=== PATIENT | female | born 1965 | race Caucasian/White ===

== ENCOUNTER 2021-12-02 04:13 | Inpatient (IN) ==
[2021-12-02] MEDS ORDERED: ALBUT/IPRATROP 3MG/0.5MG NEB 3 ML VIAL NEB STA (04:33)
[2021-12-02] MEDS ORDERED: SODIUM CHLORIDE 0.9% 1000ML 1,000 ML IV ONE (04:33)
[2021-12-02] MEDS ORDERED: KETOROLAC TROMETHAMINE 15 MG/ML VIAL IV ONE (04:33)
[2021-12-02 04:52] LABS: Basophils # (auto) 0.02 K/uL (0-0.2); Basophils % (auto) 0.1 %; Eosinophils # (auto) 0.23 K/uL (0-0.5); Eosinophils % (auto) 1.6 %; Hematocrit (blood only) 41.1 % (37-47); Hemoglobin 13.4 g/dL (12.0-16.0); Immature Granulocytes # (auto) 0.04 K/uL (0.00-0.02); Immature Granulocytes % (auto) 0.3 %; Lymphocytes # (auto) 2.35 K/uL (1.2-3.4); Lymphocytes % (auto) 16.6 %; Mean Corpuscular Hemoglobin 29.7 pg (25-34); Mean Corpuscular Hgb Conc 32.6 g/dL (32-36); Mean Corpuscular Volume 91.1 fL (80-100); Monocytes # (auto) 0.93 K/uL (0.11-0.59); Monocytes % (auto) 6.6 %; Neutrophils # (auto) 10.56 K/uL (1.4-6.5); Neutrophils % (auto) 74.8 %; Platelet Count 159 K/uL (130-400); RDW Coefficient of Variation 13.8 % (11.5-14.5); RDW Standard Deviation 45.6 fL (36.4-46.3); Red Blood Count 4.51 M/uL (4.2-5.4); White Blood Count 14.13 K/uL (4.8-10.8)
[2021-12-02 05:08] LABS: Albumin Globulin Ratio 1.2 (0.9-2); Albumin Level 3.7 gm/dl (3.4-5.0); BUN Creatinine Ratio 14.3 (10-20); Bilirubin,Total 0.4 mg/dl (0.2-1.0); Creatinine Clr Calc Pharmacy 85.1 ml/min; Est GFR (African American) 80.6 ml/min; Est GFR (Non-African American) 69.5 ml/min; Globulin 3.1 gm/dl (2.5-4.0); Magnesium 1.9 mg/dl (1.7-2.4); Potassium 3.4 mmol/L (3.5-5.1); Total Protein 6.8 gm/dl (6.0-8.3)
[2021-12-02 05:38] LABS: Influenza A virus by PCR Negative (Neg); Influenza B virus by PCR Negative (Neg); RSV by PCR Negative (Neg); SARS CoV2 RNA(COVID-19) InHosp NEGATIVE (Negative)
[2021-12-02] MEDS ORDERED: cefTRIAXone SODIUM 2,000 MG/70 ML BAG IV STA (05:48)
[2021-12-02] MEDS ORDERED: POTASSIUM CHLORIDE CRTAB 20 MEQ TABCR PO STA (06:17)
[2021-12-02] MEDS ORDERED: LACTATED RINGER'S 1,000 ML IV ONE (06:21)
[2021-12-02] MEDS ORDERED: MAGNESIUM SULFATE / D5W 1 GM/100 ML BAG IV ONE (06:30)
[2021-12-02] MEDS ORDERED: OPTIRAY 320 125ml IV ONE (06:32)
--- NOTE | 2021-12-02 06:39 | History & Physical Report ---
Date of Service December 02, 2021 Assessment & Plan (1) Sepsis: Plan: Possible aspiration pneumonitis Rule out pulmonary embolism COPD exacerbation secondary to above hypertension, slightly elevated hyperlipidemia, on statin Rx hx TIA on Plavix DM2 on oral medications, well-controlled as of recent hemoglobin A1c of 6.8. September 2021 mood disorder, at baseline Hypokalemia ongoing tobacco abuse Medical telemetry CS, Unasyn Aspiration precautions, swallow eval Steroid course, nebs RTC Follow CT chest angio results Replace potassium Basal insulin, ISS BG goal 1 10-1 40, carb count coverage Nicotine patch as needed DVT prophylaxis. Lovenox subcu Full code Text document was generated using [employer] voice recognition software. It may contain grammatical or spelling errors. Kindly contact undersigned for clarification of any documentation item in ques tion. History of Present Illness Chief Complaint: Cough, shortness of breath Primary Care Provider: Evaristo Barron MD History obtained from patient and records. Medical history significant for COPD, hypertension, hyperlipidemia, TIA, DM2 on oral medications, mood disorder, ongoing tobacco abuse. Last confinement September 2021 for community-acquired pneumonia. Patient discharged on cefpodoxime and azithromycin course. Symptoms improved. 3 days history of junky cough symptoms productive of yellow sputum, worsening shortness of breath with chest pain from coughing. No known recent sick contacts. Patient completed COVID-19 vaccination. Admits to coughing with meals/water intake if not careful. No fluid retention. Ceftriaxone given at the ER for sepsis. Medical History as above Surgical History : section, BTL, dental surgery Family History : Breast cancer, dementia, DM, heart disease Personal/Social history : Half pack daily, no EtOH intake, disabled Allergies Allergy/AdvReac Type Severity Reaction Status Date / Time aspirin Allergy Unknown CONTRAINDICATED Verified 12/02/21 06:42 WITH ASTHMA Home Medications Medication Instructions Recorded Confirmed Type ipratropium 20 mcg-albuterol 100 1 puff INHALATION BID 05/08/21 12/02/21 History mcg/actuation mist for inhalation (Combivent Respimat) metformin 500 mg tablet 500 mg PO BIDM 05/08/21 12/02/21 History montelukast 10 mg tablet 10 mg PO DAILY@1200 05/08/21 12/02/21 History multivitamin 1 tab PO QAM 05/08/21 12/02/21 History omeprazole 20 mg capsule,delayed 20 mg PO QAM 05/08/21 12/02/21 History release oxybutynin chloride 10 mg 10 mg PO QAM 05/08/21 12/02/21 History tablet,extended release 24 hr rosuvastatin 20 mg tablet 20 mg PO QAM 05/08/21 12/02/21 History sertraline 100 mg tablet 100 mg PO QAM 05/08/21 12/02/21 History vitamin B complex 1 tab PO QAM 05/08/21 12/02/21 History Lactobacillus acidophilus 10 10,000 mmu cells PO QAM 10/27/21 12/02/21 History billion cell capsule (Probiotic) clopidogrel 75 mg tablet 75 mg PO QAM 10/27/21 12/02/21 History dicyclomine 20 mg tablet 20 mg PO QID PRN 10/27/21 12/02/21 History gabapentin 300 mg capsule 300 mg PO TID 10/27/21 12/02/21 History glucosamine-chondroitin 250 mg-200 1 tab PO QAM 10/27/21 12/02/21 History mg tablet (Osteo Bi-Flex) hydroxyzine HCl 50 mg tablet 50 mg PO Q6H PRN 10/27/21 12/02/21 History meloxicam 15 mg tablet 15 mg PO QAM 10/27/21 12/02/21 History lisinopril 5 mg tablet (Zestril) 5 mg PO QAM #30 tab 10/28/21 12/02/21 Rx acetaminophen 500 mg tablet 1,000 mg PO TID 12/02/21 12/02/21 History cholecalciferol (vitamin D3) 125 125 mcg PO QAM 12/02/21 12/02/21 History mcg (5,000 unit) tablet (Vitamin D3) vitamin E 1,000 unit capsule 1,000 unit PO QAM 12/02/21 12/02/21 History Past Med/Surg History Medical History Chest pain Social History Smoking Status: Current every day smoker Tobacco Type: Cigarettes Cigarettes Per Day: 1/2 ppd; Hx Alcohol Use: No Hx Substance Use: No Communication Ability: Effective Beliefs That Will Affect Care: None marital status: Current Living Situation: Family Current Living Situation Comment: home with daughter Feels Safe at Home: Yes Assistive Devices: Cane, Walker and Wheelchair Review of Systems Review of Systems: As per HPI, all other systems reviewed and negative Physical Exam Physical Exam: GENERAL: Slightly uncomfortable, morbidly obese, dysphonic, no respiratory distress SKIN: Normal color, warm HEENT: Bespectacled, [place] palpebral conjunctivae, no ptosis, dry buccal mucosa NECK : Supple, short neck, no tenderness CHEST : Decreased breath sounds, expiratory wheezes, no tenderness HEART : Tachycardic, no obvious murmurs ABDOMEN: Some distention, nontender EXTREMITIES : Minimal LE swelling, no LE tenderness, no other conspicuous deformities noted NEUROLOGIC : Coherent, no facial asymmetry, no other gross focality Results & Data Results & Data ([facility]) Vital Signs (Past 12 Hours) Vital Signs Temp Pulse Resp BP Pulse Ox 12/02/21 04:46 93 12/02/21 04:16 37.9 C H 107 H 20 151/95 H 93 Laboratory Results Laboratory Results WBC 14.13 K/uL (4.8-10.8) H 12/02/21 04:35 RBC 4.51 M/uL (4.2-5.4) 12/02/21 04:35 Hgb 13.4 g/dL (12.0-16.0) 12/02/21 04:35 Hct 41.1 % (37-47) 12/02/21 04:35 MCV 91.1 fL (80-100) 12/02/21 04:35 MCH 29.7 pg (25-34) 12/02/21 04:35 MCHC 32.6 g/dL (32-36) 12/02/21 04:35 RDW Std Deviation 45.6 fL (36.4-46.3) 12/02/21 04:35 RDW Coeff of Xiomara 13.8 % (11.5-14.5) 12/02/21 04:35 Plt Count 159 K/uL (130-400) 12/02/21 04:35 MPV 11.0 fL (7.4-10.4) H 12/02/21 04:35 Immature Gran % (Auto) 0.3 % 12/02/21 04:35 Neut % (Auto) 74.8 % 12/02/21 04:35 Lymph % (Auto) 16.6 % 12/02/21 04:35 [place] % (Auto) 6.6 % 12/02/21 04:35 Eos % (Auto) 1.6 % 12/02/21 04:35 Baso % (Auto) 0.1 % 12/02/21 04:35 Neut # (Auto) 10.56 K/uL (1.4-6.5) H 12/02/21 04:35 Lymph # (Auto) 2.35 K/uL (1.2-3.4) 12/02/21 04:35 [place] # (Auto) 0.93 K/uL (0.11-0.59) H 12/02/21 04:35 Eos # (Auto) 0.23 K/uL (0-0.5) 12/02/21 04:35 Baso # (Auto) 0.02 K/uL (0-0.2) 12/02/21 04:35 Immature Gran # (Auto) 0.04 K/uL (0.00-0.02) H 12/02/21 04:35 Sodium 138 mmol/L (136-145) 12/02/21 04:35 Potassium 3.4 mmol/L (3.5-5.1) L 12/02/21 04:35 Chloride 105 mmol/L (98-107) 12/02/21 04:35 Carbon Dioxide 27 mmol/L (21-32) 12/02/21 04:35 Anion Gap 6 (3-11) 12/02/21 04:35 BUN 13 mg/dl (6-23) 12/02/21 04:35 Creatinine 0.91 mg/dl (0.6-1.2) 12/02/21 04:35 Est Cr Clr Drug Dosing 85.1 ml/min 12/02/21 04:35 Est GFR ( Amer) 80.6 ml/min 12/02/21 04:35 Est GFR (Non-Af Amer) 69.5 ml/min 12/02/21 04:35 BUN/Creatinine Ratio 14.3 (10-20) 12/02/21 04:35 Glucose 163 mg/dl (70-99(Fasting)) H 12/02/21 04:35 Lactate 1.3 mmol/L (0.4-2.0) 12/02/21 04:35 Calcium 9.0 mg/dl (8.5-10.1) 12/02/21 04:35 Magnesium 1.9 mg/dl (1.7-2.4) 12/02/21 04:35 Total Bilirubin 0.4 mg/dl (0.2-1.0) 12/02/21 04:35 AST 23 U/L (13-39) 12/02/21 04:35 ALT 24 U/L (7-52) 12/02/21 04:35 Alkaline Phosphatase 89 U/L (34-104) 12/02/21 04:35 Total Protein 6.8 gm/dl (6.0-8.3) 12/02/21 04:35 Albumin 3.7 gm/dl (3.4-5.0) 12/02/21 04:35 Globulin 3.1 gm/dl (2.5-4.0) 12/02/21 04:35 Albumin/Globulin Ratio 1.2 (0.9-2) 12/02/21 04:35 Procalcitonin 0.09 ng/ml (0-0.5) 12/02/21 04:35 SARS-CoV-2 (PCR) NEGATIVE (Negative) 12/02/21 04:35 Influenza Type A (PCR) Negative (Neg) 12/02/21 04:35 Influenza Type B (PCR) Negative (Neg) 12/02/21 04:35 RSV (RT-PCR) Negative (Neg) 12/02/21 04:35 Diagnostic Findings Chest x-ray as per my interpretation interstitial infiltrates EKG as per my interpretation : Rate 105, sinus tachycardia, LAD, LAFB, incomplete RBBB, T wave abnormalities inferior leads
[2021-12-02] MEDS ORDERED: AMPICILLIN/SULBACTAM SOD 3,000 MG in 0.9 % SODIUM CHLORIDE 100 ML IV STA (06:40)
[2021-12-02] MEDS ORDERED: methylPREDNISolone 40 MG in SYRINGE 0 ML IV STA (06:44)
[2021-12-02] MEDS ORDERED: INSULIN GLARGINE SOLOSTAR 100 UNITS/ML 3 ML PEN SC STA (06:45)
--- NOTE | 2021-12-02 06:49 | Emergency Department Note ---
History of Present Illness General Chief complaint: Illness Stated complaint: illness Time Seen by Provider: 12/02/21 04:23 History of Present Illness Maximum Pain Intensity: 5 This 56-year-old female patient presents to the emergency department today for evaluation of fever, cough, congestion, sore throat, shortness of breath. Symptoms have been ongoing for 3 days. They worsened suddenly overnight, prompting her to contact the ambulance and come to the emergency department for evaluation. The patient is uncertain of how high her fever has gone. She did take 1000 mg acetaminophen about 1 hour prior to arrival. The patient does have a history of asthma and states she has been taking all of her medications, but despite her medications and inhalers, she continues to experience the shortness of breath. No chest pain. No abdominal pain, nausea, vomiting. No constipation or diarrhea. She rates her generalized discomfort a 5/10 and describes it as aching. Home Medications Medication Instructions Recorded Confirmed Type ipratropium 20 mcg-albuterol 100 1 puff INHALATION BID 05/08/21 10/27/21 History mcg/actuation mist for inhalation (Combivent Respimat) metformin 500 mg tablet 500 mg PO BIDM 05/08/21 10/27/21 History montelukast 10 mg tablet 10 mg PO DAILY 05/08/21 10/27/21 History multivitamin 1 tab PO DAILY 05/08/21 10/27/21 History omeprazole 20 mg capsule,delayed 20 mg PO DAILY 05/08/21 10/27/21 History release oxybutynin chloride 10 mg 10 mg PO DAILY 05/08/21 10/27/21 History tablet,extended release 24 hr rosuvastatin 20 mg tablet 20 mg PO DAILY 05/08/21 10/27/21 History sertraline 100 mg tablet 100 mg PO DAILY 05/08/21 10/27/21 History vitamin B complex 1 tab PO DAILY 05/08/21 10/27/21 History Lactobacillus acidophilus 10 10,000 mmu cells PO DAILY 10/27/21 10/27/21 History billion cell capsule (Probiotic) clopidogrel 75 mg tablet 75 mg PO DAILY 10/27/21 10/27/21 History dicyclomine 20 mg tablet 20 mg PO QID PRN 10/27/21 10/27/21 History gabapentin 300 mg capsule 300 mg PO HS 10/27/21 10/27/21 History glucosamine-chondroitin 250 mg-200 1 tab PO DAILY 10/27/21 10/27/21 History mg tablet (Osteo Bi-Flex) hydroxyzine HCl 50 mg tablet 50 mg PO Q6H PRN 10/27/21 10/27/21 History meloxicam 15 mg tablet 15 mg PO DAILY 10/27/21 10/27/21 History lisinopril 5 mg tablet (Zestril) 5 mg PO QAM #30 tab 10/28/21 Rx acetaminophen 500 mg tablet 1,000 mg PO TID 12/02/21 12/02/21 History cholecalciferol (vitamin D3) 125 125 mcg PO QAM 12/02/21 12/02/21 History mcg (5,000 unit) tablet (Vitamin D3) vitamin E 1,000 unit capsule 1,000 unit PO QAM 12/02/21 12/02/21 History Allergies Allergy/AdvReac Type Severity Reaction Status Date / Time aspirin Allergy Unknown CONTRAINDICATED Verified 12/02/21 06:42 WITH ASTHMA Past Med/Surg History Medical History Chest pain Social History Smoking Status: Current every day smoker Tobacco Type: Cigarettes Cigarettes Per Day: 1/2 ppd; Hx Alcohol Use: No Hx Substance Use: No Communication Ability: Effective Beliefs That Will Affect Care: None marital status: Current Living Situation: Family Current Living Situation Comment: home with daughter Feels Safe at Home: Yes Assistive Devices: Cane, Walker and Wheelchair Review of Systems A total of 10 systems reviewed and were otherwise negative Physical Exam Vital Signs Vital Signs - 24 hr 12/02/21 04:16 12/02/21 04:46 Temperature 37.9 C H Temperature Source Oral Pulse Rate 107 H Respiratory Rate 20 Respiratory Effort / Characteristics Non-Labored Respiratory Depth Normal Respiratory Pattern Regular Blood Pressure 151/95 H Blood Pressure Mean 113 Blood Pressure Position Lying Pulse Oximetry 93 93 Oxygen Delivery Method Room Air Room Air Sepsis Recent Fever Within 48 Hours Yes Sepsis New/Unexplained Change in Mental Status No Sepsis Action Taken by Nursing No Action Required VITALS: Vitals are noted on the nurse's note and reviewed by myself. Vital signs stable. GENERAL: This is a 56-year-old obese white female, in no acute distress, nondiaphoretic, well-developed well-nourished. SKIN: The skin was without rashes, erythema, edema, or bruising. There is no tenting of the skin. Capillary refill less than 2 seconds. HEAD: Normocephalic atraumatic. EARS: External auditory canals clear, tympanic membranes pearly dunaway without erythema or effusion bilaterally. EYES: Pupils equal round and reactive to light and accommodation. Conjunctivae without injection, sclerae without icterus. Extraocular movements intact. NOSE: Patent, turbinates without inflammation or discharge. No sinus tenderness. MOUTH: Mucous membranes moist. Tonsils are not enlarged. Pharynx without erythema or exudate. Uvula midline. Airway patent. Tongue does not deviate. NECK: Supple without nuchal rigidity. No lymphadenopathy. No thyromegaly. Cervical spine is nontender. No JVD. HEART: Regular rate and rhythm without murmurs gallops or rubs. LUNGS: Diffuse wheezing, left greater than right. No retractions or accessory muscle use. ABDOMEN: Positive bowel sounds x 4. Normal tympanic percussion. Soft, nonten lopez, without masses or organomegaly. [place] sign negative. No guarding or rebound tenderness. MUSCULOSKELETAL: No muscle atrophy, erythema, or edema noted. Full range of motion without joint tenderness in all extremities. No tenderness to palpation. Normal gait. Strength 5/5 throughout. NEURO: Patient was alert and oriented to person place and time. No focal neurological deficits. Course Course The patient was seen and evaluated as above. An order was placed for continuous cardiac monitoring. The monitor shows a sinus tachycardia at a rate of 107 bpm. IV access obtained, labs drawn. Patient hydrated with IV fluids and medicated with DuoNeb treatment and Toradol X-ray imaging performed and reviewed by myself as noted. Labs reviewed by myself. I discussed the findings with the patient at bedside. She was reassessed. She notes some improvement after the DuoNeb treatment, but states the wheezing seemed to return. Her O2 saturation is around 89 to 90% on room air at rest. She does note some difficulty breathing with sleeping and suspect sleep apnea but has not been formally diagnosed. I did recommend admission given my concern for pneumonia, right middle lobe infiltrate. The patient was agreeable. Did also recommend CT imaging to further evaluate the lung in the setting of persistent tachycardia and borderline hypoxia. Patient was medicated with IV Rocephin I discussed the case with my attending. I discussed the case with the network manager Discussed the case with Dr. Webber, [facility] Hospitalist physician. He did agree to see and evaluate the patient. Administered Medications Magnesium Sulfate/Dextrose (Magnesium Sulfate / D5w) 1 gm in 100 mls @ 50 mls/hr IV ONE ONE Stop: 12/02/21 08:29 Last Admin: 12/02/21 06:44 Dose: 50 mls/hr Documented by: [id number] Lactated Ringer's (Lr) 1,000 mls @ 60 mls/hr IV .[id number] ONE Stop: 12/02/21 23:00 Last Admin: 12/02/21 06:40 Dose: 60 mls/hr Documented by: [id number] Discontinued Medications Albuterol (Albut/Ipratrop 3mg/0.5mg Neb 3 Ml Vial) 3 ml NEB NOW STA; Protocol Stop: 12/02/21 04:34 Last Admin: 12/02/21 04:56 Dose: 3 ml Documented by: [id number] Sodium Chloride (Nss 1000ml) 1,000 mls @ 999 mls/hr IV .[id number] ONE Stop: 12/02/21 05:33 Last Infusion: 12/02/21 06:41 Dose: 0 mls/hr Documented by: [id number] Admin: 12/02/21 04:57 Dose: 999 mls/hr Documented by: [id number] Ceftriaxone Sodium (Rocephin) 2,000 mg in 70 mls @ 140 mls/hr IV NOW STA Stop: 12/02/21 06:17 Last Infusion: 12/02/21 06:42 Dose: 0 mls/hr Documented by: [id number] Admin: 12/02/21 06:01 Dose: 140 mls/hr Documented by: [id number] Ioversol (Optiray 320 125ml) 125 ml IV ONCE ONE Stop: 12/02/21 06:33 Last Admin: 12/02/21 06:33 Dose: 118 ml Documented by: [id number] Ketorolac Tromethamine (Ketorolac Tromethamine 15 Mg/Ml Vial) 10 mg IV NOW ONE Stop: 12/02/21 04:34 Last Admin: 12/02/21 04:56 Dose: 10 mg Documented by: [id number] Potassium Chloride (Potassium Chloride Crtab 20 Meq Tabcr) 40 meq PO NOW STA Stop: 12/02/21 06:18 Last Admin: 12/02/21 06:40 Dose: 40 meq Documented by: [id number] Medical Decision Making Differential Diagnosis Viral syndrome, otitis, pharyngitis, pneumonia, influenza, meningitis, urinary tract infection, sepsis, bacteremia, as well as other pathologies. Medical Records Attestation: I reviewed the patient's medical records. Home Medications Current Medication List: was personally reviewed by me Laboratory Data Leukocytosis of 14,000. No anemia or thrombocytopenia. Renal, hepatic function and electrolytes without significant abnormality. Lactic acid 1.3. Procalcitonin 0.09. Influenza, COVID-19, RSV testing negative. Blood cultures are pending Result diagrams: 12/02/21 04:35 12/02/21 04:35 Lab Results 12/02/21 12/02/21 12/02/21 Range/Units 04:35 04:35 04:35 WBC 14.13 H (4.8-10.8) K/uL RBC 4.51 (4.2-5.4) M/uL Hgb 13.4 (12.0-16.0) g/dL Hct 41.1 (37-47) % MCV 91.1 (80-100) fL MCH 29.7 (25-34) pg MCHC 32.6 (32-36) g/dL RDW Std Deviation 45.6 (36.4-46.3) fL RDW Coeff of Xiomara 13.8 (11.5-14.5) % Plt Count 159 (130-400) K/uL MPV 11.0 H (7.4-10.4) fL Immature Gran % (Auto) 0.3 % Neut % (Auto) 74.8 % Lymph % (Auto) 16.6 % [place] % (Auto) 6.6 % Eos % (Auto) 1.6 % Baso % (Auto) 0.1 % Neut # (Auto) 10.56 H (1.4-6.5) K/uL Lymph # (Auto) 2.35 (1.2-3.4) K/uL [place] # (Auto) 0.93 H (0.11-0.59) K/uL Eos # (Auto) 0.23 (0-0.5) K/uL Baso # (Auto) 0.02 (0-0.2) K/uL Immature Gran # (Auto) 0.04 H (0.00-0.02) K/uL Sodium 138 (136-145) mmol/L Potassium 3.4 L (3.5-5.1) mmol/L Chloride 105 (98-107) mmol/L Carbon Dioxide 27 (21-32) mmol/L Anion Gap 6 (3-11) BUN 13 (6-23) mg/dl Creatinine 0.91 (0.6-1.2) mg/dl Est Cr Clr Drug Dosing 85.1 ml/min Est GFR ( Amer) 80.6 ml/min Est GFR (Non-Af Amer) 69.5 ml/min BUN/Creatinine Ratio 14.3 (10-20) Glucose 163 H (70-99(Fasting)) mg/dl Lactate 1.3 (0.4-2.0) mmol/L Calcium 9.0 (8.5-10.1) mg/dl Magnesium 1.9 (1.7-2.4) mg/dl Total Bilirubin 0.4 (0.2-1.0) mg/dl AST 23 (13-39) U/L ALT 24 (7-52) U/L Alkaline Phosphatase 89 (34-104) U/L Total Protein 6.8 (6.0-8.3) gm/dl Albumin 3.7 (3.4-5.0) gm/dl Globulin 3.1 (2.5-4.0) gm/dl Albumin/Globulin Ratio 1.2 (0.9-2) Procalcitonin (0-0.5) ng/ml SARS-CoV-2 (PCR) (Negative) Influenza Type A (PCR) (Neg) Influenza Type B (PCR) (Neg) RSV (RT-PCR) (Neg) 12/02/21 12/02/21 Range/Units 04:35 04:35 WBC (4.8-10.8) K/uL RBC (4.2-5.4) M/uL Hgb (12.0-16.0) g/dL Hct (37-47) % MCV (80-100) fL MCH (25-34) pg MCHC (32-36) g/dL RDW Std Deviation (36.4-46.3) fL RDW Coeff of Xiomara (11.5-14.5) % Plt Count (130-400) K/uL MPV (7.4-10.4) fL Immature Gran % (Auto) % Neut % (Auto) % Lymph % (Auto) % [place] % (Auto) % Eos % (Auto) % Baso % (Auto) % Neut # (Auto) (1.4-6.5) K/uL Lymph # (Auto) (1.2-3.4) K/uL [place] # (Auto) (0.11-0.59) K/uL Eos # (Auto) (0-0.5) K/uL Baso # (Auto) (0-0.2) K/uL Immature Gran # (Auto) (0.00-0.02) K/uL Sodium (136-145) mmol/L Potassium (3.5-5.1) mmol/L Chloride (98-107) mmol/L Carbon Dioxide (21-32) mmol/L Anion Gap (3-11) BUN (6-23) mg/dl Creatinine (0.6-1.2) mg/dl Est Cr Clr Drug Dosing ml/min Est GFR ( Amer) ml/min Est GFR (Non-Af Amer) ml/min BUN/Creatinine Ratio (10-20) Glucose (70-99(Fasting)) mg/dl Lactate (0.4-2.0) mmol/L Calcium (8.5-10.1) mg/dl Magnesium (1.7-2.4) mg/dl Total Bilirubin (0.2-1.0) mg/dl AST (13-39) U/L ALT (7-52) U/L Alkaline Phosphatase (34-104) U/L Total Protein (6.0-8.3) gm/dl Albumin (3.4-5.0) gm/dl Globulin (2.5-4.0) gm/dl Albumin/Globulin Ratio (0.9-2) Procalcitonin 0.09 (0-0.5) ng/ml SARS-CoV-2 (PCR) NEGATIVE (Negative) Influenza Type A (PCR) Negative (Neg) Influenza Type B (PCR) Negative (Neg) RSV (RT-PCR) Negative (Neg) Imaging Data My Impression: Chest x-ray, reviewed by myself: Concern for right medial lung base infiltrate ECG Data Attestation: I personally reviewed and interpreted this ECG as follows: Indication: + SOB/dyspnea Rate (beats per minute): 101 Rhythm: + sinus tachycardia ECG Intervals/blocks: + Incomplete right bundle branch block ECG ST segments: no ST depression, no ST elevation or no T-wave inversions Comparison ECG Date: from (10/28/2021) Change: no significant change Blood Pressure Blood Pressure Findings: Normal blood pressure MDM Narrative This 56-year-old female patient presents to the emergency department today for evaluation of shortness of breath, congestion, and fever. Work-up here in the ED concerning for pneumonia. The patient does have a leukocytosis of 14,000. Her O2 saturation is between 89 and 94% on room air. She was febrile upon arrival. She remained persistently tachycardic. Given the symptoms, CT imaging performed to further evaluate the lungs. This is pending at the time of admission. The patient was started on antibiotics. She was hydrated and given a breathing treatment. Her symptoms did somewhat improve, but did not completely resolve. She will be admitted to the [facility] service. Please see their dictation regarding ongoing management care of this patient The chart was completed utilizing [employer] voice recognition software. Grammatical errors, random word insertions, pronoun errors, and incomplete sentences are an occasional consequence of this system due to software limitations, ambient noise, and hardware issues. Any formal questions or concerns about the content, text, or information contained within the body of this dictation should be directly addressed to the provider for clarification. Impression & Plan Pneumonia, Fever, Tachycardia, Shortness of breath Discharge Plan Visit Data Chief Complaint: Illness Stated Complaint: illness ED Provider: Nuha Miller ED Midlevel Provider: Katya Elizondo Discharge Problem: Pneumonia, Fever, Tachycardia, Shortness of breath Patient Disposition: Admitted As Inpatient Condition: Good Forms Stand Alone Forms: My [facility], [facility] Emergency [facility], I mportant Visit Information Prescriptions Prescriptions: No Action vitamin E 1,000 unit Capsule 1,000 unit PO QAM RF: 0 acetaminophen 500 mg tablet 1,000 mg PO TID RF: 0 cholecalciferol (vitamin D3) [Vitamin D3] 125 mcg (5,000 unit) Tablet 125 mcg PO QAM RF: 0 metformin 500 mg tablet 500 mg PO BIDM RF: 0 oxybutynin chloride 10 mg tablet extended release 24hr 10 mg PO QAM RF: 0 sertraline 100 mg tablet 100 mg PO QAM RF: 0 omeprazole 20 mg capsule,delayed release(DR/EC) 20 mg PO QAM RF: 0 montelukast 10 mg tablet 10 mg PO DAILY@1200 RF: 0 rosuvastatin 20 mg tablet 20 mg PO QAM RF: 0 Combivent Respimat 20-100 mcg/actuation mist 1 puff INHALATION BID RF: 0 multivitamin Tablet 1 tab PO QAM RF: 0 vitamin B complex Tablet 1 tab PO QAM RF: 0 meloxicam 15 mg tablet 15 mg PO QAM RF: 0 hydroxyzine HCl 50 mg tablet 50 mg PO Q6H PRN (Reason: Anxiety) RF: 0 clopidogrel 75 mg tablet 75 mg PO QAM RF: 0 dicyclomine 20 mg tablet 20 mg PO QID PRN (Reason: ABD PAIN) RF: 0 gabapentin 300 mg capsule 300 mg PO TID RF: 0 glucosamine-chondroitin [Osteo Bi-Flex] 250-200 mg Tablet 1 tab PO QAM RF: 0 Probiotic 10 billion cell Capsule 10,000 mmu cells PO QAM RF: 0 lisinopril [Zestril] 5 mg Tablet 5 mg PO QAM Qty: 30 RF: 0 Referrals Referrals: Evaristo Barron MD [Primary Care Provider] - Discharge Problem: Pneumonia Qualifiers: Pneumonia type: due to unspecified organism Laterality: right Lung location: lower lobe of lung Qualified Code(s): J18.9 - Pneumonia, unspecified organism Fever Qualifiers: Fever type: unspecified Qualified Code(s): R50.9 - Fever, unspecified
[2021-12-02] MEDS ORDERED: lisinopril 2.5 MG TAB PO ONE (06:50)
--- NOTE | 2021-12-02 07:53 | XRay Report ---
XR chest 1V portable HISTORY: cough COMPARISON: Chest 10/27/2021. FINDINGS: There is a small patchy left upper lobe airspace opacity. There is mild diffuse interstitia l thickening, unchanged. No pneumothorax. No pleural effusions. The heart is top normal in size. IMPRESSION: 1. Small patchy left upper lobe airspace opacity. This likely represents a pneumonia. 2. Stable chronic interstitial thickening. ACT 112: Negative or not required by law. Electronically signed by: Garett Doan M.D. 12/02/2021 7:52 AM
--- NOTE | 2021-12-02 07:53 | CT Scan Report ---
CHEST CTA for PULMONARY ARTERIES CT DOSE: 829.89 mGy.cm HISTORY: Tachycardia. Shortness of breath. TECHNIQUE: Multiaxial CT images of the chest were performed following the intravenous administration of contrast to evaluate the pulmonary arteries. Maximal intensity projection images were also obtaine d. A dose lowering technique was utilized adhering to the principles of ALARA. COMPARISON STUDY: None. FINDINGS: Limited views the upper abdomen demonstrate a normal spleen and left adrenal gland. The rig ht adrenal gland is not identified. There is a partially visualized hypodense lesion within the left upper quadrant measuring 2.7 cm. This favors a renal cyst. Hepatic steatosis. No significant pericard ial effusion. No pleural effusions. The thyroid gland enhances normally. Mediastinal and bilateral hi lar lymph nodes measure subcentimeter in short axis diameter. Therefore, these do not meet CT criteri a for pathologic involvement. No acute fractures within the visualized osseous structures. No pneumot horax. Mild diffuse bronchial wall thickening with partial opacities of the distal right lower lobe b ronchi. A few bibasilar linear densities may represent atelectasis. There are few scattered small pablo undglass airspace opacities seen within the lungs. This most pronounced within the upper lobes. There are also a few scattered tree-in-bud nodular opacities seen within the lungs. Findings favor a low-g rade viral pneumonitis and/or infectious bronchiolitis. There are 2 similar-appearing subpleural nodu les within the left upper lobe posteriorly on images 204 217. These measure 7 mm. There is a 4 mm nod ule within the right middle lobe abutting the minor fissure on image 122. Normal caliber thoracic aor ta with no evidence for dissection. Since a nondiagnostic evaluation of the bilateral lower lobe and right middle lobe pulmonary arteries due to the timing of contrast. The remaining pulmonary arteries show no filling defects to suggest a pulmonary embolus. IMPRESSION: 1. No evidence for pulmonary embolus with limitations as described above. 2. There are few scattered small groundglass airspace opacities seen within the lungs. There are also a few scattered tree-in-bud nodular opacities seen within the lungs. Findings favor a low-grade blu l pneumonitis and/or infectious bronchiolitis. 3. A few scattered subcentimeter pulmonary nodules with the largest measuring 7 mm. Please refer to t he chart below for recommended follow-up. Please refer to below summary of Fleischner criteria recommendations for follow-up of incidental CT n odules (Guillermo Awad, Guidelines for management of small pulmonary nodules detected on CT scans: A luiz rosales from the Fleischner Society, Radiology 237: [phone].) SOLID NODULES Solitary nodule size: <6 mm * Low risk patients: no follow-up needed * high risk patients: optional CT at 12 months Solitary nodule size: 6-8 mm * Low risk patients: follow-up at 6-12 months, then consider further follow-up at 18-24 months * high risk patients: initial follow-up CT at 6-12 months and then at 18-24 months if no change Solitary nodule size: >8 mm * either low or high risk patients - consider follow-up CT at 3 months, and/or CT-PET, and/or biopsy Multiple nodules size: <6 mm * Low risk patients: no routine follow-up * high risk patients: optional CT at 12 months Multiple nodules size: 6-8 mm * Low risk patients: follow-up at 3-6 months, then consider further follow-up at 18-24 months * high risk patients: follow-up at 3-6 months, then at 18-24 months if no change Multiple nodules size: >8 mm * Low risk patients: follow-up at 3-6 months, then consider further follow-up at 18-24 months * high risk patients: follow-up at 3-6 months, then at 18-24 months if no change Note: newly detected indeterminate nodule in persons 35 years of age or older. * Low risk patients: minimal or absent history of smoking and/or other known risk factors * high risk patients: history of smoking or of other known risk factors (e.g. first degree relative with lung cancer, or exposure to asbestos, radon, uranium) * if a nodule up to 8 mm is partly solid or is ground glass further follow-up is required after 24 m onths to exclude possible slow growing adenocarcinoma (LINYD) SUBSOLID NODULES Solitary pure ground-glass nodule * nodule size <6 mm - no CT follow-up required * nodule size >=6 mm - follow-up CT at 6-12 months, then every 2 years until 5 years Solitary part-solid nodule * nodule size <6 mm - no CT follow-up required * nodule size >=6 mm - follow-up CT at 3-6 months. If unchanged, and solid component remains <6 mm, then annual follow-up for 5 years Multiple subsolid nodules * nodule size <6 mm - follow-up CT at 3-6 months, consider further follow-up at 2 and 4 years if sta ble * nodule size >=6 mm - follow-up CT at 3-6 months, subsequent management based on the most suspiciou s nodule(s) ACT 112: Negative or not required by law. Electronically signed by: Garett Doan M.D. 12/02/2021 7:51 AM
[2021-12-02] MEDS ORDERED: GLUCAGON FOR INJ 1 MG VIAL SQ PRN (08:22)
[2021-12-02] MEDS ORDERED: DEXTROSE 50% 50 ML SYRINGE IV PRN (08:22)
[2021-12-02] MEDS ORDERED: IPRATROPIUM BROMIDE NEB SOLN 0.02% 2.5 ML VIAL INH SCH (08:22)
[2021-12-02] MEDS ORDERED: XOPENEX/ATROVENT 1.25mg/0.5MG NEB COMBO NEB SCH (08:22)
[2021-12-02] MEDS ORDERED: GLUCOSE 40% GEL 15 GM TUBE PO PRN (08:22)
[2021-12-02] MEDS ORDERED: CARBOHYDRATES FOR HYPOGLYCEMIA PO PRN (08:22)
[2021-12-02] MEDS ORDERED: LEVALBUTEROL 1.25MG/0.5ML NEB INH SCH (08:22)
[2021-12-02] MEDS ORDERED: GLUCOSE 10 TABS/TUBE PO PRN (08:22)
[2021-12-02] MEDS ORDERED: POTASSIUM CHLORIDE CRTAB 20 MEQ TABCR PO ONE (08:30)
[2021-12-02] MEDS ORDERED: CONSULT PHARMACY SCH (09:00)
[2021-12-02] MEDS: INSULIN ASPART PER UNIT SC SCH ×4 (09:32→21:06)
[2021-12-02 11:00] LABS: Appearance Urine Clear (Clear); Bacteria Urine Automated Negative (Negative); Bilirubin Urine Negative (Negative); Blood Urine Negative (Negative); Color Urine Yellow; Epithelial Cell Urine Auto >30 /lpf (0-5); Glucose Urine UA Negative (Negative); Ketones Urine Trace (Negative); Leukocyte Esterase Urine 2+ (Negative); Nitrite Urine Negative (Negative); Protein Urine Negative (Negative); RBC Urine Automated 0-4 /hpf (0-4); Specific Gravity Urine > 1.045 (1.000-1.030); Urobilinogen Urine Negative (Negative); WBC Urine Automated >30 /hpf (0-5)
[2021-12-02] MEDS: SERTRALINE HCL 100 MG TABLET PO SCH (11:21)
[2021-12-02] MEDS: CLOPIDOGREL BISULFATE 75 MG TAB PO SCH (11:21)
[2021-12-02] MEDS: MONTELUKAST SODIUM 10 MG TABLET PO SCH (11:21)
[2021-12-02] MEDS: OXYBUTYNIN CHLORIDE XL 5 MG TABCR PO SCH (11:21)
[2021-12-02] MEDS: ROSUVASTATIN CALCIUM 20 MG TAB PO SCH (11:21)
[2021-12-02] MEDS: ENOXAPARIN INJ 40 MG/0.4 ML SYR SQ SCH ×2 (12:05→23:01)
--- NOTE | 2021-12-02 13:37 | Fluoroscopy Report ---
FL video swallow HISTORY: Pneumonia. r/o aspiration TECHNIQUE: Video fluoroscopic evaluation of swallowing was performed in the AP and lateral projection s by the speech pathology staff. The patient is fed nectar-thick and thin liquid barium, a barium coa nicole wafer, and barium pudding. FLUOROSCOPY TIME: 2 minutes. A cine loop submitted. COMPARISON STUDY: None. FINDINGS: There is normal hyoid excursion and epiglottic deflection. No significant penetration or as piration identified. Swallowing function is within normal limits. IMPRESSION: 1. No aspiration identified. 2. Please see the speech pathologist report for detailed findings and recommendations. ACT 112: Negative or not required by law. Electronically signed by: Garett Doan M.D. 12/02/2021 1:35 PM
[2021-12-02] MEDS: AMPICILLIN/SULBACTAM SOD 3,000 MG in 0.9 % SODIUM CHLORIDE 100 ML IV SCH ×2 (15:00→21:13)
[2021-12-02] MEDS: ACETAMINOPHEN 325 MG TAB PO PRN (18:28)
[2021-12-02] MEDS ORDERED: traZODone HCL 100 MG TAB PO SCH (21:00)
[2021-12-02] MEDS: GABAPENTIN 300 MG CAP PO SCH (23:05)
[2021-12-03] MEDS: AMPICILLIN/SULBACTAM SOD 3,000 MG in 0.9 % SODIUM CHLORIDE 100 ML IV SCH ×4 (01:52→18:05)
[2021-12-03 07:45] LABS: Basophils # (auto) 0.01 K/uL (0-0.2); Basophils % (auto) 0.1 %; Eosinophils # (auto) 0.08 K/uL (0-0.5); Eosinophils % (auto) 0.6 %; Hematocrit (blood only) 42.4 % (37-47); Hemoglobin 13.4 g/dL (12.0-16.0); Immature Granulocytes # (auto) 0.04 K/uL (0.00-0.02); Immature Granulocytes % (auto) 0.3 %; Lymphocytes # (auto) 2.37 K/uL (1.2-3.4); Lymphocytes % (auto) 17.6 %; Mean Corpuscular Hemoglobin 28.9 pg (25-34); Mean Corpuscular Hgb Conc 31.6 g/dL (32-36); Mean Corpuscular Volume 91.6 fL (80-100); Mean Platelet Volume 11.2 fL (7.4-10.4); Monocytes # (auto) 0.95 K/uL (0.11-0.59); Monocytes % (auto) 7.1 %; Neutrophils # (auto) 9.98 K/uL (1.4-6.5); Neutrophils % (auto) 74.3 %; Platelet Count 191 K/uL (130-400); RDW Coefficient of Variation 13.9 % (11.5-14.5); RDW Standard Deviation 46.7 fL (36.4-46.3); Red Blood Count 4.63 M/uL (4.2-5.4); White Blood Count 13.43 K/uL (4.8-10.8)
[2021-12-03] MEDS: INSULIN GLARGINE SOLOSTAR 100 UNITS/ML 3 ML PEN SC SCH (08:28)
[2021-12-03] MEDS: INSULIN ASPART PER UNIT SC SCH ×4 (08:28→21:36)
[2021-12-03 09:13] LABS: BUN Creatinine Ratio 15.7 (10-20); Calcium 9.2 mg/dl (8.5-10.1); Est GFR (African American) 90.1 ml/min; Est GFR (Non-African American) 77.7 ml/min; Potassium 4.2 mmol/L (3.5-5.1)
[2021-12-03] MEDS: ROSUVASTATIN CALCIUM 20 MG TAB PO SCH (09:14)
[2021-12-03] MEDS: OXYBUTYNIN CHLORIDE XL 5 MG TABCR PO SCH (09:14)
[2021-12-03] MEDS: lisinopril 5 MG TAB PO SCH (09:14)
[2021-12-03] MEDS: predniSONE 20 MG TAB PO SCH (09:14)
[2021-12-03] MEDS: MULTIVITAMIN TAB PO SCH (09:14)
[2021-12-03] MEDS: VITAMIN B COMPLEX TAB PO SCH (09:14)
[2021-12-03] MEDS: MONTELUKAST SODIUM 10 MG TABLET PO SCH (09:14)
[2021-12-03] MEDS: PANTOprazole 40 MG TAB PO SCH (09:14)
[2021-12-03] MEDS: SERTRALINE HCL 100 MG TABLET PO SCH (09:14)
[2021-12-03] MEDS: CLOPIDOGREL BISULFATE 75 MG TAB PO SCH (09:14)
[2021-12-03] MEDS: ENOXAPARIN INJ 40 MG/0.4 ML SYR SQ SCH ×2 (09:34→20:24)
--- NOTE | 2021-12-03 11:59 | Electrocardiogram Report ---
Test Reason : Blood Pressure : / mmHG Vent. Rate : 101 BPM Atrial Rate : 101 BPM P-R Int : 144 ms QRS Dur : 102 ms QT Int : 374 ms P-R-T Axes : 039 -53 027 degrees QTc Int : 484 ms Sinus tachycardia Pulmonary disease pattern Incomplete right bundle branch block Left anterior fascicular block Abnormal ECG When compared with ECG of 28-OCT-2021 05:52, Nonspecific T wave abnormality has replaced inverted T waves in Inferior leads Confirmed by Bradley Arora ([id number]) on 12/03/2021 11:59:21 AM Referred By: REFERRED SELF Confirmed By:Bradley Arora
--- NOTE | 2021-12-03 14:05 | Hospitalist Progress Note ---
Date of Service December 03, 2021 Assessment & Plan (1) Sepsis: Plan: Secondary to pneumonia/pneumonitis left upper lobe Possible aspiration pneumonitis-has been ruled out Rule out pulmonary embolism-CT scan of the chest is negative for any pulmonary embolism Has been on Unasyn Will add doxycycline to cover atypicals Has been feeling much better Lung nodules Follow-up as per recommendation Morbid obesity with BMI 43.6 Counseling for diet and weight management COPD exacerbation secondary to above We will continue oral prednisone and bronchodilators as prescribed Feeling a lot better without any wheezing and no shortness of breath at rest Hypertension, slightly elevated Blood pressure seems to be controlled Hyperlipidemia, on statin Rx hx TIA on Plavix DM2 on oral medications, well-controlled as of recent hemoglobin A1c of 6.8. September 2021 Basal insulin, ISS BG goal 1 10-1 40, carb count coverage Mood disorder, at baseline Hypokalemia ongoing tobacco abuse Nicotine patch as needed DVT prophylaxis. Lovenox subcu Full code Admission and Anticipated Discharge Date Admission Date: December 02, 2021 Subjective 12/03/2021 The patient was seen and examined in medical telemetry unit She has been feeling much better since admission Denies any cough, chest pain or palpitation and no shortness of breath at rest Review of Systems Review of Systems: All systems reviewed and are unremarkable except as noted below Physical Exam Physical Exam: Lying in bed comfortably Constitutional: well developed, well nourished, + ill appearing and + morbidly obese Eyes: PERRL, conjunctivae normal, anicteric sclerae ENMT: external ear and nose normal, oropharynx normal Neck: trachea midline, no thyromegaly Respiratory: no respiratory distress Auscultation: + diminished lung sounds and + crackles (Minimal crackles at the bases) Cardiovascular: Rate/Rhythm: regular rate and regular rhythm; not tachycardic Heart Sounds: normal S1 and normal S2; no murmur Extremities: + edema (Trace edema bilaterally) Gastrointestinal (Abdomen): Inspection/Auscultation: normal bowel sounds; abdomen not distended Percussion/Palpation: abdomen soft; abdomen nontender Musculoskeletal: No acute arthritis in any joint Neurologic: Alert, awake and oriented x3. No focal sensory or no motor deficit appreciated Psychiatric: A+Ox3, euthymic affect Lymphatic: no cervical or axillary lymphadenopathy Results & Data Results & Data ([facility]) Vital Signs (Past 12 Hours) Vital Signs Temp Pulse Pulse Resp BP Pulse Ox 12/03/21 11:35 37.0 C 88 16 140/79 93 12/03/21 10:31 80 12/03/21 07:58 37.0 C 79 16 122/71 93 12/03/21 02:39 36.7 C 80 18 121/71 92 Laboratory Results Short CBC 12/03/21 Range/Units 06:50 WBC 13.43 H (4.8-10.8) K/uL Hgb 13.4 (12.0-16.0) g/dL Hct 42.4 (37-47) % Plt Count 191 (130-400) K/uL BMP 12/03/21 06:50 Sodium 140 Potassium 4.2 D Chloride 107 Carbon Dioxide 27 BUN 13 Creatinine 0.83 Glucose 126 H Calcium 9.2 Medications Administered Current Inpatient Medications Acetaminophen (Acetaminophen 325 Mg Tab) 650 mg PO Q4H PRN PRN Reason: Pain or Fever Stop: 01/01/22 08:21 Last Admin: 12/02/21 18:28 Dose: 650 mg Documented by: Clopidogrel Bisulfate (Clopidogrel Bisulfate 75 Mg Tab) 75 mg PO DAILY PENG Stop: 01/01/22 08:59 Last Admin: 12/03/21 09:14 Dose: 75 mg Documented by: Dextrose (Dextrose 50% 50 Ml Syringe) 25 - 50 ml IV UD PRN; Protocol PRN Reason: Hypoglycemia Protocol Stop: 01/01/22 08:21 Enoxaparin Sodium (Enoxaparin Inj 40 Mg/0.4 Ml Syr) 40 mg SQ Q12H PENG Stop: 01/01/22 10:29 Last Admin: 12/03/21 09:34 Dose: 40 mg Documented by: Gabapentin (Gabapentin 300 Mg Cap) 300 mg PO HS PENG Stop: 01/01/22 20:59 Last Admin: 12/02/21 23:05 Dose: 300 mg Documented by: Glucagon (Glucagon For Inj 1 Mg Vial) 1 mg SQ UD PRN; Protocol PRN Reason: Hypoglycemia Protocol Stop: 01/01/22 08:21 Glucose (Glucose 10 Tabs/Tube) 4 - 8 tabs PO UD PRN; Protocol PRN Reason: Hypoglycemia Protocol Stop: 01/01/22 08:21 Glucose (Glucose 40% Gel 15 Gm Tube) 15 - 30 gm PO UD PRN; Protocol PRN Reason: Hypoglycemia Protocol Stop: 01/01/22 08:21 Ampicillin Sodium/Sulbactam Sodium 3,000 mg/ Sodium Chloride 108 mls @ 216 mls/hr IV Q6H PENG Stop: 12/09/21 12:59 Last Infusion: 12/03/21 13:09 Dose: Infused Documented by: Insulin Aspart (Insulin Aspart Per Unit) 0 units SC ACHS PENG Stop: 01/01/22 08:21 Last Admin: 12/03/21 12:10 Dose: 5 units Documented by: Insulin Glargine (Insulin Glargine Solostar 100 Units/Ml 3 Ml Pen) 10 units SC DAILY PENG Stop: 01/02/22 08:59 Last Admin: 12/03/21 08:28 Dose: 10 units Documented by: Ipratropium [place] (Ipratropium [place] Neb Soln 0.02% 2.5 Ml Vial) 0.5 mg INH UD [facility] Stop: 01/01/22 08:21 Levalbuterol HCl (Levalbuterol 1.25mg/0.5ml Neb) 1.25 mg INH UD PENG Stop: 01/01/22 08:21 Lisinopril (Lisinopril 5 Mg Tab) 5 mg PO QAM PENG Stop: 01/02/22 08:59 Last Admin: 12/03/21 09:14 Dose: 5 mg Documented by: Miscellaneous (Carbohydrates For Hypoglycemia ) 15 - 30 gm PO UD PRN PRN Reason: Hypoglycemia Protocol Stop: 01/01/22 08:21 Montelukast Sodium (Montelukast Sodium 10 Mg Tablet) 10 mg PO DAILY PENG Stop: 01/01/22 08:59 Last Admin: 12/03/21 09:14 Dose: 10 mg Documented by: Multivitamins (Multivitamin Tab) 1 tab PO QAM [facility] Stop: 01/02/22 08:59 Last Admin: 12/03/21 09:14 Dose: 1 tab Documented by: Oxybutynin Chloride (Oxybutynin Chloride Xl 5 Mg Tabcr) 10 mg PO DAILY PENG Stop: 01/01/22 09:59 Last Admin: 12/03/21 09:14 Dose: 10 mg Documented by: Pantoprazole Sodium (Pantoprazole 40 Mg Tab) 40 mg PO DAILY [facility] Stop: 01/02/22 08:59 Last Admin: 12/03/21 09:14 Dose: 40 mg Documented by: Prednisone (Prednisone 20 Mg Tab) 40 mg PO DAILY PENG Stop: 12/07/21 08:59 Last Admin: 12/03/21 09:14 Dose: 40 mg Documented by: Rosuvastatin Calcium (Rosuvastatin Calcium 20 Mg Tab) 20 mg PO DAILY PENG Stop: 01/01/22 09:59 Last Admin: 12/03/21 09:14 Dose: 20 mg Documented by: Sertraline HCl (Sertraline Hcl 100 Mg Tablet) 100 mg PO DAILY PENG Stop: 01/01/22 09:59 Last Admin: 12/03/21 09:14 Dose: 100 mg Documented by: Vitamin B Complex (Vitamin B Complex Tab) 1 tab PO DAILY PENG Stop: 01/02/22 08:59 Last Admin: 12/03/21 09:14 Dose: 1 tab Documented by:
[2021-12-03] MEDS: GABAPENTIN 300 MG CAP PO SCH (20:24)
[2021-12-03] MEDS: DOXYCYCLINE HYCLATE 100 MG CAP PO SCH (20:24)
[2021-12-03] MEDS ORDERED: traZODone HCL 100 MG TAB PO ONE (22:30)
[2021-12-03] MEDS: ACETAMINOPHEN 325 MG TAB PO PRN (22:38)
[2021-12-04] MEDS: AMPICILLIN/SULBACTAM SOD 3,000 MG in 0.9 % SODIUM CHLORIDE 100 ML IV SCH ×2 (00:43→06:34)
[2021-12-04 06:32] LABS: Basophils # (auto) 0.04 K/uL (0-0.2); Basophils % (auto) 0.4 %; Eosinophils # (auto) 0.17 K/uL (0-0.5); Eosinophils % (auto) 1.6 %; Hematocrit (blood only) 43.3 % (37-47); Hemoglobin 14.1 g/dL (12.0-16.0); Immature Granulocytes # (auto) 0.05 K/uL (0.00-0.02); Immature Granulocytes % (auto) 0.5 %; Lymphocytes # (auto) 3.28 K/uL (1.2-3.4); Lymphocytes % (auto) 30.4 %; Mean Corpuscular Hemoglobin 29.8 pg (25-34); Mean Corpuscular Hgb Conc 32.6 g/dL (32-36); Mean Corpuscular Volume 91.5 fL (80-100); Mean Platelet Volume 10.6 fL (7.4-10.4); Monocytes # (auto) 0.69 K/uL (0.11-0.59); Monocytes % (auto) 6.4 %; Neutrophils # (auto) 6.57 K/uL (1.4-6.5); Neutrophils % (auto) 60.7 %; Platelet Count 219 K/uL (130-400); RDW Coefficient of Variation 13.6 % (11.5-14.5); RDW Standard Deviation 45.8 fL (36.4-46.3); Red Blood Count 4.73 M/uL (4.2-5.4)
[2021-12-04 07:01] LABS: BUN Creatinine Ratio 18.4 (10-20); Calcium 9.5 mg/dl (8.5-10.1); Creatinine Clr Calc Pharmacy 87.5 ml/min; Est GFR (African American) 85.1 ml/min; Est GFR (Non-African American) 73.4 ml/min; Potassium 3.7 mmol/L (3.5-5.1)
[2021-12-04] MEDS: ROSUVASTATIN CALCIUM 20 MG TAB PO SCH (08:34)
[2021-12-04] MEDS: DOXYCYCLINE HYCLATE 100 MG CAP PO SCH (08:34)
[2021-12-04] MEDS: lisinopril 5 MG TAB PO SCH (08:34)
[2021-12-04] MEDS: MONTELUKAST SODIUM 10 MG TABLET PO SCH (08:34)
[2021-12-04] MEDS: VITAMIN B COMPLEX TAB PO SCH (08:34)
[2021-12-04] MEDS: OXYBUTYNIN CHLORIDE XL 5 MG TABCR PO SCH (08:34)
[2021-12-04] MEDS: predniSONE 20 MG TAB PO SCH (08:34)
[2021-12-04] MEDS: CLOPIDOGREL BISULFATE 75 MG TAB PO SCH (08:35)
[2021-12-04] MEDS: MULTIVITAMIN TAB PO SCH (08:35)
[2021-12-04] MEDS: PANTOprazole 40 MG TAB PO SCH (08:35)
[2021-12-04] MEDS: SERTRALINE HCL 100 MG TABLET PO SCH (08:35)
[2021-12-04] MEDS: INSULIN ASPART PER UNIT SC SCH ×2 (09:22→12:17)
[2021-12-04] MEDS: INSULIN GLARGINE SOLOSTAR 100 UNITS/ML 3 ML PEN SC SCH (09:22)
[2021-12-04] MEDS: ENOXAPARIN INJ 40 MG/0.4 ML SYR SQ SCH (09:57)
--- NOTE | 2021-12-04 11:58 | Hospitalist Progress Note ---
Date of Service December 04, 2021 Assessment & Plan (1) Sepsis: Plan: Secondary to pneumonia/pneumonitis left upper lobe Possible aspiration pneumonitis-has been ruled out Rule out pulmonary embolism-CT scan of the chest is negative for any pulmonary embolism Has been on Unasyn Will add doxycycline to cover atypicals Has been feeling much better We will give oral Augmentin and doxycycline to finish a total of 7 days of antibiotic Lung nodules A few scattered subcentimeter pulmonary nodules , the largest measuring 7 mm Follow-up as per recommendation as per Vasques's criteria Morbid obesity with BMI 43.6 Counseling for diet and weight management COPD exacerbation secondary to above We will continue oral prednisone and bronchodilators as prescribed Feeling a lot better without any wheezing and no shortness of breath at rest No acute symptoms Hypertension, slightly elevated Blood pressure seems to be controlled Hyperlipidemia, on statin Rx hx TIA on Plavix DM2 on oral medications, well-controlled as of recent hemoglobin A1c of 6.8. September 2021 Basal insulin, ISS BG goal 1 10-1 40, carb count coverage Mood disorder, at baseline Hypokalemia ongoing tobacco abuse Nicotine patch as needed DVT prophylaxis. Lovenox subcu Full code Will be discharged home this afternoon Admission and Anticipated Discharge Date Admission Date: December 02, 2021 Subjective 12/03/2021 The patient was seen and examined in medical telemetry unit She has been feeling much better since admission Denies any cough, chest pain or palpitation and no shortness of breath at rest 12/04/2021 The patient was seen and examined in medical telemetry unit She has been feeling much better and has minimal cough without any other symptoms She has been ambulating in the room and in the hallway without any difficulties No fever and or chills, no abdominal pain nausea and or vomiting Review of Systems Review of Systems: All systems reviewed and are unremarkable except as noted below Respiratory: No respiratory distress Physical Exam Physical Exam: Lying in bed comfortably Constitutional: well developed, well nourished, + ill appearing and + morbidly obese Eyes: PERRL, conjunctivae normal, anicteric sclerae ENMT: external ear and nose normal, oropharynx normal Neck: trachea midline, no thyromegaly Respiratory: no respiratory distress Auscultation: + diminished lung sounds and + crackles (Minimal crackles at the bases) Cardiovascular: Rate/Rhythm: regular rate and regular rhythm; not tachycardic Heart Sounds: normal S1 and normal S2; no murmur Extremities: + edema (Trace edema bilaterally) Gastrointestinal (Abdomen): Inspection/Auscultation: normal bowel sounds; abdomen not distended Percussion/Palpation: abdomen soft; abdomen nontender Musculoskeletal: No acute arthritis in any of the joints Neurologic: Alert, awake and oriented x3. No focal sensory or no motor deficit appreciated Psychiatric: A+Ox3, euthymic affect Lymphatic: no cervical or axillary lymphadenopathy Results & Data Results & Data ([facility]) Vital Signs (Past 12 Hours) Vital Signs Temp Pulse Pulse Resp BP Pulse Ox 12/04/21 11:10 37.1 C 80 16 120/54 L 92 12/04/21 10:53 75 12/04/21 07:36 36.5 C 68 16 117/75 95 12/04/21 03:04 36.6 C 75 18 109/72 92 12/04/21 00:30 71 12/04/21 00:02 36.6 C 71 18 146/78 H 94 Laboratory Results Short CBC 12/04/21 Range/Units 06:14 WBC 10.80 (4.8-10.8) K/uL Hgb 14.1 (12.0-16.0) g/dL Hct 43.3 (37-47) % Plt Count 219 (130-400) K/uL BMP 12/04/21 06:14 Sodium 139 Potassium 3.7 Chloride 102 Carbon Dioxide 29 BUN 16 Creatinine 0.87 Glucose 112 H Calcium 9.5 Medications Administered Current Inpatient Medications Acetaminophen (Acetaminophen 325 Mg Tab) 650 mg PO Q4H PRN PRN Reason: Pain or Fever Stop: 01/01/22 08:21 Last Admin: 12/03/21 22:38 Dose: 650 mg Documented by: Clopidogrel Bisulfate (Clopidogrel Bisulfate 75 Mg Tab) 75 mg PO DAILY PENG Stop: 01/01/22 08:59 Last Admin: 12/04/21 08:35 Dose: 75 mg Documented by: Dextrose (Dextrose 50% 50 Ml Syringe) 25 - 50 ml IV UD PRN; Protocol PRN Reason: Hypoglycemia Protocol Stop: 01/01/22 08:21 Doxycycline Hyclate (Doxycycline Hyclate 100 Mg Cap) 100 mg PO BID PENG; Protocol Stop: 12/10/21 20:59 Last Admin: 12/04/21 08:34 Dose: 100 mg Documented by: Enoxaparin Sodium (Enoxaparin Inj 40 Mg/0.4 Ml Syr) 40 mg SQ Q12H PENG Stop: 01/01/22 10:29 Last Admin: 12/04/21 09:57 Dose: 40 mg Documented by: Gabapentin (Gabapentin 300 Mg Cap) 300 mg PO HS PENG Stop: 01/01/22 20:59 Last Admin: 12/03/21 20:24 Dose: 300 mg Documented by: Glucagon (Glucagon For Inj 1 Mg Vial) 1 mg SQ UD PRN; Protocol PRN Reason: Hypoglycemia Protocol Stop: 01/01/22 08:21 Glucose (Glucose 10 Tabs/Tube) 4 - 8 tabs PO UD PRN; Protocol PRN Reason: Hypoglycemia Protocol Stop: 01/01/22 08:21 Glucose (Glucose 40% Gel 15 Gm Tube) 15 - 30 gm PO UD PRN; Protocol PRN Reason: Hypoglycemia Protocol Stop: 01/01/22 08:21 Ampicillin Sodium/Sulbactam Sodium 3,000 mg/ Sodium Chloride 108 mls @ 216 mls/hr IV Q6H PENG Stop: 12/09/21 12:59 Last Infusion: 12/04/21 08:19 Dose: Infused Documented by: Insulin Aspart (Insulin Aspart Per Unit) 0 units SC ACHS PENG Stop: 01/01/22 08:21 Last Admin: 12/04/21 09:22 Dose: 2 units Documented by: Insulin Glargine (Insulin Glargine Solostar 100 Units/Ml 3 Ml Pen) 10 units SC DAILY PENG Stop: 01/02/22 08:59 Last Admin: 12/04/21 09:22 Dose: 10 units Documented by: Ipratropium [place] (Ipratropium [place] Neb Soln 0.02% 2.5 Ml Vial) 0.5 mg INH UD PENG Stop: 01/01/22 08:21 Levalbuterol HCl (Levalbuterol 1.25mg/0.5ml Neb) 1.25 mg INH UD [facility] Stop: 01/01/22 08:21 Lisinopril (Lisinopril 5 Mg Tab) 5 mg PO QAM PENG Stop: 01/02/22 08:59 Last Admin: 12/04/21 08:34 Dose: 5 mg Documented by: Miscellaneous (Carbohydrates For Hypoglycemia ) 15 - 30 gm PO UD PRN PRN Reason: Hypoglycemia Protocol Stop: 01/01/22 08:21 Montelukast Sodium (Montelukast Sodium 10 Mg Tablet) 10 mg PO DAILY PENG Stop: 01/01/22 08:59 Last Admin: 12/04/21 08:34 Dose: 10 mg Documented by: Multivitamins (Multivitamin Tab) 1 tab PO QAM PENG Stop: 01/02/22 08:59 Last Admin: 12/04/21 08:35 Dose: 1 tab Documented by: Oxybutynin Chloride (Oxybutynin Chloride Xl 5 Mg Tabcr) 10 mg PO DAILY PENG Stop: 01/01/22 09:59 Last Admin: 12/04/21 08:34 Dose: 10 mg Documented by: Pantoprazole Sodium (Pantoprazole 40 Mg Tab) 40 mg PO DAILY PENG Stop: 01/02/22 08:59 Last Admin: 12/04/21 08:35 Dose: 40 mg Documented by: Prednisone (Prednisone 20 Mg Tab) 40 mg PO DAILY PENG Stop: 12/07/21 08:59 Last Admin: 12/04/21 08:34 Dose: 40 mg Documented by: Rosuvastatin Calcium (Rosuvastatin Calcium 20 Mg Tab) 20 mg PO DAILY PENG Stop: 01/01/22 09:59 Last Admin: 12/04/21 08:34 Dose: 20 mg Documented by: Sertraline HCl (Sertraline Hcl 100 Mg Tablet) 100 mg PO DAILY PENG Stop: 01/01/22 09:59 Last Admin: 12/04/21 08:35 Dose: 100 mg Documented by: Trazodone HCl (Trazodone Hcl 100 Mg Tab) 200 mg PO HS [facility] Stop: 01/03/22 20:59 Vitamin B Complex (Vitamin B Complex Tab) 1 tab PO DAILY PENG Stop: 01/02/22 08:59 Last Admin: 12/04/21 08:34 Dose: 1 tab Documented by:
[2021-12-04] MEDS ORDERED: AMOXICILLIN/CLAVULANATE 875 MG TAB PO ONE (11:59)
[2021-12-04] MEDS ORDERED: AMOXICILLIN/CLAVULANATE 875 MG TAB PO SCH (17:00)
[2021-12-04] MEDS ORDERED: traZODone HCL 100 MG TAB PO SCH (21:00)
--- NOTE | 2021-12-05 08:28 | Discharge Summary ---
Date of Service December 04, 2021 Admission HPI Per Admitting Provider History obtained from patient and records. Medical history significant for COPD, hypertension, hyperlipidemia, TIA, DM2 on oral medications, mood disorder, ongoing tobacco abuse. Last confinement September 2021 for community-acquired pneumonia. Patient discharged on cefpodoxime and azithromycin course. Symptoms improved. 3 days history of junky cough symptoms productive of yellow sputum, worsening shortness of breath with chest pain from coughing. No known recent sick contacts. Patient completed COVID-19 vaccination. Admits to coughing with meals/water intake if not careful. No fluid retention. Ceftriaxone given at the ER for sepsis. Medical History as above Surgical History : section, BTL, dental surgery Family History : Breast cancer, dementia, DM, heart disease Personal/Social history : Half pack daily, no EtOH intake, disabled Admission Exam Per Admitting Provider Physical Exam: GENERAL: Slightly uncomfortable, morbidly obese, dysphonic, no respiratory distress SKIN: Normal color, warm HEENT: Bespectacled, [place] palpebral conjunctivae, no ptosis, dry buccal mucosa NECK : Supple, short neck, no tenderness CHEST : Decreased breath sounds, expiratory wheezes, no tenderness HEART : Tachycardic, no obvious murmurs ABDOMEN: Some distention, nontender EXTREMITIES : Minimal LE swelling, no LE tenderness, no other conspicuous deformities noted NEUROLOGIC : Coherent, no facial asymmetry, no other gross focality Principal Diagnosis Pneumonia left upper lobe, COPD with mild exacerbation, hypertension, lung nodules Discharge Exam Lying in bed comfortably Constitutional well developed, well nourished, + ill appearing and + morbidly obese Eyes PERRL, conjunctivae normal, anicteric sclerae ENMT external ear and nose normal, oropharynx normal Neck trachea midline, no thyromegaly Respiratory no respiratory distress Auscultation: + diminished lung sounds and + crackles (Minimal crackles at the bases) Cardiovascular Rate/Rhythm: regular rate and regular rhythm; not tachycardic Heart Sounds: normal S1 and normal S2; no murmur Extremities: + edema (Trace edema bilaterally) Gastrointestinal (Abdomen) Inspection/Auscultation: normal bowel sounds; abdomen not distended Percussion/Palpation: abdomen soft; abdomen nontender Psychiatric A+Ox3, euthymic affect Lymphatic no cervical or axillary lymphadenopathy Discharge Data Allergies Allergy/AdvReac Type Severity Reaction Status Date / Time aspirin Allergy Unknown CONTRAINDICATED Verified 12/02/21 06:42 WITH ASTHMA Consultations 12/02/21 06:32 ED Decision to Admit Stat Ordered Studies 12/02/21 05:58 CT angio chest PE protocol Stat 12/02/21 13:00 FL video swallow Routine Hospital Course (1) Sepsis: Secondary to pneumonia/pneumonitis left upper lobe Possible aspiration pneumonitis-has been ruled out Rule out pulmonary embolism-CT scan of the chest is negative for any pulmonary embolism Has been on Unasyn Will add doxycycline to cover atypicals Has been feeling much better We will give oral Augmentin and doxycycline to finish a total of 7 days of antibiotic Lung nodules A few scattered subcentimeter pulmonary nodules , the largest measuring 7 mm Follow-up as per recommendation as per Vasques's criteria Morbid obesity with BMI 43.6 Counseling for diet and weight management COPD exacerbation secondary to above We will continue oral prednisone and bronchodilators as prescribed Feeling a lot better without any wheezing and no shortness of breath at rest No acute symptoms Hypertension, slightly elevated Blood pressure seems to be controlled Hyperlipidemia, on statin Rx hx TIA on Plavix DM2 on oral medications, well-controlled as of recent hemoglobin A1c of 6.8. September 2021 Basal insulin, ISS BG goal 1 10-1 40, carb count coverage Mood disorder, at baseline Hypokalemia ongoing tobacco abuse Nicotine patch as needed DVT prophylaxis. Lovenox subcu Full code Will be discharged home this afternoon Total Time Total Time Spent Total Time Spent (In Minutes): 35 minutes Discharge Plan Discharge Items Patient Disposition: Home - Self-Care Reason For Visit: SEPSIS Discharge Diagnosis: Pneumonia left upper lobe, COPD with mild exacerbation, hypertension, lung nodules Condition on Discharge: Good Activity: Resume your previous activity Non-emergency contact: Primary Care Provider Call non-emergency contact if: you have any medication questions and your symptoms worsen Follow-up/Referrals: Evaristo Barron MD [Primary Care Provider] - (Your doctor's office will call with an appointment within 7 days) Diet: Carb Consistent or DM2 Diet Texture: Easy to Chew Addtl Attending Provider Instructions: Please take precautions to avoid falls Take your medications as advised Finish the course of antibiotic Please give appointment with your healthcare providers Pending Studies at Discharge: No Stand-Alone Forms: My [employer], Smoking Cessation Medications and DC Order Prescriptions: New doxycycline hyclate 100 mg Capsule 100 mg PO BID 5 Days Qty: 10 RF: 0 prednisone 20 mg Tablet 40 mg PO DAILY 3 Days Qty: 6 RF: 0 amoxicillin 875 mg tablet 875 mg PO BID Qty: 10 RF: 0 Continued vitamin E 1,000 unit Capsule 1,000 unit PO QAM RF: 0 acetaminophen 500 mg tablet 1,000 mg PO TID RF: 0 cholecalciferol (vitamin D3) [Vitamin D3] 125 mcg (5,000 unit) Tablet 125 mcg PO QAM RF: 0 trazodone 100 mg tablet 200 mg PO HS RF: 0 metformin 500 mg tablet 500 mg PO BIDM RF: 0 oxybutynin chloride 10 mg tablet extended release 24hr 10 mg PO QAM RF: 0 sertraline 100 mg tablet 100 mg PO QAM RF: 0 omeprazole 20 mg capsule,delayed release(DR/EC) 20 mg PO QAM RF: 0 montelukast 10 mg tablet 10 mg PO DAILY@1200 RF: 0 rosuvastatin 20 mg tablet 20 mg PO QAM RF: 0 Combivent Respimat 20-100 mcg/actuation mist 1 puff INHALATION BID RF: 0 multivitamin Tablet 1 tab PO QAM RF: 0 vitamin B complex Tablet 1 tab PO QAM RF: 0 meloxicam 15 mg tablet 15 mg PO QAM RF: 0 hydroxyzine HCl 50 mg tablet 50 mg PO Q6H PRN (Reason: Anxiety) RF: 0 clopidogrel 75 mg tablet 75 mg PO QAM RF: 0 dicyclomine 20 mg tablet 20 mg PO QID PRN (Reason: ABD PAIN) RF: 0 gabapentin 300 mg capsule 300 mg PO TID RF: 0 glucosamine-chondroitin [Osteo Bi-Flex] 250-200 mg Tablet 1 tab PO QAM RF: 0 Probiotic 10 billion cell Capsule 10,000 mmu cells PO QAM RF: 0 lisinopril [Zestril] 5 mg Tablet 5 mg PO QAM Qty: 30 RF: 0 Discharge Orders: Discharge Order (Routine); Ordered 12/04/21 Ordered By: Zaid House/Other Patient Handouts: Sepsis Admission Data Admit Date/Time: 12/02/21 06:45 Attending Provider: Zaid Burleson Admit Provider: Skip Webber Primary Care Provider: Evaristo Barron Other Providers: Oconer,Skip N. Other Interventions: Discharge Summary Assessment (RN) Last Done: 12/04/21 13:13
== END 2021-12-04 13:53 | disposition home or self-care (01) | DRG 871 ==
LOC: ED 04:13 → 2N 06:45

== ENCOUNTER 2024-02-06 16:07 | Inpatient (IN) ==
[2024-02-06] MEDS: OPTIRAY 320 125ml IV ONE (16:16)
[2024-02-06] MEDS ORDERED: ASPIRIN CHEW 324 MG ONE (16:21)
--- NOTE | 2024-02-06 16:33 | CT Scan Report ---
UNENHANCED CT OF THE BRAIN; CT ANGIOGRAM OF THE BRAIN; CT ANGIOGRAM OF THE NECK CLINICAL HISTORY: Neurologic deficit. Stroke like symptoms. Right-sided numbness. Gait instability. COMPARISON STUDY: CT angiogram of the head and neck dated 05/08/2021. TECHNIQUE: Unenhanced axial CT scan of the brain is performed. Subsequently, following the IV adminis tration of 116 of [address] 320, CT angiogram of the head and neck was performed from the aortic arch t o the vertex. Images are reviewed in the axial, sagittal, and coronal planes. 3-D MIPS images are cre ated and assessed. IV contrast was administered without complication. All measurements were calculate d based on NASCET criteria. A dose lowering technique was utilized adhering to the principles of ALA RA. CT DOSE: 1193. mGy.cm FINDINGS: Brain parenchyma: There is minimal microangiopathic change. There is no hemorrhage, mass effect, or e vidence of acute territorial ischemia by CT criteria. There is no evidence of enhancing mass lesion o n the angiogram phase images. The ventricles, sulci, and cisterns are normal in configuration. Sheets-w shamar matter differentiation is preserved. No extra-axial fluid collection is seen. Thoracic aorta: Visualized portions of the thoracic aorta are normal in caliber. The aortic arch demo nstrates bovine variant anatomy. Right carotid arterial system: The right common carotid artery is widely patent, as are the right int ernal and external carotid arteries. Left carotid arterial system: The left common carotid artery is widely patent, as are the left digital marketing intern al and external carotid arteries. Minimal calcified plaque is noted in the proximal ICA. Vertebral arteries: The vertebral arteries are widely patent bilaterally noting left-sided dominance. Subclavian arteries: Widely patent bilaterally. Intracranial vasculature: There is mild atherosclerotic calcification of the cavernous carotid arteri es. The internal carotid arteries are patent at the skull base, as are the anterior and middle cerebr al arteries bilaterally. The vertebrobasilar system and posterior cerebral arteries are widely patent . The left vertebral artery is dominant. There is a right posterior communicating artery. There is no aneurysm, high-grade stenosis, or focal vessel cut off seen throughout the intracranial circulation. Jugular veins: Patent bilaterally. Dural sinuses: Patent. Lung apices: Partially visualized upper lobe lung parenchyma appears clear. Soft tissues: The visualized pharyngeal soft tissues are normal in appearance noting angiographic pha se technique. The oropharyngeal airway appears widely patent. The salivary and thyroid glands are nor mal in appearance. No cervical lymphadenopathy is seen. Skeletal structures: The calvarium appears intact. The cervical spine is maintained noting multilevel spondylosis. Orbits: The bony orbits are intact. Orbital contents are normal as visualized. Sinuses and mastoids: There is mild mucosal thickening within the right sphenoid sinus and the maxill alonzo antra. The remaining Paranasal sinuses are clear. The mastoid air cells are well pneumatized. IMPRESSION: 1. There is no hemorrhage, mass effect, or evidence of acute territorial ischemia by CT criteria. 2. Unremarkable CT angiogram of the brain. 3. Unremarkable CT angiogram of the neck. ACT 112: Negative or not required by law. Electronically signed by: Mahesh Nael M.D. 02/06/2024 4:32 PM
[2024-02-06 16:51] LABS: Hematocrit (blood only) 41.2 % (37.0-47.0); Hemoglobin 13.4 g/dl (12.0-16.0); Mean Corpuscular Hgb Conc 32.5 g/dL (32.0-36.0); Mean Corpuscular Volume 86.2 fL (80.0-100.0); Mean Platelet Volume 10.8 fL (9.4-12.4); Platelet Count 152 K/uL (130-400); RDW Standard Deviation 40.8 fL (36.4-46.3); Red Blood Count 4.78 M/uL (4.20-5.40); White Blood Count 7.05 K/ul (4.8-10.8)
[2024-02-06 17:05] LABS: Alanine Aminotransferase 21 U/L (7-52); Albumin Globulin Ratio 1.3 (0.9-2); Albumin Level 3.7 gm/dl (3.4-5.0); Alkaline Phosphatase 65 U/L (34-104); Anion Gap 7 (3-11); Aspartate Aminotransferase 20 U/L (13-39); BUN Creatinine Ratio 11.3 (10-20); Bilirubin,Total 0.3 mg/dl (0.2-1.0); Blood Urea Nitrogen 9 mg/dl (6-23); Calcium 8.3 mg/dl (8.6-10.3); Carbon Dioxide 30 mmol/L (21-32); Chloride 102 mmol/L (98-107); Est GFR (African American) 92.9 ml/min; Est GFR (Non-African American) 80.1 ml/min; Globulin 2.8 gm/dl (2.5-4.0); Glucose 120 mg/dl (70-99(Fasting)); Magnesium 1.6 mg/dl (1.7-2.4); Potassium 3.5 mmol/L (3.5-5.1); Sodium 139 mmol/L (136-145); Total Protein 6.5 gm/dl (6.0-8.3)
[2024-02-06 17:24] LABS: Troponin I High Sensitivity < 2.3 pg/ml (0-14)
--- NOTE | 2024-02-06 17:27 | Emergency Department Note ---
Impression & Plan Stroke-like symptoms, Chest pain, Hypomagnesemia ED Provider Note HISTORY OF PRESENT ILLNESS: Patient is a 58-year-old female presenting with slurred speech and numbness. Patient reports she started slurring her speech last night. States that she was doing well this morning but at 1330 she got up from her recliner and felt very weak on her right side and had a staggering gait. She states that she "had tingling on my left side." She states that she has visual changes but is unable to describe them. Reports that "things are fuzzy," but this has been ongoing for "a long time." Reports she has had left-sided chest pain intermittently for the last week. Denies any DVT or PE history. Denies any history of cardiac stents. She is on clopidogrel for previous history of a stroke. She denies any previous deficits from a stroke. ROS: as above PHYSICAL EXAM: Constitutional: Patient appears in no acute distress. HENT: Head: Normocephalic and atraumatic. Eyes: EOMI, PERRL Mouth/Throat: Mucous membranes moist. Neck: Trachea midline. Neck supple. Cardiovascular: RRR, No murmurs, rubs or gallops. Intact distal pulses. Pulmonary/Chest: No respiratory distress. Breath sounds clear and equal bilaterally. No wheezes or rales. Abdominal: Abdomen soft, no tenderness, rebound or guarding. Musculoskeletal: No edema, tenderness or deformity noted. Skin: Warm and dry. No rash, erythema, pallor or cyanosis Psychiatric: Appropriate mood and affect for situation. Neurological: Alert and keenly responsive. Facies symmetric. Patient does have some slight slurred speech, but she is edentulous. Able to raise eyebrows, close eyes, smile, puff mouth, stick out tongue, move tongue left and right and raise palate symmetrically. Able to shrug shoulders. PERRLA. SILT to forehead below eye and at jawline. Can hear soft noise bilaterally. Good finger to nose. Strength 5/5 in bilateral upper and lower extremities. SILT throughout bilateral upper and lower extremities. MDM: - Vitals signs showed hypertension. - History obtained via patient. History as above. - Patient was alerted as a prehospital stroke alert. However, on discussion with the patient, her symptoms have been for more than 16 hours. She does state that the new symptoms of numbness and tingling and weakness were at 1330. - Chronic conditions affecting care: HTN; HLD - Differential diagnoses include, but are not limited to: Acute coronary syndrome; pulmonary embolism; dissection; tension pneumothorax; esophageal rupture; pneumonia; CVA; TIA; intracranial hemorrhage - Order placed for continuous cardiac monitoring. At this time, monitor showed rate of 73 bpm with normal sinus rhythm, per my interpretation. - External medical records reviewed. Discharge summary dated 12/05/2021 was reviewed. Patient was admitted at that time for COPD and left upper lobe pneumonia. - EKG interpreted by myself showed normal sinus rhythm. Rate 67 bpm. QT 446. No acute ischemic changes. - Laboratory workup interpreted by myself showed normal WBC; normal PT/INR; stable electrolytes other than hypomagnesemia (Mg 1.6) and hypocalcemia (Ca 8.3); normal troponin; normal BNP - CXR negative for pneumonia, per my interpretation - CT head wo contrast negative for acute pathology - CTA head/neck negative for pathology - Patient's symptoms have been ongoing for over 16 hours. She was not a TNK candidate. In addition, she has no evidence of large vessel occlusion on imaging. Will admit for further strokelike workup. MRI brain was ordered. - Patient given 1g IV magnesium in ER. - HEART score 4 (History +1 moderately suspicious; EKG +0; Age +1; Risk factors +2; Initial troponin +0), amounting to a moderate score. - Discussion was had with bilingual case manager about patient's case and need for admission - Hospitalist, Dr. Garrett, consulted for admission - [facility] ASSESSMENT AND PLAN: Diagnosis: strokelike symptoms; hypomagnesemia; chest pain Plan: admit Past Med/Surg History Problem List (Updated 02/06/24 @ 20:11 by Michelle Mendoza MD) Hypomagnesemia (Acute) Chest pain (Acute) Stroke-like symptoms (Acute) No significant past surgical history Anxiety (Chronic) Asthma (Chronic) Sepsis Fever (Acute) Tachycardia (Acute) Shortness of breath (Acute) Pneumonia (Acute) Back pain (Chronic) Depression (Chronic) Medical History Hypertension Tobacco abuse Dyslipidemia, goal LDL below 70 Chest pain Anxiety Asthma Surgical History No significant past surgical history Social History Smoking Status: Never smoker Tobacco Type: Cigarettes Cigarettes Per Day: 1/2 ppd; Hx Alcohol Use: No Hx Substance Use: No Preferred Language: Ukrainian Communication Ability: Effective Beliefs That Will Affect Care: None marital status: Unknown Current Living Situation: Alone Current Living Situation Comment: home with daughter Feels Safe at Home: Yes Assistive Devices: Cane and Scooter/Electric Scooter Allergies Allergies Allergy/AdvReac Type Severity Reaction Status Date / Time aspirin Allergy Unknown CONTRAINDICATED Verified 10/24/22 20:15 WITH ASTHMA Home Meds Home Medications Medication Instructions Recorded Confirmed acetaminophen 500 mg tablet 1,000 mg PO Q8 PRN Pain 10/24/22 02/06/24 (Tylenol Extra Strength) bismuth subsalicylate 262 mg/15 mL 524 mg PO QID PRN .gi-symptoms 10/24/22 02/06/24 oral suspension (Pepto-Bismol) clopidogrel 75 mg tablet (Plavix) 75 mg PO DAILY 10/24/22 02/06/24 diclofenac sodium 1 % topical gel 4 g topical QID PRN Pain 10/24/22 02/06/24 dicyclomine 20 mg tablet 20 mg PO QID PRN .abd cramping 10/24/22 02/06/24 gabapentin 300 mg capsule 300 mg PO BID 10/24/22 02/06/24 hydroxyzine HCl 50 mg tablet 50 mg PO QID PRN Anxiety 10/24/22 02/06/24 ipratropium 20 mcg-albuterol 100 1 puff inhalation QID PRN 10/24/22 02/06/24 mcg/actuation mist for inhalation Shortness Of Breath Or Wheezing (Combivent Respimat) meloxicam 15 mg tablet 15 mg PO DAILY 10/24/22 02/06/24 metformin 500 mg tablet 500 mg PO BID 10/24/22 02/06/24 mometasone-formoterol HFA 100 2 puff inhalation Q12H 10/24/22 02/06/24 mcg-5 mcg/actuation aerosol inhaler (Dulera) montelukast 10 mg tablet 10 mg PO DAILY 10/24/22 02/06/24 akslmmbmvroj-afqpwnur-emvqkn tablet 1 tab PO DAILY 10/24/22 02/06/24 omeprazole 40 mg capsule,delayed 40 mg PO DAILY 10/24/22 02/06/24 release polyethylene glycol 3350 17 gram 17 g PO DAILY 10/24/22 02/06/24 oral powder packet (Miralax) rosuvastatin 20 mg tablet 20 mg PO DAILY 10/24/22 02/06/24 sertraline 100 mg tablet 100 mg PO DAILY 10/24/22 02/06/24 sertraline 50 mg tablet 50 mg PO DAILY 10/24/22 02/06/24 trazodone 100 mg tablet 200 mg PO HS 10/24/22 02/06/24 varenicline 1 mg tablet (Chantix) 1 mg PO BID 10/24/22 02/06/24 oxybutynin chloride 10 mg 10 mg PO DAILY 02/06/24 02/06/24 tablet,extended release 24 hr Results & Data (ED) Vital Signs Vital Signs - 24 hr 02/06/24 16:33 02/06/24 16:39 02/06/24 16:48 Temperature 37.1 C Temperature Source Oral Pulse Rate 73 71 67 Pulse Rate from SpO2 Sensor 70 Pulse Rhythm Regular Pulse Strength Normal Respiratory Rate 20 14 Respiratory Effort / Characteristics Non-Labored Respiratory Depth Normal Respiratory Pattern Regular Blood Pressure 151/107 H 151/107 H Blood Pressure Mean 121 121 Blood Pressure Position Sitting Pulse Oximetry 95 94 Oxygen Delivery Method Room Air Room Air Sepsis Recent Fever Within 48 Hours No Sepsis New/Unexplained Change in Mental Status N/A Sepsis Action Taken by Nursing No Action Required 02/06/24 18:09 02/06/24 19:15 Temperature Temperature Source Pulse Rate 68 73 Pulse Rate from SpO2 Sensor 70 71 Pulse Rhythm Pulse Strength Respiratory Rate 12 20 Respiratory Effort / Characteristics Respiratory Depth Respiratory Pattern Blood Pressure Blood Pressure Mean Blood Pressure Position Pulse Oximetry 94 93 Oxygen Delivery Method Room Air Room Air Sepsis Recent Fever Within 48 Hours Sepsis New/Unexplained Change in Mental Status Sepsis Action Taken by Nursing Laboratory Data 02/06/24 16:31 02/06/24 16:31 Lab Results 02/06/24 02/06/24 Range/Units 16:31 18:12 WBC 7.05 (4.8-10.8) K/ul RBC 4.78 (4.20-5.40) M/uL Hgb 13.4 (12.0-16.0) g/dl Hct 41.2 (37.0-47.0) % MCV 86.2 (80.0-100.0) fL MCH 28.0 (25.0-34.0) pg MCHC 32.5 (32.0-36.0) g/dL RDW Std Deviation 40.8 (36.4-46.3) fL RDW Coeff of Xiomara 13.0 (11.5-14.5) % Plt Count 152 (130-400) K/uL MPV 10.8 (9.4-12.4) fL PT 10.9 (9.0-12.0) Seconds INR 1.0 (0.9-1.1) APTT 26 (21-31) Seconds PTT Ratio 1.0 Sodium 139 (136-145) mmol/L Potassium 3.5 (3.5-5.1) mmol/L Chloride 102 (98-107) mmol/L Carbon Dioxide 30 (21-32) mmol/L Anion Gap 7 (3-11) BUN 9 (6-23) mg/dl Creatinine 0.80 (0.6-1.2) mg/dl Est Cr Clr Drug Dosing 99.0 ml/min Est GFR ( Amer) 92.9 ml/min Est GFR (Non-Af Amer) 80.1 ml/min BUN/Creatinine Ratio 11.3 (10-20) Glucose 120 H (70-99(Fasting)) mg/dl POC Glucose 89 (70-99) mg/dl Calcium 8.3 L (8.6-10.3) mg/dl Magnesium 1.6 L (1.7-2.4) mg/dl Total Bilirubin 0.3 (0.2-1.0) mg/dl AST 20 (13-39) U/L ALT 21 (7-52) U/L Alkaline Phosphatase 65 (34-104) U/L Troponin I High Sens < 2.3 (0-14) pg/ml B-Natriuretic Peptide 37 (0-100) pg/ml Total Protein 6.5 (6.0-8.3) gm/dl Albumin 3.7 (3.4-5.0) gm/dl Globulin 2.8 (2.5-4.0) gm/dl Albumin/Globulin Ratio 1.3 (0.9-2) Administered Medications Discontinued Medications Magnesium Sulfate/Dextrose (Magnesium Sulfate / D5w) 1 gm in 100 mls @ 100 mls/hr IV NOW STA Stop: 02/06/24 18:35 Last Infusion: 02/06/24 19:32 Dose: Infused [place]ed [place]: [facility] [place]: 02/06/24 17:57 Dose: 100 mls/hr Documented By: [facility] [place] Ioversol (Optiray 320 125ml) 116 ml IV ONCE ONE Stop: 02/06/24 16:17 Last Admin: 02/06/24 16:16 Dose: 116 ml Documented By: SASHA Imaging Data Radiologist's Impression: Chest X-Ray 02/06/24 16:10 SINGLE VIEW CHEST CLINICAL HISTORY: Strokelike symptoms. FINDINGS: An AP, portable, upright chest radiograph is compared to chest x-ray and chest CT dated 10/24/2022. The examination is degraded by portable technique and apical lordotic positioning. The heart is enlarged. There is prominence of the pulmonary vasculature. Chronic interstitial thickening is similar to previous. No airspace consolidation or large pleural effusion is identified. No pneumothorax is seen. The skeletal structures are osteopenic. The bony thorax is grossly intact. IMPRESSION: 1. Cardiomegaly with prominence of the pulmonary vasculature. Correlate clinically for evidence of fluid overload/congestive change. 2. No airspace consolidation or large pleural effusion is identified. ACT 112: Negative or not required by law. Electronically signed by: Mahesh Neal M.D. 02/06/2024 6:[address] 02/06/24 16:[address] OF THE BRAIN; CT ANGIOGRAM OF THE BRAIN; CT ANGIOGRAM OF THE NECK CLINICAL HISTORY: Neurologic deficit. Stroke like symptoms. Right-sided numbness. Gait instability. COMPARISON STUDY: CT angiogram of the head and neck dated 05/08/2021. TECHNIQUE: Unenhanced axial CT scan of the brain is performed. Subsequently, following the IV administration of 116 of Optiray 320, CT angiogram of the head and neck was performed from the aortic arch to the vertex. Images are reviewed in the axial, sagittal, and coronal planes. 3-D MIPS images are created and assessed. IV contrast was administered without complication. All measurements were calculated based on NASCET criteria. A dose lowering technique was utilized adhering to the principles of ALARA. CT DOSE: 1193. mGy.cm FINDINGS: Brain parenchyma: There is minimal microangiopathic change. There is no hemorrhage, mass effect, or evidence of acute territorial ischemia by CT criteria. There is no evidence of enhancing mass lesion on the angiogram phase images. The ventricles, sulci, and cisterns are normal in configuration. Sheets- white matter differentiation is preserved. No extra-axial fluid collection is seen. Thoracic aorta: Visualized portions of the thoracic aorta are normal in caliber. The aortic arch demonstrates bovine variant anatomy. Right carotid arterial system: The right common carotid artery is widely patent, as are the right internal and external carotid arteries. Left carotid arterial system: The left common carotid artery is widely patent, as are the left internal and external carotid arteries. Minimal calcified plaque is noted in the proximal ICA. Vertebral arteries: The vertebral arteries are widely patent bilaterally noting left-sided dominance. Subclavian arteries: Widely patent bilaterally. Intracranial vasculature: There is mild atherosclerotic calcification of the cavernous carotid arteries. The internal carotid arteries are patent at the skull base, as are the anterior and middle cerebral arteries bilaterally. The vertebrobasilar system and posterior cerebral arteries are widely patent. The left vertebral artery is dominant. There is a right posterior communicating artery. There is no aneurysm, high-grade stenosis, or focal vessel cut off seen throughout the intracranial circulation. Jugular veins: Patent bilaterally. Dural sinuses: Patent. Lung apices: Partially visualized upper lobe lung parenchyma appears clear. Soft tissues: The visualized pharyngeal soft tissues are normal in appearance noting angiographic phase technique. The oropharyngeal airway appears widely patent. The salivary and thyroid glands are normal in appearance. No cervical lymphadenopathy is seen. Skeletal structures: The calvarium appears intact. The cervical spine is maintained noting multilevel spondylosis. Orbits: The bony orbits are intact. Orbital contents are normal as visualized. Sinuses and mastoids: There is mild mucosal thickening within the right sphenoid sinus and the maxillary antra. The remaining Paranasal sinuses are clear. The mastoid air cells are well pneumatized. IMPRESSION: 1. There is no hemorrhage, mass effect, or evidence of acute territorial ischemia by CT criteria. 2. Unremarkable CT angiogram of the brain. 3. Unremarkable CT angiogram of the neck. ACT 112: Negative or not required by law. Electronically signed by: Mahesh Neal M.D. 02/06/2024 4:32 PM Head CTA 02/06/24 16:[address] OF THE BRAIN; CT ANGIOGRAM OF THE BRAIN; CT ANGIOGRAM OF THE NECK CLINICAL HISTORY: Neurologic deficit. Stroke like symptoms. Right-sided numbness. Gait instability. COMPARISON STUDY: CT angiogram of the head and neck dated 05/08/2021. TECHNIQUE: Unenhanced axial CT scan of the brain is performed. Subsequently, following the IV administration of 116 of Optiray 320, CT angiogram of the head and neck was performed from the aortic arch to the vertex. Images are reviewed in the axial, sagittal, and coronal planes. 3-D MIPS images are created and assessed. IV contrast was administered without complication. All measurements were calculated based on NASCET criteria. A dose lowering technique was utilized adhering to the principles of ALARA. CT DOSE: 1193. mGy.cm FINDINGS: Brain parenchyma: There is minimal microangiopathic change. There is no hemorrhage, mass effect, or evidence of acute territorial ischemia by CT criteria. There is no evidence of enhancing mass lesion on the angiogram phase images. The ventricles, sulci, and cisterns are normal in configuration. Sheets- white matter differentiation is preserved. No extra-axial fluid collection is seen. Thoracic aorta: Visualized portions of the thoracic aorta are normal in caliber. The aortic arch demonstrates bovine variant anatomy. Right carotid arterial system: The right common carotid artery is widely patent, as are the right internal and external carotid arteries. Left carotid arterial system: The left common carotid artery is widely patent, as are the left internal and external carotid arteries. Minimal calcified plaque is noted in the proximal ICA. Vertebral arteries: The vertebral arteries are widely patent bilaterally noting left-sided dominance. Subclavian arteries: Widely patent bilaterally. Intracranial vasculature: There is mild atherosclerotic calcification of the cavernous carotid arteries. The internal carotid arteries are patent at the skull base, as are the anterior and middle cerebral arteries bilaterally. The vertebrobasilar system and posterior cerebral arteries are widely patent. The left vertebral artery is dominant. There is a right posterior communicating artery. There is no aneurysm, high-grade stenosis, or focal vessel cut off seen throughout the intracranial circulation. Jugular veins: Patent bilaterally. Dural sinuses: Patent. Lung apices: Partially visualized upper lobe lung parenchyma appears clear. Soft tissues: The visualized pharyngeal soft tissues are normal in appearance noting angiographic phase technique. The oropharyngeal airway appears widely patent. The salivary and thyroid glands are normal in appearance. No cervical lymphadenopathy is seen. Skeletal structures: The calvarium appears intact. The cervical spine is maintained noting multilevel spondylosis. Orbits: The bony orbits are intact. Orbital contents are normal as visualized. Sinuses and mastoids: There is mild mucosal thickening within the right sphenoid sinus and the maxillary antra. The remaining Paranasal sinuses are clear. The mastoid air cells are well pneumatized. IMPRESSION: 1. There is no hemorrhage, mass effect, or evidence of acute territorial ischemia by CT criteria. 2. Unremarkable CT angiogram of the brain. 3. Unremarkable CT angiogram of the neck. ACT 112: Negative or not required by law. Electronically signed by: Mahesh Neal M.D. 02/06/2024 4:32 PM Neck CTA 02/06/24 16:[address] OF THE BRAIN; CT ANGIOGRAM OF THE BRAIN; CT ANGIOGRAM OF THE NECK CLINICAL HISTORY: Neurologic deficit. Stroke like symptoms. Right-sided numbness. Gait instability. COMPARISON STUDY: CT angiogram of the head and neck dated 05/08/2021. TECHNIQUE: Unenhanced axial CT scan of the brain is performed. Subsequently, following the IV administration of 116 of Optiray 320, CT angiogram of the head and neck was performed from the aortic arch to the vertex. Images are reviewed in the axial, sagittal, and coronal planes. 3-D MIPS images are created and assessed. IV contrast was administered without complication. All measurements were calculated based on NASCET criteria. A dose lowering technique was utilized adhering to the principles of ALARA. CT DOSE: 1193. mGy.cm FINDINGS: Brain parenchyma: There is minimal microangiopathic change. There is no hemorrhage, mass effect, or evidence of acute territorial ischemia by CT criteria. There is no evidence of enhancing mass lesion on the angiogram phase images. The ventricles, sulci, and cisterns are normal in configuration. Sheets- white matter differentiation is preserved. No extra-axial fluid collection is seen. Thoracic aorta: Visualized portions of the thoracic aorta are normal in caliber. The aortic arch demonstrates bovine variant anatomy. Right carotid arterial system: The right common carotid artery is widely patent, as are the right internal and external carotid arteries. Left carotid arterial system: The left common carotid artery is widely patent, as are the left internal and external carotid arteries. Minimal calcified plaque is noted in the proximal ICA. Vertebral arteries: The vertebral arteries are widely patent bilaterally noting left-sided dominance. Subclavian arteries: Widely patent bilaterally. Intracranial vasculature: There is mild atherosclerotic calcification of the cavernous carotid arteries. The internal carotid arteries are patent at the skull base, as are the anterior and middle cerebral arteries bilaterally. The vertebrobasilar system and posterior cerebral arteries are widely patent. The left vertebral artery is dominant. There is a right posterior communicating artery. There is no aneurysm, high-grade stenosis, or focal vessel cut off seen throughout the intracranial circulation. Jugular veins: Patent bilaterally. Dural sinuses: Patent. Lung apices: Partially visualized upper lobe lung parenchyma appears clear. Soft tissues: The visualized pharyngeal soft tissues are normal in appearance noting angiographic phase technique. The oropharyngeal airway appears widely patent. The salivary and thyroid glands are normal in appearance. No cervical lymphadenopathy is seen. Skeletal structures: The calvarium appears intact. The cervical spine is maintained noting multilevel spondylosis. Orbits: The bony orbits are intact. Orbital contents are normal as visualized. Sinuses and mastoids: There is mild mucosal thickening within the right sphenoid sinus and the maxillary antra. The remaining Paranasal sinuses are clear. The mastoid air cells are well pneumatized. IMPRESSION: 1. There is no hemorrhage, mass effect, or evidence of acute territorial ischemia by CT criteria. 2. Unremarkable CT angiogram of the brain. 3. Unremarkable CT angiogram of the neck. ACT 112: Negative or not required by law. Electronically signed by: Mahesh Neal M.D. 02/06/2024 4:32 PM Discharge Plan Visit Data Chief Complaint: Stroke Alert Stated Complaint: Stroke Alert ED Provider: Michelle Mendoza Discharge Problem: Stroke-like symptoms, Chest pain, Hypomagnesemia Forms Stand Alone Forms: [facility] Prescriptions Prescriptions: No Action metformin 500 mg Tablet 500 mg PO BID polyethylene glycol 3350 [Miralax] 17 gram Powder In Packet 17 g PO DAILY meloxicam 15 mg Tablet 15 mg PO DAILY sertraline 100 mg Tablet 100 mg PO DAILY Rx Instructions: TAKE WITH 50 MG FOR TOTAL DOSE OF 150 MG hydroxyzine HCl 50 mg Tablet 50 mg PO QID PRN (Reason: Anxiety) clopidogrel [Plavix] 75 mg Tablet 75 mg PO DAILY omeprazole 40 mg Capsule,Delayed Release(Dr/Ec) 40 mg PO DAILY acetaminophen [Tylenol Extra Strength] 500 mg Tablet 1,000 mg PO Q8 PRN (Reason: Pain) trazodone 100 mg Tablet 200 mg PO HS dicyclomine [Bentyl] 20 mg Tablet 20 mg PO QID PRN (Reason: .abd cramping) bismuth subsalicylate [Pepto-Bismol] 262 mg/15 mL Suspension 524 mg PO QID PRN (Reason: .gi-symptoms) gabapentin 300 mg Capsule 300 mg PO BID montelukast 10 mg Tablet 10 mg PO DAILY sertraline 50 mg Tablet 50 mg PO DAILY Rx Instructions: TAKE WITH 100 MG FOR TOTAL DOSE OF 150 MG Centrum Silver Tablet 1 tab PO DAILY rosuvastatin 20 mg Tablet 20 mg PO DAILY varenicline [Chantix] 1 mg Tablet 1 mg PO BID diclofenac sodium [Voltaren] 1 % Gel 4 g TOPICAL QID PRN (Reason: Pain) Rx Instructions: bilateral knees Dulera 100-5 mcg/actuation Hfa Aerosol Inhaler 2 puff INHALATION Q12H Combivent Respimat 20-100 mcg/actuation Mist 1 puff INHALATION QID PRN (Reason: Shortness Of Breath Or Wheezing) Rx Instructions: space evenly during waking hours oxybutynin chloride 10 mg tablet extended release 24hr 10 mg PO DAILY Referrals Referrals: Evaristo Barron MD [Primary Care Provider] -
[2024-02-06 17:29] LABS: Partial Thromboplastin Time 26 Seconds (21-31); Prothrombin Time 10.9 Seconds (9.0-12.0)
[2024-02-06] MEDS: MAGNESIUM SULFATE / D5W 1 GM/100 ML BAG IV STA (17:57)
--- NOTE | 2024-02-06 18:06 | XRay Report ---
SINGLE VIEW CHEST CLINICAL HISTORY: Strokelike symptoms. FINDINGS: An AP, portable, upright chest radiograph is compared to chest x-ray and chest CT dated 09/29. The examination is degraded by portable technique and apical lordotic positioning. The heart is enlarged. There is prominence of the pulmonary vasculature. Chronic interstitial thickening is sim ilar to previous. No airspace consolidation or large pleural effusion is identified. No pneumothorax is seen. The skeletal structures are osteopenic. The bony thorax is grossly intact. IMPRESSION: 1. Cardiomegaly with prominence of the pulmonary vasculature. Correlate clinically for evidence of fl uid overload/congestive change. 2. No airspace consolidation or large pleural effusion is identified. ACT 112: Negative or not required by law. Electronically signed by: Mahesh Neal M.D. 02/06/2024 6:05 PM
[2024-02-06] MEDS: MAGNESIUM SULFATE / D5W 1 GM/100 ML BAG IV ONE (21:15)
--- NOTE | 2024-02-06 23:00 | Magnetic Resonance Report ---
Exam(s): MRI HEAD Without Contrast EXAM: MR Head Without Intravenous Contrast CLINICAL HISTORY: Reason for exam: slurred speech. TECHNIQUE: Magnetic resonance images of the head/brain without intravenous contrast in multiple planes. COMPARISON: No relevant prior studies available. FINDINGS: Brain: Minimal nonspecific white matter changes. No mass. No hemorrhage. No acute infarct. The flow voids of the base of the brain are intact. Ventricles: Unremarkable. No ventriculomegaly. Bones/joints: Unremarkable. No acute fracture. Sinuses: Unremarkable as visualized. No acute sinusitis. Mastoid air cells: Unremarkable as visualized. No mastoid effusion. Orbits: Unremarkable as visualized. IMPRESSION: No evidence of acute intracranial pathology. Minimal nonspecific white matter changes. Electronically signed by: Beatris Castillo MD 02/06/24 22:59 PM
--- NOTE | 2024-02-07 00:23 | History & Physical Report ---
Date of Service February 06, 2024 Assessment & Plan (1) Stroke-like symptoms: Plan: 58-year-old female with past medical history significant for type 2 diabetes, hyperlipidemia, moderate persistent asthma, COPD, morbid obesity, GERD, renal disease, classical migraine, PPD positive treated, history of tobacco abuse, depression, ambulates with cane at home presents with strokelike symptoms. Patient states last couple of Nights she had slurred speech. Today slurred speech is improved. But in the afternoon at 1:30 PM she noticed bilateral leg weakness more in the left leg. And having ambulatory dysfunction. Stroke workup with CTA head and neck and brain MRI are unremarkable. Complains of on and off left-sided chest pains. Currently she has mild chest pain. On and off shortness of breath. Currently breathing is okay. Also having headaches in the occipital region and also in the forehead region. Vision is okay. No runny nose or sore throat .No cough. No difficulty swallowing. No fevers. No nausea. No abdominal pain. Normal bowel and bladder movements. Hemodynamics are okay. Strokelike symptoms had slurred speech last couple of nights which is improved. currently having weakness in the lower extremities more in the left leg. CTA head and neck and brain MRI unremarkable patient already on statin and Plavix will follow echo. Telemetry monitoring. Speech consult in AM. PT OT. Neurology consulted for further recommendations. Chest pains on and off. Initial workup okay. Will follow serial cardiac enzymes and echo. N.p.o. for now. Cardiology consult in AM. Type 2 diabetes. Hold metformin. Sliding scale. Will monitor. Follow HbA1c levels. Moderate persistent asthma COPD continue home inhalers depression continue home medications GERD on omeprazole hyperlipidemia on statin morbid obesity needs follow-up with PCP and nutrition DVT prophylaxis SCDs for now disposition telemetry full code. History of Present Illness Chief Complaint: Strokelike symptoms Primary Care Provider: Evaristo Barron MD 58-year-old female with past medical history significant for type 2 diabetes, hyperlipidemia, moderate persistent asthma, COPD, morbid obesity, GERD, renal disease, classical migraine, PPD positive treated, history of tobacco abuse, depression, ambulates with cane at home presents with strokelike symptoms. Patient states last couple of Nights she had slurred speech. Today slurred speech is improved. But in the afternoon at 1:30 PM she noticed bilateral leg weakness more in the left leg. And having ambulatory dysfunction. Stroke workup with CTA head and neck and brain MRI are unremarkable. Complains of on and off left-sided chest pains. Currently she has mild chest pain. On and off shortness of breath. Currently breathing is okay. Also having headaches in the occipital region and also in the forehead region. Vision is okay. No runny nose or sore throat .No cough. No difficulty swallowing. No fevers. No nausea. No abdominal pain. Normal bowel and bladder movements. Hemodynamics are okay. Past medical history. As mentioned above. past surgical history. Colonoscopy. Dental surgery. Ligation of oviducts. Social history. Smokes 0.3 packs a day. Smoking for 45 years. No alcohol use. No drug use. Family history. Mother has stage IV breast cancer. Dementia. Diabetes. Rheumatoid arthritis. Father had rheumatoid arthritis. ND at age 58. Paternal aunt had breast cancer. Maternal grandmother had breast cancer. Maternal grandmother had heart disorder. Paternal grandfather had heart disorder. Allergies Allergy/AdvReac Type Severity Reaction Status Date / Time aspirin Allergy Unknown CONTRAINDICATED Verified 10/24/22 20:15 WITH ASTHMA Home Medications Medication Instructions Recorded Confirmed Type acetaminophen 500 mg tablet 1,000 mg PO Q8 PRN Pain 10/24/22 02/06/24 History (Tylenol Extra Strength) bismuth subsalicylate 262 mg/15 mL 524 mg PO QID PRN .gi-symptoms 10/24/22 02/06/24 History oral suspension (Pepto-Bismol) clopidogrel 75 mg tablet (Plavix) 75 mg PO DAILY 10/24/22 02/06/24 History diclofenac sodium 1 % topical gel 4 g topical QID PRN Pain 10/24/22 02/06/24 History dicyclomine 20 mg tablet 20 mg PO QID PRN .abd cramping 10/24/22 02/06/24 History gabapentin 300 mg capsule 300 mg PO BID 10/24/22 02/06/24 History hydroxyzine HCl 50 mg tablet 50 mg PO QID PRN Anxiety 10/24/22 02/06/24 History ipratropium 20 mcg-albuterol 100 1 puff inhalation QID PRN 10/24/22 02/06/24 History mcg/actuation mist for inhalation Shortness Of Breath Or Wheezing (Combivent Respimat) meloxicam 15 mg tablet 15 mg PO DAILY 10/24/22 02/06/24 History metformin 500 mg tablet 500 mg PO BID 10/24/22 02/06/24 History mometasone-formoterol HFA 100 2 puff inhalation Q12H 10/24/22 02/06/24 History mcg-5 mcg/actuation aerosol inhaler (Dulera) montelukast 10 mg tablet 10 mg PO DAILY 10/24/22 02/06/24 History vvrteqvxcggw-tyfcmfxh-hncxcf tablet 1 tab PO DAILY 10/24/22 02/06/24 History omeprazole 40 mg capsule,delayed 40 mg PO DAILY 10/24/22 02/06/24 History release polyethylene glycol 3350 17 gram 17 g PO DAILY 10/24/22 02/06/24 History oral powder packet (Miralax) rosuvastatin 20 mg tablet 20 mg PO DAILY 10/24/22 02/06/24 History sertraline 100 mg tablet 100 mg PO DAILY 10/24/22 02/06/24 History sertraline 50 mg tablet 50 mg PO DAILY 10/24/22 02/06/24 History trazodone 100 mg tablet 200 mg PO HS 10/24/22 02/06/24 History varenicline 1 mg tablet (Chantix) 1 mg PO BID 10/24/22 02/06/24 History oxybutynin chloride 10 mg 10 mg PO DAILY 02/06/24 02/06/24 History tablet,extended release 24 hr Past Med/Surg History Problem List (Updated 02/06/24 @ 20:11 by Michelle Mendoza MD) Hypomagnesemia (Acute) Chest pain (Acute) Stroke-like symptoms (Acute) No significant past surgical history Anxiety (Chronic) Asthma (Chronic) Sepsis Fever (Acute) Tachycardia (Acute) Shortness of breath (Acute) Pneumonia (Acute) Back pain (Chronic) Depression (Chronic) Medical History Hypertension Tobacco abuse Dyslipidemia, goal LDL below 70 Chest pain Anxiety Asthma Surgical History No significant past surgical history Social History Smoking Status: Current some day smoker Tobacco Type: Cigarettes Cigarettes Per Day: "2 cigarettes per week"; Do You Dip or Chew Tobacco: No; Tobacco Cessation Education Requested by Patient: No Hx Alcohol Use: No Hx Substance Use: No Preferred Language: Slovak Communication Ability: Effective Manager School Required: No Beliefs That Will Affect Care: None marital status: Unknown Current Living Situation: Other Current Living Situation Comment: daughter Other Information That Helps Us Care for You: No Feels Safe at Home: Yes Safety Concerns: Feels Safe At This Time Assistive Devices: Cane, Denture - Upper, Denture - Lower, Glasses and Walker Review of Systems Review of Systems: All systems reviewed & are unremarkable except as noted in HPI & below Physical Exam Physical Exam: General- Not in distress. Head- atraumatic Eyes- PERRL. ENT- oropharynx clear Neck- supple, no JVD. Lungs- clear to auscultation no wheezing or crackles. Heart- regular rate and rhythm; no murmur, no gallop. Abdomen- normal bowel sounds, soft, nontender, no distension. Extremities- trace pretibial edema present, no erythema seen. Neuro- alert, oriented PERRL, no facial palsy; no dysarthria; motor 5/5 bilaterally;coordination of movements normal. No pronator drift. Can lift and hold lower extremities. Sensations somewhat diminished on left upper extremity. Position sense intact Skin- warm & dry Results & Data Results & Data Vital Signs (Past 12 Hours) Vital Signs Temp Pulse Resp BP Pulse Ox O2 Del Method 02/06/24 22:33 67 15 167/102 H 95 02/06/24 22:09 66 02/06/24 22:03 74 21 157/120 H 94 02/06/24 21:39 70 12 152/98 H 93 02/06/24 20:15 71 17 123/106 H 95 02/06/24 19:36 77 29 H 94 02/06/24 19:15 73 20 93 Room Air 02/06/24 18:09 68 12 94 Room Air 02/06/24 16:48 67 14 151/107 H 94 Room Air 02/06/24 16:39 37.1 C 71 20 151/107 H 95 Room Air 02/06/24 16:33 73 Diagnostic Findings Laboratory Results WBC 7.05 K/ul (4.8-10.8) 02/06/24 16:31 RBC 4.78 M/uL (4.20-5.40) 02/06/24 16:31 Hgb 13.4 g/dl (12.0-16.0) 02/06/24 16:31 Hct 41.2 % (37.0-47.0) 02/06/24 16:31 MCV 86.2 fL (80.0-100.0) 02/06/24 16:31 MCH 28.0 pg (25.0-34.0) 02/06/24 16:31 MCHC 32.5 g/dL (32.0-36.0) 02/06/24 16:31 RDW Std Deviation 40.8 fL (36.4-46.3) 02/06/24 16:31 RDW Coeff of Xiomara 13.0 % (11.5-14.5) 02/06/24 16:31 Plt Count 152 K/uL (130-400) 02/06/24 16:31 MPV 10.8 fL (9.4-12.4) 02/06/24 16:31 PT 10.9 Seconds (9.0-12.0) 02/06/24 16:31 INR 1.0 (0.9-1.1) 02/06/24 16:31 APTT 26 Seconds (21-31) 02/06/24 16:31 PTT Ratio 1.0 02/06/24 16:31 Sodium 139 mmol/L (136-145) 02/06/24 16:31 Potassium 3.5 mmol/L (3.5-5.1) 02/06/24 16:31 Chloride 102 mmol/L (98-107) 02/06/24 16:31 Carbon Dioxide 30 mmol/L (21-32) 02/06/24 16:31 Anion Gap 7 (3-11) 02/06/24 16:31 BUN 9 mg/dl (6-23) 02/06/24 16:31 Creatinine 0.80 mg/dl (0.6-1.2) 02/06/24 16:31 Est Cr Clr Drug Dosing 99.0 ml/min 02/06/24 16:31 Est GFR ( Amer) 92.9 ml/min 02/06/24 16:31 Est GFR (Non-Af Amer) 80.1 ml/min 02/06/24 16:31 BUN/Creatinine Ratio 11.3 (10-20) 02/06/24 16:31 Glucose 120 mg/dl (70-99(Fasting)) H 02/06/24 16:31 POC Glucose 89 mg/dl (70-99) 02/06/24 16:31 Calcium 8.3 mg/dl (8.6-10.3) L 02/06/24 16:31 Magnesium 1.6 mg/dl (1.7-2.4) L 02/06/24 16:31 Total Bilirubin 0.3 mg/dl (0.2-1.0) 02/06/24 16:31 AST 20 U/L (13-39) 02/06/24 16:31 ALT 21 U/L (7-52) 02/06/24 16:31 Alkaline Phosphatase 65 U/L (34-104) 02/06/24 16:31 Troponin I High Sens 2.8 pg/ml (0-14) 02/06/24 19:57 B-Natriuretic Peptide 37 pg/ml (0-100) 02/06/24 18:12 Total Protein 6.5 gm/dl (6.0-8.3) 02/06/24 16:31 Albumin 3.7 gm/dl (3.4-5.0) 02/06/24 16:31 Globulin 2.8 gm/dl (2.5-4.0) 02/06/24 16:31 Albumin/Globulin Ratio 1.3 (0.9-2) 02/06/24 16:31 Impressions Chest X-Ray 02/06/24 16:10 SINGLE VIEW CHEST CLINICAL HISTORY: Strokelike symptoms. FINDINGS: An AP, portable, upright chest radiograph is compared to chest x-ray and chest CT dated 10/24/2022. The examination is degraded by portable technique and apical lordotic positioning. The heart is enlarged. There is prominence of the pulmonary vasculature. Chronic interstitial thickening is similar to previous. No airspace consolidation or large pleural effusion is identified. No pneumothorax is seen. The skeletal structures are osteopenic. The bony thorax is grossly intact. IMPRESSION: 1. Cardiomegaly with prominence of the pulmonary vasculature. Correlate clinically for evidence of fluid overload/congestive change. 2. No airspace consolidation or large pleural effusion is identified. ACT 112: Negative or not required by law. Electronically signed by: Mahesh Neal M.D. 02/06/2024 6:[address] 02/06/24 16:[address] OF THE BRAIN; CT ANGIOGRAM OF THE BRAIN; CT ANGIOGRAM OF THE NECK CLINICAL HISTORY: Neurologic deficit. Stroke like symptoms. Right-sided numbness. Gait instability. COMPARISON STUDY: CT angiogram of the head and neck dated 05/08/2021. TECHNIQUE: Unenhanced axial CT scan of the brain is performed. Subsequently, following the IV administration of 116 of Optiray 320, CT angiogram of the head and neck was performed from the aortic arch to the vertex. Images are reviewed in the axial, sagittal, and coronal planes. 3-D MIPS images are created and assessed. IV contrast was administered without complication. All measurements were calculated based on NASCET criteria. A dose lowering technique was utilized adhering to the principles of ALARA. CT DOSE: 1193. mGy.cm FINDINGS: Brain parenchyma: There is minimal microangiopathic change. There is no hemorrhage, mass effect, or evidence of acute territorial ischemia by CT criteria. There is no evidence of enhancing mass lesion on the angiogram phase images. The ventricles, sulci, and cisterns are normal in configuration. Sheets- white matter differentiation is preserved. No extra-axial fluid collection is seen. Thoracic aorta: Visualized portions of the thoracic aorta are normal in caliber. The aortic arch demonstrates bovine variant anatomy. Right carotid arterial system: The right common carotid artery is widely patent, as are the right internal and external carotid arteries. Left carotid arterial system: The left common carotid artery is widely patent, as are the left internal and external carotid arteries. Minimal calcified plaque is noted in the proximal ICA. Vertebral arteries: The vertebral arteries are widely patent bilaterally noting left-sided dominance. Subclavian arteries: Widely patent bilaterally. Intracranial vasculature: There is mild atherosclerotic calcification of the cavernous carotid arteries. The internal carotid arteries are patent at the skull base, as are the anterior and middle cerebral arteries bilaterally. The vertebrobasilar system and posterior cerebral arteries are widely patent. The left vertebral artery is dominant. There is a right posterior communicating artery. There is no aneurysm, high-grade stenosis, or focal vessel cut off seen throughout the intracranial circulation. Jugular veins: Patent bilaterally. Dural sinuses: Patent. Lung apices: Partially visualized upper lobe lung parenchyma appears clear. Soft tissues: The visualized pharyngeal soft tissues are normal in appearance noting angiographic phase technique. The oropharyngeal airway appears widely patent. The salivary and thyroid glands are normal in appearance. No cervical lymphadenopathy is seen. Skeletal structures: The calvarium appears intact. The cervical spine is maintained noting multilevel spondylosis. Orbits: The bony orbits are intact. Orbital contents are normal as visualized. Sinuses and mastoids: There is mild mucosal thickening within the right sphenoid sinus and the maxillary antra. The remaining Paranasal sinuses are clear. The mastoid air cells are well pneumatized. IMPRESSION: 1. There is no hemorrhage, mass effect, or evidence of acute territorial ischemia by CT criteria. 2. Unremarkable CT angiogram of the brain. 3. Unremarkable CT angiogram of the neck. ACT 112: Negative or not required by law. Electronically signed by: Mahesh Neal M.D. 02/06/2024 4:32 PM Head CTA 02/06/24 16:[address] OF THE BRAIN; CT ANGIOGRAM OF THE BRAIN; CT ANGIOGRAM OF THE NECK CLINICAL HISTORY: Neurologic deficit. Stroke like symptoms. Right-sided numbness. Gait instability. COMPARISON STUDY: CT angiogram of the head and neck dated 05/08/2021. TECHNIQUE: Unenhanced axial CT scan of the brain is performed. Subsequently, following the IV administration of 116 of Optiray 320, CT angiogram of the head and neck was performed from the aortic arch to the vertex. Images are reviewed in the axial, sagittal, and coronal planes. 3-D MIPS images are created and assessed. IV contrast was administered without complication. All measurements were calculated based on NASCET criteria. A dose lowering technique was utilized adhering to the principles of ALARA. CT DOSE: 1193. mGy.cm FINDINGS: Brain parenchyma: There is minimal microangiopathic change. There is no hemorrha ge, mass effect, or evidence of acute territorial ischemia by CT criteria. There is no evidence of enhancing mass lesion on the angiogram phase images. The ventricles, sulci, and cisterns are normal in configuration. Sheets-white matter differentiation is preserved. No extra-axial fluid collection is seen. Thoracic aorta: Visualized portions of the thoracic aorta are normal in caliber. The aortic arch demonstrates bovine variant anatomy. Right carotid arterial system: The right common carotid artery is widely patent, as are the right internal and external carotid arteries. Left carotid arterial system: The left common carotid artery is widely patent, as are the left internal and external carotid arteries. Minimal calcified plaque is noted in the proximal ICA. Vertebral arteries: The vertebral arteries are widely patent bilaterally noting left-sided dominance. Subclavian arteries: Widely patent bilaterally. Intracranial vasculature: There is mild atherosclerotic calcification of the cavernous carotid arteries. The internal carotid arteries are patent at the skull base, as are the anterior and middle cerebral arteries bilaterally. The vertebrobasilar system and posterior cerebral arteries are widely patent. The left vertebral artery is dominant. There is a right posterior communicating artery. There is no aneurysm, high-grade stenosis, or focal vessel cut off seen throughout the intracranial circulation. Jugular veins: Patent bilaterally. Dural sinuses: Patent. Lung apices: Partially visualized upper lobe lung parenchyma appears clear. Soft tissues: The visualized pharyngeal soft tissues are normal in appearance noting angiographic phase technique. The oropharyngeal airway appears widely patent. The salivary and thyroid glands are normal in appearance. No cervical lymphadenopathy is seen. Skeletal structures: The calvarium appears intact. The cervical spine is maintained noting multilevel spondylosis. Orbits: The bony orbits are intact. Orbital contents are normal as visualized. Sinuses and mastoids: There is mild mucosal thickening within the right sphenoid sinus and the maxillary antra. The remaining Paranasal sinuses are clear. The mastoid air cells are well pneumatized. IMPRESSION: 1. There is no hemorrhage, mass effect, or evidence of acute territorial ischemia by CT criteria. 2. Unremarkable CT angiogram of the brain. 3. Unremarkable CT angiogram of the neck. ACT 112: Negative or not required by law. Electronically signed by: Mahesh Neal M.D. 02/06/2024 4:32 PM Neck CTA 02/06/24 16:[address] OF THE BRAIN; CT ANGIOGRAM OF THE BRAIN; CT ANGIOGRAM OF THE NECK CLINICAL HISTORY: Neurologic deficit. Stroke like symptoms. Right-sided numbness. Gait instability. COMPARISON STUDY: CT angiogram of the head and neck dated 05/08/2021. TECHNIQUE: Unenhanced axial CT scan of the brain is performed. Subsequently, following the IV administration of 116 of Optiray 320, CT angiogram of the head and neck was performed from the aortic arch to the vertex. Images are reviewed in the axial, sagittal, and coronal planes. 3-D MIPS images are created and assessed. IV contrast was administered without complication. All measurements were calculated based on NASCET criteria. A dose lowering technique was utilized adhering to the principles of ALARA. CT DOSE: 1193. mGy.cm FINDINGS: Brain parenchyma: There is minimal microangiopathic change. There is no hemorrhage, mass effect, or evidence of acute territorial ischemia by CT criteria. There is no evidence of enhancing mass lesion on the angiogram phase images. The ventricles, sulci, and cisterns are normal in configuration. Sheets- white matter differentiation is preserved. No extra-axial fluid collection is seen. Thoracic aorta: Visualized portions of the thoracic aorta are normal in caliber. The aortic arch demonstrates bovine variant anatomy. Right carotid arterial system: The right common carotid artery is widely patent, as are the right internal and external carotid arteries. Left carotid arterial system: The left common carotid artery is widely patent, as are the left internal and external carotid arteries. Minimal calcified plaque is noted in the proximal ICA. Vertebral arteries: The vertebral arteries are widely patent bilaterally noting left-sided dominance. Subclavian arteries: Widely patent bilaterally. Intracranial vasculature: There is mild atherosclerotic calcification of the cavernous carotid arteries. The internal carotid arteries are patent at the skull base, as are the anterior and middle cerebral arteries bilaterally. The vertebrobasilar system and posterior cerebral arteries are widely patent. The left vertebral artery is dominant. There is a right posterior communicating artery. There is no aneurysm, high-grade stenosis, or focal vessel cut off seen throughout the intracranial circulation. Jugular veins: Patent bilaterally. Dural sinuses: Patent. Lung apices: Partially visualized upper lobe lung parenchyma appears clear. Soft tissues: The visualized pharyngeal soft tissues are normal in appearance noting angiographic phase technique. The oropharyngeal airway appears widely patent. The salivary and thyroid glands are normal in appearance. No cervical lymphadenopathy is seen. Skeletal structures: The calvarium appears intact. The cervical spine is maintained noting multilevel spondylosis. Orbits: The bony orbits are intact. Orbital contents are normal as visualized. Sinuses and mastoids: There is mild mucosal thickening within the right sphenoid sinus and the maxillary antra. The remaining Paranasal sinuses are clear. The mastoid air cells are well pneumatized. IMPRESSION: 1. There is no hemorrhage, mass effect, or evidence of acute territorial ischemia by CT criteria. 2. Unremarkable CT angiogram of the brain. 3. Unremarkable CT angiogram of the neck. ACT 112: Negative or not required by law. Electronically signed by: Mahesh Neal M.D. 02/06/2024 4:32 PM Brain MRI 02/06/24 19:53 Exam(s): MRI HEAD Without Contrast EXAM: MR Head Without Intravenous Contrast CLINICAL HISTORY: Reason for exam: slurred speech. TECHNIQUE: Magnetic resonance images of the head/brain without intravenous contrast in multiple planes. COMPARISON: No relevant prior studies available. FINDINGS: Brain: Minimal nonspecific white matter changes. No mass. No hemorrhage. No acute infarct. The flow voids of the base of the brain are intact. Ventricles: Unremarkable. No ventriculomegaly. Bones/joints: Unremarkable. No acute fracture. Sinuses: Unremarkable as visualized. No acute sinusitis. Mastoid air cells: Unremarkable as visualized. No mastoid effusion. Orbits: Unremarkable as visualized. IMPRESSION: No evidence of acute intracranial pathology. Minimal nonspecific white matter changes. Electronically signed by: Beatris Castillo MD 02/06/24 22:59 PM ECG Additional Comments: ECG. Normal sinus rhythm with sinus arrhythmia rate of 67. Left anterior fascicular block. No significant change was found. QTc 471. Code Status & VTE Plan VTE Prophylaxis Plan VTE Prophylaxis will be ordered: Yes
[2024-02-07] MEDS ORDERED: GLUCOSE 10 TAB/TUBE PO PRN (01:01)
[2024-02-07] MEDS ORDERED: GLUCAGON FOR INJ 1 MG VIAL SQ PRN (01:01)
[2024-02-07] MEDS ORDERED: POLYETHYLENE (MIRALAX) 17 GM PACK PO PRN (01:01)
[2024-02-07] MEDS ORDERED: GLUCOSE 40% GEL 15 GM TUBE PO PRN (01:01)
[2024-02-07] MEDS ORDERED: ACETAMINOPHEN 325 MG TAB PO PRN (01:01)
[2024-02-07] MEDS ORDERED: NITROGLYCERIN SL 0.4 MG/TAB TAB SL PRN (01:01)
[2024-02-07] MEDS ORDERED: DEXTROSE 50% 50 ML SYRINGE IV PRN (01:01)
[2024-02-07] MEDS ORDERED: PHARMACIST DISCHARGE MED REC CONSULT PRN (01:01)
[2024-02-07] MEDS ORDERED: DICLOFENAC SOD 1% GEL 100 GM TUBE EXT PRN (01:01)
[2024-02-07] MEDS ORDERED: CARBOHYDRATES FOR HYPOGLYCEMIA PO PRN (01:01)
[2024-02-07] MEDS ORDERED: IPRATROPIUM BROMIDE/ALBUTEROL respimat INH INH PRN (01:01)
[2024-02-07] MEDS: SODIUM CHLORIDE 0.9% 1,000 ML IV SCH (01:36)
[2024-02-07] MEDS: INSULIN ASPART PER UNIT CHARGE SC STA (01:52)
[2024-02-07] MEDS ORDERED: IPRATROPIUM BROMIDE HFA INHALER INH PRN (02:19)
[2024-02-07] MEDS ORDERED: ALBUTEROL HFA 8 GM INHALER INH PRN (02:19)
[2024-02-07] MEDS: INSULIN ASPART PER UNIT CHARGE SC SCH ×2 (05:56→21:42)
[2024-02-07 06:25] LABS: Basophils # (auto) 0.03 K/uL (0.00-0.20); Basophils % (auto) 0.4 %; Eosinophils # (auto) 0.38 K/uL (0.00-0.50); Eosinophils % (auto) 5.2 %; Hematocrit (blood only) 42.3 % (37.0-47.0); Hemoglobin 13.6 g/dl (12.0-16.0); Immature Granulocytes # (auto) 0.01 K/uL (0.01-0.20); Immature Granulocytes % (auto) 0.1 %; Lymphocytes # (auto) 2.35 K/uL (1.20-3.40); Lymphocytes % (auto) 32.4 %; Mean Corpuscular Hemoglobin 28.1 pg (25.0-34.0); Mean Corpuscular Hgb Conc 32.2 g/dL (32.0-36.0); Mean Corpuscular Volume 87.4 fL (80.0-100.0); Mean Platelet Volume 10.7 fL (9.4-12.4); Monocytes % (auto) 8.3 %; Neutrophils # (auto) 3.88 K/uL (1.40-6.50); Neutrophils % (auto) 53.6 %; Platelet Count 151 K/uL (130-400); RDW Standard Deviation 41.1 fL (36.4-46.3); Red Blood Count 4.84 M/uL (4.20-5.40); White Blood Count 7.25 K/ul (4.8-10.8)
[2024-02-07 06:34] LABS: BUN Creatinine Ratio 10.2 (10-20); Calcium 8.3 mg/dl (8.6-10.3); Creatinine Clr Calc Pharmacy 89.7 ml/min; Est GFR (African American) 82.8 ml/min; Est GFR (Non-African American) 71.4 ml/min; Magnesium 2.2 mg/dl (1.7-2.4); Potassium 3.5 mmol/L (3.5-5.1)
[2024-02-07 06:41] LABS: Troponin I High Sensitivity 3.4 pg/ml (0-14)
--- NOTE | 2024-02-07 07:05 | Cardiology Consultation ---
Date of Consultation February 07, 2024 Assessment & Plan (1) Stroke-like symptoms: (2) Chest pain: (3) Shortness of breath: Plan IMPRESSION: 58-year-old female admitted for strokelike symptoms of slurred speech and left- sided weakness. CTA of the head and neck and brain MRI without acute findings Notable intermittent left-sided chest discomfort and shortness of breath. Cardiac workup unremarkable thus far. PLAN: Strokelike symptoms: Agree with neurology consultation and evaluation. -Monitor on telemetry while inpatient-consider outpatient ZIO monitor at discharge to rule out paroxysmal A-fib -Continue statin as ordered. Patient on Plavix due to aspirin allergy; continue. Chest pain/shortness of breath: SOB likely multifactorial given underlying COPD/Asthma, obesity, and deconditioning. -Recommend treatment of underlying pulmonary disease. -Patient likely will benefit from PAYAM testing -Await echocardiogram results. Chest pain somewhat atypical as it has been constant and nonexertional, worse w ith palpitation. -Start Pepcid in addition to Pantoprazole to see if CP has a GERD component. -Can consider outpatient dobutamine stress echo with ongoing symptoms. Hypertension: BP has been hypertensive. -Add Losartan 25 mg daily. Case discussed with Dr. Do. Further recommendations pending assessment. I spent a total of 40 minutes on the date of service in preparation, delivery, and documentation of the care provided to the patient excluding any time spent in the performance of separately billed services. PEGGY Viramontes Department of Cardiology, [facility] This chart was completed in part utilizing Speech Voice Recognition Software. Grammatical errors, random word insertions, pronoun errors, and incomplete sentences are an occasional consequence of this system due to software limitations, ambient noise, and hardware issues. Any formal questions or concerns about the content, text, or information contained within the body of this dictation should be directly addressed to the provider for clarification. Supervising Physician Co-Signing Physician Notes Patient seen and personally examined. Full plan and assessment as outlined above. Care and management discussed with advanced provider and personally endorsed 58-year-old female presented with symptoms not consistent with acute cardiac complaint. Chest pain reproducible on physical examination. Echocardiogram normal LV systolic function and no valvular disease Notable finding since presentation include hypertension Will recommend treating Cardiovascular risk factors already being addressed with lipid-lowering therapy, aspirin I spent a total of 20 minutes on the date of service in preparation, delivery, and documentation of the care provided to the patient excluding any time spent in the performance of separately billed s History of Present Illness Reason for Consultation: Chest pain Requesting Physician: Geremias douglassist Attending Physician: Slick Carter MD History of Present Illness 58-year-old female who presented to [facility] emergency department yesterday evening due to slurred speech and left leg weakness/ambulatory dysfunction. At baseline she does use a cane. Notes that she has had multiple episodes similar to this in the past. No cause was ever found. CTA of the head and neck as well as brain MRI were performed and unremarkable without acute findings. Neurology consulted. On exam she also noted to have intermittent left-sided chest discomfort/pressure accompanied by shortness of breath. Pain has improved since admission, but "vaguely" remains. Cardiology consulted. EKG on admission showed sinus rhythm with sinus arrhythmia and a left anterior fascicular block, 67 bpm. Repeat EKG this morning with similar however QT was mildly prolonged at 508 ms. Lab work unremarkable including high-sensitivity troponins negative x 3. Telemetry: SR 50-70s Upon entrance into the room patient resting comfortably in bed. Has been in and out of the bed to use the restroom. Denies any worsening chest pain. Pain worse with palpation. Notes that she does get acid reflux frequently. Mild SOB. No palpitations, dizziness, syncope or near syncope. Weakness resolved. No orthopnea, PND, or increased lower extremity edema. Slurred speech resolved. No fever, chills, cough, hematochezia, melena, or hemoptysis. Denies previous myocardial infarction, cardiac catheterization, coronary artery bypass grafting, a history of congestive heart failure, valvular disease or rheumatic fever, or history of arrhythmia. Notes a history of "headaches". Social history: ; Lives alone Tobacco: 1/4 pack/day Alcohol: None Drug use: None Past medical history: Hyperlipidemia Type 2 diabetes Asthma and COPD Obesity History of migraine GERD CKD Tobacco use; 1/4 ppd Allergies Allergy/AdvReac Type Severity Reaction Status Date / Time aspirin Allergy Unknown CONTRAINDICATED Verified 10/24/22 20:15 WITH ASTHMA Home Medications Medication Instructions Recorded Confirmed Type acetaminophen 500 mg tablet 1,000 mg PO Q8 PRN Pain 10/24/22 02/06/24 History (Tylenol Extra Strength) bismuth subsalicylate 262 mg/15 mL 524 mg PO QID PRN .gi-symptoms 10/24/22 02/06/24 History oral suspension (Pepto-Bismol) clopidogrel 75 mg tablet (Plavix) 75 mg PO DAILY 10/24/22 02/06/24 History diclofenac sodium 1 % topical gel 4 g topical QID PRN Pain 10/24/22 02/06/24 History dicyclomine 20 mg tablet 20 mg PO QID PRN .abd cramping 10/24/22 02/06/24 History gabapentin 300 mg capsule 300 mg PO BID 10/24/22 02/06/24 History hydroxyzine HCl 50 mg tablet 50 mg PO QID PRN Anxiety 10/24/22 02/06/24 History ipratropium 20 mcg-albuterol 100 1 puff inhalation QID PRN 10/24/22 02/06/24 His tory mcg/actuation mist for inhalation Shortness Of Breath Or Wheezing (Combivent Respimat) meloxicam 15 mg tablet 15 mg PO DAILY 10/24/22 02/06/24 History metformin 500 mg tablet 500 mg PO BID 10/24/22 02/06/24 History mometasone-formoterol HFA 100 2 puff inhalation Q12H 10/24/22 02/06/24 History mcg-5 mcg/actuation aerosol inhaler (Dulera) montelukast 10 mg tablet 10 mg PO DAILY 10/24/22 02/06/24 History dijssoezwhab-kxixzroe-kaieuh tablet 1 tab PO DAILY 10/24/22 02/06/24 History omeprazole 40 mg capsule,delayed 40 mg PO DAILY 10/24/22 02/06/24 History release polyethylene glycol 3350 17 gram 17 g PO DAILY 10/24/22 02/06/24 History oral powder packet (Miralax) rosuvastatin 20 mg tablet 20 mg PO DAILY 10/24/22 02/06/24 History sertraline 100 mg tablet 100 mg PO DAILY 10/24/22 02/06/24 History sertraline 50 mg tablet 50 mg PO DAILY 10/24/22 02/06/24 History trazodone 100 mg tablet 200 mg PO HS 10/24/22 02/06/24 History varenicline 1 mg tablet (Chantix) 1 mg PO BID 10/24/22 02/06/24 History oxybutynin chloride 10 mg 10 mg PO DAILY 02/06/24 02/06/24 History tablet,extended release 24 hr Patient History Medical History Hypertension Tobacco abuse Dyslipidemia, goal LDL below 70 Chest pain Anxiety Asthma Surgical History No significant past surgical history Social History Smoking Status: Current some day smoker Tobacco Type: Cigarettes Cigarettes Per Day: "2 cigarettes per week"; Do You Dip or Chew Tobacco: No; Tobacco Cessation Education Requested by Patient: No Hx Alcohol Use: No Hx Substance Use: No Preferred Language: Spanish Communication Ability: Effective Database Administration Project Manager Required: No Beliefs That Will Affect Care: None marital status: Unknown Current Living Situation: Other Current Living Situation Comment: daughter Other Information That Helps Us Care for You: No Feels Safe at Home: Yes Safety Concerns: Feels Safe At This Time Assistive Devices: Cane and Walker Review of Systems Review of Systems: All systems reviewed & are unremarkable except as noted in HPI & below Physical Exam Constitutional: WD/WN, vitals as above no acute distress Neck: normal visual inspection and trachea midline Respiratory: normal respiratory effort, lungs clear to auscultation Auscultation: + diminished lung sounds; no rales, no rhonchi and no wheezes Cardiovascular: RRR, no murmur, no edema Heart Sounds: normal S1 and normal S2 Vessels: no JVD Extremities: no edema Gastrointestinal (Abdomen): normal bowel sounds, soft, nontender, no hepatosplenomegaly Musculoskeletal: no cyanosis or clubbing, extremities motor strength 5/5 Skin: no rashes, warm and dry Neurologic: PERRL, EOMI, accommodation nl, no face palsy, no dysarthria Psychiatric: A+Ox3, euthymic affect Results & Data Vital Signs (Past 12 Hours) Vital Signs Temp Pulse Pulse Resp BP BP Pulse Ox 02/07/24 03:37 36.5 C 75 18 159/95 H 95 02/07/24 01:16 73 02/07/24 00:45 36.5 C 74 16 151/74 H 92 07/10/24 00:23 69 20 02/06/24 22:33 67 15 167/102 H 95 02/06/24 22:09 66 02/06/24 22:03 74 21 157/120 H 94 02/06/24 21:39 70 12 152/98 H 93 02/06/24 20:15 71 17 123/106 H 95 02/06/24 19:36 77 29 H 94 02/06/24 19:15 73 20 93 O2 Del Method 02/07/24 03:37 Room Air 02/07/24 01:16 02/07/24 00:45 Room Air 02/07/24 00:23 02/06/24 22:33 02/06/24 22:09 02/06/24 22:03 02/06/24 21:39 02/06/24 20:15 02/06/24 19:36 02/06/24 19:15 Room Air Laboratory Results Cardiac Enzymes 02/06/24 02/06/24 02/06/24 Range/Units 16:31 18:12 19:57 AST 20 (13-39) U/L Troponin I High Sens < 2.3 2.8 (0-14) pg/ml B-Natriuretic Peptide 37 (0-100) pg/ml 02/07/24 Range/Units 05:52 AST (13-39) U/L Troponin I High Sens 3.4 (0-14) pg/ml B-Natriuretic Peptide (0-100) pg/ml Coagulation 02/06/24 02/06/24 Range/Units 16:31 18:12 PT 10.9 (9.0-12.0) Seconds APTT 26 (21-31) Seconds B-Natriuretic Peptide 37 (0-100) pg/ml Lipids 02/07/24 Range/Units 05:52 Triglycerides 291 H (0-150) mg/dl Cholesterol 135 (0-200) mg/dl HDL Cholesterol 34 mg/dl Cholesterol/HDL Ratio 4.0 (0-5) CBC 02/06/24 02/07/24 Range/Units 16:31 05:52 WBC 7.05 7.25 (4.8-10.8) K/ul RBC 4.78 4.84 (4.20-5.40) M/uL Hgb 13.4 13.6 (12.0-16.0) g/dl Hct 41.2 42.3 (37.0-47.0) % Plt Count 152 151 (130-400) K/uL Neut # (Auto) 3.88 (1.40-6.50) K/uL Lymph # (Auto) 2.35 (1.20-3.40) K/uL [place] # (Auto) 0.60 H (0.11-0.59) K/uL Eos # (Auto) 0.38 (0.00-0.50) K/uL Baso # (Auto) 0.03 (0.00-0.20) K/uL Comprehensive Metabolic Panel 02/06/24 02/07/24 Range/Units 16:31 05:52 Sodium 139 142 (136-145) mmol/L Potassium 3.5 3.5 (3.5-5.1) mmol/L Chloride 102 104 (98-107) mmol/L Carbon Dioxide 30 34 H (21-32) mmol/L BUN 9 9 (6-23) mg/dl Creatinine 0.80 0.88 (0.6-1.2) mg/dl Glucose 120 H 140 H (70-99(Fasting)) mg/dl Calcium 8.3 L 8.3 L (8.6-10.3) mg/dl AST 20 (13-39) U/L ALT 21 (7-52) U/L Alkaline Phosphatase 65 (34-104) U/L Total Protein 6.5 (6.0-8.3) gm/dl Albumin 3.7 (3.4-5.0) gm/dl Intake and Output 02/06/24 02/07/24 02/07/24 22:59 06:59 14:59 Intake Total 100 / 200 100 / 200 Balance 100 / 200 100 / 200 Intake: IV 100 / 200 100 / 200 Magnesium Sulfate / D5w 1 gm In 100 / 200 100 / 200 100 ml @ 50 mls/hr IV ONE ONE Rx#:[id number] Other: Other Intake Source NPO # Unmeasured Voids 1 Weight 127.6 kg 127 kg Weight Measurement Method [facility]
[2024-02-07 07:28] LABS: Estimated Average Glucose 169 mg/dl; Hemoglobin A1C 7.5 % (4.5-5.6)
[2024-02-07] MEDS: POTASSIUM CHLORIDE CRTAB 20 MEQ TABCR PO STA (09:54)
[2024-02-07] MEDS: CLOPIDOGREL BISULFATE 75 MG TAB PO SCH (09:55)
[2024-02-07] MEDS: POLYETHYLENE (MIRALAX) 17 GM PACK PO SCH (09:55)
[2024-02-07] MEDS: hydrOXYzine HCl 25 MG TAB PO PRN (09:55)
[2024-02-07] MEDS: OXYBUTYNIN CHLORIDE XL 5 MG TABCR PO SCH (09:56)
[2024-02-07] MEDS: DICYCLOMINE HCL 20 MG TAB PO PRN (09:56)
[2024-02-07] MEDS: GABAPENTIN 300 MG CAP PO SCH (09:56)
[2024-02-07] MEDS: MONTELUKAST SODIUM 10 MG TABLET PO SCH (09:56)
[2024-02-07] MEDS: CEROVITE ADV FORMULA TAB PO SCH (09:56)
[2024-02-07] MEDS: PANTOprazole 40 MG TAB PO SCH (09:56)
[2024-02-07] MEDS: SERTRALINE HCL 50 MG TABLET PO SCH (09:57)
[2024-02-07] MEDS: ROSUVASTATIN CALCIUM 20 MG TAB PO SCH (09:57)
[2024-02-07] MEDS: SERTRALINE HCL 100 MG TABLET PO SCH (09:57)
[2024-02-07] MEDS: FLUTICASONE/VILANTEROL 200/25MCG 14 PUFFS/INHALER INH SCH (11:27)
[2024-02-07] MEDS: LOSARTAN POTASSIUM 25 MG TAB PO SCH (11:29)
[2024-02-07] MEDS: FAMOTIDINE 20 MG TAB PO SCH (11:29)
--- OUTSIDE RECORDS SUMMARY | 2024-02-07 12:26 | External Medical Summary | Summary of Care ---
Author Name Unknown Organization [facility] Address [address] [place] [address] Phone [phone] Care Team Providers Care Buttonhole Maker Name Role Phone Evaristo Barron MD Primary Care Provider + Reason for Visit * Reason Comments Medication Refill Encounter Details Date Type Department Care Team (Late st Contact Info) Description 01/13/2024 Refill Family Practice [facility] [address] [place] [address] Evaristo Barron MD [address] [place] [id number] Allergies Active Allergy Reactions Criticality Noted Date Comments Aspirin Other (Please comment) High 07/18/2015 Pt c/o SOB documented as of this encounter (statuses as of 01/15/2024) Medications Medication Sig Dispensed Refills Start Date End Date Status Lancets MISCIndications:Hype rglycemia Use as directed. 100 Each 1 11/02/2017 Active Bismuth Subsalicylate 262 MG/15ML Oral SuspensionIndication s:heartburn Take 30 mL by mouth every 4 hours as needed. Active Ipratropium-Albutero l 20-100 MCG/ACT Inhalation Aerosol Solution (Combivent Respimat)Indications :Wheeze INHALE ONE PUFF BY MOUTH FOUR TIMES A DAY NEEDED 12 g 01/16/2023 Active Vitamin D (Cholecalciferol) 25 MCG (1000 UT) Oral Capsule Take 3 Capsules by mouth daily. Active B Complex Vitamins Oral Capsule Take 1 Capsule by mouth in the morning. Active Osteo Bi-Flex Adv Triple St Oral Tablet Take 1 Tablet by mouth in the morning. Active Centrum Silver 50+Women Oral Tablet Take 1 Tablet by mouth daily. Active Dicyclomine HCl 20 MG Oral Tablet (Bentyl)Indications: Lower abdominal pain Take 1 Tablet by mouth every 6 hours. 360 Tablet 3 08/07/2023 Active Polyethylene Glycol 3350 17 GM/SCOOP Oral Powder (Miralax) Take 17 g by mouth in the morning. 1734 g 3 08/18/2023 Active Acetaminophen 500 MG Oral Tablet (Tylenol) Take 2 Tablets by mouth every 8 hours as needed for mild, moderate, or severe pain 600 Tablet 3 08/18/2023 Active Additional Information Patient taking differently:1,000 mg OralBID (.AM/PM), Reported on 10/16/2023 Diclofenac Sodium 1 % External Gel (Voltaren)Indication s:Bilateral primary osteoarthritis of knee APPLY 4 GRAMS TOPICALLY TO AFFECTED AREA 4 TIMES A DAY NEEDED FOR MILD PAIN TO BILATERAL KNEES 900 g 3 09/06/2023 5 Active Rosuvastatin Calcium 20 MG Oral Tablet (Crestor)Indications :Dyslipidemia, goal LDL below 160 TAKE ONE TABLET BY MOUTH EVERY DAY 100 Tablet 3 09/16/2023 Active Omeprazole 40 MG Oral Capsule Delayed Release (PriLOSEC)Indication s:Gastro-esophageal reflux disease without esophagitis TAKE ONE CAPSULE IN THE MORNING ONE HOUR BEFORE THE FIRST MEAL OF THE DAY 100 Capsule 1 09/24/2023 5 Active Varenicline Tartrate 1 MG Oral Tablet (Chantix) TAKE ONE TABLET BY MOUTH EVERY MORNING AND ONE TABLET BEFORE BEDTIME 200 Tablet 10/06/2023 5 Active Vicco 3 1000 MG Oral Capsule Take by mouth daily. Active Stress ReLeaf Oral Capsule Take 2 Capsules by mouth in the morning. Active Montelukast Sodium 10 MG Oral Tablet (Singulair)Indicatio ns:Moderate persistent asthma, unspecified whether complicated TAKE ONE TABLET BY MOUTH EVERY DAY IN THE MORNING 100 Tablet 3 10/21/2023 Active Sertraline HCl 100 MG Oral Tablet (Zoloft) TAKE ONE TABLET BY MOUTH IN THE MORNING WITH 50MG FOR 150MG TOTAL 100 Tablet 1 10/25/2023 Active traZODone HCl 100 MG Oral Tablet (Desyrel) TAKE TWO TABLETS BY MOUTH EVERY DAY AT BEDTIME 180 Tablet 1 11/03/2023 Active oxyBUTYnin Chloride ER 10 MG Oral Tablet Extended Release 24 Hour (Ditropan XL)Indications:Mixed incontinence urge and stress (male)(female) TAKE ONE TABLET BY MOUTH EVERY DAY -- DO NOT CRUSH, CUT OR CHEW 90 Tablet 3 11/04/2023 Active Gabapentin 300 MG Oral Capsule (Neurontin)Indicatio ns:Chronic left-sided low back pain with left-sided sciatica,Left buttock pain TAKE ONE CAPSULE BY MOUTH THREE TIMES A DAY -- IN THE MORNING, AT NOON AND BEFORE BEDTIME 270 Capsule 1 11/04/2023 Active Sertraline HCl 50 MG Oral Tablet (Zoloft) TAKE ONE TABLET BY MOUTH EVERY MORNING WITH 100 MG FOR TOTAL 150 MG 100 Tablet 11/09/2023 Active hydrOXYzine HCl 50 MG Oral Tablet Take 1 Tablet by mouth 4 times a day as needed for Anxiety or sleep 100 Tablet 3 11/23/2023 Active Meloxicam 15 MG Oral Tablet (Mobic)Indications:C hronic left-sided low back pain with left-sided sciatica,Left buttock pain Take 1 Tablet by mouth in the morning. 90 Tablet 1 11/26/2023 Active OneTouch Ultra In Vitro Strip (Glucose Blood) CHECK BLOOD SUGAR ONCE DAILY DIRECTED 100 Strip 4 12/04/2023 Active Dulera 100-5 MCG/ACT Inhalation Aerosol (Mometasone-Formoter ol) INHALE TWO PUFFS BY MOUTH IN THE MORNING AND TWO PUFFS BEFORE BEDTIME 39 g 2 12/04/2023 Active metFORMIN HCl ER 500 MG Oral Tablet Extended Release 24 Hour (Glucophage XR) TAKE TWO TABLETS BY MOUTH TWICE DAILY WITH MEALS 360 Tablet 1 12/19/2023 Active documented as of this encounter (statuses as of 01/15/2024) Active Problems Problem Noted Date Diagnosed Date Chronic obstructive pulmonary disease 07/18/2023 Gastro-esophageal reflux disease without esophag itis 12/13/2021 DDD (degenerative disc disease), lumbar 05/10/20 DDD (degenerative disc disease), cervical 2020 Body mass index (BMI) of 40.0 to 44.9 in adult 0 12/08/2020 Overview: Per Obesity protocol Type 2 diabetes mellitus wit hout complication, without long-term current use of insulin 05/01/2020 Wears dentures 06/17/2019 Dyslipidemia, goal LDL below 160 02/05/2018 Depression, major 07/05/2011 Medical home patient encounter 07/05/2011 Overview: Sees Dr Harrison in past. Hx depression, AH. hosp 2016 w/SI 2019 PFTs no obstruction. Decreased FVC. Consider bipin w/volumes. 09/16 colon 6mm polyp PATH hyperplastic, bipin 5y as fair prep 06/17/16 [facility] ER + SI. Transfer to [facility] inpatient psych 2014-canceled colonoscopy appts 10/10 hosp [facility] for hand cellulitis s/p dog bite Asthma, moderate persistent 01/21/2010 Overview: Per Asthma Taxonomy ICD-10 update of inactive term CLASSICAL MIGRAINE WITHOU MENTION OF INTRACTABLE MIGRAINE History of tobacco use Overview: Quit 10/2017 with chantix, no issues with mood PPD positive, treated documented as of this encounter (statuses as of 01/15/2024) Resolved Problems Problem Noted Date Diagnosed Date Resolved Date Uncomplicated asthma 12/13/2021 022 Overview: More specific on PL Food insecurity 03/08/2021 06/10/2021 Overview: Per [facility] Protocol Mild episode of recurrent ma iain depressive disorder 04/20/2020 04/20/2020 Prediabetes 07/08/2019 05/01/2020 Overview: Per Prediabetes protocol COPD exacerbation 09/07/2017 09/07/2017 Hallucination 01/20/2015 08/09/2018 Psychosis 07/05/2011 08/09/2018 BMI 35-39 ISOLATED (SEE ACTUAL BMI) 01/11/2010 11/14/2023 Overview: Per Obesity Protocol, #19 Asthma, allergic 01/21/2010 documented as of this encounter (statuses as of 01/15/2024) Immunizations Name Administration Dates Next Due COVID-19 mRNA, LNP-s, No Pre serve, 2-Dose Series (Pfizer) 04/30/2021,10/20/2020,09/29/2020 Hepatitis B, 20+ yrs 12/13/2021,01/29/2021,12/30 Pneumococcal Conjugate Vacci ne, 20-valent ([id number]) 04/07/2023 Pneumococcal Polysaccharide PPV23 (Pneumovax) 01/20/2015 Seasonal Influenza, PF, 6 M & above, IM , (FluLaval or Fluzone) 04/07/2023,04/20/2020,06/28/2018,06/30 Seasonal Influenza, Quadriva lent, No Preserve, IM 07/19/2016 Seasonal Influenza, Quadriva lent, No Preserve, Mdck 05/10/2019 Seasonal Influenza, Split, I IV3, With Preserve, Inj 08/27/2014,06/07/2011 TDAP, Age 7 and older, IM (Adacel) 10/22/2012, Varicella Zoster Vaccine (Adult) 04/15/2015 Zoster Vaccine Recombinant (Shingrix) 10/14/2020 ,04/20/2020 documented as of this encounter Social History Tobacco Use Types Packs/Day Years Used Date Smoking Tobacco: Some Days Cigarettes 0.3 45 Smokeless Tobacco: Never Alcohol Use Standard Drinks/Week Comments No 0 (1 standard drink = 0.6 oz pur e alcohol) PHQ-2 Answer Date Recorded PHQ Adult Total Score 14 04/07/2023 Hunger Vital Sign Answer Date Recorded Within the past 12 months, y ou worried that your food would run out before you got the money to buy more. Never true 04/07/20 23 Within the past 12 months, t he food you bought just didn't last and you didn't have money to get more. Never true 04/07/2023 Sex and Gender Information Value Date Recorded Sex Assigned at Not on file Gender Identity Not on file Sexual Orientation Not on file Job Start Date Occupation Industry Not on file Not on file Not on file documented as of this encounter Miscellaneous Notes * Telephone Encounter - Angelika Dubon CPhT - 01/15/2024 9:58 AM EDT pharmacy calling to check on status of chantix. Caller can be reached at [phone]. Thank you, Angelika Dubon CphT [employer] [facility] 01/15/24 documented in this encounter Plan of Treatment Upcoming Encounters Date Type Department Care Team (Late st Contact Info) Description 03/27/2024 1:00 PM EDT Office Visit Gynecology/Obstetrics [facility] [address] [place] [id number] Radha Sky PA-C [address] [place] [address] 04/10/2024 1:00 PM EDT Nurse Only Ancillary [facility] [address] [place] [id number] [facility], Nurse [facility] [address] [place] [phone] 06/26/2024 10:20 AM EST Office Visit Family Practice [facility] [address] [place] [phone] Evaristo Barron MD [address] [place] [address] Scheduled Procedures Name Priority Associated Diagnoses Date/Ti me COLONOSCOPY FLEXIBLE PROXIMAL DIAGNOSTIC Recall History of colon polyps Health Maintenance Due Date Last Done Comments DISCUSS TOBACCO CESSATION (REFER TO SMARTSET #4830) 1963 Alpha-1 Antitrypsin 1981 Cologuard 2008 Fecal Occult Blood Test 2008 Sigmoidoscopy 2008 PAP SMEAR-EVERY 3 YRS,AGES 18-100 09/07/2020 09/07/2017 Colonoscopy 09/13/2022 09/13/2017, 08/31, 09/12/2017 Colorectal Cancer Screening 09/13/2022 DTaP,Tdap,and Td Vaccines (3 - Td or Tdap) 10/22/2022 10/22/2012, 05/27/2011 Diabetic Eye Exam 01/21/2023 01/21/2022, , 01/01/2021 COVID-19 Vaccine ( season) 2023 04/30/2021, 10/20/2020, 09/29/2020 HbA1c 09/28/2023 03/29/2023, 11/28, 12/30/2020, Additional history exists Albumin/Creatinine Ratio 03/29/2024 023, 06/13/2022, 12/30/2020 GFR 03/29/2024 03/29/2023, 11/28, 05/08/2021, Additional history exists Mammogram 03/29/2024 03/29/2023, 03/02, 05/01/2020, Additional history exists Depression Monitoring 04/07/2024 04/07/2023 Diabetic Foot Exam 04/07/2024 04/07/2023, 0 12/13/2021, 10/14/2020 O2 ASSESSMENT COMPLETED IN PAST YEAR FOR COPD 07/18/2024 07/18/2023 Lipid Panel 03/29/2028 03/29/2023, 11/28, 12/30/2020, Additional history exists RETIRED - COLONOSCOPY-EVERY 5 YRS AGES 18-100 Discontinued 09/13/2017, 09/13/2017, 09/12/2017 Zoster Vaccines Completed 10/14/2020, 04/01, 04/15/2015 Hepatitis B Completed 12/13/2021, 07/0 08/2020, 12/30/2020 Influenza Vaccine (FLU shot) Completed 04/07/2023, 04/20/2020, 05/10/2019, Additional history exists Pneumococcal Vaccine: Pediatrics (0 to 5 Years) and At-Risk Patients (6 to 64 Years) Completed 04/07/2023, 01/20/2015 GARDASIL-HPV IMMUNIZATION SERIES Aged Out No longer eligible based on patient's age to complete this topic MENINGOCOCCAL (MENACTRA/MENVEO) Aged Out No longer eligible based on patient's age to complete this topic documented as of this encounter Medical Devices Not on filedocumented as of this encounter Care Teams Buttonhole Maker Relationship Specialty Start Date End Date Evaristo Barron MD [address] [place] [address] PCP - General Family Medicine 08/27/14 documented as of this encounter
--- OUTSIDE RECORDS SUMMARY | 2024-02-07 12:26 | External Medical Summary | Summary of Care ---
Author Name Unknown Organization [facility] [address] [facility] [address] Phone [phone] Care Team Providers Care Harmonic Analyst Name Role Phone Evaristo Barron MD Primary Care Provider + Reason for Visit * Reason Onset Date Comments Pre Op Discussion 10/16/2023 Patient stated she did not have the money to pay for the two day Colon prep products, told her I would try get the products she would need for free of charge, GI department was able to supply the (2) Miralax bottles and the (4) laxative tablets, Tried calling patient back with the information. Surgery Procedure Cancelled 10/16/2023 Spok e with patient, she is canceling her Colonoscopy scheduled for today with Dr Quiros d/t URI which started last evening, nasal / chest congestion with sore throat, cough. She is not sure if she has a no grade fever. Encounter Details Date Type Department Care Team (Late st Contact Info) Description 10/16/2023 Telephone OR [facility], Operating Room [facility] [address] [place] [address] Sarah Quiros MD [address] [place] [address] [place] [id number] Pre Op Discussion (Patient stated she did ... Allergies Active Allergy Reactions Criticality Noted Date Comments Aspirin Other (Please comment) High 07/18/2015 Pt c/o SOB documented as of this encounter (statuses as of 01/15/2024) Medications Medication Sig Dispensed Refills Start Date End Date Status Lancets MISCIndications:Hyp erglycemia Use as directed. 100 Each 1 11/02/2017 Active Bismuth Subsalicylate 262 MG/15ML Oral SuspensionIndicatio ns:heartburn Take 30 mL by mouth every 4 hours as needed. Active Ipratropium-Albuter ol 20-100 MCG/ACT Inhalation Aerosol Solution (Combivent Respimat)Indication s:Wheeze INHALE ONE PUFF BY MOUTH FOUR TIMES A DAY NEEDED 12 g 01/16/2023 01/16/20 24 Active Vitamin D (Cholecalciferol) 25 MCG (1000 [...] Active Dicyclomine HCl 20 MG Oral Tablet (Bentyl)Indications :Lower abdominal pain Take 1 Tablet by mouth every 6 hours. 360 Tablet 3 08/07/2023 08/06/19 25 Active Polyethylene Glycol 3350 17 GM/SCOOP Oral [...] 10/16/2023 Diclofenac Sodium 1 % External Gel (Voltaren)Indicatio ns:Bilateral primary osteoarthritis of knee APPLY 4 GRAMS TOPICALLY TO AFFECTED AREA 4 TIMES A DAY NEEDED FOR MILD PAIN TO BILATERAL KNEES 900 g 3 09/06/2023 09/05/19 25 Active Rosuvastatin Calcium 20 MG Oral Tablet (Crestor)Indication s:Dyslipidemia, goal LDL below 160 TAKE ONE TABLET BY MOUTH EVERY DAY 100 Tablet 3 09/16/2023 Active Omeprazole 40 MG Oral Capsule Delayed Release (PriLOSEC)Indicatio ns:Gastro-esophagea l reflux disease without esophagitis TAKE ONE CAPSULE IN THE MORNING ONE HOUR BEFORE THE FIRST MEAL OF THE DAY 100 Capsule 1 09/24/2023 09/23/19 25 Active Varenicline Tartrate 1 MG Oral Tablet (Chantix) TAKE ONE TABLET BY MOUTH EVERY MORNING AND ONE TABLET BEFORE BEDTIME 200 Tablet 10/06/2023 10/06/19 Active Sertraline HCl 100 MG Oral Tablet (Zoloft) TAKE ONE TABLET BY MOUTH IN THE MORNING WITH 50MG FOR 150MG TOTAL 100 Tablet 1 10/21/2022 10/24/19 Discontinu ed(Refill) Glucose Blood In Vitro Strip CHECK BLOOD SUGAR ONCE DAILY DIRECTED 100 Strip 11 09/29/2022 12/03/19 Discontinu ed(Refill) Mometasone Furo-Formoterol Fum 100-5 MCG/ACT Inhalation Aerosol (Dulera) INHALE TWO PUFFS BY MOUTH IN THE MORNING AND TWO PUFFS BEFORE BEDTIME 39 g 2 09/29/2022 12/03/19 Discontinu ed(Refill) Montelukast Sodium 10 MG Oral Tablet (Singulair)Indicati ons:Moderate persistent asthma, unspecified whether complicated TAKE ONE TABLET BY MOUTH EVERY DAY IN THE MORNING 100 Tablet 3 09/29/2022 10/21/19 Discontinu ed(Refill) Magnesium 400 MG Oral Tablet Take 1 Tablet by mouth daily. 11/29/19 Discontinu ed(Medicat ion/Dose Changed) Vitamin A 3 MG (76158 UT) Oral Capsule (Aquasol-A) Take 1 Capsule by mouth in the morning. 11/29/19 Discontinu ed(Medicat ion/Dose Changed) Vitamin C 500 MG Oral Capsule Take 1 Capsule by mouth daily. 11/29/19 Discontinu ed(Medicat ion/Dose Changed) metFORMIN HCl ER 500 MG Oral Tablet Extended Release 24 Hour (Glucophage XR) Take 2 tablets by mouth twice daily with meals 360 Tablet 1 06/28/2023 12/18/19 Discontinu ed(Refill) Azithromycin 250 MG Oral Tablet (Zithromax Z-Malik) Take two tablets by mouth on first day, then 1 tablet daily until gone 6 Tablet 07/18/2023 11/29/19 24 Discontinu ed(Medicat ion/Dose Changed) Sertraline HCl 50 MG Oral Tablet (Zoloft) TAKE ONE TABLET BY MOUTH EVERY MORNING WITH 100 MG FOR TOTAL 150 MG 100 Tablet 08/02/2023 11/09/19 24 Discontinu ed(Refill) traZODone HCl 100 MG Oral Tablet (Desyrel) TAKE TWO TABLETS BY MOUTH EVERY DAY AT BEDTIME 180 Tablet 08/08/2023 11/03/19 24 Discontinu ed(Refill) oxyBUTYnin Chloride ER 10 MG Oral Tablet Extended Release 24 Hour (Ditropan XL)Indications:Mixe d incontinence urge and stress (male)(female) TAKE ONE TABLET BY MOUTH EVERY DAY -- DO NOT CRUSH, CUT OR CHEW 90 Tablet 08/08/2023 11/03/19 24 Discontinu ed(Refill) Gabapentin 300 MG Oral Capsule (Neurontin)Indicati ons:Chronic left-sided low back pain with left-sided sciatica,Left buttock pain TAKE ONE CAPSULE BY MOUTH THREE TIMES A DAY -- IN THE MORNING, AT NOON AND BEFORE BEDTIME 270 Capsule 08/08/2023 11/04/19 24 Discontinu ed(Refill) hydrOXYzine HCl 50 MG Oral Tablet Take 1 Tablet by mouth 4 times a day as needed for Anxiety or sleep 100 Tablet 3 08/18/2023 11/21/19 24 Discontinu ed(Refill) Meloxicam 15 MG Oral Tablet (Mobic)Indications: Chronic left-sided low back pain with left-sided sciatica,Left buttock pain Take 1 Tablet by mouth in the morning. 30 Tablet 1 08/18/2023 11/25/19 24 Discontinu ed(Refill) methylPREDNISolone 4 MG Oral Tablet Therapy Pack (Medrol Dosepack) follow package directions 21 Tablet 08/29/2023 11/29/19 24 Discontinu ed(Medicat ion/Dose Changed) documented as of this encounter (statuses as of 01/15/2024) Active Problems Problem Noted Date Diagnosed Date Chronic obstructive pulmonary disease 07/18/2023 Gastro-esophageal reflux disease without esophag itis 12/13/2021 DDD (degenerative disc disease), lumbar 05/10/20 21 DDD (degenerative disc disease), cervical 2020 Body [...] hyperplastic, bipin 5y as fair prep 06/17/16 [facility] ER + SI. Transfer to [facility] inpatient psych 2014-canceled colonoscopy appts 10/10 hosp [facility] for hand cellulitis s/p dog bite Asthma, [...] yrs 12/13/2021,01/29/2021,12/30 Pneumococcal Conjugate Vacci ne, 20-valent ([id number]) 04/07/2023 Pneumococcal Polysaccharide PPV23 (Pneumovax) 01/20/2015 Seasonal [...] encounter Miscellaneous Notes * Telephone Encounter - Christen Merino RN - 10/20/2023 7:31 AM EDT Spoke with the patient, she is canceling her Colonoscopy (2 day prep) scheduled for today with Dr Quiros d/t URI which started last evening, nasal / chest congestion with sore throat, cough. She is not sure if she has a no grade fever. Please call patient to reschedule Colonoscopy for no sooner than mid-end of October. Thank you, Christen documented in this encounter Plan of Treatment Upcoming Encounters Date Type Department Care Team (Late st Contact Info) Description 03/27/2024 1:00 PM EDT Office Visit Gynecology/Obstetrics [facility] [address] [place] [address] Radha Sky PA-C [address] [place] [address] 04/10/2024 1:00 PM EDT Nurse Only Ancillary [facility] [address] [place] [address] [facility], Nurse Annual Wellness [facility] [address] [place] [address] 06/26/2024 10:20 AM EST Office Visit Family Practice [facility] [address] [place] [address] Evaristo Barron MD [address] [place] [address] Scheduled Procedures Name Priority Associated Diagnoses Date/Ti me COLONOSCOPY FLEXIBLE PROXIMAL DIAGNOSTIC Recall History of colon polyps Health Maintenance Due Date Last Done Comments DISCUSS TOBACCO CESSATION (REFER TO SMARTSET #[id number]) 1963 Alpha-1 Antitrypsin 1981 Cologuard 2008 Fecal [...] filedocumented as of this encounter Care Teams Harmonic Analyst Relationship Specialty Start Date End Date Evaristo Barron MD [address] [place] [address] PCP - General Family Medicine 08/27/14 documented as of this encounter
--- OUTSIDE RECORDS SUMMARY | 2024-02-07 12:26 | External Medical Summary | Summary of Care ---
Author Name Unknown Organization [facility] Address [address] [facility] [place] [facility] [address] Phone [phone] Care Team Providers Care Escort Blind Name Role Phone Evaristo Barron MD Primary Care Provider + Encounter Details Date Type Department Care Team (Late st Contact Info) Description 01/22/2024 Population Health External Data Unspecified Department Allergies Active Allergy Reactions Criticality Noted Date Comments Aspirin Other (Please comment) High 07/18/2015 Pt c/o SOB documented as of this encounter (statuses as of 01/23/2024) Medications Medication Sig Dispensed Refills Start Date End Date Status Lancets MISCIndications:Hype rglycemia Use as directed. 100 Each 1 11/02/2017 Active Bismuth Subsalicylate 262 MG/15ML Oral SuspensionIndication s:heartburn Take 30 mL by mouth every 4 hours as needed. Active Vitamin D (Cholecalciferol) 25 MCG (1000 [...] BEFORE BEDTIME 200 Tablet 10/06/2023 5 Active [place] 3 1000 MG Oral Capsule Take by mouth daily. Active Stress ReLeaf Oral Capsule Take 2 Capsules by mouth in the morning. Active Montelukast Sodium 10 MG Oral Tablet (Singulair)Indicatio ns:Moderate persistent asthma, unspecified whether complicated TAKE ONE TABLET BY MOUTH EVERY DAY IN THE MORNING 100 Tablet 3 10/21/2023 5 Active Sertraline HCl 100 MG Oral Tablet (Zoloft) TAKE ONE TABLET BY MOUTH IN THE MORNING WITH 50MG FOR 150MG TOTAL 100 Tablet 1 10/25/2023 5 Active traZODone HCl 100 MG Oral Tablet (Desyrel) TAKE TWO TABLETS BY MOUTH EVERY DAY AT BEDTIME 180 Tablet 1 11/03/2023 5 Active oxyBUTYnin Chloride ER 10 MG Oral [...] as of this encounter (statuses as of 01/23/2024) Active Problems Problem Noted Date Diagnosed Date [...] hyperplastic, bipin 5y as fair prep 06/17/16 [facility] ER + SI. Transfer to [facility] inpatient psych 2014-canceled colonoscopy appts 10/10 hosp [facility] for hand cellulitis s/p dog bite Asthma, moderate persistent 01/21/2010 Overview: Per Asthma Taxonomy ICD-10 update of inactive term CLASSICAL MIGRAINE WITHOU MENTION OF INTRACTABLE MIGRAINE History of tobacco use Overview: Quit 10/2017 with chantix, no issues with mood PPD positive, treated documented as of this encounter (statuses as of 01/23/2024) Resolved Problems Problem Noted Date Diagnosed Date [...] as of this encounter (statuses as of 01/23/2024) Immunizations Name Administration Dates Next Due COVID-19 mRNA, LNP-s, No Pre serve, 2-Dose Series (MixRank) 04/30/2021,10/20/2020,09/29/2020 Hepatitis B, 20+ yrs 12/13/2021,01/29/2021,12/30 Pneumococcal Conjugate Vacci ne, 20-valent ([id number]) 04/07/2023 Pneumococcal Polysaccharide PPV23 (Pneumovax) 01/20/2015 Seasonal [...] money to get more. Never true 04/07/2023 Childcare Answer Date Recorded Do you feel overwhelmed with taking care of a child, family member or friend? No 04/07/2023 Does your family need help f inding childcare? (Household - for ages 0-17 years) Not on file 04/07/2023 Clothing Answer Date Recorded Have you been unable to get clothing when it was really needed? No 04/07/2023 Is your family able to get c lothes or diapers when needed? (Household - for ages 0-17 years) Not on file 04/07/2023 Personal Safety Answer Date Recorded Do you feel unsafe or have concerns for your saf ety? No 04/07/2023 Do you have concerns for you r family's safety? (Household - for ages 0-17 years) Not on file 04/07/2023 Utilities Answer Date Recorded Do you have trouble paying y our heating, water, or electric bill? No 04/07/2023 Is your family able to pay t he heat, water, or electric bill? (Household - for ages 0-17 years) Not on file 04/07/2023 Does your family have access to good internet? (Household - for ages 0-17 years) Not on file 04/07/2023 Employment Status Answer Date Recorded Are you unemployed or without regular income? No 04/07/2023 Does the household have a re gular source of income? (Household - for ages 0-17 years) Not on file 04/07/2023 Social Connections Answer Date Recorded How often do you feel lonely or isolated from th ose around you? Often 04/07/2023 Financial Resource Strain Answer Date R ecorded Do you have any trouble payi ng for your medications, or do you think you might in the future? No 04/07/2023 Does your family have troubl e paying for medicine? (Household - for ages 0-17 years) Not on file 04/07/2023 Transportation Needs Answer Date Record ed READ ONLY Do you have troubl e getting a ride to medical visits or work? Never True 04/07/2023 Does your family have a hard time getting a ride to doctors visits? (Household - for ages 0-17 years) Not on file 04/07/2023 Has lack of transportation k ept you from medical appointments, meetings, work, or from getting things needed for daily living? Check all that apply. (Adult - for ages 18 years and over) Not on file 04/07/2023 Do you (or your family) have trouble finding or paying for a ride (transportation)? (Household - for ages 0-17 years) Not on file 04/07/2023 Housing Stability Answer Date Recorded Do you currently live in a s helter or have no steady place to sleep at night? No 04/07/2023 READ ONLY Do you think you a re at risk of becoming homeless? No 04/07/2023 Does your family worry about paying for your home or becoming homeless? (Household - for ages 0-17 years) Not on file 0 04/07/2023 Are you homeless or worried that you might be in the future? (Adult - for ages 18 years and over) Not on file Are you (or your family) kellie eless or worried that you might be in the future? (Household - for ages 0-17 years) Not on file Food Insecurity Answer Date Recorded Do you need food for this week? No 04/07/2023 Are you able to get enough f ood for your family? (Household - for ages 0-17 years) Not on file 04/07/2023 Does your family need food t his week? (Household - for ages 0-17 years) Not on file 04/07/2023 Do you always have enough fo od for your family? (Household - for ages 0-17 years) Not on file 04/07/2023 Sex and Gender Information Value Date Recorded Sex Assigned at Not on file Gender Identity Not on file Sexual Orientation Not on file Job Start Date Occupation Industry Not on file Not on file Not on file documented as of this encounter Plan of Treatment Upcoming Encounters Date Type Department Care Team (Late st Contact Info) Description 03/27/2024 1:00 PM EDT Office Visit Gynecology/Obstetrics [facility] [address] [place] [address] Radha Sky PA-C [address] [place] [address] 04/10/2024 1:00 PM EDT Nurse Only Ancillary [facility] [address] [place] [address] [facility], Nurse Annual Wellness [facility] [address] [place] [address] 06/26/2024 10:20 AM EST Office Visit Family Practice [facility] [address] [place] [address] Evaristo Barron MD [address] [place] [address] Scheduled Procedures Name Priority Associated Diagnoses Date/Ti me COLONOSCOPY FLEXIBLE PROXIMAL DIAGNOSTIC Recall History of colon polyps Health Maintenance Due Date Last Done Comments DISCUSS TOBACCO CESSATION (REFER TO SMARTSET #[id number]) 1965 Alpha-1 Antitrypsin 1981 Cologuard 2008 Fecal [...] filedocumented as of this encounter Care Teams Escort Blind Relationship Specialty Start Date End Date Evaristo Barron MD [address] [place] [address] PCP - General Family Medicine 08/27/14 documented as of this encounter
--- OUTSIDE RECORDS SUMMARY | 2024-02-07 12:27 | External Medical Summary | Summary of Care ---
Author Name Unknown Organization [facility] Address [address] [place] [address] Phone [phone] Care Team Providers Care Photography Spotter Name Role Phone Evaristo Barron MD Primary Care Provider + Reason for Visit * Reason Comments Medication Refill Encounter Details Date Type Department Care Team (Late st Contact Info) Description 01/13/2024 Refill Family Practice [facility] [address] [place] [address] Evaristo Barron MD [address] [place] [address] Allergies Active Allergy Reactions Criticality Noted Date Comments Aspirin Other (Please comment) High 07/18/2015 Pt c/o SOB documented as of this encounter (statuses as of 01/14/2024) Medications Medication Sig Dispensed Refills Start Date [...] BEFORE BEDTIME 200 Tablet 10/06/2023 5 Active [place] 3 1000 MG Oral Capsule Take by [...] as of this encounter (statuses as of 01/14/2024) Active Problems Problem Noted Date Diagnosed Date [...] hyperplastic, bipin 5y as fair prep 06/17/16 [facility] ER + SI. Transfer to [facility] inpatient psych 2014-canceled colonoscopy appts 10/10 hosp [facility] for hand cellulitis s/p dog bite Asthma, moderate persistent 01/21/2010 Overview: Per Asthma Taxonomy ICD-10 update of inactive term CLASSICAL MIGRAINE WITHOU MENTION OF INTRACTABLE MIGRAINE History of tobacco use Overview: Quit 10/2017 with chantix, no issues with mood PPD positive, treated documented as of this encounter (statuses as of 01/14/2024) Resolved Problems Problem Noted Date Diagnosed Date [...] as of this encounter (statuses as of 01/14/2024) Immunizations Name Administration Dates Next Due COVID-19 mRNA, LNP-s, No Pre serve, 2-Dose Series (Pfizer) 04/30/2021,10/20/2020,09/29/2020 Hepatitis B, 20+ yrs 12/13/2021,01/29/2021,12/30 Pneumococcal Conjugate Vacci ne, 20-valent ([id number]) 04/07/2023 Pneumococcal Polysaccharide PPV23 (Pneumovax) 01/20/2015 Seasonal [...] 1:00 PM EDT Office Visit Gynecology/Obstetrics [facility] [address] [place] [address] Radha Sky PA-C [address] [address] 04/10/2024 1:00 PM EDT Nurse Only Ancillary [facility] [address] [place] [address] [facility], Nurse Annual Wellness [facility] [address] [place] [address] 06/26/2024 10:20 AM EST Office Visit Family Practice [facility] [address] [place] [address] Evaristo Barron MD [address] [place] [address] Scheduled Procedures Name Priority Associated Diagnoses Date/Ti me COLONOSCOPY FLEXIBLE PROXIMAL DIAGNOSTIC Recall History of colon polyps Health Maintenance Due Date Last Done Comments DISCUSS TOBACCO CESSATION (REFER TO SMARTSET #[id number]) 1965 Alpha-1 Antitrypsin 1981 Cologuard 2008 Fecal [...] filedocumented as of this encounter Care Teams Photography Spotter Relationship Specialty Start Date End Date Evaristo Barron MD [address] [place] [address] PCP - General Family Medicine 08/27/14 documented as of this encounter
--- OUTSIDE RECORDS SUMMARY | 2024-02-07 12:27 | External Medical Summary | Summary of Care ---
Author Name Unknown Organization [facility] Address [address] [facility] [place] [address] Phone [phone] Care Team Providers Care Yarn Packer Name Role Phone Evaristo Barron MD Primary Care Provider + Encounter Details Date Type Department Care Team (Late st Contact Info) Description 01/04/2024 Telephone [facility]ized [facility] Services, Maryan Duque [address] [place] [address] [place] [phone] Evaristo Barron MD [address] [place] [address] Allergies Active Allergy Reactions Criticality Noted Date Comments Aspirin Other (Please comment) High 07/18/2015 Pt c/o SOB documented as of this encounter (statuses as of 01/04/2024) Medications Medication Sig Dispensed Refills Start Date [...] BEFORE BEDTIME 200 Tablet 10/06/2023 5 Active Rochester 3 1000 MG Oral Capsule Take by [...] the morning. 90 Tablet 1 11/26/2023 Active Teamer.net Ultra In Vitro Strip (Glucose Blood) CHECK [...] as of this encounter (statuses as of 01/04/2024) Active Problems Problem Noted Date Diagnosed Date [...] [place] in past. Hx depression, AH. hosp 2015 w/SI 2019 PFTs no obstruction. Decreased FVC. Consider bipin w/volumes. 09/16 colon 6mm polyp PATH hyperplastic, bipin 5y as fair prep 06/17/16 [facility] ER + SI. Transfer to [facility] inpatient psych 2014-canceled colonoscopy appts 10/10 hosp [facility] for hand cellulitis s/p dog bite Asthma, moderate persistent 01/21/2010 Overview: Per Asthma Taxonomy ICD-10 update of inactive term CLASSICAL MIGRAINE WITHOU MENTION OF INTRACTABLE MIGRAINE History of tobacco use Overview: Quit 10/2017 with chantix, no issues with mood PPD positive, treated documented as of this encounter (statuses as of 01/04/2024) Resolved Problems Problem Noted Date Diagnosed Date [...] as of this encounter (statuses as of 01/04/2024) Immunizations Name Administration Dates Next Due COVID-19 mRNA, LNP-s, No Pre serve, 2-Dose Series (Pfizer) 04/30/2021,10/20/2020,09/29/2020 Hepatitis B, 20+ yrs 12/13/2021,01/29/2021,12/30 Pneumococcal Conjugate Vacci ne, 20-valent ([id number]) 04/07/2023 Pneumococcal Polysaccharide PPV23 (Pneumovax) 01/20/2015 Seasonal [...] encounter Miscellaneous Notes * Telephone Encounter - Deepa Mata LPN - 01/04/2024 2:33 PM EDT Called number below to have them refax form-- Spoke with Nilam: They had FIMS #, gave new. Re faxing now. * Telephone Encounter - Evaristo Barron MD - 01/04/2024 1:36 PM EDT I haven't received a form--I'm not sure what this is in regards to? Please make sure they have our direct fax. I'm in office until about 3 today then off until Monday * Telephone Encounter - Sandra Pat PHARM Tech - 01/04/2024 11:25 AM EDT Caller's name: Sheree Preferred call back number(OFFICE NUMBER FOR ): [phone] Reason for call: Sheree sent paperwork for a physicians order but it wasn't signed. She would likeyou to sign this document and send to her at fax #[phone] and [phone] please fax to both of those numbers. She will be faxing the form back to you. Thank you, Sandra Pat Public Relations Coordinator Centralized Clinical Pharmacy Services 01/04/2024,11:26 AM documented in this encounter Plan of Treatment Upcoming Encounters Date Type Department Care Team (Late st Contact Info) Description 03/27/2024 1:00 PM EDT Office Visit Gynecology/Obstetrics [facility] Zavala [address] [place] [phone] Radha Sky PA-C [address] [place] [phone] 04/10/2024 1:00 PM EDT Nurse Only Ancillary [facility] [address] [place] [address] Lucas, Nurse Annual Wellness [facility] [address] [place] [phone] 06/26/2024 10:20 AM EST Office Visit Family Practice [facility] [address] [place] [address] Evaristo Barron MD [address] [place] [address] Scheduled Procedures Name Priority Associated Diagnoses Date/Ti me COLONOSCOPY FLEXIBLE PROXIMAL DIAGNOSTIC Recall History of colon polyps Health Maintenance Due Date Last Done Comments DISCUSS TOBACCO CESSATION (REFER TO SMARTSET #3292) 1963 Alpha-1 Antitrypsin 1981 Cologuard 2008 Fecal Occult Blood Test 2008 Sigmoidoscopy 2008 PAP SMEAR-EVERY 3 YRS,AGES 18-100 09/07/2020 09/07/2017 Colonoscopy 09/13/2022 09/13/2017, 08/31, 09/12/2017 Colorectal Cancer Screening 09/13/2022 DTaP,Tdap,and Td Vaccines (3 - Td or Tdap) 10/22/2022 10/22/2012, 05/27/2011 Diabetic Eye Exam 01/21/2023 01/21/2022, , 01/01/2021 COVID-19 Vaccine ( season) 2023 04/30/2021, 10/20/2020, 09/29/2020 Depression, Most Recent Score >= 10 (will fire each visit until score < 10) 04/08/2023 04/07/2023 HbA1c 09/28/2023 03/29/2023, 11/28, 12/30/2020, Additional history exists Albumin/Creatinine Ratio 03/29/2024 023, 06/13/2022, 12/30/2020 GFR 03/29/2024 03/29/2023, 11/28, 05/08/2021, Additional history exists Mammogram 03/29/2024 03/29/2023, 03/02, 05/01/2020, Additional history exists Diabetic Foot Exam 04/07/2024 04/07/2023, 0 12/13/2021, 10/14/2020 O2 ASSESSMENT COMPLETED IN PAST YEAR FOR COPD 07/18/2024 07/18/2023 Lipid Panel 03/29/2028 03/29/2023, 11/28, 12/30/2020, Additional history exists RETIRED - COLONOSCOPY-EVERY 5 YRS AGES 18-100 Discontinued 09/13/2017, 09/13/2017, 09/12/2017 Zoster Vaccines Completed 10/14/2020, 04/01, 04/15/2015 Hepatitis B Completed 12/13/2021, 07/08/2020, 12/30/2020 Influenza Vaccine (FLU shot) Completed 04/07/2023, [...] filedocumented as of this encounter Care Teams Yarn Packer Relationship Specialty Start Date End Date Evaristo Barron MD [address] [place] [phone] PCP - General Family Medicine 08/27/14 documented as of this encounter
--- OUTSIDE RECORDS SUMMARY | 2024-02-07 12:27 | External Medical Summary | Summary of Care ---
Author Name Unknown Organization [facility] Address [address] [place] [address] Phone [phone] Care Team Providers Care Director Of Special Events Name Role Phone Evaristo Barron MD Primary Care Provider + Encounter Details Date Type Department Care Team (Latest Contact Info) Description 11/29/2023 Medication Management [facility] [address] [place] [address] Martha Rene, [facility] [address] [place] [phone] Referred for management of medication therapy* Allergies Active Allergy Reactions Criticality Noted Date Comments Aspirin Other (Please comment) High 07/18/2015 Pt c/o SOB documented as of this encounter (statuses as of 11/29/2023) Medications Medication Sig Dispensed Refills Start Date End Date Status Lancets MISCIndications:Hyp erglycemia Use as directed. 100 Each 1 11/02/2017 Active Bismuth Subsalicylate 262 MG/15ML Oral SuspensionIndicatio ns:heartburn Take 30 mL by mouth every 4 hours as needed. 0 Active Ipratropium-Albuter ol 20-100 MCG/ACT Inhalation Aerosol Solution (Combivent Respimat)Indication s:Wheeze INHALE ONE PUFF BY MOUTH FOUR TIMES A DAY NEEDED 12 g 0 01/16/2023 01/16/20 24 Active Glucose Blood In Vitro Strip CHECK BLOOD SUGAR ONCE DAILY DIRECTED 100 Strip 11 09/29/2022 12/19/19 24 Active Mometasone Furo-Formoterol Fum 100-5 MCG/ACT Inhalation Aerosol (Dulera) INHALE TWO PUFFS BY MOUTH IN THE MORNING AND TWO PUFFS BEFORE BEDTIME 39 g 2 09/29/2022 12/11/19 24 Active Vitamin D (Cholecalciferol) 25 MCG (1000 UT) Oral Capsule Take 3 Capsules by mouth daily. 0 Active B Complex Vitamins Oral Capsule Take 1 Capsule by mouth in the morning. 0 Active Osteo Bi-Flex Adv Triple St Oral Tablet Take 1 Tablet by mouth in the morning. 0 Active Centrum Silver 50+Women Oral Tablet Take 1 Tablet by mouth daily. 0 Active metFORMIN HCl ER 500 MG Oral Tablet Extended Release 24 Hour (Glucophage XR) Take 2 tablets by mouth twice daily with meals 360 Tablet 1 06/28/2023 Active Dicyclomine HCl 20 MG Oral Tablet [...] AND ONE TABLET BEFORE BEDTIME 200 Tablet 0 10/06/2023 10/06/19 25 Active Gifford 3 1000 MG Oral Capsule Take by mouth daily. 0 Active Stress ReLeaf Oral Capsule Take 2 Capsules by mouth in the morning. 0 Active Montelukast Sodium 10 MG Oral Tablet (Singulair)Indicati ons:Moderate persistent asthma, unspecified whether complicated TAKE ONE TABLET BY MOUTH EVERY DAY IN THE MORNING 100 Tablet 3 10/21/2023 10/21/19 25 Active Sertraline HCl 100 MG Oral Tablet (Zoloft) TAKE ONE TABLET BY MOUTH IN THE MORNING WITH 50MG FOR 150MG TOTAL 100 Tablet 1 10/25/2023 10/25/19 25 Active traZODone HCl 100 MG Oral Tablet (Desyrel) TAKE TWO TABLETS BY MOUTH EVERY DAY AT BEDTIME 180 Tablet 1 11/03/2023 11/03/19 25 Active oxyBUTYnin Chloride ER 10 MG Oral Tablet Extended Release 24 Hour (Ditropan XL)Indications:Mixe d incontinence urge and stress (male)(female) TAKE ONE TABLET BY MOUTH EVERY DAY -- DO NOT CRUSH, CUT OR CHEW 90 Tablet 11/04/2023 11/04/19 25 Active Gabapentin 300 MG Oral Capsule (Neurontin)Indicati ons:Chronic left-sided low back pain with left-sided sciatica,Left buttock pain TAKE ONE CAPSULE BY MOUTH THREE TIMES A DAY -- IN THE MORNING, AT NOON AND BEFORE BEDTIME 270 Capsule 11/04/2023 11/04/19 25 Active Sertraline HCl 50 MG Oral Tablet (Zoloft) TAKE ONE TABLET BY MOUTH EVERY MORNING WITH 100 MG FOR TOTAL 150 MG 100 Tablet 0 11/09/2023 Active hydrOXYzine HCl 50 MG Oral Tablet Take 1 Tablet by mouth 4 times a day as needed for Anxiety or sleep 100 Tablet 3 11/23/2023 Active Meloxicam 15 MG Oral Tablet (Mobic)Indications: Chronic left-sided low back pain with left-sided sciatica,Left buttock pain Take 1 Tablet by mouth in the morning. 90 Tablet 1 11/26/2023 Active Magnesium 400 MG Oral Tablet Take 1 Tablet by mouth daily. 0 11/29/19 24 Discontinu ed(Medicat ion/Dose Changed) Vitamin A 3 MG (76030 UT) Oral Capsule (Aquasol-A) Take 1 Capsule by mouth in the morning. 0 11/29/19 24 Discontinu ed(Medicat ion/Dose Changed) Vitamin C 500 MG Oral Capsule Take 1 Capsule by mouth daily. 0 11/29/19 24 Discontinu ed(Medicat ion/Dose Changed) Azithromycin 250 MG Oral Tablet (Zithromax Z-Malik) Take two tablets by mouth on first day, then 1 tablet daily until gone 6 Tablet 0 07/18/2023 11/29/19 24 Discontinu ed(Medicat ion/Dose Changed) methylPREDNISolone 4 MG Oral Tablet Therapy Pack (Medrol Dosepack) follow package directions 21 Tablet 0 08/29/2023 11/29/19 24 Discontinu ed(Medicat ion/Dose Changed) documented as of this encounter (statuses as of 11/29/2023) Active Problems Problem Noted Date Diagnosed Date [...] bipin 5y as fair prep 06/17/16 [facility] ER + SI. Transfer to [facility] inpatient psych 2014-canceled colonoscopy appts 10/10 hosp [facility] for hand cellulitis s/p dog bite Asthma, moderate persistent 01/21/2010 Overview: Per Asthma Taxonomy ICD-10 update of inactive term CLASSICAL MIGRAINE WITHOU MENTION OF INTRACTABLE MIGRAINE History of tobacco use Overview: Quit 10/2017 with chantix, no issues with mood PPD positive, treated documented as of this encounter (statuses as of 11/29/2023) Resolved Problems Problem Noted Date Diagnosed Date [...] as of this encounter (statuses as of 11/29/2023) Immunizations Name Administration Dates Next Due COVID-19 mRNA, LNP-s, No Pre serve, 2-Dose Series (Help [employer]) 04/30/2021,10/20/2020,09/29/2020 Hepatitis B, 20+ yrs 12/13/2021,01/29/2021,12/30 Pneumococcal Conjugate Vacci ne, 20-valent ([id number]) 04/07/2023 Pneumococcal Polysaccharide PPV23 (Pneumovax) 01/20/2015 Seasonal Influenza, PF, 6 M & above, IM , (FluLaval or Fluzone) 04/07/2023,04/20/2020,06/28/2018,06/30 Seasonal Influenza, Quadriva lent, No Preserve, IM 07/19/2016 Seasonal Influenza, Quadriva lent, No Preserve, Mdck 05/10/2019 Seasonal Influenza, Split, I IV3, With Preserve, Inj 08/27/2014,06/07/2011 TDAP (age 11 and older)(Adacel) 10/22/2012,05/27 Varicella Zoster Vaccine (Adult) 04/15/2015 Zoster Vaccine [...] on file documented as of this encounter Progress Notes * Martha Rene, [facility] - 11/29/2023 11:25 AM EDT Lidya Juarez is a 58 year old female. Objective: Review of patient's allergies indicates: Allergen Reactions Aspirin Other (Please comment) Pt c/o SOB Current Outpatient Medications - WARNING: List may be incomplete due to filtering Medication Sig Dispense Refill Meloxicam 15 MG Oral Tablet (Mobic) Take 1 Tablet by mouth in the morning. 90 Tablet 1 hydrOXYzine HCl 50 MG Oral Tablet Take 1 Tablet by mouth 4 times a day as needed for Anxiety or sleep 100 Tablet 3 Sertraline HCl 50 MG Oral Tablet (Zoloft) TAKE ONE TABLET BY MOUTH EVERY MORNING WITH 100 MG FOR TOTAL 150 MG 100 Tablet 0 Gabapentin 300 MG Oral Capsule (Neurontin) TAKE ONE CAPSULE BY MOUTH THREE TIMES A DAY -- IN THE MORNING, AT NOON AND BEFORE BEDTIME 270 Capsule 1 oxyBUTYnin Chloride ER 10 MG Oral Tablet Extended Release 24 Hour (Ditropan XL) TAKE ONE TABLET BY MOUTH EVERY DAY -- DO NOT CRUSH, CUT OR CHEW 90 Tablet 3 traZODone HCl 100 MG Oral Tablet (Desyrel) TAKE TWO TABLETS BY MOUTH EVERY DAY AT BEDTIME 180 Tablet 1 Sertraline HCl 100 MG Oral Tablet (Zoloft) TAKE ONE TABLET BY MOUTH IN THE MORNING WITH 50MG FOR 150MG TOTAL 100 Tablet 1 Montelukast Sodium 10 MG Oral Tablet (Singulair) TAKE ONE TABLET BY MOUTH EVERY DAY IN THE MORNING 100 Tablet 3 Gifford 3 1000 MG Oral Capsule Take by mouth daily. Stress ReLeaf Oral Capsule Take 2 Capsules by mouth in the morning. Varenicline Tartrate 1 MG Oral Tablet (Chantix) TAKE ONE TABLET BY MOUTH EVERY MORNING AND ONE TABLET BEFORE BEDTIME 200 Tablet 0 Omeprazole 40 MG Oral Capsule Delayed Release (PriLOSEC) TAKE ONE CAPSULE IN THE MORNING ONE HOUR BEFORE THE FIRST MEAL OF THE DAY 100 Capsule 1 Rosuvastatin Calcium 20 MG Oral Tablet (Crestor) TAKE ONE TABLET BY MOUTH EVERY DAY 100 Tablet 3 Diclofenac Sodium 1 % External Gel (Voltaren) APPLY 4 GRAMS TOPICALLY TO AFFECTED AREA 4 TIMES A DAY NEEDED FOR MILD PAIN TO BILATERAL KNEES 900 g 3 Acetaminophen 500 MG Oral Tablet (Tylenol) Take 2 Tablets by mouth every 8 hours as needed for mild, moderate, or severe pain (Patient taking differently: Take 2 Tablets by mouth in the morning and 2Tablets before bedtime.) 600 Tablet 3 Polyethylene Glycol 3350 17 GM/SCOOP Oral Powder (Miralax) Take 17 g by mouth in the morning. 1734 g 3 Dicyclomine HCl 20 MG Oral Tablet (Bentyl) Take 1 Tablet by mouth every 6 hours. 360 Tablet 3 metFORMIN HCl ER 500 MG Oral Tablet Extended Release 24 Hour (Glucophage XR) Take 2 tablets by mouth twice daily with meals 360 Tablet 1 B Complex Vitamins Oral Capsule Take 1 Capsule by mouth in the morning. Centrum Silver 50+Women Oral Tablet Take 1 Tablet by mouth daily. Osteo Bi-Flex Adv Triple St Oral Tablet Take 1 Tablet by mouth in the morning. Vitamin D (Cholecalciferol) 25 MCG (1000 UT) Oral Capsule Take 3 Capsules by mouth daily. Ipratropium-Albuterol 20-100 MCG/ACT Inhalation Aerosol Solution (Combivent Respimat) INHALE ONE PUFF BY MOUTH FOUR TIMES A DAY NEEDED 12 g 0 Glucose Blood In Vitro Strip CHECK BLOOD SUGAR ONCE DAILY DIRECTED 100 Strip 11 Mometasone Furo-Formoterol Fum 100-5 MCG/ACT Inhalation Aerosol (Dulera) INHALE TWO PUFFS BY MOUTH IN THE MORNING AND TWO PUFFS BEFORE BEDTIME 39 g 2 Bismuth Subsalicylate 262 MG/15ML Oral Suspension Take 30 mL by mouth every 4 hours as needed. Lancets MISC Use as directed. 100 Each 1 Immunization History Administered Date(s) Administered COVID-19 mRNA, LNP-s, No Preserve, 2-Dose Series (Pfizer) 09/29/2020, 10/20/2020, 04/30/2021 Hepatitis B, 20+ yrs 12/30/2020, 01/29/2021, 12/13/2021 Pneumococcal Conjugate Vaccine, 20-valent ([id number]) 04/07/2023 Pneumococcal Polysaccharide PPV23 (Pneumovax) 01/20/2015 Seasonal Influenza, PF, 6 M & above, IM , (FluLaval or Fluzone) 06/30/2017, 06/28/2018, 04/20/2020, 04/07/2023 Seasonal Influenza, Quadrivalent, No Preserve, IM 07/19/2016 Seasonal Influenza, Quadrivalent, No Preserve, Mdck 05/10/2019 Seasonal Influenza, Split, IIV3, With Preserve, Inj 06/07/2011, 08/27/2014 TDAP (age 11 and older)(Adacel) 05/27/2011, 10/22/2012 Varicella Zoster Vaccine (Adult) 04/15/2015 Zoster Vaccine Recombinant (Shingrix) 04/20/2020, 10/14/2020 TMR Interventions Incomplete Encounter MTPs No medication therapy recommendations to display Complete Encounter MTPs Referred for management of medication therapy Current Medication: Mometasone Furo-Formoterol Fum 100-5 MCG/ACT Inhalation Aerosol (Dulera) Rationale: Patient Education - Needs Medication Assessment - Adherence Recommendation: Provide Education Status: Patient Agreed Current Medication: Varenicline Tartrate 1 MG Oral Tablet (Chantix) Rationale: Patient Education - Needs Education - Effectiveness Recommendation: Provide Education Status: Patient Agreed Assessment & Plan Indication, effectiveness, safety and convenience of her medications were reviewed today. The patient's medical conditions were assessed, evaluated, and deemed meeting goals of drug therapy, with thefollowing exceptions. Additional Notes: Patient taking OTC fish oil, TG in 400s. Discussed changing to Vascepa, she is going to think aboutit Summary Time Spent: 16-30 min Supervising pharmacist who provided the service: Martha Rene, PharmD, [facility] Takefior Information Who was the recipient of the CMR service: beneficiary Language Template for the Patient Takefior: Vincentian I attest that I have reviewed and updated the patient's conditions, allergies, and medications to the best of my ability. Patient provided medication list gathered by: Melly García, Delivery Professional Martha Rene RPh 11/29/2023, 11:25 AM documented in this encounter Miscellaneous Notes * MTM To-Do-List - Martha Rene RP - 11/29/2023 11:25 AM EDT Images from the original note were not included. What we talked about: What I should do: The importance of taking your medication as prescribed Your medicine works best when taken as prescribed. It can be hard to remember to take daily medications. Consider making it a part of your daily routine. Pair taking your medication with something you do every day, like brushing your teeth or eating a meal. Consider setting daily alarms to help remind yourself when it is time to take your medicine. Using a pill box can also help you organize your medicines. Pill boxes allow you to fill each day slot with your daily medicine and help you track when your next dose is due. * [facility] Personal Medication List - Martha Rene RP - 11/29/2023 10:30 AM EDT Medication How I take it Why I use it Prescriber Acetaminophen 500 MG Oral Tablet (Tylenol) Take 2 tablets by mouth every 8 hours as needed for mild, moderate, or severe pain Pain Evaristo Barron MD B Complex Vitamins Oral Capsule Take 1 capsule by mouth in the morning. General Health Self Bismuth Subsalicylate 262 MG/15ML Oral Suspension Take 30 ml by mouth every 4 hours as needed. Heartburn Self Centrum Silver 50+Women Oral Tablet Take 1 tablet by mouth daily. General Health Self Diclofenac Sodium 1 % External Gel (Voltaren) Apply 4 grams topically to affected area 4 times a day as needed for mild pain to bilateral knees Pain Evaristo Barron MD Dicyclomine HCl 20 MG Oral Tablet (Bentyl) Take 1 tablet by mouth every 6 hours. Stomach pain Evaristo Barron MD Gabapentin 300 MG Oral Capsule (Neurontin) Take one capsule by mouth three times a day -- in the morning, at noon and before bedtime Pain Evaristo Barron MD hydrOXYzine HCl 50 MG Oral Tablet Take 1 tablet by mouth 4 times a day as needed for anxiety or sleep Anxiety & Sleep Evaristo Barron MD Ipratropium-Albuterol 20-100 MCG/ACT Inhalation Aerosol Solution (Combivent Respimat) Inhale one puff by mouth four times a day as needed Shortness of Breath Evaristo Barron MD Meloxicam 15 MG Oral Tablet (Mobic) Take 1 tablet by mouth in the morning. Pain Evaristo Barron MD metFORMIN HCl ER 500 MG Oral Tablet Extended Release 24 Hour (Glucophage XR) Take 2 tablets by mouth twice daily with meals Type 2 Diabetes Evaristo Barron MD Mometasone Furo-Formoterol Fum 100-5 MCG/ACT Inhalation Aerosol (Dulera) Inhale two puffs by mouth in the morning and two puffs before bedtime Asthma Evaristo Barron MD Montelukast Sodium 10 MG Oral Tablet (Singulair) Take one tablet by mouth every day in the morning Asthma Evaristo Barron MD Gifford 3 1000 MG Oral Capsule Take one capsule by mouth daily. General Health Self Omeprazole 40 MG Oral Capsule Delayed Release (PriLOSEC) Take one capsule in the morning one hour before the first meal of the day Heartburn Evaristo Barron MD Osteo Bi-Flex Adv Triple St Oral Tablet Take 1 tablet by mouth in the morning. General Health Self oxyBUTYnin Chloride ER 10 MG Oral Tablet Extended Release 24 Hour (Ditropan XL) Take one tablet by mouth every day -- do not crush, cut or chew Frequent Urination Evaristo Barron MD Polyethylene Glycol 3350 17 GM/SCOOP Oral Powder (Miralax) Take 17 g by mouth in the morning. Bowels Evaristo Barron MD Rosuvastatin Calcium 20 MG Oral Tablet (Crestor) Take one tablet by mouth every day High Cholesterol Evaristo Barron MD Sertraline HCl 100 MG Oral Tablet (Zoloft) Take one tablet by mouth in the morning with 50mg for 150mg total Mood Evaristo Barron MD Sertraline HCl 50 MG Oral Tablet (Zoloft) Take one tablet by mouth every morning with 100 mg for total 150 mg Mood Evaristo Barron MD Stress ReLeaf Oral Capsule Take 2 capsules by mouth in the morning. General Health Self traZODone HCl 100 MG Oral Tablet (Desyrel) Take two tablets by mouth every day at bedtime Sleep Evaristo Barron MD Varenicline Tartrate 1 MG Oral Tablet (Chantix) Take one tablet by mouth every morning and one tablet before bedtime Smoking Evaristo Barron MD Vitamin D (Cholecalciferol) 25 MCG (1000 UT) Oral Capsule Take 3 capsules by mouth daily. General Health Self documented in this encounter Plan of Treatment Upcoming Encounters Date Type Department Care Team (Latest Contact Info) Description 12/13/2023 2:30 PM EDT Hospital Encounter [facility], Endoscopy Room [facility] [address] [place] [phone] Matthew Peña MD [address] [place] [address] 12/13/2023 2:30 PM EDT - 12/13/2023 3:00 PM EDT Surgery [facility]O [facility], Endoscopy Room [facility] [address] [place] [phone] Matthew Peña MD [address] [place] [address] COLONOSCOPY FLEXIBLE PROXIMAL DIAGNOSTIC 03/27/2024 1:00 PM EDT Office Visit Gynecology/Obstetri [facility] [address] [place] [address] Radha Sky PA-C [address] [place] [address] 04/10/2024 1:00 PM EDT Nurse Only Ancillary [facility] [address] [place] [address] Lucas, Nurse Annual Wellness [facility] [address] [facility] [address] 06/26/2024 10:20 AM EST Office Visit Family Practice [facility] [address] [place] [address] Evaristo Barron MD [address] [facility] [place] [address] Scheduled Procedures Name Priority Associated Diagnoses Date/Ti me COLONOSCOPY FLEXIBLE PROXIMAL DIAGNOSTIC History of colon polyps 12/13/2023 2:30 PM EDT Health Maintenance Due Date Last Done Comments DISCUSS TOBACCO CESSATION (REFER TO SMARTSET #3291) 1963 Alpha-1 Antitrypsin 1981 Cologuard 2008 Fecal [...] Not on filedocumented as of this encounter Visit Diagnoses Diagnosis Referred for management of medication therapy- Primary Encounter for long-term (current) use of other medications History of colon polyps Personal history of colonic polyps documented in this encounter Care Teams Director Of Special Events Relationship Specialty Start Date End Date Evaristo Barron MD [address] [place] [address] PCP - General Family Medicine 08/27/14 documented as of this encounter
--- OUTSIDE RECORDS SUMMARY | 2024-02-07 12:27 | External Medical Summary | Summary of Care ---
Author Name Unknown Organization [facility] Address [address] [facility] [place] [address] Phone [phone] Care Team Providers Care Manufacturing Coordinator Name Role Phone Evaristo Eng MD Primary Care Provider + Reason for Visit * Reason Comments Medication Refill Encounter Details Date Type Department Care Team (Late st Contact Info) Description 11/25/2023 Refill Family Practice [facility] [address] [place] [address] Evaristo Eng MD [address] [place] [address] Chronic left-sided low back pain with left-sided sciatica; Left buttock pain Allergies Active Allergy Reactions Criticality Noted Date Comments Aspirin Other (Please comment) High 07/18/2015 Pt c/o SOB documented as of this encounter (statuses as of 11/26/2023) Medications Medication Sig Dispensed Refills Start Date [...] 39 g 2 09/29/2022 12/11/19 24 Active Magnesium 400 MG Oral Tablet Take 1 Tablet by mouth daily. 0 Active Vitamin A 3 MG (75819 UT) Oral Capsule (Aquasol-A) Take 1 Capsule by mouth in the morning. 0 Active Vitamin C 500 MG Oral Capsule Take 1 Capsule by mouth daily. 0 Active Vitamin D (Cholecalciferol) 25 MCG (1000 [...] with meals 360 Tablet 1 06/28/2023 Active Azithromycin 250 MG Oral Tablet (Zithromax Z-Malik) Take two tablets by mouth on first day, then 1 tablet daily until gone 6 Tablet 0 07/18/2023 Active Additional Information Patient not taking.Reported on 08/29/2023 Dicyclomine HCl 20 MG Oral Tablet (Bentyl)Indications [...] differently:1,000 mg OralBID (.AM/PM), Reported on 10/16/2023 methylPREDNISolone 4 MG Oral Tablet Therapy Pack (Medrol Dosepack) follow package directions 21 Tablet 0 08/29/2023 Active Additional Information Patient not taking.Reported on 10/16/2023 Diclofenac Sodium 1 % External Gel (Voltaren)Mehrantio ns:Bilateral primary osteoarthritis of knee APPLY 4 GRAMS TOPICALLY TO AFFECTED AREA 4 TIMES A DAY NEEDED FOR MILD PAIN TO BILATERAL KNEES 900 g 3 09/06/2023 09/05/19 25 Active Rosuvastatin Calcium 20 MG Oral Tablet (Crestor)Indication s:Dyslipidemia, goal LDL below 160 TAKE ONE TABLET BY MOUTH EVERY DAY 100 Tablet 3 09/16/2023 Active Omeprazole 40 MG Oral Capsule Delayed Release (PriLOSEC)Mehrantio ns:Gastro-esophagea l reflux disease without esophagitis TAKE ONE CAPSULE IN THE MORNING ONE HOUR BEFORE THE FIRST MEAL OF THE DAY 100 Capsule 1 09/24/2023 09/23/19 25 Active Varenicline Tartrate 1 MG Oral Tablet (Chantix) TAKE ONE TABLET BY MOUTH EVERY MORNING AND ONE TABLET BEFORE BEDTIME 200 Tablet 0 10/06/2023 10/06/19 25 Active Colony 3 1000 MG Oral Capsule Take by mouth daily. 0 Active Stress ReLeaf Oral Capsule Take 2 Capsules by mouth in the morning. 0 Active Montelukast Sodium 10 MG Oral Tablet (Singulair)Mehranti ons:Moderate persistent asthma, unspecified whether complicated TAKE [...] CUT OR CHEW 90 Tablet 3 11/04/2023 11/04/19 25 Active Gabapentin 300 MG Oral Capsule (Neurontin)Mehranti ons:Chronic left-sided low back pain with left-sided sciatica,Left buttock pain TAKE ONE CAPSULE BY MOUTH THREE TIMES A DAY -- IN THE MORNING, AT NOON AND BEFORE BEDTIME 270 Capsule 1 11/04/2023 11/04/19 25 Active Sertraline HCl 50 [...] the morning. 90 Tablet 1 11/26/2023 Active Meloxicam 15 MG Oral Tablet (Mobic)Indications: Chronic left-sided low back pain with left-sided sciatica,Left buttock pain Take 1 Tablet by mouth in the morning. 30 Tablet 1 08/18/2023 11/25/19 24 Discontinu ed(Refill) documented as of this encounter (statuses as of 11/26/2023) Active Problems Problem Noted Date Diagnosed Date [...] hyperplastic, bipin 5y as fair prep 06/17/16 [facility] ER + SI. Transfer to [facility] inpatient psych 2014-canceled colonoscopy appts 10/10 hosp [facility] for hand cellulitis s/p dog bite Asthma, moderate persistent 01/21/2010 Overview: Per Asthma Taxonomy ICD-10 update of inactive term CLASSICAL MIGRAINE WITHOU MENTION OF INTRACTABLE MIGRAINE History of tobacco use Overview: Quit 10/2017 with chantix, no issues with mood PPD positive, treated documented as of this encounter (statuses as of 11/26/2023) Resolved Problems Problem Noted Date Diagnosed Date [...] as of this encounter (statuses as of 11/26/2023) Immunizations Name Administration Dates Next Due COVID-19 mRNA, LNP-s, No Pre serve, 2-Dose Series (iLost) 04/30/2021,10/20/2020,09/29/2020 Hepatitis B, 20+ yrs 12/13/2021,01/29/2021,12/30 Pneumococcal Conjugate Vacci ne, 20-valent ([id number]) 04/07/2023 Pneumococcal Polysaccharide PPV23 (Pneumovax) 01/20/2015 Seasonal [...] encounter Miscellaneous Notes * Telephone Encounter - Yoana Hawkins RPh - 11/26/2023 4:39 PM EDT Signed Prescriptions: Disp Refills Meloxicam 15 MG Oral Tablet (Mobic) 90 Tab*1 Sig: Take 1 Tablet by mouth in the morning.Authorizing Provider: EVARISTO ENG User: YOANA HAWKINS documented in this encounter Plan of Treatment Upcoming Encounters Date Type Department Care Team (Latest Contact Info) Description 12/13/2023 2:30 PM EDT Hospital Encounter ENDO [facility], Endoscopy Room [facility] [address] [place] [phone] Matthew Peña MD [address] [place] [address] 12/13/2023 2:30 PM EDT - 12/13/2023 3:00 PM EDT Surgery ENDO [facility], Endoscopy Room [facility] [address] [place] [phone] Matthew Peña MD [address] [place] [address] COLONOSCOPY FLEXIBLE PROXIMAL DIAGNOSTIC 03/27/2024 1:00 PM EDT Office Visit Gynecology/Obstetri [facility] [address] [place] [address] Radha Sky PA-C [address] [place] [address] 04/10/2024 1:00 PM EDT Nurse Only Ancillary [facility] [address] [place] [address] [facility], Nurse Annual Wellness [facility] [address] [place] [address] 06/26/2024 10:20 AM EST Office Visit Family Practice [facility] [address] [place] [address] Evaristo Eng MD [address] [place] [address] Scheduled Procedures Name Priority Associated Diagnoses Date/Ti me COLONOSCOPY FLEXIBLE PROXIMAL DIAGNOSTIC History of colon polyps 12/13/2023 2:30 PM EDT Health Maintenance Due Date Last Done Comments DISCUSS TOBACCO CESSATION (REFER TO SMARTSET #1155) 1963 Alpha-1 Antitrypsin 1981 Cologuard 2008 Fecal [...] as of this encounter Visit Diagnoses Diagnosis Chronic left-sided low back pain with left-sided sciatica Left buttock pain Mylagia and myositis, unspecified History of colon polyps Personal history of colonic polyps documented in this encounter Care Teams Manufacturing Coordinator Relationship Specialty Start Date End Date Evaristo Eng MD [address] [place] [address] PCP - General Family Medicine 08/27/14 documented as of this encounter
--- OUTSIDE RECORDS SUMMARY | 2024-02-07 12:27 | External Medical Summary | Summary of Care ---
Author Name Unknown Organization [facility] Address [address] [place] [address] Phone [phone] Care Team Providers Care Regulatory Law Specialist Name Role Phone Evaristo Barron MD Primary Care Provider + Reason for Visit * Reason Onset Date Comments Fax 12/21/2023 Encounter Details Date Type Department Care Team (Late st Contact Info) Description 12/21/2023 Telephone Family Practice [facility] [address] [place] [address] Evaristo Barron MD [address] [place] [address] Fax Allergies Active Allergy Reactions Criticality Noted Date Comments Aspirin Other (Please comment) High 07/18/2015 Pt c/o SOB documented as of this encounter (statuses as of 12/22/2023) Medications Medication Sig Dispensed Refills Start Date [...] BEFORE BEDTIME 200 Tablet 10/06/2023 5 Active [place] 3 1000 MG Oral Capsule Take by [...] as of this encounter (statuses as of 12/22/2023) Active Problems Problem Noted Date Diagnosed Date [...] hyperplastic, bipin 5y as fair prep 06/17/16 [facility] ER + SI. 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 with mood PPD positive, treated documented as of this encounter (statuses as of 12/22/2023) Resolved Problems Problem Noted Date Diagnosed Date [...] as of this encounter (statuses as of 12/22/2023) Immunizations Name Administration Dates Next Due COVID-19 mRNA, LNP-s, No Pre serve, 2-Dose Series ([employer]) 04/30/2021,10/20/2020,09/29/2020 Hepatitis B, 20+ yrs 12/13/2021,01/29/2021,12/30 Pneumococcal Conjugate Vacci ne, 20-valent ([id number]) 04/07/2023 Pneumococcal Polysaccharide PPV23 (Pneumovax) 01/20/2015 Seasonal [...] encounter Miscellaneous Notes * Telephone Encounter - Amy Burgos LPN - 12/22/2023 12:35 PM EDT Faxed this morning. * Telephone Encounter - Carmen García OSA - 12/21/2023 3:08 PM EDT Received a call asking if fax was received by office. Name/Company sending fax: [facility] delivered What fax is pertaining to: Order for incontinence supplies Date(s) they sent request: 12/21/23 Verified fax number they are sending to is correct (Y or N): yes Callback Number for the clinic to call to verified if fax was received: documented in this encounter Plan of Treatment Upcoming Encounters Date Type Department Care Team (Late st Contact Info) Description 03/27/2024 1:00 PM EDT Office Visit Gynecology/Obstetrics [facility] [address] [place] [address] Radha Sky PA-C [address] [place] [address] 04/10/2024 1:00 PM EDT [facility] [address] [place] [address] [place], Nurse Annual Wellness [facility] [address] [place] [address] 06/26/2024 10:20 AM EST [facility] [address] [place] [address] Evaristo Barron MD [address] [place] [address] Scheduled Procedures Name Priority Associated Diagnoses Date/Ti me COLONOSCOPY FLEXIBLE PROXIMAL DIAGNOSTIC Recall History of colon polyps Health Maintenance Due Date Last Done Comments DISCUSS TOBACCO CESSATION (REFER TO SMARTSET #5762) 1965 Alpha-1 Antitrypsin 1981 Cologuard 2008 Fecal [...] 11/28, 12/30/2020, Additional history exists Albumin/Creatinine Ratio 03/29/20242 023, 06/13/2022, 12/30/2020 GFR 03/29/2024 03/29/2023, 11/28, [...] filedocumented as of this encounter Care Teams Regulatory Law Specialist Relationship Specialty Start Date End Date Evaristo Barron MD [address] [facility] [place] [address] PCP - General Family Medicine 08/27/14 documented as of this encounter
--- OUTSIDE RECORDS SUMMARY | 2024-02-07 12:27 | External Medical Summary | Summary of Care ---
Author Name Unknown Organization [facility] Address [address] [place] [address] Phone [phone] Care Team Providers Care Cryptanalyst Name Role Phone Evaristo Eng MD Primary Care Provider + Reason for Visit * Reason Comments Medication Refill Encounter Details Date Type Department Care Team (Late st Contact Info) Description 12/18/2023 Refill Family Practice [facility] [address] [place] [address] Evaristo Eng MD [address] [place] [address] Allergies Active Allergy Reactions Criticality Noted Date Comments Aspirin Other (Please comment) High 07/18/2015 Pt c/o SOB documented as of this encounter (statuses as of 12/19/2023) Medications Medication Sig Dispensed Refills Start Date [...] TABLET BEFORE BEDTIME 200 Tablet 10/06/2023 10/06/19 25 Active [place] 3 1000 MG Oral Capsule Take by [...] 12/04/2023 Active Dulera 100-5 MCG/ACT Inhalation Aerosol (Mometasone-Formote rol) INHALE TWO PUFFS BY MOUTH IN THE MORNING AND TWO PUFFS BEFORE BEDTIME 39 g 2 12/04/2023 Active metFORMIN HCl ER 500 MG Oral Tablet Extended Release 24 Hour (Glucophage XR) Take 2 tablets by mouth twice daily with meals 360 Tablet 1 12/19/2023 Active metFORMIN HCl ER 500 MG Oral Tablet Extended Release 24 Hour (Glucophage XR) Take 2 tablets by mouth twice daily with meals 360 Tablet 1 06/28/2023 12/18/19 24 Discontinu ed(Refill) documented as of this encounter (statuses as of 12/19/2023) Active Problems Problem Noted Date Diagnosed Date [...] hyperplastic, bipin 5y as fair prep 06/17/16 [facility] ER + SI. Transfer to [facility] inpatient psych 2014-canceled colonoscopy appts 10/10 hosp [facility] for hand cellulitis s/p dog bite Asthma, moderate persistent 01/21/2010 Overview: Per Asthma Taxonomy ICD-10 update of inactive term CLASSICAL MIGRAINE WITHOU MENTION OF INTRACTABLE MIGRAINE History of tobacco use Overview: Quit 10/2017 with chantix, no issues with mood PPD positive, treated documented as of this encounter (statuses as of 12/19/2023) Resolved Problems Problem Noted Date Diagnosed Date [...] as of this encounter (statuses as of 12/19/2023) Immunizations Name Administration Dates Next Due COVID-19 mRNA, LNP-s, No Pre serve, 2-Dose Series ([employer]) 04/30/2021,10/20/2020,09/29/2020 Hepatitis B, 20+ yrs 12/13/2021,01/29/2021,12/30 Pneumococcal Conjugate Vacci ne, 20-valent ([id number]) 04/07/2023 Pneumococcal Polysaccharide PPV23 (Pneumovax) 01/20/2015 Seasonal [...] encounter Miscellaneous Notes * Telephone Encounter - Malcolm Avendaño [facility] - 12/19/2023 8:44 AM EDTSigned Prescriptions: Disp Refills metFORMIN HCl ER 500 MG Oral Tablet Extend*360 Ta*1 Sig: Take 2tablets by mouth twice daily with mealsAuthorizing Provider: EVARISTO ENG User: MALCOLM EDOUARD documented in this encounter Plan of Treatment Upcoming Encounters Date Type Department Care Team (Late st Contact Info) Description 03/27/2024 1:00 PM EDT Office Visit Gynecology/Obstetrics [facility] [address] [place] [address] Radha Sky PA-C [address] [place] [address] 04/10/2024 1:00 PM EDT Nurse Only Ancillary [facility] [address] [place] [address] [facility], Nurse Annual Wellness [facility] [address] [place] [address] 06/26/2024 10:20 AM EST Office Visit Family Practice [facility] [address] [address] Evaristo Eng MD [address] [place] [address] Scheduled Procedures Name Priority Associated Diagnoses Date/Ti me COLONOSCOPY FLEXIBLE PROXIMAL DIAGNOSTIC Recall History of colon polyps Health Maintenance Due Date Last Done Comments DISCUSS TOBACCO CESSATION (REFER TO SMARTSET #3606) 1965 Alpha-1 Antitrypsin 1981 Cologuard 2008 Fecal [...] filedocumented as of this encounter Care Teams Cryptanalyst Relationship Specialty Start Date End Date Evaristo Eng MD [address] [place] [address] PCP - General Family Medicine 08/27/14 documented as of this encounter
--- OUTSIDE RECORDS SUMMARY | 2024-02-07 12:27 | External Medical Summary | Summary of Care ---
Author Name Unknown Organization [facility] Address [address] [place] [facility] [place] [address] Phone [phone] Care Team Providers Care Rn Gastroenterology Name Role Phone Evaristo Eng MD Primary Care Provider + Reason for Visit * Reason Comments Medication Refill Encounter Details Date Type Department Care Team (Late st Contact Info) Description 12/03/2023 Refill Family Practice [facility] [address] [place] [address] Evaristo Eng MD [address] [place] [address] Allergies Active Allergy Reactions Criticality Noted Date Comments Aspirin Other (Please comment) High 07/18/2015 Pt c/o SOB documented as of this encounter (statuses as of 12/04/2023) Medications Medication Sig Dispensed Refills Start Date [...] 12 g 0 01/16/2023 01/16/20 24 Active Vitamin D (Cholecalciferol) [...] 200 Tablet 0 10/06/2023 10/06/19 25 Active [place] 3 1000 MG Oral Capsule Take by [...] BEFORE BEDTIME 39 g 2 12/04/2023 Active Glucose Blood In Vitro Strip CHECK BLOOD SUGAR ONCE DAILY DIRECTED 100 Strip 11 09/29/2022 12/03/19 24 Discontinu ed(Refill) Mometasone Furo-Formoterol Fum 100-5 MCG/ACT Inhalation Aerosol (Dulera) INHALE TWO PUFFS BY MOUTH IN THE MORNING AND TWO PUFFS BEFORE BEDTIME 39 g 2 09/29/2022 12/03/19 24 Discontinu ed(Refill) documented as of this encounter (statuses as of 12/04/2023) Active Problems Problem Noted Date Diagnosed Date [...] hyperplastic, bipin 5y as fair prep 06/17/16 [facility] ER + SI. Transfer to [facility] inpatient psych 2014-canceled colonoscopy appts 10/10 hosp [facility] for hand cellulitis s/p dog bite Asthma, moderate persistent 01/21/2010 Overview: Per Asthma Taxonomy ICD-10 update of inactive term CLASSICAL MIGRAINE WITHOU MENTION OF INTRACTABLE MIGRAINE History of tobacco use Overview: Quit 10/2017 with chantix, no issues with mood PPD positive, treated documented as of this encounter (statuses as of 12/04/2023) Resolved Problems Problem Noted Date Diagnosed Date [...] as of this encounter (statuses as of 12/04/2023) Immunizations Name Administration Dates Next Due COVID-19 mRNA, LNP-s, No Pre serve, 2-Dose Series ([employer]) 04/30/2021,10/20/2020,09/29/2020 Hepatitis B, 20+ yrs 12/13/2021,01/29/2021,12/30 Pneumococcal Conjugate Vacci ne, 20-valent ([id number]) 04/07/2023 Pneumococcal Polysaccharide PPV23 (Pneumovax) 01/20/2015 Seasonal [...] encounter Miscellaneous Notes * Telephone Encounter - Gudelia Guerrier RPh - 12/04/2023 12:33 PM EDT Signed Prescriptions: Disp Refills OneTouch Ultra In Vitro Strip (Glucose Blo*100 St*4 Sig: CHECK BLOOD SUGAR ONCE DAILY DIRECTED Authorizing Provider: EVARISTO ENG Ordering User: GUDELIA GUERRIER Dulera 100-5 MCG/ACT Inhalation Aerosol (M*39 g 2 Sig: INHALE TWO PUFFS BY MOUTH IN THE MORNING AND TWO PUFFS BEFORE BEDTIME Authorizing Provider: EVARISTO REYES Ordering User: GUDELIA GUERRIER * Telephone Encounter - 12/03/2023 12:10 AM EDTPending Prescriptions: Disp Refills OneTouch Ultra In Vitro Strip (Glucose Blo*100 St*11 Sig: CHECK BLOOD SUGAR ONCE DAILY DIRECTED Dulera 100-5 MCG/ACT Inhalation Aerosol (M*39 g 2 Sig: INHALE TWO PUFFS BY MOUTH IN THE MORNING AND TWO PUFFS BEFORE BEDTIME documented in this encounter Plan of Treatment Upcoming Encounters Date Type Department Care Team (Latest Contact Info) Description 12/13/2023 3:10 PM EDT Hospital Encounter ENDO [facility], Endoscopy Room [facility] [address] [place] [phone] Matthew Peña MD [address] [place] [address] 12/13/2023 3:10 PM EDT - 12/13/2023 3:40 PM EDT Surgery ENDO [facility], Endoscopy Room [facility] [address] [place] [phone] Matthew Peña MD [address] [place] [address] COLONOSCOPY FLEXIBLE PROXIMAL DIAGNOSTIC 03/27/2024 1:00 PM EDT Office Visit Gynecology/Obstetri [facility] [address] [place] [address] Radha Sky PA-C [address] [place] [address] 04/10/2024 1:00 PM EDT Nurse Only Ancillary [facility] [address] [place] [address] [place], Nurse Annual Wellness [facility] [address] [place] [address] 06/26/2024 10:20 AM EST Office Visit [facility] [address] [place] [address] Evaristo Eng MD [address] [place] [address] Scheduled Procedures Name Priority Associated Diagnoses Date/Ti me COLONOSCOPY FLEXIBLE PROXIMAL DIAGNOSTIC History of colon polyps 12/13/2023 3:10 PM EDT Health Maintenance Due Date Last Done Comments DISCUSS TOBACCO CESSATION (REFER TO SMARTSET #3169) 1965 Alpha-1 Antitrypsin 1981 Cologuard 2008 Fecal [...] 09/13/2017, 09/13/2017, 09/12/2017 Zoster Vaccines Completed 10/14/2020, 2 07/2019, 04/15/2015 Hepatitis B Completed 12/13/2021, 07/0 08/2020, [...] filedocumented as of this encounter Care Teams Rn Gastroenterology Relationship Specialty Start Date End Date Evaristo Eng MD [address] [facility] [place] [address] PCP - General Family Medicine 08/27/14 documented as of this encounter
--- OUTSIDE RECORDS SUMMARY | 2024-02-07 12:27 | External Medical Summary | Summary of Care ---
Author Name Unknown Organization [facility] Address [address] [facility] [address] Phone [phone] Care Team Providers Care Jewel Blocker And Sawyer Name Role Phone Evaristo Barron MD Primary Care Provider + Encounter Details Date Type Department Care Team (Late st Contact Info) Description 12/17/2023 Telephone Family Practice [facility] [address] [place] [address] Du Fleming, DO [address] [place] [place] [address] Allergies Active Allergy Reactions Criticality Noted Date Comments Aspirin Other (Please comment) High 07/18/2015 Pt c/o SOB documented as of this encounter (statuses as of 12/20/2023) Medications Medication Sig Dispensed Refills Start Date [...] BEFORE BEDTIME 200 Tablet 10/06/2023 5 Active [place] 3 1000 MG Oral Capsule Take by [...] AND BEFORE BEDTIME 270 Capsule 1 11/04/2023 5 Active Sertraline HCl 50 MG Oral Tablet [...] the morning. 90 Tablet 1 11/26/2023 Active [employer] Ultra In Vitro Strip (Glucose Blood) CHECK BLOOD SUGAR ONCE DAILY DIRECTED 100 Strip 4 12/04/2023 Active Dulera 100-5 MCG/ACT Inhalation Aerosol (Mometasone-Formoter ol) INHALE TWO PUFFS BY MOUTH IN THE MORNING AND TWO PUFFS BEFORE BEDTIME 39 g 2 12/04/2023 Active documented as of this encounter (statuses as of 12/20/2023) Active Problems Problem Noted Date Diagnosed Date [...] [facility] Transfer to [facility] inpatient psych 2014-canceled colonoscopy appts 10/10 hosp [facility] for hand cellulitis s/p dog bite Asthma, moderate persistent 01/21/2010 Overview: Per Asthma Taxonomy ICD-10 update of inactive term CLASSICAL MIGRAINE WITHOU MENTION OF INTRACTABLE MIGRAINE History of tobacco use Overview: Quit 10/2017 with chantix, no issues with mood PPD positive, treated documented as of this encounter (statuses as of 12/20/2023) Resolved Problems Problem Noted Date Diagnosed Date [...] as of this encounter (statuses as of 12/20/2023) Immunizations Name Administration Dates Next Due COVID-19 mRNA, LNP-s, No Pre serve, 2-Dose Series ([employer]) 04/30/2021,10/20/2020,09/29/2020 Hepatitis B, 20+ yrs 12/13/2021,01/29/2021,12/30 Pneumococcal Conjugate Vacci ne, 20-valent ([id number]) 04/07/2023 Pneumococcal Polysaccharide PPV23 (Pneumovax) 01/20/2015 Seasonal [...] encounter Miscellaneous Notes * Telephone Encounter - Ifeoma Spencer OSA - 12/20/2023 9:44 AM EDT Called and tried to LM for patient to get her set up with a provider to discuss the BP and OX but was not able to LM for patient to call back * Telephone Encounter - Du Fleming DO - 12/19/2023 5:02 PM EDT I see some appts for if we can call to get her set in one tomorrow morning please * Telephone Encounter - Du Fleming DO - 12/17/2023 5:46 PM EDT Call from patient, concerned about BP and pulse ox. Pulse ox is 98% and I told her that was excellent. BP around 160/90s. No current red flag symptoms. I told her we should just get her in for a visit this week to get it checked in the office. Could you please call patient to schedule acute at ? documented in this encounter Plan of Treatment Upcoming Encounters Date Type Department Care Team (Late st Contact Info) Description 03/27/2024 1:00 PM EDT Office Visit Gynecology/Obstetrics [facility] [address] [place] [address] Radha Sky PA-C [address] [place] [address] 04/10/2024 1:00 PM EDT Nurse Only Ancillary [facility] [place] [address] [place] [address] [place], Nurse Annual Wellness [facility] [address] [place] [address] 06/26/2024 10:20 AM EST Office Visit Family Practice [facility] [address] [place] [address] Evaristo Barron MD [address] [place] [address] Scheduled Procedures Name Priority Associated Diagnoses Date/Ti me COLONOSCOPY FLEXIBLE PROXIMAL DIAGNOSTIC Recall History of colon polyps Health Maintenance Due Date Last Done Comments DISCUSS TOBACCO CESSATION (REFER TO SMARTSET #1761) 1965 Alpha-1 Antitrypsin 1981 Cologuard 2008 Fecal [...] filedocumented as of this encounter Care Teams Jewel Blocker And Sawyer Relationship Specialty Start Date End Date Evaristo Barron MD [address] [place] [address] PCP - General Family Medicine 08/27/14 documented as of this encounter
--- OUTSIDE RECORDS SUMMARY | 2024-02-07 12:27 | External Medical Summary | Summary of Care ---
Author Name Unknown Organization [facility] Address [address] [place] [facility] [place] [address] Phone [phone] Care Team Providers Care Environmental Management Specialist Name Role Phone Evaristo Barron MD Primary Care Provider + Encounter Details Date Type Department Care Team (Late st Contact Info) Description 01/04/2024 Telephone [facility], Maryan Duque [address] [place] [address] [place] [address] Evaristo Barron MD [address] [place] [address] Allergies Active Allergy Reactions Criticality Noted Date Comments Aspirin Other (Please comment) High 07/18/2015 Pt c/o SOB documented as of this encounter (statuses as of 01/05/2024) Medications Medication Sig Dispensed Refills Start Date [...] BEFORE BEDTIME 200 Tablet 10/06/2023 5 Active [place] 3 1000 MG Oral Capsule Take by [...] the morning. 90 Tablet 1 11/26/2023 Active [place] Ultra In Vitro Strip (Glucose Blood) CHECK [...] as of this encounter (statuses as of 01/05/2024) Active Problems Problem Noted Date Diagnosed Date [...] bipin 5y as fair prep 06/17/16 [facility] ER + SI. Transfer to [facility] inpatient psych 2014-canceled colonoscopy appts 10/10 hosp [facility] for hand cellulitis s/p dog bite Asthma, moderate persistent 01/21/2010 Overview: Per Asthma Taxonomy ICD-10 update of inactive term CLASSICAL MIGRAINE WITHOU MENTION OF INTRACTABLE MIGRAINE History of tobacco use Overview: Quit 10/2017 with chantix, no issues with mood PPD positive, treated documented as of this encounter (statuses as of 01/05/2024) Resolved Problems Problem Noted Date Diagnosed Date [...] as of this encounter (statuses as of 01/05/2024) Immunizations Name Administration Dates Next Due COVID-19 mRNA, LNP-s, No Pre serve, 2-Dose Series (Pfizer) 04/30/2021,10/20/2020,09/29/2020 Hepatitis B, 20+ yrs 12/13/2021,01/29/2021,12/30 Pneumococcal Conjugate Vacci ne, 20-valent ([id number]) 04/07/2023 Pneumococcal Polysaccharide PPV23 (Pneumovax) 01/20/2015 Seasonal [...] Telephone Encounter - Amy Burgos LPN - 01/05/2024 12:37 PM EDT Will watch for fax * Telephone Encounter - Deepa Mata LPN [...] Preferred call back number(OFFICE NUMBER FOR ): [phone] Reason for call: Sheree sent paperwork for a physicians order but it wasn't signed. She would likeyou to sign this document and send to her at fax #[phone] and [phone] please fax to both of those numbers. She will be faxing the form back to you. Thank you, Sandra Pat [employer] Greeter Centralized [facility] Pharmacy Services 01/04/2024,11:26 AM documented in this encounter Plan of Treatment Upcoming Encounters Date Type Department Care Team (Late st Contact Info) Description 03/27/2024 1:00 PM EDT Office Visit Gynecology/Obstetrics [facility] [address] [place] [address] Radha Sky PA-C [address] [place] [address] 04/10/2024 1:00 PM EDT Nurse Only Ancillary [facility] [address] [place] [address] [facility], Nurse Annual Wellness [facility] [address] [place] [address] 06/26/2024 10:20 AM EST Office Visit Family Practice [facility] [address] [place] [address] Evaristo Barron MD [address] [place] [address] Scheduled Procedures Name Priority Associated Diagnoses Date/Ti me COLONOSCOPY FLEXIBLE PROXIMAL DIAGNOSTIC Recall History of colon polyps Health Maintenance Due Date Last Done Comments DISCUSS TOBACCO CESSATION (REFER TO SMARTSET #5656) 1965 Alpha-1 Antitrypsin 1981 Cologuard 2008 Fecal Occult Blood Test 2008 Sigmoidoscopy 2008 PAP SMEAR-EVERY 3 YRS,AGES 18-100 09/07/2020 09/07/2017 Colonoscopy 09/13/2022 09/13/2017, 08/31, 09/12/2017 Colorectal Cancer Screening 09/13/2022 DTaP,Tdap,and Td Vaccines (3 - Td or Tdap) 10/22/2022 10/22/2012, 05/27/2011 Diabetic Eye Exam 01/21/2023 01/21/2022, , 01/01/2021 COVID-19 Vaccine ( - season) 2023 04/30/2021, 10/20/2020, 09/29/2020 Depression, Most [...] 10/14/2020, 04/01, 04/15/2015 Hepatitis B Completed 12/13/2021, 0708/2020, 12/30/2020 Influenza Vaccine (FLU shot) Completed 04/07/2023, [...] filedocumented as of this encounter Care Teams Environmental Management Specialist Relationship Specialty Start Date End Date Evaristo Barron MD [address] [place] [address] PCP - General Family Medicine 1/28/15 documented as of this encounter
--- OUTSIDE RECORDS SUMMARY | 2024-02-07 12:27 | External Medical Summary | Summary of Care ---
Author Name Unknown Organization [facility] Address [address] [place] [facility] [address] Phone [phone] Care Team Providers Care Branch Or Department Chief Librarian Name Role Phone Evaristo Barron MD Primary Care Provider + Encounter Details Date Type Department Care Team (Late st Contact Info) Description 12/19/2023 Population Health External Data Unspecified Department Allergies [...] TIMES A DAY NEEDED 12 g 01/16/2023 4 Active Vitamin D (Cholecalciferol) 25 MCG (1000 [...] ONE TABLET BEFORE BEDTIME 200 Tablet 10/06/2023 Active [place] 3 1000 MG Oral Capsule Take by [...] hyperplastic, bipin 5y as fair prep 06/17/16 [facility] ER + SI. Transfer to [facility] inpatient psych 2014-canceled colonoscopy appts 10/10 hosp [facility] for hand cellulitis s/p dog bite Asthma, [...] yrs 12/13/2021,01/29/2021,12/30 Pneumococcal Conjugate Vacci ne, 20-valent ([id number]) 04/07/2023 Pneumococcal Polysaccharide PPV23 (Pneumovax) 01/20/2015 Seasonal [...] 03/27/2024 1:00 PM EDT Office Visit Gynecology/Obstetrics [facility] [address] [place] [address] Radha Sky PA-C [address] [place] [address] 04/10/2024 1:00 PM EDT Nurse Only Ancillary [facility] [address] [place] [address] [place], Nurse Annual Wellness [facility] [address] [place] [address] 06/26/2024 10:20 AM EST Office Visit Family Practice [facility] [address] [place] [address] Evaristo Barron MD [address] [place] [address] Scheduled Procedures Name Priority Associated Diagnoses Date/Ti me COLONOSCOPY FLEXIBLE PROXIMAL DIAGNOSTIC Recall History of colon polyps Health Maintenance Due Date Last Done Comments DISCUSS TOBACCO CESSATION (REFER TO SMARTSET #0819) 1965 Alpha-1 Antitrypsin 1981 Cologuard 2008 Fecal Occult Blood Test 2008 Sigmoidoscopy 2008 PAP SMEAR-EVERY 3 YRS,AGES 18-100 09/07/2020 09/07/2017 Colonoscopy 09/13/2022 09/13/2017, 08/31, 09/12/2017 Colorectal Cancer Screening 09/13/2022 DTaP,Tdap,and Td Vaccines (3 - Td or Tdap) 10/22/2022 10/22/2012, 05/27/2011 Diabetic Eye Exam 01/21/2023 01/21/2022, , 01/01/2021 COVID-19 Vaccine ( - 2022- season) 2023 04/30/2021, 10/20/2020, 09/29/2020 Depression, Most [...] filedocumented as of this encounter Care Teams Branch Or Department Chief Librarian Relationship Specialty Start Date End Date Evaristo Barron MD [address] [place] [address] PCP - General Family Medicine 08/27/14 documented as of this encounter
--- OUTSIDE RECORDS SUMMARY | 2024-02-07 12:27 | External Medical Summary | Summary of Care ---
Author Name Unknown Organization [facility] [address] [facility] [address] Phone [phone] Care Team Providers Care Emergency Room Orderly Name Role Phone Evaristo Barron MD Primary Care Provider + Reason for Visit * Reason Onset Date Comments Surgery Procedure Cancelled 12/05/2023 Carlyn ent left voice message canceling procedure for 12/13/2023 Encounter Details Date Type Department Care Team (Late st Contact Info) Description 12/05/2023 Telephone OR [facility], Operating Room [facility] [address] [place] [phone] Matthew Peña MD [address] [place] [phone] Surgery Procedure Cancelled (Patient left ... Allergies Active Allergy Reactions Criticality Noted Date Comments Aspirin Other (Please comment) High 07/18/2015 Pt c/o SOB documented as of this encounter (statuses as of 12/05/2023) Medications Medication Sig Dispensed Refills Start Date End Date Status Lancets MISCIndications:Hype rglycemia Use as directed. 100 Each 1 11/02/2017 Active Bismuth Subsalicylate 262 MG/15ML Oral SuspensionIndication s:heartburn Take 30 mL by mouth every 4 hours as needed. 0 Active Ipratropium-Albutero l 20-100 MCG/ACT Inhalation Aerosol Solution (Combivent Respimat)Indications :Wheeze INHALE ONE PUFF BY MOUTH FOUR TIMES A DAY NEEDED 12 g 0 01/16/2023 4 Active Vitamin D (Cholecalciferol) 25 [...] every 6 hours. 360 Tablet 3 08/07/2023 5 Active Polyethylene Glycol 3350 17 GM/SCOOP Oral [...] TABLET BEFORE BEDTIME 200 Tablet 0 10/06/2023 5 Active [place] 3 1000 MG Oral Capsule Take by [...] CUT OR CHEW 90 Tablet 3 11/04/2023 5 Active Gabapentin 300 MG Oral Capsule (Neurontin)Indicatio [...] as of this encounter (statuses as of 12/05/2023) Active Problems Problem Noted Date Diagnosed Date [...] bipin 5y as fair prep 06/17/16 [facility] ER + SI. Transfer to [facility] inpatient psych 2014-canceled colonoscopy appts 10/10 hosp [facility] for hand cellulitis s/p dog bite Asthma, moderate persistent 01/21/2010 Overview: Per Asthma Taxonomy ICD-10 update of inactive term CLASSICAL MIGRAINE WITHOU MENTION OF INTRACTABLE MIGRAINE History of tobacco use Overview: Quit 10/2017 with chantix, no issues with mood PPD positive, treated documented as of this encounter (statuses as of 12/05/2023) Resolved Problems Problem Noted Date Diagnosed Date [...] as of this encounter (statuses as of 12/05/2023) Immunizations Name Administration Dates Next Due COVID-19 mRNA, LNP-s, No Pre serve, 2-Dose Series (Pfizer) 04/30/2021,10/20/2020,09/29/2020 Hepatitis B, 20+ yrs 12/13/2021,01/29/2021,12/30 Pneumococcal Conjugate Vacci ne, 20-valent ([email or web address]) 04/07/2023 Pneumococcal Polysaccharide PPV23 (Pneumovax) 01/20/2015 Seasonal [...] encounter Miscellaneous Notes * Telephone Encounter - Amarilys Johnson OSA - 12/05/2023 9:43 AM EDT Pt is cancelled * Telephone Encounter - Christen Merino RN - 12/05/2023 8:04 AM EDT Patient left voice message canceling Colonoscopy scheduled for 12/13/2023, no reason for canceling given. Please call patient to reschedule Colonoscopy. Thank you, Christen documented in this encounter Plan of Treatment Upcoming Encounters Date Type Department Care Team (Late st Contact Info) Description 03/27/2024 1:00 PM EDT Office Visit Gynecology/Obstetrics [facility] [address] [address] Radha Sky PA-C [address] [place] [address] 04/10/2024 1:00 PM EDT Nurse Only Ancillary [facility] [address] [place] [address] [facility], Nurse Annual Wellness [facility] [address] [place] [address] 06/26/2024 10:20 AM EST Office Visit Family Practice [facility] [address] [place] [address] Evaristo Barron MD [address] [place] [address] Scheduled Procedures Name Priority Associated Diagnoses Date/Ti me COLONOSCOPY FLEXIBLE PROXIMAL DIAGNOSTIC Recall History of colon polyps Health Maintenance Due Date Last Done Comments DISCUSS TOBACCO CESSATION (REFER TO SMARTSET #9777) 1965 Alpha-1 Antitrypsin 1981 Cologuard 2008 Fecal [...] filedocumented as of this encounter Care Teams Emergency Room Orderly Relationship Specialty Start Date End Date Evaristo Barron MD [address] [place] [address] PCP - General Family Medicine 08/27/14 documented as of this encounter
--- OUTSIDE RECORDS SUMMARY | 2024-02-07 12:28 | External Medical Summary | Summary of Care ---
Author Name Unknown Organization [facility] Address [address] [facility] [address] Phone [phone] Care Team Providers Care Antiquer Name Role Phone Evaristo Barron MD Primary Care Provider + Encounter Details Date Type Department Care Team (Late st Contact Info) Description 11/24/2023 Orders Only PATIENT PORTAL DO NOT DELETE THIS DEPT USED BY [place] [id number] Allergies Active Allergy Reactions Criticality Noted Date Comments Aspirin Other (Please comment) High 07/18/2015 Pt c/o SOB documented as of this encounter (statuses as of 11/24/2023) Medications Medication Sig Dispensed Refills Start Date [...] NEEDED 12 g 0 01/16/2023 4 Active Glucose Blood In Vitro Strip CHECK BLOOD SUGAR ONCE DAILY DIRECTED 100 Strip 11 09/29/2022 4 Active Mometasone Furo-Formoterol Fum 100-5 MCG/ACT Inhalation Aerosol (Dulera) INHALE TWO PUFFS BY MOUTH IN THE MORNING AND TWO PUFFS BEFORE BEDTIME 39 g 2 09/29/2022 4 Active Magnesium 400 MG Oral Tablet Take 1 Tablet by mouth daily. 0 Active Vitamin A 3 MG (93778 UT) Oral Capsule (Aquasol-A) Take 1 Capsule [...] 08/29/2023 Dicyclomine HCl 20 MG Oral Tablet (Bentyl)Indications: [...] differently:1,000 mg OralBID (.AM/PM), Reported on 10/16/2023 Meloxicam 15 MG Oral Tablet (Mobic)Indications:C hronic left-sided low back pain with left-sided sciatica,Left buttock pain Take 1 Tablet by mouth in the morning. 30 Tablet 1 08/18/2023 Active methylPREDNISolone 4 MG Oral Tablet Therapy Pack [...] BEDTIME 200 Tablet 0 10/06/2023 5 Active [place] 3 1000 MG Oral Capsule Take by [...] or sleep 100 Tablet 3 11/23/2023 Active documented as of this encounter (statuses as of 11/24/2023) Active Problems Problem Noted Date Diagnosed Date [...] hyperplastic, bipin 5y as fair prep 06/17/16 [facility] ER + SI. Transfer to [facility] inpatient psych 2014-canceled colonoscopy appts 10/10 hosp [facility] for hand cellulitis s/p dog bite Asthma, moderate persistent 01/21/2010 Overview: Per Asthma Taxonomy ICD-10 update of inactive term CLASSICAL MIGRAINE WITHOU MENTION OF INTRACTABLE MIGRAINE History of tobacco use Overview: Quit 10/2017 with chantix, no issues with mood PPD positive, treated documented as of this encounter (statuses as of 11/24/2023) Resolved Problems Problem Noted Date Diagnosed Date [...] as of this encounter (statuses as of 11/24/2023) Immunizations Name Administration Dates Next Due COVID-19 mRNA, LNP-s, No Pre serve, 2-Dose Series (TVShow Time) 04/30/2021,10/20/2020,09/29/2020 Hepatitis B, 20+ yrs 12/13/2021,01/29/2021,12/30 Pneumococcal Conjugate Vacci ne, 20-valent ([email or web address]) 04/07/2023 Pneumococcal Polysaccharide PPV23 (Pneumovax) 01/20/2015 Seasonal [...] EDT Hospital Encounter ENDO [facility], Endoscopy Room [facility] [address] [place] [phone] Matthew Peña MD [address] [place] [address] 12/13/2023 2:30 PM EDT - 12/13/2023 3:00 PM EDT Surgery ENDO [facility], Endoscopy Room [facility] [address] [place] [phone] Matthew Peña MD [address] [place] [address] COLONOSCOPY FLEXIBLE PROXIMAL DIAGNOSTIC 03/27/2024 1:00 PM EDT Office Visit Gynecology/Obstetri [facility] [address] [place] [address] Radha Sky PA-C [address] [place] [address] 04/10/2024 1:00 PM EDT Nurse Only Ancillary [facility] [address] [place] [address] [facility], Nurse Annual Wellness [facility] [address] [place] [address] 06/26/2024 10:20 AM EST Office Visit Family Practice [facility] [address] [place] [address] Evaristo Barron MD [address] [place] [address] Scheduled Procedures Name Priority Associated Diagnoses Date/Ti me COLONOSCOPY FLEXIBLE PROXIMAL DIAGNOSTIC History of colon polyps 12/13/2023 2:30 PM EDT Health Maintenance Due Date Last Done Comments DISCUSS TOBACCO CESSATION (REFER TO SMARTSET #9866) 1965 Alpha-1 Antitrypsin 1981 PAP SMEAR-EVERY 3 YRS,AGES 18-100 09/07/2020 09/07/2017 COLONOSCOPY-EVERY 5 YRS AGES 18-100 09/13/2022 09/13/2017, 09/13/2017, 09/12/2017 DTaP,Tdap,and Td Vaccines (3 - Td or [...] 03/29/2028 03/29/2023, 11/28, 12/30/2020, Additional history exists Zoster Vaccines Completed 10/14/2020, 04/01, 04/15/2015 Hepatitis B Completed 12/13/2021, 070 08/2020, 12/30/2020 Influenza Vaccine (FLU shot) Completed 02/2023, 04/20/2020, 05/10/2019, Additional history exists Pneumococcal Vaccine: [...] filedocumented as of this encounter Care Teams Antiquer Relationship Specialty Start Date End Date Evaristo Barron MD [address] [facility] [place] [address] PCP - General Family Medicine 08/27/14 documented as of this encounter
--- OUTSIDE RECORDS SUMMARY | 2024-02-07 12:28 | External Medical Summary | Summary of Care ---
Author Name Unknown Organization [facility] Address [address] [facility] [place] [address] Phone [phone] Care Team Providers Care Scraper Meat Name Role Phone Evaristo Barron MD Primary Care Provider + Encounter Details Date Type Department Care Team (Late st Contact Info) Description 11/20/2023 Patient Reported Data Patient Survey Ortho [facility] Allergies Active Allergy Reactions Criticality Noted Date Comments Aspirin Other (Please comment) High 07/18/2015 Pt c/o SOB documented as of this encounter (statuses as of 11/21/2023) Medications Medication Sig Dispensed Refills Start Date [...] daily. 0 Active Vitamin A 3 MG (92023 UT) Oral Capsule (Aquasol-A) Take 1 Capsule [...] hours. 360 Tablet 3 08/07/2023 5 Active hydrOXYzine HCl 50 MG Oral Tablet Take 1 Tablet by mouth 4 times a day as needed for Anxiety or sleep 100 Tablet 3 08/18/2023 Active Additional Information Patient taking differently:50 mg OralBID (.AM/PM), Reported on 10/16/2023 Polyethylene Glycol 3350 17 GM/SCOOP Oral Powder [...] BEDTIME 200 Tablet 0 10/06/2023 5 Active [place] 3 1000 MG Oral Capsule Take by [...] 150 MG 100 Tablet 0 11/09/2023 Active documented as of this encounter (statuses as of 11/21/2023) Active Problems Problem Noted Date Diagnosed Date [...] fair prep 06/17/16 [facility] ER + SI. Transfer to [facility] inpatient psych 2014-canceled colonoscopy appts 10/10 hosp [facility] for hand cellulitis s/p dog bite Asthma, moderate persistent 01/21/2010 Overview: Per Asthma Taxonomy ICD-10 update of inactive term CLASSICAL MIGRAINE WITHOU MENTION OF INTRACTABLE MIGRAINE History of tobacco use Overview: Quit 10/2017 with chantix, no issues with mood PPD positive, treated documented as of this encounter (statuses as of 11/21/2023) Resolved Problems Problem Noted Date Diagnosed Date [...] as of this encounter (statuses as of 11/21/2023) Immunizations Name Administration Dates Next Due COVID-19 mRNA, LNP-s, No Pre serve, 2-Dose Series (GreenSand) 04/30/2021,10/20/2020,09/29/2020 Hepatitis B, 20+ yrs 12/13/2021,01/29/2021,12/30 Pneumococcal Conjugate Vacci ne, 20-valent ([email or web address]) 04/07/2023 Pneumococcal Polysaccharide PPV23 (Pneumovax) 01/20/2015 Seasonal [...] Department Care Team (Latest Contact Info) Description 11/22/2023 10:00 AM EDT Office Visit Orthopaedics [facility] [address] [place] [address] Daryn Flores MD [address] [place] [phone] 12/13/2023 2:30 PM EDT Hospital Encounter ENDO [facility], Endoscopy Room [facility] [address] [place] [phone] Matthew Peña MD [address] [place] [address] 12/13/2023 2:30 PM EDT - 12/13/2023 3:00 PM EDT Surgery ENDO [facility], Endoscopy Room [facility] [address] [place] [phone] Matthew Peña MD [address] [place] [address] COLONOSCOPY FLEXIBLE PROXIMAL DIAGNOSTIC 03/27/2024 1:00 PM EDT Office Visit Gynecology/Obstetri [facility] [address] [place] [address] Radha Sky PA-C [address] [place] [address] 04/10/2024 1:00 PM EDT Nurse Only Ancillary [facility] [address] [place] [address] [place], Nurse Annual Wellness [facility] [address] [place] [address] 06/26/2024 10:20 AM EST Office Visit Family Practice [facility] [address] [place] [address] Evaristo Barron MD [address] [place] [address] Scheduled Procedures Name Priority Associated Diagnoses Date/Ti me COLONOSCOPY FLEXIBLE PROXIMAL DIAGNOSTIC History of colon polyps 12/13/2023 2:30 PM EDT Health Maintenance Due Date Last Done Comments DISCUSS TOBACCO CESSATION (REFER TO SMARTSET #3291) 1965 Alpha-1 Antitrypsin 1981 PAP SMEAR-EVERY 3 [...] 07/08/2020, 12/30/2020 Influenza Vaccine (FLU shot) Completed 02/2023, [...] filedocumented as of this encounter Care Teams Scraper Meat Relationship Specialty Start Date End Date Evaristo Barron MD [address] [place] [address] PCP - General Family Medicine 08/27/14 documented as of this encounter
--- OUTSIDE RECORDS SUMMARY | 2024-02-07 12:28 | External Medical Summary | Summary of Care ---
Author Name Unknown Organization [facility] Address [address] [place] [facility] [place] [place] [address] Phone [phone] Care Team Providers Care Chainsaw Mechanic Name Role Phone Evaristo Barron MD Primary [...] daily. 0 Active Vitamin A 3 MG (62624 UT) Oral Capsule (Aquasol-A) Take 1 Capsule [...] BEDTIME 200 Tablet 0 10/06/2023 5 Active [place] 3 1000 MG Oral Capsule Take by [...] bipin 5y as fair prep 06/17/16 [facility] ER + SI. Transfer to [facility] inpatient psych 2014-canceled colonoscopy appts 10/10 hosp [facility] for hand cellulitis s/p dog bite [...] mRNA, LNP-s, No Pre serve, 2-Dose Series ([email or web address]) 04/30/2021,10/20/2020,09/29/2020 Hepatitis B, 20+ yrs 12/13/2021,01/29/2021,12/30 Pneumococcal Conjugate Vacci ne, 20-valent ([email or web address]) 04/07/2023 Pneumococcal Polysaccharide PPV23 (Pneumovax) 01/20/2015 Seasonal [...] 11/22/2023 10:00 AM EDT Office Visit Orthopaedics [facility] [address] [place] [address] Daryn Flores MD [address] [place] [phone] 12/13/2023 2:30 PM EDT Hospital Encounter ENDO [facility], Endoscopy Room [facility] [address] [phone] Matthew Peña MD [address] [place] [address] 12/13/2023 2:30 PM EDT - 12/13/2023 3:00 PM EDT Surgery ENDO [facility], Endoscopy Room [facility] [address] [place] [phone] Matthew Peña MD [address] [place] [address] COLONOSCOPY FLEXIBLE PROXIMAL DIAGNOSTIC 03/27/2024 1:00 PM EDT Office Visit Gynecology/Obstetri [facility] [address] [place] [address] Radha Sky PA-C [address] [place] [address] 04/10/2024 1:00 PM EDT Nurse Only Ancillary [facility] [address] [place] [address] [place], Nurse Annual Wellness [facility] [address] [place] [address] 06/26/2024 10:20 AM EST Office Visit Family Practice [facility] [address] [place] [address] Evaristo Barron MD [address] [place] [address] Scheduled Procedures Name Priority Associated Diagnoses Date/Ti [...] filedocumented as of this encounter Care Teams Chainsaw Mechanic Relationship Specialty Start Date End Date Evaristo Barron MD [address] [place] [address] PCP - General Family Medicine 08/27/14 documented as of this encounter
--- OUTSIDE RECORDS SUMMARY | 2024-02-07 12:28 | External Medical Summary | Summary of Care ---
Author Name Unknown Organization [facility] Address [address] [place] [address] Phone [phone] Care Team Providers Care Flight Crew Time Clerk Name Role Phone Evaristo Barron MD Primary [...] daily. 0 Active Vitamin A 3 MG (44215 UT) Oral Capsule (Aquasol-A) Take 1 Capsule [...] BEDTIME 200 Tablet 0 10/06/2023 5 Active [place] 3 1000 MG Oral Capsule Take by [...] bipin 5y as fair prep 06/17/16 [facility] ER + SI. Transfer to [facility] inpatient psych 2014-canceled colonoscopy appts 10/10 hosp [facility] for hand cellulitis s/p dog bite [...] mRNA, LNP-s, No Pre serve, 2-Dose Series ([employer]) 04/30/2021,10/20/2020,09/29/2020 Hepatitis B, 20+ yrs 12/13/2021,01/29/2021,12/30 Pneumococcal Conjugate Vacci ne, 20-valent ([id number]) 04/07/2023 Pneumococcal Polysaccharide PPV23 (Pneumovax) 01/20/2015 Seasonal [...] 11/22/2023 10:00 AM EDT Office Visit Orthopaedics [facility] [address] [place] [address] Daryn Flores MD [address] [place] [phone] 12/13/2023 2:30 PM EDT Hospital Encounter ENDO OSSC, Endoscopy Room [facility] [address] [place] [phone] Matthew Peña MD [address] [place] [address] 12/13/2023 2:30 PM EDT - 12/13/2023 3:00 PM EDT Surgery ENDO OSSC, Endoscopy Room [facility] [address] [place] [phone] Matthew Peña MD [address] [place] [address] COLONOSCOPY FLEXIBLE PROXIMAL DIAGNOSTIC 03/27/2024 1:00 PM EDT Office Visit Gynecology/Obstetri [facility] [address] [place] [address] Radha Sky PA-C [address] [place] [address] 04/10/2024 1:00 PM EDT Nurse Only Ancillary [facility] [address] [place] [address] [place], Nurse Annual Wellness [facility] [address] [place] [address] 06/26/2024 10:20 AM EST Office Visit Family Practice [facility] [address] [place] [address] Evaristo Barron MD [address] [place] [address] Scheduled Procedures Name Priority Associated Diagnoses Date/Ti [...] filedocumented as of this encounter Care Teams Flight Crew Time Clerk Relationship Specialty Start Date End Date Evaristo Barron MD [address] [place] [address] PCP - General Family Medicine 08/27/14 documented as of this encounter
--- OUTSIDE RECORDS SUMMARY | 2024-02-07 12:28 | External Medical Summary | Summary of Care ---
Author Name Unknown Organization [facility] Address [address] [place] [place] [address] Phone [phone] Care Team Providers Care Loan Collector Name Role Phone Evaristo Eng MD Primary Care Provider + Reason for Visit * Reason Comments Medication Refill Encounter Details Date Type Department Care Team (Late st Contact Info) Description 11/21/2023 Refill Family Practice [facility] [address] [place] [address] Evaristo Eng MD [address] [place] [address] Type 2 diabetes mellitus without complication, without long-term current use of insulin ([facility]) Allergies Active Allergy Reactions Criticality Noted Date Comments Aspirin Other (Please comment) High 07/18/2015 Pt c/o SOB documented as of this encounter (statuses as of 11/23/2023) Medications Medication Sig Dispensed Refills Start Date [...] daily. 0 Active Vitamin A 3 MG (11430 UT) Oral Capsule (Aquasol-A) Take 1 Capsule [...] on 10/16/2023 Meloxicam 15 MG Oral Tablet (Mobic)Indications: Chronic [...] 200 Tablet 0 10/06/2023 10/06/19 25 Active [place] 3 1000 MG Oral Capsule Take by [...] or sleep 100 Tablet 3 11/23/2023 Active hydrOXYzine HCl 50 MG Oral Tablet Take 1 Tablet by mouth 4 times a day as needed for Anxiety or sleep 100 Tablet 3 08/18/2023 11/21/19 24 Discontinu ed(Refill) documented as of this encounter (statuses as of 11/23/2023) Active Problems Problem Noted Date Diagnosed Date [...] [facility] ER + SI. Transfer to [facility] inpatient psych 2015-canceled colonoscopy appts 10/10 hosp [facility] for hand cellulitis s/p dog bite Asthma, moderate persistent 01/21/2010 Overview: Per Asthma Taxonomy ICD-10 update of inactive term CLASSICAL MIGRAINE WITHOU MENTION OF INTRACTABLE MIGRAINE History of tobacco use Overview: Quit 10/2017 with chantix, no issues with mood PPD positive, treated documented as of this encounter (statuses as of 11/23/2023) Resolved Problems Problem Noted Date Diagnosed Date [...] as of this encounter (statuses as of 11/23/2023) Immunizations Name Administration Dates Next Due COVID-19 mRNA, LNP-s, No Pre serve, 2-Dose Series ([employer]om) 04/30/2021,10/20/2020,09/29/2020 Hepatitis B, 20+ yrs 12/13/2021,01/29/2021,12/30 Pneumococcal Conjugate Vacci ne, 20-valent ([id number]) 04/07/2023 Pneumococcal Polysaccharide PPV23 (Pneumovax) 01/20/2015 Seasonal [...] encounter Miscellaneous Notes * Telephone Encounter - Evaristo Eng MD - 11/23/2023 2:20 PM EDTSigned Prescriptions: Disp Refills hydrOXYzine HCl 50 MG Oral Tablet 100 Ta*3 Sig: Take 1 Tablet by mouth 4 times a day as needed for Anxiety or sleep Authorizing Provider: EVARISTO ENG * Telephone Encounter - Naomie Abbasi, sql data architect - 11/22/2023 11:22 AM EDT [employer] mail order calling to check on status of hydroxyzine. Thank you, Naomie Abbasi [facility] Tray Worker [facility] ([facility] (Formerly Telepharmacy) 11/22/2023, 11:22 AM * Telephone Encounter - Krissy Garcia RP - 11/22/2023 9:58 AM EDT Pending Prescriptions: Disp Refills hydrOXYzine HCl 50 MG Oral Tablet 100 Ta*3 Sig: Take 1 Tablet by mouth 4 times a day as needed for Anxiety or sleep * Telephone Encounter - Krissy Garcia RP - 11/22/2023 9:57 AM EDT Patient taking differently: 50 mg Oral BID (.AM/PM), Reported on 10/16/2023 documented in this encounter Plan of Treatment Upcoming Encounters Date Type Department Care Team (Latest Contact Info) Description 12/13/2023 2:30 PM EDT Hospital Encounter ENDO OSSC, Endoscopy Room [facility] [address] [place] [phone] Matthew Peña MD [address] [place] [address] 12/13/2023 2:30 PM EDT - 12/13/2023 3:00 PM EDT Surgery ENDO OSSC, Endoscopy Room [facility] [address] [place] [phone] Matthew Peña MD [address] [address] COLONOSCOPY FLEXIBLE PROXIMAL DIAGNOSTIC 03/27/2024 1:00 PM EDT Office Visit Gynecology/Obstetri cs [facility] [address] [place] [address] Radha Sky PA-C [address] [place] [address] 04/10/2024 1:00 PM EDT Nurse Only Ancillary [facility] [address] [place] [address] [facility], Nurse Annual Wellness [facility] [address] [place] [address] 06/26/2024 10:20 AM EST Office Visit Family Practice [facility] [address] [place] [address] Evaristo Eng MD [address] [place] [address] Scheduled Orders Name Type Priority Associated Diagnoses Orde r Schedule HEMOGLOBIN A1C Lab Routine Type 2 diabetes mellitus without complication, without long-term current use of insulin (HCC) Expected: 11/22/2023 (Approximate), Expires: 12/21/2024 Scheduled Procedures Name Priority Associated Diagnoses Date/Ti me COLONOSCOPY FLEXIBLE PROXIMAL DIAGNOSTIC History of colon polyps 12/13/2023 2:30 PM EDT Health Maintenance Due Date Last Done Comments DISCUSS TOBACCO CESSATION (REFER TO SMARTSET #1158) 1965 Alpha-1 Antitrypsin 1981 PAP SMEAR-EVERY 3 [...] as of this encounter Visit Diagnoses Diagnosis Type 2 diabetes mellitus without complication, without long-term current use of insulin (HCC) History of colon polyps Personal history of colonic polyps documented in this encounter Care Teams Loan Collector Relationship Specialty Start Date End Date Evaristo Eng MD [address] [place] [address] PCP - General Family Medicine 08/27/14 documented as of this encounter
--- OUTSIDE RECORDS SUMMARY | 2024-02-07 12:28 | External Medical Summary | Summary of Care ---
Author Name Unknown Organization [facility] Address [address] [place] [facility] [place] [address] Phone [phone] Care Team Providers Care Solderer Production Line Name Role Phone Evaristo Barron MD Primary [...] daily. 0 Active Vitamin A 3 MG (06319 UT) Oral Capsule (Aquasol-A) Take 1 Capsule [...] BEDTIME 200 Tablet 0 10/06/2023 5 Active [place] 3 1000 MG Oral Capsule Take by [...] [facility] Transfer to [facility] inpatient psych 2014-canceled colonoscopy appts 10/10 [...] mRNA, LNP-s, No Pre serve, 2-Dose Series (DosYogures) 04/30/2021,10/20/2020,09/29/2020 Hepatitis B, 20+ yrs 12/13/2021,01/29/2021,12/30 Pneumococcal Conjugate Vacci ne, 20-valent ([id number]) 04/07/2023 Pneumococcal Polysaccharide PPV23 (Pneumovax) 01/20/2015 Seasonal [...] 11/22/2023 10:00 AM EDT Office Visit Orthopaedics [facility] [address] [place] [address] Daryn Flores MD [address] [place] [phone] 12/13/2023 2:30 PM EDT Hospital Encounter ENDO OSSC, Endoscopy Room [facility] [address] [place] [phone] Matthew Peña MD [address] [place] [address] 12/13/2023 2:30 PM EDT - 12/13/2023 3:00 PM EDT Surgery ENDO OSSC, Endoscopy Room [facility] [address] [place] [phone] Matthew Peña MD [address] [place] [address] COLONOSCOPY FLEXIBLE PROXIMAL DIAGNOSTIC 03/27/2024 1:00 PM EDT Office Visit Gynecology/Obstetri [facility] [address] [place] [address] Radha Sky PA-C [address] [place] [address] 04/10/2024 1:00 PM EDT Nurse Only Ancillary [facility] [address] [place] [address] [place], Nurse Annual Wellness [facility] [address] [place] [address] 06/26/2024 10:20 AM EST Office Visit Family Practice [facility] [address] [place] [address] Evaristo Barron MD [address] [place] [address] Scheduled Procedures Name Priority Associated Diagnoses Date/Ti [...] filedocumented as of this encounter Care Teams Solderer Production Line Relationship Specialty Start Date End Date Evaristo Barron MD [address] [place] [address] PCP - General Family Medicine 08/27/14 documented as of this encounter
--- OUTSIDE RECORDS SUMMARY | 2024-02-07 12:28 | External Medical Summary | Summary of Care ---
Author Name Unknown Organization [facility] Address [address] [place] [address] Phone [phone] Care Team Providers Care Top Ironer Name Role Phone Evaristo Barron MD Primary [...] daily. 0 Active Vitamin A 3 MG (56723 UT) Oral Capsule (Aquasol-A) Take 1 Capsule [...] BEDTIME 200 Tablet 0 10/06/2023 5 Active [place] 3 1000 MG Oral Capsule Take by [...] bipin 5y as fair prep 06/17/16 [facility] ER + SI. Transfer to [facility] inpatient psych 2014-canceled colonoscopy appts 10/10 hosp [facility] for hand cellulitis s/p dog bite Asthma, [...] mRNA, LNP-s, No Pre serve, 2-Dose Series ([employer]Guard) 04/30/2021,10/20/2020,09/29/2020 Hepatitis B, 20+ yrs 12/13/2021,01/29/2021,12/30 Pneumococcal Conjugate Vacci ne, 20-valent ([id number]) 04/07/2023 Pneumococcal Polysaccharide PPV23 (Pneumovax) 01/20/2015 Seasonal [...] 11/22/2023 10:00 AM EDT Office Visit Orthopaedics [facility] [address] [place] [address] Daryn Flores MD [address] [place] [phone] 12/13/2023 2:30 PM EDT Hospital Encounter ENDO OSSC, Endoscopy Room [facility] [address] [phone] Matthew Peña MD [address] [place] [address] 12/13/2023 2:30 PM EDT - 12/13/2023 3:00 PM EDT Surgery ENDO OSSC, Endoscopy Room [facility] [address] [place] [phone] Matthew Peña MD [address] [place] [address] COLONOSCOPY FLEXIBLE PROXIMAL DIAGNOSTIC 03/27/2024 1:00 PM EDT Office Visit Gynecology/Obstetri [facility] [address] [place] [address] Radha Sky PA-C [address] [place] [address] 04/10/2024 1:00 PM EDT Nurse Only Ancillary [facility] [address] [place] [address] [place], Nurse Annual Wellness [facility] [address] [place] [address] 06/26/2024 10:20 AM EST Office Visit Family Practice [facility] [address] [place] [address] Evaristo Barron MD [address] [place] [address] Scheduled Procedures Name Priority Associated Diagnoses Date/Ti [...] filedocumented as of this encounter Care Teams Top Ironer Relationship Specialty Start Date End Date Evaristo Barron MD [address] [place] [address] PCP - General Family Medicine 08/27/14 documented as of this encounter
--- OUTSIDE RECORDS SUMMARY | 2024-02-07 12:29 | External Medical Summary | Summary of Care ---
Author Name Unknown Organization [facility] Address [address] [facility] [address] Phone [phone] Care Team Providers Care Portal Architect Name Role Phone Evaristo Barron MD Primary Care Provider + Encounter Details Date Type Department Care Team (Late st Contact Info) Description 10/26/2023 Population Health External Data Unspecified Department Allergies Active Allergy Reactions Criticality Noted Date Comments Aspirin Other (Please comment) High 07/18/2015 Pt c/o SOB documented as of this encounter (statuses as of 10/31/2023) Medications Medication Sig Dispensed Refills Start Date [...] daily. 0 Active Vitamin A 3 MG (66986 UT) Oral Capsule (Aquasol-A) Take 1 Capsule [...] Additional Information Patient not taking.Reported on 08/29/2023 Sertraline HCl 50 MG Oral Tablet (Zoloft) TAKE ONE TABLET BY MOUTH EVERY MORNING WITH 100 MG FOR TOTAL 150 MG 100 Tablet 0 08/02/2023 Active traZODone HCl 100 MG Oral Tablet (Desyrel) TAKE TWO TABLETS BY MOUTH EVERY DAY AT BEDTIME 180 Tablet 0 08/08/2023 5 Active Additional Information Patient taking differently: 200 mg HS, Reported on 10/16/2023 Dicyclomine HCl 20 MG Oral Tablet (Bentyl)Indications: Lower abdominal pain Take 1 Tablet by mouth every 6 hours. 360 Tablet 3 08/07/2023 5 Active oxyBUTYnin Chloride ER 10 MG Oral Tablet Extended Release 24 Hour (Ditropan XL)Indications:Mixed incontinence urge and stress (male)(female) TAKE ONE TABLET BY MOUTH EVERY DAY -- DO NOT CRUSH, CUT OR CHEW 90 Tablet 0 08/08/2023 5 Active Gabapentin 300 MG Oral Capsule (Neurontin)Indicatio ns:Chronic left-sided low back pain with left-sided sciatica,Left buttock pain TAKE ONE CAPSULE BY MOUTH THREE TIMES A DAY -- IN THE MORNING, AT NOON AND BEFORE BEDTIME 270 Capsule 0 08/08/2023 5 Active Additional Information Patient taking differently: 300 mg TID(AM/NOON/HS), Takes 1 tablet in am and 12 noon the 2 tablets at bedtime, Reported on 10/16/2023 hydrOXYzine HCl 50 MG Oral Tablet Take [...] BEDTIME 200 Tablet 0 10/06/2023 5 Active [place] 3 1000 MG Oral Capsule Take by [...] TOTAL 100 Tablet 1 10/25/2023 5 Active documented as of this encounter (statuses as of 10/31/2023) Active Problems Problem Noted Date Diagnosed Date [...] bipin 5y as fair prep 06/17/16 [facility] ER + SI. Transfer to [facility] inpatient psych 2014-canceled colonoscopy appts 10/10 hosp [facility] for hand cellulitis s/p dog bite Asthma, moderate persistent 01/21/2010 Overview: Per Asthma Taxonomy ICD-10 update of inactive term BMI 35-39 ISOLATED (SEE ACTUAL BMI) 01/11/2010 Overview: Per Obesity Protocol, #19 CLASSICAL MIGRAINE WITHOU MENTION OF INTRACTABLE MIGRAINE History of tobacco use Overview: Quit 10/2017 with chantix, no issues with mood PPD positive, treated documented as of this encounter (statuses as of 10/31/2023) Resolved Problems Problem Noted Date Diagnosed Date Resolved Date Uncomplicated asthma 12/13/2021 022 Overview: More specific on PL Food insecurity 03/08/2021 06/10/2021 Overview: Per [facility] Protocol Mild episode of recurrent ma iain depressive disorder 04/20/2020 04/20/2020 Prediabetes 07/08/2019 05/01/2020 Overview: Per Prediabetes protocol COPD exacerbation 09/07/2017 09/07/2017 Hallucination 01/20/2015 08/09/2018 Psychosis 07/05/2011 08/09/2018 Asthma, allergic 01/21/2010 documented as of this encounter (statuses as of 10/31/2023) Immunizations Name Administration Dates Next Due COVID-19 mRNA, LNP-s, No Pre serve, 2-Dose Series (rankur) 04/30/2021,10/20/2020,09/29/2020 Hepatitis B, 20+ yrs 12/13/2021,01/29/2021,12/30 Pneumococcal Conjugate Vacci ne, 20-valent ([email or web address]) 04/07/2023 Pneumococcal Polysaccharide PPV23 (Pneumovax) 01/20/2015 Seasonal [...] Department Care Team (Latest Contact Info) Description 11/14/2023 2:00 PM EDT Office Visit Family Practice [facility] [address] [place] [address] Leoncio Cope CRNP [address] [place] [address] 12/13/2023 2:30 PM EDT Hospital Encounter ENDO OSSC, Endoscopy Room [facility] [address] [place] [phone] Matthew Peña MD [address] [place] [address] 12/13/2023 2:30 PM EDT - 12/13/2023 3:00 PM EDT Surgery ENDO OSSC, Endoscopy Room [facility] [address] [place] [phone] Matthew Peña MD [address] [place] [address] COLONOSCOPY FLEXIBLE PROXIMAL DIAGNOSTIC 03/27/2024 1:00 PM EDT Office Visit Gynecology/Obstetri cs [facility] [address] [place] [address] Radha Sky PA-C [address] [place] [address] 04/10/2024 1:00 PM EDT [facility] [address] [place] [address] [facility], Nurse Annual Wellness [facility] [address] [place] [address] Scheduled Procedures Name Priority Associated Diagnoses Date/Ti me COLONOSCOPY FLEXIBLE PROXIMAL DIAGNOSTIC History of colon polyps 12/13/2023 2:30 PM EDT Health Maintenance Due Date Last Done Comments DISCUSS TOBACCO CESSATION (REFER TO SMARTSET #3125) 1965 Alpha-1 Antitrypsin 1981 PAP SMEAR-EVERY 3 [...] filedocumented as of this encounter Care Teams Portal Architect Relationship Specialty Start Date End Date Evaristo Barron MD [address] [place] [address] PCP - General Family Medicine 08/27/14 documented as of this encounter
--- OUTSIDE RECORDS SUMMARY | 2024-02-07 12:29 | External Medical Summary | Summary of Care ---
Author Name Unknown Organization [facility] Address [address] [place] [address] Phone [phone] Care Team Providers Care Final Assembly And Packing Supervisor Name Role Phone Evaristo Eng MD Primary Care Provider + Reason for Visit * Reason Comments Medication Refill Encounter Details Date Type Department Care Team (Late st Contact Info) Description 11/03/2023 Refill Family Practice [facility] [address] [place] [address] Evaristo Eng MD [address] [place] [address] Mixed incontinence urge and stress (male)(female) Allergies Active Allergy Reactions Criticality Noted Date Comments Aspirin Other (Please comment) High 07/18/2015 Pt c/o SOB documented as of this encounter (statuses as of 11/04/2023) Medications Medication Sig Dispensed Refills Start Date [...] daily. 0 Active Vitamin A 3 MG (06083 UT) Oral Capsule (Aquasol-A) Take 1 Capsule [...] 150 MG 100 Tablet 0 08/02/2023 Active Dicyclomine HCl 20 MG Oral Tablet (Bentyl)Indications :Lower abdominal pain Take 1 Tablet by mouth every 6 hours. 360 Tablet 3 08/07/2023 08/06/19 25 Active hydrOXYzine HCl 50 MG Oral Tablet [...] 200 Tablet 0 10/06/2023 10/06/19 25 Active [place] 3 1000 MG Oral Capsule Take by [...] 90 Tablet 3 11/04/2023 11/04/19 25 Active traZODone HCl 100 MG Oral Tablet (Desyrel) TAKE TWO TABLETS BY MOUTH EVERY DAY AT BEDTIME 180 Tablet 0 08/08/2023 11/03/19 24 Discontinu ed(Refill) oxyBUTYnin Chloride ER 10 MG Oral Tablet Extended Release 24 Hour (Ditropan XL)Indications:Mixe d incontinence urge and stress (male)(female) TAKE ONE TABLET BY MOUTH EVERY DAY -- DO NOT CRUSH, CUT OR CHEW 90 Tablet 0 08/08/2023 11/03/19 24 Discontinu ed(Refill) Gabapentin 300 MG Oral Capsule (Neurontin)Indicati ons:Chronic left-sided low back pain with left-sided sciatica,Left buttock pain TAKE ONE CAPSULE BY MOUTH THREE TIMES A DAY -- IN THE MORNING, AT NOON AND BEFORE BEDTIME 270 Capsule 0 08/08/2023 11/04/19 24 Discontinu ed(Refill) documented as of this encounter (statuses as of 11/04/2023) Active Problems Problem Noted Date Diagnosed Date [...] hyperplastic, bipin 5y as fair prep 06/17/16 [facility] ER + SI. Transfer to [facility] inpatient psych 2014-canceled colonoscopy appts 10/10 hosp [facility] for hand cellulitis s/p dog bite Asthma, moderate persistent 01/21/2010 Overview: Per Asthma Taxonomy ICD-10 update of inactive term BMI 35-39 ISOLATED (SEE ACTUAL BMI) 01/11/2010 Overview: Per Obesity Protocol, #19 CLASSICAL MIGRAINE WITHOU MENTION OF INTRACTABLE MIGRAINE History of tobacco use Overview: Quit 10/2017 with chantix, no issues with mood PPD positive, treated documented as of this encounter (statuses as of 11/04/2023) Resolved Problems Problem Noted Date Diagnosed Date [...] as of this encounter (statuses as of 11/04/2023) Immunizations Name Administration Dates Next Due COVID-19 mRNA, LNP-s, No Pre serve, 2-Dose Series ([employer]) 04/30/2021,10/20/2020,09/29/2020 Hepatitis B, 20+ yrs 12/13/2021,01/29/2021,12/30 Pneumococcal Conjugate Vacci ne, 20-valent ([id number]) 04/07/2023 Pneumococcal Polysaccharide PPV23 (Pneumovax) 01/20/2015 Seasonal [...] Telephone Encounter - Evaristo Eng MD - 11/04/2023 11:10 AM EDT Signed Prescriptions: Disp Refills traZODone HCl 100 MG Oral Tablet (Desyrel) 180 Ta*1 Sig: TAKE TWO TABLETS BY MOUTH EVERY DAY AT BEDTIME Authorizing Provider: EVARISTO ENG Ordering User: RAFIQ ASCENCIO oxyBUTYnin Chloride ER 10 MG Oral Tablet E*90 Tab*3 Sig: TAKE ONE TABLET BY MOUTH EVERY DAY -- DO NOT CRUSH, CUT OR CHEW Authorizing Provider: FAITH ENG * Telephone Encounter - Naomie Abbasi PHARM Tech - 11/03/2023 3:27 PM EDT Pharmacy calling to check on status of oxybutynin. Thank you, Naomie Abbasi [facility] Implementation Manager II [facility] ([facility] 11/03/2023, 3:27 PM * Telephone Encounter - Rafiq Ascencio RP - 11/03/2023 12:40 PM EDTPending Prescriptions: Disp Refills oxyBUTYnin Chloride ER 10 MG Oral Tablet E*90 Tab*1 Sig: TAKE ONE TABLET BY MOUTH EVERY DAY -- DO NOT CRUSH, CUT OR CHEW Signed Prescriptions: Disp Refills traZODone HCl 100 MG Oral Tablet (Desyrel) 180 Ta*1 Sig: TAKE TWO TABLETS BY MOUTH EVERY DAY AT BEDTIME Authorizing Provider: EVARISTO ENG User: RAFIQ ASCENCIO * Telephone Encounter - Rafiq Ascencio RPh - 11/03/2023 12:40 PM EDT [facility] is currently not authorized to approve refills for the pended medication(s) per refill protocol. Please approve if appropriate. Thanks, Rafiq Ascencio PharmD Clinical Pharmacist [facility] ([facility]) [phone] 11/03/2023, 12:40 PM * Telephone Encounter - Rafiq Ascencio RPh - 11/03/2023 12:40 PM EDT Pending Prescriptions: Disp Refills traZODone HCl 100 MG Oral Tablet (Desyrel)180 Ta*1 Sig: TAKE TWO TABLETS BY MOUTH EVERY DAY AT BEDTIME oxyBUTYnin Chloride ER 10 MG Oral Tablet *90 Tab*1 Sig: TAKE ONE TABLET BY MOUTH EVERY DAY -- DO NOT CRUSH, CUT OR CHEW Last Visit: 08/29/2023 (in office), Visit date not found (telemedicine) Next Visit: 11/14/2023 If no future appointments scheduled, and last appointment is greater than a year ago, please schedule patient for a follow-up appointment Last date the medication was ordered: 08/08/23 Pharmacy: [facility] Is this request for a controlled substance? No Urine Drug Screen:No results found for this or any previous visit. Patient Phone Numbers Labs: Lab Results Component Value Date/Time CREAT 0.8 03/29/2023 11:30 AM CREAT 0.81 05/08/2021 12:00 AM CREAT 0.9 02/11/2020 11:37 AM POTASSIUM 4.6 03/29/2023 11:30 AM POTASSIUM 3.9 05/08/2021 12:00 AM POTASSIUM 4.7 02/11/2020 11:37 AM TSH 2.12 11/02/2017 11:59 AM LDLCALC 112 02/11/2020 11:37 AM LDLDIRECT 105 03/29/2023 11:30 AM LDLDIRECT NOT APPLICABLE 06/17/2019 10:44 AM ALT 31 03/29/2023 11:30 AM ALT 38 (H) 02/11/2020 11:37 AM HGBA1C 7.7 (H) 03/29/2023 11:30 AM HGBA1C 6.5 (H) 04/20/2020 01:40 PM * Telephone Encounter - 11/03/2023 12:11 AM EDTPending Prescriptions: Disp Refills traZODone HCl 100 MG Oral Tablet (Desyrel) 180 Ta*0 Sig: TAKE TWO TABLETS BY MOUTH EVERY DAY AT BEDTIME oxyBUTYnin Chloride ER 10 MG Oral Tablet E*90 Tab*0 Sig: TAKE ONE TABLET BY MOUTH EVERY DAY -- DO NOT CRUSH, CUT OR CHEW documented in this encounter Plan of Treatment Upcoming Encounters Date Type Department Care Team (Latest Contact Info) Description 11/14/2023 2:00 PM EDT Office Visit Family Practice [facility] [address] [place] [address] Leoncio Cope CRNP [address] [place] [address] 12/13/2023 2:30 PM EDT Hospital Encounter ENDO [facility], Endoscopy Room [facility] [address] [place] [phone] Matthew Peña MD [address] [place] [address] 12/13/2023 2:30 PM EDT - 12/13/2023 3:00 PM EDT Surgery ENDO [facility], Endoscopy Room [facility] [address] [phone] Matthew Peña MD [address] [place] [address] COLONOSCOPY FLEXIBLE PROXIMAL DIAGNOSTIC 03/27/2024 1:00 PM EDT Office Visit Gynecology/Obstetri [facility] [address] [place] [address] Radha Sky PA-C [address] [place] [address] 04/10/2024 1:00 PM EDT Nurse Only Ancillary [facility] [address] [place] [address] [place], Nurse Annual Wellness [facility] [address] [place] [address] Scheduled Procedures Name Priority Associated Diagnoses Date/Ti me COLONOSCOPY FLEXIBLE PROXIMAL DIAGNOSTIC History of colon polyps 12/13/2023 2:30 PM EDT Health Maintenance Due Date Last Done Comments DISCUSS TOBACCO CESSATION (REFER TO SMARTSET #2578) 1965 Alpha-1 Antitrypsin 1981 PAP SMEAR-EVERY 3 [...] as of this encounter Visit Diagnoses Diagnosis Mixed incontinence urge and stress (male)(female) History of colon polyps Personal history of colonic polyps documented in this encounter Care Teams Final Assembly And Packing Supervisor Relationship Specialty Start Date End Date Evaristo Eng MD [address] [place] [address] PCP - General Family Medicine 08/27/14 documented as of this encounter
--- OUTSIDE RECORDS SUMMARY | 2024-02-07 12:29 | External Medical Summary | Summary of Care ---
Author Name Unknown Organization [facility] Address [address] [place] [address] Phone [phone] Care Team Providers Care Clinical Lab Clerk Name Role Phone Evaristo Barron MD Primary Care Provider + Reason for Visit * Reason Onset Date Comments Advice 10/26/2023 Encounter Details Date Type Department Care Team (Late st Contact Info) Description 10/26/2023 Telephone Family Practice [facility] [address] [place] [address] Evaristo Barron MD [address] [place] [address] Advice Allergies Active Allergy Reactions Criticality Noted Date Comments Aspirin Other (Please comment) High 07/18/2015 Pt c/o SOB documented as of this encounter (statuses as of 11/06/2023) Medications Medication Sig Dispensed Refills Start Date [...] daily. 0 Active Vitamin A 3 MG (79926 UT) Oral Capsule (Aquasol-A) Take 1 Capsule [...] 200 Tablet 0 10/06/2023 10/06/19 25 Active [place] 3 1000 MG Oral Capsule Take by [...] as of this encounter (statuses as of 11/06/2023) Active Problems Problem Noted Date Diagnosed Date [...] bipin 5y as fair prep 06/17/16 [facility] ER + SI. Transfer to [facility] inpatient psych 2014-canceled colonoscopy appts 10/10 hosp [facility] for hand cellulitis s/p dog bite Asthma, moderate persistent 01/21/2010 Overview: Per Asthma Taxonomy ICD-10 update of inactive term BMI 35-39 ISOLATED (SEE ACTUAL BMI) 01/11/2010 Overview: Per Obesity Protocol, #19 CLASSICAL MIGRAINE WITHOU MENTION OF INTRACTABLE MIGRAINE History of tobacco use Overview: Quit 10/2017 with chantix, no issues with mood PPD positive, treated documented as of this encounter (statuses as of 11/06/2023) Resolved Problems Problem Noted Date Diagnosed Date [...] as of this encounter (statuses as of 11/06/2023) Immunizations Name Administration Dates Next Due COVID-19 mRNA, LNP-s, No Pre serve, 2-Dose Series ([employer]) 04/30/2021,10/20/2020,09/29/2020 Hepatitis B, 20+ yrs 12/13/2021,01/29/2021,12/30 Pneumococcal Conjugate Vacci ne, 20-valent ([id number]) 04/07/2023 Pneumococcal Polysaccharide PPV23 (Pneumovax) 01/20/2015 Seasonal [...] encounter Miscellaneous Notes * Telephone Encounter - Jason Reyes RN - 10/31/2023 11:46 AM EDT Called, left message for patient to return call to the dedicated nurse call center. Please see Dr. Barron's previous message. * Telephone Encounter - Evaristo Barron MD - 10/30/2023 10:37 AM EDT Would avoid Go-Low, or other OTC weight loss meds. I can refer her to our weight loss team if she wants to review prescription options (there are several). For colds, saline rinse twice daily + sudafed would be ok for her. F/u prn * Telephone Encounter - Samanta Tapia LPN - 10/27/2023 9:09 AM EDT Please check med list/problem list and advise if the usual cold medicine otc is safe for pt to take. The question regarding go lo for wt loss, might have to wait for Dr. Barron's return to office Last DME we sent was for xl briefs, not 2xl. She will need to take this up with the DME company that delivers her briefs. * Telephone Encounter - Ruby Moyer OSA - 10/26/2023 4:47 PM EDT Patient calling in to check on the status of previous message. Patient Called within 48 hour timeframe. Reminded patient of 48 hour turn-around time. * Telephone Encounter - Seema Hung OSA - 10/26/2023 11:03 AM EDT Pt calling would like to know what OTC medication she can take for a chest cold and phlem. Would also like to know if she can take go low for weight loss. They are also still sending her 2XL for her pull up she needs XL. documented in this encounter Plan of Treatment Upcoming Encounters Date Type Department Care Team (Latest Contact Info) Description 11/14/2023 2:00 PM EDT Office Visit [facility] [address] [place] [address] Leoncio oCpe CRNP [address] [place] [address] 12/13/2023 2:30 PM EDT Hospital Encounter ENDO [facility], Endoscopy Room [facility] [address] [place] [phone] Matthew Peña MD [address] [address] 12/13/2023 2:30 PM EDT - 12/13/2023 3:00 PM EDT Surgery ENDO [facility], Endoscopy Room [facility] [address] [place] [phone] Matthew Peña MD [address] [place] [address] COLONOSCOPY FLEXIBLE PROXIMAL DIAGNOSTIC 03/27/2024 1:00 PM EDT Office Visit Gynecology/Obstetri [facility] [address] [place] [address] Radha Sky PA-C [address] [place] [address] 04/10/2024 1:00 PM EDT Nurse Only Ancillary [facility] [address] [place] [address] [facility], Nurse Annual Wellness [facility] [address] [place] [address] Scheduled Procedures Name Priority Associated Diagnoses Date/Ti me COLONOSCOPY FLEXIBLE PROXIMAL DIAGNOSTIC History of colon polyps 12/13/2023 2:30 PM EDT Health Maintenance Due Date Last Done Comments DISCUSS TOBACCO CESSATION (REFER TO SMARTSET #6993) 1965 Alpha-1 Antitrypsin 1981 PAP SMEAR-EVERY 3 [...] filedocumented as of this encounter Care Teams Clinical Lab Clerk Relationship Specialty Start Date End Date Evaristo Barron MD [address] [place] [address] PCP - General Family Medicine 08/27/14 documented as of this encounter
--- OUTSIDE RECORDS SUMMARY | 2024-02-07 12:29 | External Medical Summary | Summary of Care ---
Author Name Unknown Organization [facility] Address [address] [place] [facility] [place] [address] Phone [phone] Care Team Providers Care Decator Operator Name Role Phone Evaristo Barron MD Primary [...] daily. 0 Active Vitamin A 3 MG (32782 UT) Oral Capsule (Aquasol-A) Take 1 Capsule [...] BEDTIME 200 Tablet 0 10/06/2023 5 Active [place] 3 1000 MG Oral Capsule Take by [...] [facility] inpatient psych 2014-canceled colonoscopy appts 10/10 hosp [...] mRNA, LNP-s, No Pre serve, 2-Dose Series ([employer]) 04/30/2021,10/20/2020,09/29/2020 Hepatitis B, 20+ yrs 12/13/2021,01/29/2021,12/30 Pneumococcal Conjugate Vacci ne, 20-valent ([id number]) 04/07/2023 Pneumococcal Polysaccharide PPV23 (Pneumovax) 01/20/2015 Seasonal [...] 11/22/2023 10:00 AM EDT Office Visit Orthopaedics [facility] [address] [place] [address] Daryn Flores MD [address] [place] [phone] 12/13/2023 2:30 PM EDT Hospital Encounter ENDO OSSC, Endoscopy Room [facility] [address] [phone] Matthew Peña MD [address] [place] [address] 12/13/2023 2:30 PM EDT - 12/13/2023 3:00 PM EDT Surgery ENDO [facility], Endoscopy Room [facility] [address] [phone] Matthew Peña MD [address] [place] [address] COLONOSCOPY FLEXIBLE PROXIMAL DIAGNOSTIC 03/27/2024 1:00 PM EDT Office Visit Gynecology/Obstetri [facility] [address] [place] [address] Radha Sky PA-C [address] [place] [address] 04/10/2024 1:00 PM EDT Nurse Only Ancillary [facility] [address] [place] [address] [place], Nurse Annual Wellness [facility] [address] [place] [address] 06/26/2024 10:20 AM EST Office Visit Family Practice [facility] [address] [place] [address] Evaristo Barron MD [address] [place] [address] Scheduled Procedures Name Priority Associated Diagnoses Date/Ti [...] filedocumented as of this encounter Care Teams Decator Operator Relationship Specialty Start Date End Date Evaristo Barron MD [address] [place] [address] PCP - General Family Medicine 08/27/14 documented as of this encounter
--- OUTSIDE RECORDS SUMMARY | 2024-02-07 12:29 | External Medical Summary | Summary of Care ---
Author Name Unknown Organization [facility] Address [address] [place] [facility] [place] [address] Phone [phone] Care Team Providers Care Motion Designer Name Role Phone Evaristo Eng MD Primary Care Provider + Reason for Visit * Reason Comments Medication Refill Encounter Details Date Type Department Care Team (Late st Contact Info) Description 11/04/2023 Refill Family Practice [facility] [address] [place] [address] Evaristo Eng MD [address] [place] [address] Chronic left-sided low back pain with left-sided [...] daily. 0 Active Vitamin A 3 MG (44843 UT) Oral Capsule (Aquasol-A) Take 1 Capsule [...] 200 Tablet 0 10/06/2023 10/06/19 25 Active [place] 3 1000 MG Oral Capsule Take by [...] 270 Capsule 1 11/04/2023 11/04/19 25 Active Gabapentin 300 MG [...] hyperplastic, bipin 5y as fair prep 06/17/16 [facility] ER + SI. Transfer to [facility] inpatient psych 2015-canceled colonoscopy appts 10/10 hosp [facility] for hand cellulitis s/p dog bite [...] mRNA, LNP-s, No Pre serve, 2-Dose Series ([employer]) 04/30/2021,10/20/2020,09/29/2020 Hepatitis B, 20+ yrs 12/13/2021,01/29/2021,12/30 Pneumococcal Conjugate Vacci ne, 20-valent ([id number]) 04/07/2023 Pneumococcal Polysaccharide PPV23 (Pneumovax) 01/20/2015 Seasonal [...] Encounter - Evaristo Eng MD - 11/04/2023 11:11 AM EDT Signed Prescriptions: Disp Refills Gabapentin 300 MG Oral Capsule (Neurontin) 270 Ca*1 Sig: TAKE ONE CAPSULE BY MOUTH THREE TIMES A DAY -- IN THE MORNING, AT NOON AND BEFORE BEDTIME Authorizing Provider: EVARISTO ENG * Telephone Encounter - Jeannine Mckeon MED ASSIST - 11/04/2023 9:21 AM EDT Pending Prescriptions: Disp Refills Gabapentin 300 MG Oral Capsule (Neurontin) 270 Ca*0 Sig: TAKE ONE CAPSULE BY MOUTH THREE TIMES A DAY -- IN THE MORNING, AT NOON AND BEFORE BEDTIME * Telephone Encounter - Jeannine Mckeon MED ASSIST - 11/04/2023 9:21 AM EDT Did you pend patient's preferred pharmacy and medication before forwarding?yes Pharmacy: [facility] Pending Prescriptions: Disp Refills Gabapentin 300 MG Oral Capsule (Neurontin)270 Ca*0 Sig: TAKE ONE CAPSULE BY MOUTH THREE TIMES A DAY -- IN THE MORNING, AT NOON AND BEFORE BEDTIME Last Visit: 08/29/2023 (in office), Visit date not found (telemedicine) Next Visit: 11/14/2023 If no future appointments scheduled, and last appointment is greater than a year ago, please schedule patient for a follow-up appointment Last date the medication was ordered: Is this request for a controlled substance?No Urine Drug Screen:No results found for this [...] 04/20/2020 01:40 PM * Telephone Encounter - Bautista Amaya - 11/04/2023 8:42 AM EDTPending Prescriptions: Disp Refills Gabapentin 300 MG Oral Capsule (Neurontin) 270 Ca*0 Sig: TAKE ONE CAPSULE BY MOUTH THREE TIMES A DAY -- IN THE MORNING, AT NOON AND BEFORE BEDTIME documented in this encounter Plan of Treatment Upcoming Encounters Date Type Department Care Team (Latest Contact Info) Description 11/14/2023 2:00 PM EDT Office Visit Family Practice [facility] [address] [address] Leoncio Cope CRNP [address] [place] [address] 12/13/2023 2:30 PM EDT Hospital Encounter ENDO OSSC, Endoscopy Room [facility] [address] [phone] Matthew Peña MD [address] [place] [address] 12/13/2023 2:30 PM EDT - 12/13/2023 3:00 PM EDT Surgery ENDO [facility], Endoscopy Room [facility] [address] [place] [phone] Matthew Peña MD [address] [place] [address] COLONOSCOPY FLEXIBLE PROXIMAL DIAGNOSTIC 03/27/2024 1:00 PM EDT Office Visit Gynecology/Obstetri [facility] [address] [place] [address] Radha Sky PA-C [address] [place] [address] 04/10/2024 1:00 PM EDT Nurse Only Ancillary [facility] [address] [place] [address] [facility], Nurse Annual Wellness [facility] [address] [place] [address] Scheduled Procedures Name Priority Associated Diagnoses Date/Ti me COLONOSCOPY FLEXIBLE PROXIMAL DIAGNOSTIC History of colon polyps 12/13/2023 2:30 PM EDT Health Maintenance Due Date Last Done Comments DISCUSS TOBACCO CESSATION (REFER TO SMARTSET #0272) 1965 Alpha-1 Antitrypsin 1981 PAP SMEAR-EVERY 3 [...] polyps documented in this encounter Care Teams Motion Designer Relationship Specialty Start Date End Date Evaristo Eng MD [address] [place] [address] PCP - General Family Medicine 08/27/14 documented as of this encounter
--- OUTSIDE RECORDS SUMMARY | 2024-02-07 12:29 | External Medical Summary | Summary of Care ---
Author Name Unknown Organization [facility] Address [address] [place] [place] [place] [address] Phone [phone] Care Team Providers Care Alberene Stone Setter Name Role Phone Evaristo Barron MD Primary [...] daily. 0 Active Vitamin A 3 MG (71466 UT) Oral Capsule (Aquasol-A) Take 1 Capsule [...] BEDTIME 200 Tablet 0 10/06/2023 5 Active [place] 3 1000 MG Oral Capsule Take by [...] as fair prep 06/17/16 [facility] ER + SI. Transfer to [facility] inpatient psych 2014-canceled colonoscopy appts 10/10 hosp [facility] for hand cellulitis s/p dog bite Asthma, [...] mRNA, LNP-s, No Pre serve, 2-Dose Series ([employer]) 04/30/2021,10/20/2020,09/29/2020 Hepatitis B, 20+ yrs 12/13/2021,01/29/2021,12/30 Pneumococcal Conjugate Vacci ne, 20-valent ([id number]) 04/07/2023 Pneumococcal Polysaccharide PPV23 (Pneumovax) 01/20/2015 Seasonal [...] 11/22/2023 10:00 AM EDT Office Visit Orthopaedics [facility] [address] [place] [address] Daryn Flores MD [address] [place] [phone] 12/13/2023 2:30 PM EDT Hospital Encounter ENDO [facility], Endoscopy Room [facility] [address] [place] [phone] Matthew Peña MD [address] [place] [address] 12/13/2023 2:30 PM EDT - 12/13/2023 3:00 PM EDT Surgery ENDO [facility], Endoscopy Room [facility] [address] [place] [phone] Matthew Peña MD [address] [place] [address] COLONOSCOPY FLEXIBLE PROXIMAL DIAGNOSTIC 03/27/2024 1:00 PM EDT Office Visit Gynecology/Obstetri [facility] [address] [place] [address] Radha Sky PA-C [address] [place] [address] 04/10/2024 1:00 PM EDT Nurse Only Ancillary [facility] [address] [place] [address] [place], Nurse Annual Wellness [facility] [address] [place] [address] 06/26/2024 10:20 AM EST Office Visit Family Practice [facility] [address] [place] [address] Evaristo Barron MD [address] [place] [address] Scheduled Procedures Name Priority Associated Diagnoses Date/Ti [...] filedocumented as of this encounter Care Teams Alberene Stone Setter Relationship Specialty Start Date End Date Evaristo Barron MD [address] [place] [address] PCP - General Family Medicine 08/27/14 documented as of this encounter
--- OUTSIDE RECORDS SUMMARY | 2024-02-07 12:29 | External Medical Summary | Summary of Care ---
Author Name Unknown Organization [facility] Address [address] [place] [facility] [place] [address] Phone [phone] Care Team Providers Care Robotic Welder Name Role Phone Evaristo Barron MD Primary [...] daily. 0 Active Vitamin A 3 MG (30897 UT) Oral Capsule (Aquasol-A) Take 1 Capsule [...] BEDTIME 200 Tablet 0 10/06/2023 5 Active [place] 3 1000 MG Oral Capsule Take by [...] hyperplastic, bipin 5y as fair prep 06/17/16 [facility] ER + SI. Transfer to [facility] inpatient psych 2014-canceled colonoscopy appts 10/10 hosp [facility] for hand cellulitis s/p dog [...] mRNA, LNP-s, No Pre serve, 2-Dose Series (VisuMotion) 04/30/2021,10/20/2020,09/29/2020 Hepatitis B, 20+ yrs 12/13/2021,01/29/2021,12/30 Pneumococcal Conjugate Vacci ne, 20-valent ([id number]) 04/07/2023 Pneumococcal Polysaccharide PPV23 (Pneumovax) 01/20/2015 Seasonal [...] 11/22/2023 10:00 AM EDT Office Visit Orthopaedics [facility] [address] [place] [address] Daryn Flores MD [address] [place] [phone] 12/13/2023 2:30 PM EDT Hospital Encounter ENDO OSSC, Endoscopy Room [facility] [address] [place] [phone] Matthew Peña MD [address] [place] [address] 12/13/2023 2:30 PM EDT - 12/13/2023 3:00 PM EDT Surgery ENDO O[facility], Endoscopy Room [facility] [address] [place] [phone] Matthew Peña MD [address] [place] [address] COLONOSCOPY FLEXIBLE PROXIMAL DIAGNOSTIC 03/27/2024 1:00 PM EDT Office Visit Gynecology/Obstetri [facility] [address] [place] [address] Radha Sky PA-C [address] [place] [address] 04/10/2024 1:00 PM EDT Nurse Only Ancillary [facility] [address] [place] [address] Lucas, Nurse Annual Wellness [facility] [address] [place] [address] 06/26/2024 10:20 AM EST Office Visit Family Practice [facility] [address] [place] [address] Evaristo Barron MD [address] [place] [address] Scheduled Procedures Name Priority Associated Diagnoses Date/Ti [...] filedocumented as of this encounter Care Teams Robotic Welder Relationship Specialty Start Date End Date Evaristo Barron MD [address] [place] [address] PCP - General Family Medicine 08/27/14 documented as of this encounter
--- OUTSIDE RECORDS SUMMARY | 2024-02-07 12:29 | External Medical Summary | Summary of Care ---
Author Name Unknown Organization [facility] Address [address] [place] [facility] [place] [address] Phone [phone] Care Team Providers Care Civil Process Server Name Role Phone Evaristo Eng MD Primary Care Provider + Reason for Visit * Reason Comments Medication Refill Encounter Details Date Type Department Care Team (Late st Contact Info) Description 11/09/2023 Refill Family Practice [facility] [address] [place] [address] Evaristo Eng MD [address] [place] [address] Allergies Active Allergy Reactions Criticality Noted Date Comments Aspirin Other (Please comment) High 07/18/2015 Pt c/o SOB documented as of this encounter (statuses as of 11/09/2023) Medications Medication Sig Dispensed Refills Start Date [...] daily. 0 Active Vitamin A 3 MG (21855 UT) Oral Capsule (Aquasol-A) Take 1 Capsule [...] 200 Tablet 0 10/06/2023 10/06/19 25 Active [place] 3 1000 MG Oral Capsule Take by [...] 150 MG 100 Tablet 0 11/09/2023 Active Sertraline HCl 50 MG Oral Tablet (Zoloft) TAKE ONE TABLET BY MOUTH EVERY MORNING WITH 100 MG FOR TOTAL 150 MG 100 Tablet 0 08/02/2023 11/09/19 24 Discontinu ed(Refill) documented as of this encounter (statuses as of 11/09/2023) Active Problems Problem Noted Date Diagnosed Date [...] past. Hx depression, AH. hosp 2016 w/SI 2020 PFTs no obstruction. Decreased FVC. Consider bipin w/volumes. 09/16 colon 6mm polyp PATH hyperplastic, bipin 5y as fair prep 06/17/16 [facility] ER + SI. Transfer to [facility] inpatient psych 2014-canceled colonoscopy appts 10/10 hosp [facility] for hand cellulitis s/p dog bite Asthma, moderate persistent 01/21/2010 Overview: Per Asthma Taxonomy ICD-10 update of inactive term BMI 35-39 ISOLATED (SEE ACTUAL BMI) 01/11/2010 Overview: Per Obesity Protocol, #19 CLASSICAL MIGRAINE WITHOU MENTION OF INTRACTABLE MIGRAINE History of tobacco use Overview: Quit 10/2017 with chantix, no issues with mood PPD positive, treated documented as of this encounter (statuses as of 11/09/2023) Resolved Problems Problem Noted Date Diagnosed Date [...] as of this encounter (statuses as of 11/09/2023) Immunizations Name Administration Dates Next Due COVID-19 mRNA, LNP-s, No Pre serve, 2-Dose Series (TeensSuccess) 04/30/2021,10/20/2020,09/29/2020 Hepatitis B, 20+ yrs 12/13/2021,01/29/2021,12/30 Pneumococcal Conjugate Vacci ne, 20-valent ([id number]) 04/07/2023 Pneumococcal Polysaccharide PPV23 (Pneumovax) 01/20/2015 Seasonal [...] encounter Miscellaneous Notes * Telephone Encounter - Germain Lozano RPh - 11/09/2023 5:56 PM EDT Signed Prescriptions: Disp Refills Sertraline HCl 50 MG Oral Tablet (Zoloft) 100 Ta*0 Sig: TAKE ONE TABLET BY MOUTH EVERY MORNING WITH 100 MG FOR TOTAL 150 MGAuthorizing Provider: EVARISTO ENG User: GERMAIN LOZANO documented in this encounter Plan of Treatment Upcoming Encounters Date Type Department Care Team (Latest Contact Info) Description 11/14/2023 2:00 PM EDT Office Visit Family Practice [facility] [address] [place] [address] Leoncio Cope CRNP [address] [place] [address] 12/13/2023 2:30 PM EDT Hospital Encounter ENDO O[facility], Endoscopy Room [facility] [address] [place] [phone] Matthew Peña MD [address] [place] [address] 12/13/2023 2:30 PM EDT - 12/13/2023 3:00 PM EDT Surgery ENDO OSS, Endoscopy Room [facility] [address] [place] [phone] Matthew Peña MD [address] [place] [address] COLONOSCOPY FLEXIBLE PROXIMAL DIAGNOSTIC 03/27/2024 1:00 PM EDT Office Visit Gynecology/Obstetri [facility] [address] [place] [address] Radha Sky PA-C [address] [place] [address] 04/10/2024 1:00 PM EDT Nurse Only Ancillary [facility] [address] [place] [address] [facility], Nurse Annual Wellness [facility] [address] [place] [address] Scheduled Procedures Name Priority Associated Diagnoses Date/Ti me COLONOSCOPY FLEXIBLE PROXIMAL DIAGNOSTIC History of colon polyps 12/13/2023 2:30 PM EDT Health Maintenance Due Date Last Done Comments DISCUSS TOBACCO CESSATION (REFER TO SMARTSET #7017) 1965 Alpha-1 Antitrypsin 1981 PAP SMEAR-EVERY 3 [...] filedocumented as of this encounter Care Teams Civil Process Server Relationship Specialty Start Date End Date Evaristo Eng MD [address] [place] [address] PCP - General Family Medicine 08/27/14 documented as of this encounter
--- OUTSIDE RECORDS SUMMARY | 2024-02-07 12:29 | External Medical Summary | Summary of Care ---
Author Name Unknown Organization [facility] Address [address] [place] [address] Phone [phone] Care Team Providers Care Homebound Teacher Name Role Phone Evaristo Barron MD Primary Care Provider + Reason for Referral * Evaluate & Treat - Unlimited Visits (Within 30 days (routine)) - Authorized Specialty Diagnoses / Procedures Referred By Vy kaminski Referred To Contact Orthopaedic Surgery / Orthopedics Diagnoses Pain in joint of left shoulder Leoncio Cope CRNP [address] [place] [address] Referral ID Status Reason Start Date Expiration Date Visits Requested Visits Authorized [id number] Authorized Specialty Services Required 11/14/[phone] Question Answer Referral Priority Within 30 days (routine) Where should this appointment be scheduled? [facility] What body part is the patient being seen for? Shoulder What condition is the patient being seen for? Sprain/Strain/Tear/Other Reason for Visit * Reason Comments Physical-Exam Encounter Details Date Type Department Care Team (Late st Contact Info) Description 11/14/2023 2:00 PM EDT Office Visit Family [facility] [address] [place] [address] Leoncio Cope CRNP [address] [place] [address] Left shoulder pain, unspecified chronicity*; Personal history of fall Allergies Active Allergy Reactions Criticality Noted Date Comments Aspirin Other (Please comment) High 07/18/2015 Pt c/o SOB documented as of this encounter (statuses as of 11/14/2023) Medications Medication Sig Dispensed Refills Start Date [...] daily. 0 Active Vitamin A 3 MG (50186 UT) Oral Capsule (Aquasol-A) Take 1 Capsule [...] BEDTIME 200 Tablet 0 10/06/2023 5 Active [place] 3 1000 MG Oral Capsule Take by [...] as of this encounter (statuses as of 11/14/2023) Active Problems Problem Noted Date Diagnosed Date [...] hyperplastic, bipin 5y as fair prep 06/17/16 [facility] ER + SI. Transfer to [facility] inpatient psych 2014-canceled colonoscopy appts 10/10 hosp [facility] for hand cellulitis s/p dog bite Asthma, moderate persistent 01/21/2010 Overview: Per Asthma Taxonomy ICD-10 update of inactive term CLASSICAL MIGRAINE WITHOU MENTION OF INTRACTABLE MIGRAINE History of tobacco use Overview: Quit 10/2017 with chantix, no issues with mood PPD positive, treated documented as of this encounter (statuses as of 11/14/2023) Resolved Problems Problem Noted Date Diagnosed Date [...] as of this encounter (statuses as of 11/14/2023) Immunizations Name Administration Dates Next Due COVID-19 mRNA, LNP-s, No Pre serve, 2-Dose Series (Pfizer) 04/30/2021,10/20/2020,09/29/2020 Hepatitis B, 20+ yrs 12/13/2021,01/29/2021,12/30 Pneumococcal Conjugate Vacci ne, 20-valent ([id number]) 04/07/2023 Pneumococcal Polysaccharide PPV23 (Pneumovax) 01/20/2015 Seasonal [...] Days Cigarettes 0.3 45 Smokeless Tobacco: Never Tobacco Cessation:Ready to Q uit: Yes; Counseling Given: No Alcohol Use Standard Drinks/Week Comments No 0 [...] on file documented as of this encounter Last Filed Vital Signs Vital Sign Reading Time Taken Comments Blood Pressure 144/94 11/14/2023 1:17 PM EDT Pulse 80 11/14/2023 1:17 PM EDT Temperature 36.9 C (98.5 F) 11/14/2023 1:17 PM ED T Respiratory Rate 12 11/14/2023 1:17 PM EDT Oxygen Saturation - - Inhaled Oxygen Concentration - - Weight 112.4 kg (247 lb 11.2 oz) 11/14/2023 1:17 PM EDT Height 162.9 cm (5' 4.13") 11/14/2023 1:17 PM ED T Body Mass Index 42.34 11/14/2023 1:17 PM EDT documented in this encounter Progress Notes * Leoncio Cope CRNP - 11/14/2023 1:24 PM EDT Images from the original note were not included. Follow up Family Medicine Visit History of Present Illness Lidya Osorio is a very pleasant 58 year old female with PMH listed below presenting with left shoulderpain. Left shoulder pain achy and sharp x 1 month Fell twice on stairs few months ago. Voltaren gel didn't help Tylenol and meloxicam doesn't touch Cold makes it worse, moving wrong way hurts PT declined - has all exercises at home Social History Socioeconomic History Marital status: Spouse name: Not on file Number of children: Not on file Years of education: Not on file Highest education level: Not on file Occupational History Not on file Tobacco Use Smoking status: Some Days Current packs/day: 0.25 Average packs/day: 0.3 packs/day for 45.0 years (11.3 ttl pk-yrs) Types: Cigarettes Smokeless tobacco: Never Vaping Use Vaping Use: Never used Substance and Sexual Activity Alcohol use: No Drug use: No Sexual activity: Yes Partners: Male Comment: karthik, moved to [place] 2018 Other Topics Concern Not on file Social History Narrative Not on file Social Determinants of Health Financial Resource Strain: Not on file Food Insecurity: No Food Insecurity (04/07/2023) Hunger Vital Sign Worried About Running Out of Food in the Last Year: Never true Ran Out of Food in the Last Year: Never true Transportation Needs: Not on file Physical Activity: Not on file Stress: Not on file Social Connections: Not on file Intimate Partner Violence: Not on file Housing Stability: Not on file PMH: Past Medical History: Diagnosis Date Asthma, allergic Cellulitis of hand 09/2012 hosp s/p dog bite DDD (degenerative disc disease), cervical 05/10/2021 DDD (degenerative disc disease), lumbar 05/10/2021 Depression, major 07/05/2011 Dyslipidemia, goal LDL below 160 02/05/2018 Gastro-esophageal reflux disease without esophagitis 12/13/2021 Hallucination 01/20/2015 Migraine with aura Other screening mammogram 02/11/2005 birad 3 PPD positive, treated Psychosis ([facility]) 07/05/2011 Tobacco use disorder Type 2 diabetes mellitus without complication, without long-term current use of insulin ([facility]) 05/01/2020 Wears dentures 06/17/2019 Past Surgical History: Procedure Laterality Date ANESTH, CS DELIVERY COLONOSCOPY, DIAGNOSTIC (RECTUM) 09/12/2017 COLONOSCOPY FLEXIBLE PROXIMAL DIAGNOSTIC performed by Mahesh Thompson DO at ENDOSCOPY [facility] COLONOSCOPY, DIAGNOSTIC (RECTUM) 09/13/2017 hyperplastic polyps, fair prep, repeat 5 yrs/COLONOSCOPY FLEXIBLE PROXIMAL DIAGNOSTIC performed by Mahesh Thompson DO at ENDOSCOPY [facility] CT ABDOMEN/PELVIS W/CONTRAST done 09/05/01 Results were unremarkable DENTAL SURGERY PROCEDURE NEC Dental Surgery Procedure LIGATE/CUT OVIDUCT(S) MAMMOGRAM - BILATERAL 08/16/05 birad 2 Outpatient Medications Marked as Taking for the 11/14/23 encounter (Office Visit) with Leoncio Cope CRNP Medication Sig Sertraline HCl 50 MG Oral Tablet (Zoloft) TAKE ONE TABLET BY MOUTH EVERY MORNING WITH 100 MG FOR TOTAL 150 MG Gabapentin 300 MG Oral Capsule (Neurontin) TAKE ONE CAPSULE BY MOUTH THREE TIMES A DAY -- IN THE MORNING, AT NOON AND BEFORE BEDTIME oxyBUTYnin Chloride ER 10 MG Oral Tablet Extended Release 24 Hour (Ditropan XL) TAKE ONE TABLET BY MOUTH EVERY DAY -- DO NOT CRUSH, CUT OR CHEW traZODone HCl 100 MG Oral Tablet (Desyrel) TAKE TWO TABLETS BY MOUTH EVERY DAY AT BEDTIME Sertraline HCl 100 MG Oral Tablet (Zoloft) TAKE ONE TABLET BY MOUTH IN THE MORNING WITH 50MG FOR 150MG TOTAL Montelukast Sodium 10 MG Oral Tablet (Singulair) TAKE ONE TABLET BY MOUTH EVERY DAY IN THE MORNING [place] 3 1000 MG Oral Capsule Take by mouth daily. Stress ReLeaf Oral Capsule Take 2 Capsules by mouth in the morning. Varenicline Tartrate 1 MG Oral Tablet (Chantix) TAKE ONE TABLET BY MOUTH EVERY MORNING AND ONE TABLET BEFORE BEDTIME Omeprazole 40 MG Oral Capsule Delayed Release (PriLOSEC) TAKE ONE CAPSULE IN THE MORNING ONE HOUR BEFORE THE FIRST MEAL OF THE DAY Rosuvastatin Calcium 20 MG Oral Tablet (Crestor) TAKE ONE TABLET BY MOUTH EVERY DAY Diclofenac Sodium 1 % External Gel (Voltaren) APPLY 4 GRAMS TOPICALLY TO AFFECTED AREA 4 TIMES A DAY NEEDED FOR MILD PAIN TO BILATERAL KNEES Acetaminophen 500 MG Oral Tablet (Tylenol) Take 2 Tablets by mouth every 8 hours as needed for mild, moderate, or severe pain (Patient taking differently: Take 2 Tablets by mouth in the morning and 2Tablets before bedtime.) hydrOXYzine HCl 50 MG Oral Tablet Take 1 Tablet by mouth 4 times a day as needed for Anxiety or sleep (Patient taking differently: Take 1 Tablet by mouth in the morning and 1 Tablet before bedtime.) Meloxicam 15 MG Oral Tablet (Mobic) Take 1 Tablet by mouth in the morning. Polyethylene Glycol 3350 17 GM/SCOOP Oral Powder (Miralax) Take 17 g by mouth in the morning. Dicyclomine HCl 20 MG Oral Tablet (Bentyl) Take 1 Tablet by mouth every 6 hours. metFORMIN HCl ER 500 MG Oral Tablet Extended Release 24 Hour (Glucophage XR) Take 2 tablets by mouth twice daily with meals B Complex Vitamins Oral Capsule Take 1 [...] BY MOUTH FOUR TIMES A DAY NEEDED Glucose Blood In Vitro Strip CHECK BLOOD SUGAR ONCE DAILY DIRECTED Mometasone Furo-Formoterol Fum 100-5 MCG/ACT Inhalation Aerosol (Dulera) INHALE TWO PUFFS BY MOUTH IN THE MORNING AND TWO PUFFS BEFORE BEDTIME Bismuth Subsalicylate 262 MG/15ML Oral Suspension Take 30 mL by mouth every 4 hours as needed. Lancets MISC Use as directed. Review of patient's allergies indicates: Allergen Reactions Aspirin Other (Please comment) Pt c/o SOB Most Recent Immunizations Administered Date(s) Administered COVID-19 mRNA, LNP-s, No Preserve, 2-Dose Series (Znapshop) 04/30/2021 Hepatitis B, 20+ yrs 12/13/2021 Pneumococcal Conjugate Vaccine, 20-valent ([id number]) 04/07/2023 Pneumococcal Polysaccharide PPV23 (Pneumovax) 01/20/2015 Seasonal Influenza, PF, 6 M & above, IM , (FluLaval or Fluzone) 04/07/2023 Seasonal Influenza, Quadrivalent, No Preserve, IM 07/19/2016 Seasonal Influenza, Quadrivalent, No Preserve, Mdck 05/10/2019 Seasonal Influenza, Split, IIV3, With Preserve, Inj 08/27/2014 TDAP (age 11 and older)(Adacel) 10/22/2012 Varicella Zoster Vaccine (Adult) 04/15/2015 Zoster Vaccine Recombinant (Shingrix) 10/14/2020 Review of Systems: Physical Exam BP 144/94 (BP Site: Right Arm, BP Position: Sitting, BP Cuff Size: Large) | Pulse 80 | Temp 36.9 C (98.5 F) (Tympanic) | Resp 12 | Ht 1.629 m (5' 4.13") | Wt 112.4 kg (247 lb 11.2 oz) | LMP 11/10/2013 | BMI 42.34 kg/m | BSA 2.26 m Physical Exam Constitutional: Appearance: Normal appearance. HENT: Head: Normocephalic. Pulmonary: Effort: No respiratory distress. Breath sounds: Normal breath sounds. Musculoskeletal: Right shoulder: Tenderness present. No swelling or deformity. Decreased range of motion. Normal strength. Arms: Cervical back: Neck supple. Skin: General: Skin is warm. Neurological: Mental Status: She is alert and oriented to person, place, and time. Psychiatric: Mood and Affect: Mood normal. Assessment and Plan 1. Left shoulder pain, unspecified chronicity Anterior and bicep Trauma, tendonitis, OA, frozen shoulder - XR SHOULDER, 2 OR MORE VIEWS - ORTHOPAEDICS REFERRAL OP 2. Personal history of fall Wrap-Up I have advised the patient to call our office with any worsening or new symptoms. I spent a total of 20-29 minutes (exact time 25 mins) on the date of service in preparation, delivery, and documentation of the care provided to Lidya Osorio excluding any time spent in the performance of separately billed services. Leoncio Cope, MSN, IMMIGRATION GUARD [facility] documented in this encounter Nursing Notes * Jason Reyes, RN - 11/14/2023 1:19 PM EDT Chief Complaint Patient presents with Physical-Exam documented in this encounter Plan of Treatment Upcoming Encounters Date Type Department Care Team (Latest Contact Info) Description 11/22/2023 10:00 AM EDT Office Visit Orthopaedics [facility] [address] [place] [address] Daryn Flores MD [address] [place] [phone] 12/13/2023 2:30 PM EDT Hospital Encounter ENDO OSSC, Endoscopy Room [facility] [address] [place] [phone] Matthew Peña MD [address] [place] [address] 12/13/2023 2:30 PM EDT - 12/13/2023 3:00 PM EDT Surgery ENDO OSSC, Endoscopy Room [facility] [address] [place] [phone] Matthew Peña MD [address] [place] [address] COLONOSCOPY FLEXIBLE PROXIMAL DIAGNOSTIC 03/27/2024 1:00 PM EDT Office Visit Gynecology/Obstetri cs [facility] [address] [place] [address] Radha Sky PA-C [address] [place] [address] 04/10/2024 1:00 PM EDT Nurse Only Ancillary [facility] [address] [place] [address] [facility], Nurse Annual Wellness [facility] [address] [place] [address] 06/26/2024 10:20 AM EST [facility] [address] [place] [address] Evaristo Barron MD [address] [place] [address] Pending Results Name Type Priority Associated Diagnoses Date /Time XR SHOULDER, 2 OR MORE VIEWS Medical Imaging Routine Left shoulder pain, unspecified chronicity 11/14/2023 1:57 PM EDT Scheduled Procedures Name Priority Associated Diagnoses Date/Ti hi COLONOSCOPY FLEXIBLE PROXIMAL DIAGNOSTIC History of colon polyps 12/13/2023 2:30 PM EDT Scheduled Referrals Name Type Priority Associated Diagnoses Orde r Schedule ORTHOPAEDICS REFERRAL OP Referral Within 30 days (routine) Left shoulder pain, unspecified chronicity Ordered: 11/14/2023 Health Maintenance Due Date Last Done Comments DISCUSS TOBACCO CESSATION (REFER TO SMARTSET #0623) 1965 Alpha-1 Antitrypsin 1981 PAP SMEAR-EVERY 3 [...] 0708/2020, 12/30/2020 Influenza Vaccine (FLU shot) Completed 02/2023, [...] as of this encounter Visit Diagnoses Diagnosis Left shoulder pain, unspecified chronicity- Primary Personal history of fall History of colon polyps Personal history of colonic polyps documented in this encounter Care Teams Homebound Teacher Relationship Specialty Start Date End Date Evaristo Barron MD [address] [place] [address] PCP - General Family Medicine 08/27/14 documented as of this encounter
--- OUTSIDE RECORDS SUMMARY | 2024-02-07 12:30 | External Medical Summary | Summary of Care ---
Author Name Unknown Organization [facility] Address [address] [place] [address] Phone [phone] Care Team Providers Care Talend Developer Name Role Phone Evaristo Barron MD Primary Care Provider + Reason for Visit * Reason Onset Date Comments Medication Question 10/18/2023 Encounter Details Date Type Department Care Team (Late st Contact Info) Description 10/18/2023 Telephone Family Practice [facility] [address] [place] [address] Evaristo Barron MD [address] [place] [address] Medication Question Allergies Active Allergy Reactions Criticality Noted Date Comments Aspirin Other (Please comment) High 07/18/2015 Pt c/o SOB documented as of this encounter (statuses as of 10/18/2023) Medications Medication Sig Dispensed Refills Start Date [...] 12 g 0 01/16/2023 01/16/20 24 Active Sertraline HCl 100 MG Oral Tablet (Zoloft) TAKE ONE TABLET BY MOUTH IN THE MORNING WITH 50MG FOR 150MG TOTAL 100 Tablet 1 10/21/2022 10/29/19 24 Active Glucose Blood In Vitro Strip CHECK BLOOD SUGAR ONCE DAILY DIRECTED 100 Strip 11 09/29/2022 12/19/19 24 Active Mometasone Furo-Formoterol Fum 100-5 MCG/ACT Inhalation Aerosol (Dulera) INHALE TWO PUFFS BY MOUTH IN THE MORNING AND TWO PUFFS BEFORE BEDTIME 39 g 2 09/29/2022 12/11/19 24 Active Montelukast Sodium 10 MG Oral Tablet (Singulair)Indicati ons:Moderate persistent asthma, unspecified whether complicated TAKE ONE TABLET BY MOUTH EVERY DAY IN THE MORNING 100 Tablet 3 09/29/2022 10/29/19 24 Active Magnesium 400 MG Oral Tablet Take 1 Tablet by mouth daily. 0 Active Vitamin A 3 MG (17530 UT) Oral Capsule (Aquasol-A) Take 1 Capsule [...] DAY AT BEDTIME 180 Tablet 0 08/08/2023 08/07/19 25 Active Additional Information Patient taking differently: 200 mg HS, Reported on 10/16/2023 Dicyclomine HCl 20 MG Oral Tablet (Bentyl)Indications :Lower abdominal pain Take 1 Tablet by mouth every 6 hours. 360 Tablet 3 08/07/2023 08/06/19 25 Active oxyBUTYnin Chloride ER 10 MG Oral Tablet Extended Release 24 Hour (Ditropan XL)Indications:Mixe d incontinence urge and stress (male)(female) TAKE ONE TABLET BY MOUTH EVERY DAY -- DO NOT CRUSH, CUT OR CHEW 90 Tablet 0 08/08/2023 08/07/19 25 Active Gabapentin 300 MG Oral Capsule (Neurontin)Indicati ons:Chronic left-sided low back pain with left-sided sciatica,Left buttock pain TAKE ONE CAPSULE BY MOUTH THREE TIMES A DAY -- IN THE MORNING, AT NOON AND BEFORE BEDTIME 270 Capsule 0 08/08/2023 08/07/19 25 Active Additional Information Patient taking differently: 300 [...] 200 Tablet 0 10/06/2023 10/06/19 25 Active [place] 3 1000 MG Oral Capsule Take by mouth daily. 0 Active Stress ReLeaf Oral Capsule Take 2 Capsules by mouth in the morning. 0 Active Clopidogrel Bisulfate 75 MG Oral Tablet (pLAVix)Indications :TIA (transient ischemic attack) TAKE ONE TABLET BY MOUTH EVERY MORNING 90 Tablet 0 08/07/2023 10/18/19 24 Discontinu ed(Medicat ion List Clean Up) documented as of this encounter (statuses as of 10/18/2023) Active Problems Problem Noted Date Diagnosed Date [...] [place] in past. Hx depression, AH. hosp 2015/SI 2019 PFTs no obstruction. Decreased FVC. Consider bipin w/volumes. 09/16 colon 6mm polyp PATH hyperplastic, bipin 5y as fair prep 06/17/16 [facility] ER + SI. Transfer to [facility] inpatient psych 2014-canceled colonoscopy appts 10/10 hosp [facility] for hand cellulitis s/p dog bite Asthma, moderate persistent 01/21/2010 Overview: Per Asthma Taxonomy ICD-10 update of inactive term BMI 35-39 ISOLATED (SEE ACTUAL BMI) 01/11/2010 Overview: Per Obesity Protocol, #19 CLASSICAL MIGRAINE WITHOU MENTION OF INTRACTABLE MIGRAINE History of tobacco use Overview: Quit 10/2017 with chantix, no issues with mood PPD positive, treated documented as of this encounter (statuses as of 10/18/2023) Resolved Problems Problem Noted Date Diagnosed Date [...] as of this encounter (statuses as of 10/18/2023) Immunizations Name Administration Dates Next Due COVID-19 mRNA, LNP-s, No Pre serve, 2-Dose Series (real5D) 04/30/2021,10/20/2020,09/29/2020 Hepatitis B, 20+ yrs 12/13/2021,01/29/2021,12/30 Pneumococcal Conjugate Vacci ne, 20-valent ([id number]) 04/07/2023 Pneumococcal Polysaccharide PPV23 (Pneumovax) 01/20/2015 Seasonal [...] encounter Miscellaneous Notes * Telephone Encounter - Celia Spencer LPN - 10/18/2023 10:55 AM EDT Patient returned call. Informed of message. Verbalized understanding. * Telephone Encounter - Evaristo Barron MD - 10/18/2023 9:34 AM EDT She can stop plavix now--can restart after colonoscopy (Hx aspirin allergy, taking for stroke prevention) * Telephone Encounter - Alexandra Ojeda OSA - 10/18/2023 8:56 AM EDT Pt scheduled for colonoscopy on 10/19. Pt requesting ok to stop Clopidogrel Bisulfate from today until after the procedure on Monday. Please call pt back at [phone]. documented in this encounter Plan of Treatment Upcoming Encounters Date Type Department Care Team (Latest Contact Info) Description 10/20/2023 10:45 AM EDT Hospital Encounter [facility], Endoscopy Room [facility] [address] [place] [phone] Sarah Quiros MD [address] [place] [phone] 10/20/2023 10:45 AM EDT - 10/20/2023 11:15 AM EDT Surgery [facility], Endoscopy Room [facility] [address] [place] [phone] Sarah Quiros MD [address] [place] [phone] COLONOSCOPY FLEXIBLE PROXIMAL DIAGNOSTIC 11/14/2023 2:00 PM EDT Office Visit [facility] [address] [place] [address] Leoncio [place] CRNP [address] [place] [address] 03/27/2024 1:00 PM EDT Office Visit Gynecology/Obstetri [facility] [address] [place] [address] Radha Sky PA-C [address] [place] [address] 04/10/2024 1:00 PM EDT Nurse [facility] [address] [place] [address] Lucas Nurse Annual Wellness [facility] [address] [place] [address] Scheduled Procedures Name Priority Associated Diagnoses Date/Ti me COLONOSCOPY FLEXIBLE PROXIMAL DIAGNOSTIC History of colon polyps 10/20/2023 10:45 AM EDT Health Maintenance Due Date Last Done Comments DISCUSS TOBACCO CESSATION (REFER TO SMARTSET #1300) 1965 Alpha-1 Antitrypsin 1981 PAP SMEAR-EVERY 3 [...] filedocumented as of this encounter Care Teams Talend Developer Relationship Specialty Start Date End Date Evaristo Barron MD [address] [place] [address] PCP - General Family Medicine 08/27/14 documented as of this encounter
--- OUTSIDE RECORDS SUMMARY | 2024-02-07 12:30 | External Medical Summary | Summary of Care ---
Author Name Unknown Organization [facility] Address [address] [place] [address] Phone [phone] Care Team Providers Care Electric Distribution Checker Name Role Phone Evaristo Barron MD Primary Care Provider + Reason for Visit * Reason Onset Date Comments Order Request 10/12/2023 Encounter Details Date Type Department Care Team (Late st Contact Info) Description 10/12/2023 Telephone Family Practice [facility] [address] [place] [address] Evaristo Barrno MD [address] [place] [address] Order Request Allergies Active Allergy Reactions Criticality Noted Date Comments Aspirin Other (Please comment) High 07/18/2015 Pt c/o SOB Caffeine Neuro complications (Please comment) 05/20/2000 Nervous and shaky documented as of this encounter (statuses as of 10/13/2023) Medications Medication Sig Dispensed Refills Start Date [...] NEEDED 12 g 0 01/16/2023 4 Active Sertraline HCl 100 MG Oral Tablet (Zoloft) TAKE ONE TABLET BY MOUTH IN THE MORNING WITH 50MG FOR 150MG TOTAL 100 Tablet 1 10/21/2022 4 Active Glucose Blood In Vitro Strip CHECK BLOOD SUGAR ONCE DAILY DIRECTED 100 Strip 11 09/29/2022 4 Active Mometasone Furo-Formoterol Fum 100-5 MCG/ACT Inhalation Aerosol (Dulera) INHALE TWO PUFFS BY MOUTH IN THE MORNING AND TWO PUFFS BEFORE BEDTIME 39 g 2 09/29/2022 4 Active Montelukast Sodium 10 MG Oral Tablet (Singulair)Indicatio ns:Moderate persistent asthma, unspecified whether complicated TAKE ONE TABLET BY MOUTH EVERY DAY IN THE MORNING 100 Tablet 3 09/29/2022 4 Active Magnesium 400 MG Oral Tablet Take 1 Tablet by mouth daily. 0 Active Vitamin A 3 MG (16424 UT) Oral Capsule (Aquasol-A) Take 1 Capsule [...] BEDTIME 180 Tablet 0 08/08/2023 5 Active Dicyclomine HCl 20 MG Oral Tablet (Bentyl)Indications: Lower abdominal pain Take 1 Tablet by mouth every 6 hours. 360 Tablet 3 08/07/2023 5 Active oxyBUTYnin Chloride ER 10 MG Oral Tablet Extended Release 24 Hour (Ditropan XL)Indications:Mixed incontinence urge and stress (male)(female) TAKE ONE TABLET BY MOUTH EVERY DAY -- DO NOT CRUSH, CUT OR CHEW 90 Tablet 0 08/08/2023 5 Active Clopidogrel Bisulfate 75 MG Oral Tablet (pLAVix)Indications: TIA (transient ischemic attack) TAKE ONE TABLET BY MOUTH EVERY MORNING 90 Tablet 0 08/07/2023 5 Active Gabapentin 300 MG Oral Capsule (Neurontin)Indicatio ns:Chronic left-sided low back pain with left-sided sciatica,Left buttock pain TAKE ONE CAPSULE BY MOUTH THREE TIMES A DAY -- IN THE MORNING, AT NOON AND BEFORE BEDTIME 270 Capsule 0 08/08/2023 5 Active hydrOXYzine HCl 50 MG Oral Tablet Take 1 Tablet by mouth 4 times a day as needed for Anxiety or sleep 100 Tablet 3 08/18/2023 Active Polyethylene Glycol 3350 17 GM/SCOOP Oral Powder (Miralax) Take 17 g by mouth in the morning. 1734 g 3 08/18/2023 Active Acetaminophen 500 MG Oral Tablet (Tylenol) Take 2 Tablets by mouth every 8 hours as needed for mild, moderate, or severe pain 600 Tablet 3 08/18/2023 Active Meloxicam 15 MG Oral Tablet (Mobic)Indications:C hronic left-sided low back pain with left-sided sciatica,Left buttock pain Take 1 Tablet by mouth in the morning. 30 Tablet 1 08/18/2023 Active methylPREDNISolone 4 MG Oral Tablet Therapy Pack (Medrol Dosepack) follow package directions 21 Tablet 0 08/29/2023 Active Diclofenac Sodium 1 % External Gel (Voltaren)Indication [...] BEDTIME 200 Tablet 0 10/06/2023 5 Active documented as of this encounter (statuses as of 10/13/2023) Active Problems Problem Noted Date Diagnosed Date [...] bipin 5y as fair prep 06/17/16 [facility] ER + SI. 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 with mood PPD positive, treated documented as of this encounter (statuses as of 10/13/2023) Resolved Problems Problem Noted Date Diagnosed Date [...] as of this encounter (statuses as of 10/13/2023) Immunizations Name Administration Dates Next Due COVID-19 mRNA, LNP-s, No Pre serve, 2-Dose Series (Pfizer) 04/30/2021,10/20/2020,09/29/2020 Hepatitis B, 20+ yrs 12/13/2021,01/29/2021,12/30 Pneumococcal Conjugate Vacci ne, 20-valent ([id number]) 04/07/2023 Pneumococcal Polysaccharide PPV23 (Pneumovax) 01/20/2015 Seasonal [...] Telephone Encounter - Amy Burgos LPN - 10/13/2023 9:05 AM EDT Signed order printed and faxed to home care delivered. Received confirmation fax was received. * Telephone Encounter - Evaristo Barron MD - 10/13/2023 8:27 AM EDT Printed. * Telephone Encounter - Johana Hughes OSA - 10/12/2023 5:13 PM EDT An order was requested for this patient. Name of Requesting Provider: Evaristo Barron MD Order Requested: Briefs XL Diagnosis/Reason for Request: Pt. States she needs a smaller size for incontinence briefs If order request is for Mammogram: Is the patient having any breast symptoms? N/A Is there a chance of ? N/A Has the patient had any breast problems in the past? NA What location AND department does the patient wish to have their order completed at? Home Care Delivered Fax Number, if applicable: Unable to provide If the caller is not a current patient, please advise the patient to call their current PCP to havethe order's prior to being seen in our office. The patient was informed that our providers would not order anything (medication, labs, etc.) prior to being seen. documented in this encounter Plan of Treatment Upcoming Encounters Date Type Department Care Team (Latest Contact Info) Description 10/20/2023 10:45 AM EDT Hospital Encounter [facility], Endoscopy Room [facility] [address] [place] [phone] Sarah Quiros MD [address] [place] [address] 10/20/2023 10:45 AM EDT - 10/20/2023 11:15 AM EDT Surgery ENDO [facility], Endoscopy Room [facility] [address] [place] [phone] Sarah Quiros MD [address] [place] [phone] COLONOSCOPY FLEXIBLE PROXIMAL DIAGNOSTIC 11/14/2023 2:00 PM EDT Office Visit Family Practice [facility] [address] [place] [address] Leoncio [place] CRNP [address] [place] [address] 03/27/2024 1:00 PM EDT Office Visit Gynecology/Obstetri [facility] [address] [place] [address] Radha Sky PA-C [address] [place] [address] 04/10/2024 1:00 PM EDT Nurse Only Ancillary [facility] [address] [place] [address] [facility], Nurse [facility] Wellness [facility] [address] [place] [address] Scheduled Procedures Name Priority Associated Diagnoses Date/Ti me COLONOSCOPY FLEXIBLE PROXIMAL DIAGNOSTIC History of colon polyps 10/20/2023 10:45 AM EDT Health Maintenance Due Date Last Done Comments DISCUSS TOBACCO CESSATION (REFER TO SMARTSET #1879) 1965 Alpha-1 Antitrypsin 1981 PAP SMEAR-EVERY 3 [...] as of this encounter Visit Diagnoses Diagnosis Urinary incontinence, unspecified type- Primary History of colon polyps Personal history of colonic polyps documented in this encounter Care Teams Electric Distribution Checker Relationship Specialty Start Date End Date Evaristo Barron MD [address] [place] [address] PCP - General Family Medicine 08/27/14 documented as of this encounter
--- OUTSIDE RECORDS SUMMARY | 2024-02-07 12:30 | External Medical Summary | Summary of Care ---
Author Name Unknown Organization [facility] Address [address] [place] [address] Phone [phone] Care Team Providers Care Manufacturing Controller Name Role Phone Evaristo Eng MD Primary Care Provider + Reason for Visit * Reason Comments Medication Refill Encounter Details Date Type Department Care Team (Late st Contact Info) Description 10/21/[address] [facility] [address] [place] [address] Evaristo Eng MD [address] [place] [address] Moderate persistent asthma, unspecified whether complicated Allergies Active Allergy Reactions Criticality Noted Date Comments Aspirin Other (Please comment) High 07/18/2015 Pt c/o SOB documented as of this encounter (statuses as of 10/21/2023) Medications Medication Sig Dispensed Refills Start Date [...] daily. 0 Active Vitamin A 3 MG (41397 UT) Oral Capsule (Aquasol-A) Take 1 Capsule [...] 200 Tablet 0 10/06/2023 10/06/19 25 Active [place] 3 1000 MG Oral Capsule Take by mouth daily. 0 Active Stress ReLeaf Oral Capsule Take 2 Capsules by mouth in the morning. 0 Active Montelukast Sodium 10 MG Oral Tablet (Singulair)Indicati ons:Moderate persistent asthma, unspecified whether complicated TAKE ONE TABLET BY MOUTH EVERY DAY IN THE MORNING 100 Tablet 3 10/21/2023 10/21/19 25 Active Montelukast Sodium 10 MG Oral Tablet (Singulair)Indicati ons:Moderate persistent asthma, unspecified whether complicated TAKE ONE TABLET BY MOUTH EVERY DAY IN THE MORNING 100 Tablet 3 09/29/2022 10/21/19 24 Discontinu ed(Refill) documented as of this encounter (statuses as of 10/21/2023) Active Problems Problem Noted Date Diagnosed Date [...] hyperplastic, bipin 5y as fair prep 06/17/16 [facility] ER + SI. Transfer to [facility] inpatient psych 2014-canceled colonoscopy appts 10/[address] [facility] for hand cellulitis s/p dog bite Asthma, moderate persistent 01/21/2010 Overview: Per Asthma Taxonomy ICD-10 update of inactive term BMI 35-39 ISOLATED (SEE ACTUAL BMI) 01/11/2010 Overview: Per Obesity Protocol, #19 CLASSICAL MIGRAINE WITHOU MENTION OF INTRACTABLE MIGRAINE History of tobacco use Overview: Quit 10/2017 with chantix, no issues with mood PPD positive, treated documented as of this encounter (statuses as of 10/21/2023) Resolved Problems Problem Noted Date Diagnosed Date [...] as of this encounter (statuses as of 10/21/2023) Immunizations Name Administration Dates Next Due COVID-19 mRNA, LNP-s, No Pre serve, 2-Dose Series ([place]) 04/30/2021,10/20/2020,09/29/2020 Hepatitis B, 20+ yrs 12/13/2021,01/29/2021,12/30 Pneumococcal Conjugate Vacci ne, 20-valent ([id number]) 04/07/2023 Pneumococcal Polysaccharide PPV23 (Pneumovax) 01/20/2015 Seasonal [...] encounter Miscellaneous Notes * Telephone Encounter - Rayray [facility]brook [facility] - 10/21/2023 9:31 AM EDTSigned Prescriptions: Disp Refills Montelukast Sodium 10 MG Oral Tablet (Sing*100 Ta*3 Sig: TAKE ONE TABLET BY MOUTH EVERY DAY IN THE MORNINGAuthorizing Provider: EVARISTO ENG User: RAYRAY WESTBROOK documented in this encounter Plan of Treatment Upcoming Encounters Date Type Department Care Team (Latest Contact Info) Description 11/14/2023 2:00 PM EDT Office Visit Family Practice [facility] [address] [place] [address] Leoncio [place] CRNP [address] [place] [address] 12/13/2023 2:30 PM EDT Hospital Encounter [facility], Endoscopy Room [facility] [address] [place] [phone] Matthew Peña MD [address] [place] [address] 12/13/2023 2:30 PM EDT - 12/13/2023 3:00 PM EDT Surgery ENDO [facility], Endoscopy Room [facility] [address] [place] [phone] Matthew Peña MD [address] [place] [address] COLONOSCOPY FLEXIBLE PROXIMAL DIAGNOSTIC 03/27/2024 1:00 PM EDT Office Visit Gynecology/Obstetri [facility] [address] [place] [address] Radha Sky PA-C [address] [place] [address] 04/10/2024 1:00 PM EDT Nurse Only Ancillary [facility] [address] [place] [address] [facility], Nurse Annual Wellness [facility] [address] [place] [address] Scheduled Procedures Name Priority Associated Diagnoses Date/Ti me COLONOSCOPY FLEXIBLE PROXIMAL DIAGNOSTIC History of colon polyps 12/13/2023 2:30 PM EDT Health Maintenance Due Date Last Done Comments DISCUSS TOBACCO CESSATION (REFER TO SMARTSET #6884) 1965 Alpha-1 Antitrypsin 1981 PAP SMEAR-EVERY 3 [...] 05/08/2021, Additional history exists Mammogram 03/29/2024 03/29/2023, 08, 05/01/2020, Additional history exists Diabetic Foot Exam [...] as of this encounter Visit Diagnoses Diagnosis Moderate persistent asthma, unspecified whether complicated History of colon polyps Personal history of colonic polyps documented in this encounter Care Teams Manufacturing Controller Relationship Specialty Start Date End Date Evaristo Eng MD [address] [place] [address] PCP - General Family Medicine 08/27/14 documented as of this encounter
--- OUTSIDE RECORDS SUMMARY | 2024-02-07 12:30 | External Medical Summary | Summary of Care ---
Author Name Unknown Organization [facility] Address [address] [place] [place] [address] Phone [phone] Care Team Providers Care Ux Researcher Name Role Phone Evaristo Eng MD Primary Care Provider + Reason for Visit * Reason Comments Medication Refill Encounter Details Date Type Department Care Team (Late st Contact Info) Description 09/24/2023 Refill Family Practice [facility] [address] [place] [address] Evaristo Eng MD [address] [place] [address] Gastro-esophageal reflux disease without esophagitis Allergies Active Allergy Reactions Criticality Noted Date Comments Aspirin Other (Please comment) High 07/18/2015 Pt c/o SOB Caffeine Neuro complications (Please comment) 05/20/2000 Nervous and shaky documented as of this encounter (statuses as of 09/24/2023) Medications Medication Sig Dispensed Refills Start Date [...] 100 Tablet 1 10/21/2022 10/29/19 24 Active [employer] 2 w/Device Kit USE TO TEST BLOOD SUGAR DAILY 1 Each 0 09/29/2022 09/29/19 24 Active Glucose Blood In Vitro Strip [...] 100 Tablet 3 09/29/2022 10/29/19 24 Active Varenicline Tartrate 1 MG Oral Tablet (Chantix) TAKE ONE TABLET BY MOUTH EVERY MORNING AND ONE TABLET BEFORE BEDTIME 200 Tablet 1 02/07/2023 02/07/20 24 Active Magnesium 400 MG Oral Tablet Take 1 Tablet by mouth daily. 0 Active Vitamin A 3 MG (55389 UT) Oral Capsule (Aquasol-A) Take 1 Capsule [...] 180 Tablet 0 08/08/2023 08/07/19 25 Active Dicyclomine HCl 20 MG Oral Tablet [...] 90 Tablet 0 08/08/2023 08/07/19 25 Active Clopidogrel Bisulfate 75 MG Oral Tablet (pLAVix)Indications :TIA (transient ischemic attack) TAKE ONE TABLET BY MOUTH EVERY MORNING 90 Tablet 0 08/07/2023 08/06/19 25 Active Gabapentin 300 MG Oral Capsule (Neurontin)Indicati ons:Chronic left-sided low back pain with left-sided sciatica,Left buttock pain TAKE ONE CAPSULE BY MOUTH THREE TIMES A DAY -- IN THE MORNING, AT NOON AND BEFORE BEDTIME 270 Capsule 0 08/08/2023 08/07/19 25 Active hydrOXYzine HCl 50 MG Oral [...] 08/18/2023 Active Meloxicam 15 MG Oral Tablet (Mobic)Indications: Chronic left-sided low back pain with left-sided sciatica,Left buttock pain Take 1 Tablet by mouth in the morning. 30 Tablet 1 08/18/2023 Active methylPREDNISolone 4 MG Oral Tablet Therapy Pack (Medrol Dosepack) follow package directions 21 Tablet 0 08/29/2023 Active Diclofenac Sodium 1 % External Gel (Voltaren)Indicatio ns:Bilateral primary osteoarthritis of knee APPLY 4 GRAMS TOPICALLY TO AFFECTED AREA 4 TIMES A DAY NEEDED FOR MILD PAIN TO BILATERAL KNEES 900 g 3 09/06/2023 09/05/19 Active Rosuvastatin Calcium 20 MG Oral Tablet (Crestor)Indication s:Dyslipidemia, goal LDL below 160 TAKE ONE TABLET BY MOUTH EVERY DAY 100 Tablet 3 09/16/2023 Active Omeprazole 40 MG Oral Capsule Delayed Release (PriLOSEC)Indicatio ns:Gastro-esophagea l reflux disease without esophagitis TAKE ONE CAPSULE IN THE MORNING ONE HOUR BEFORE THE FIRST MEAL OF THE DAY 100 Capsule 1 09/24/2023 09/23/19 25 Active Omeprazole 40 MG Oral Capsule Delayed Release (PriLOSEC)Indicatio ns:Gastro-esophagea l reflux disease without esophagitis TAKE ONE CAPSULE IN THE MORNING ONE HOUR BEFORE THE FIRST MEAL OF THE DAY 100 Capsule 1 09/29/2022 09/24/19 24 Discontinu ed(Refill) documented as of this encounter (statuses as of 09/24/2023) Active Problems Problem Noted Date Diagnosed Date [...] hyperplastic, bipin 5y as fair prep 06/17/16 [facility] ER + SI. Transfer to [facility] inpatient psych 2015-canceled colonoscopy appts 10/10 hosp [facility] for hand cellulitis s/p dog bite Asthma, moderate persistent 01/21/2010 Overview: Per Asthma Taxonomy ICD-10 update of inactive term BMI 35-39 ISOLATED (SEE ACTUAL BMI) 01/11/2010 Overview: Per Obesity Protocol, #19 CLASSICAL MIGRAINE WITHOU MENTION OF INTRACTABLE MIGRAINE History of tobacco use Overview: Quit 10/2017 with chantix, no issues with mood PPD positive, treated documented as of this encounter (statuses as of 09/24/2023) Resolved Problems Problem Noted Date Diagnosed Date [...] as of this encounter (statuses as of 09/24/2023) Immunizations Name Administration Dates Next Due COVID-19 mRNA, LNP-s, No Pre serve, 2-Dose Series ([employer]) 04/30/2021,10/20/2020,09/29/2020 Hepatitis B, 20+ yrs 12/13/2021,01/29/2021,12/30 Pneumococcal Conjugate Vacci ne, 20-valent ([id number]) 04/07/2023 Pneumococcal Polysaccharide PPV23 (Pneumovax) 01/20/2015 Seasonal [...] Notes * Telephone Encounter - Rayray Westbrook RPh - 09/24/2023 4:41 PM ESTSigned Prescriptions: Disp Refills Omeprazole 40 MG Oral Capsule Delayed Rele*100 Ca*1 Sig: TAKE ONE CAPSULE IN THE MORNING ONE HOUR BEFORE THE FIRST MEAL OF THE DAYAuthorizing Provider: EVARISTO ENG User: RAYRAY WESTBROOK documented in this encounter Plan of Treatment Upcoming Encounters Date Type Department Care Team (Latest Contact Info) Description 10/20/2023 10:45 AM EDT Hospital Encounter [facility]O [facility], Endoscopy Room [facility] [address] [place] [phone] Sarah Quiros MD [address] [place] [address] 10/20/2023 10:45 AM EDT - 10/20/2023 11:15 AM EDT Surgery ENDO [facility], Endoscopy Room [facility] [address] [place] [phone] Sarah Quiros MD [address] [place] [address] COLONOSCOPY FLEXIBLE PROXIMAL DIAGNOSTIC 11/14/2023 2:00 PM EDT Office Visit Family Practice [facility] [address] [place] [address] Leoncio Cope CRNP [address] [place] [address] 03/27/2024 1:00 PM EDT Office Visit Gynecology/Obstetri [facility] [address] [place] [address] Radha Sky PA-C [address] [place] [address] 04/10/2024 1:00 PM EDT Nurse Only Ancillary [facility] [address] [place] [address] [facility], Nurse Annual Wellness [facility] [address] [place] [address] Scheduled Procedures Name Priority Associated Diagnoses Date/Ti me COLONOSCOPY FLEXIBLE PROXIMAL DIAGNOSTIC Recall History of colon polyps 10/20/2023 10:45 AM EDT Health Maintenance Due Date Last Done Comments DISCUSS TOBACCO CESSATION (REFER TO SMARTSET #7733) 1965 Alpha-1 Antitrypsin 1981 PAP SMEAR-EVERY 3 [...] as of this encounter Visit Diagnoses Diagnosis Gastro-esophageal reflux disease without esophagitis Esophageal reflux History of colon polyps Personal history of colonic polyps documented in this encounter Care Teams Ux Researcher Relationship Specialty Start Date End Date Evaristo Eng MD [address] [facility] [place] [address] PCP - General Family Medicine 08/27/14 documented as of this encounter
--- OUTSIDE RECORDS SUMMARY | 2024-02-07 12:30 | External Medical Summary | Summary of Care ---
Author Name Unknown Organization [facility] Address [address] [place] [address] Phone [phone] Care Team Providers Care Laundry Supervisor Name Role Phone Evaristo Barron MD Primary Care Provider + Reason for Referral * Ancillary Services (Within 30 days (routine)) - Authorized Specialty Diagnoses / Procedures Referred By Vy kaminski Referred To Contact Gastroenterology Diagnoses Personal history of colonic polyps Evaristo Barron MD [address] [place] [address] Referral ID Status Reason Start Date Expiration Date Visits Requested Visits Authorized [id number] Authorized Ancillary Services Required 09/27/[phone] Question Answer Referral Priority Within 30 days (routine) Where should this appointment be scheduled? [facility] Comments ALERT: Do not order for pediatric patients (18 years or younger). Cancel off screen and order PEDS GASTROENTEROLOGY CONSULT (Type: 1 visit only-Evaluate and Treat) The following Pt. Instructions are available: - Gastro Colonoscopy Prep Instructions [90661] - Gastro Colonoscopy Prep Instructions (Cambodian Version) [02933] Go to the Pt. Instructions section within the Visit Navigator to access. Colonoscopy ASGE Guidelines: Postadenoma resection: 1-2 tubular adenomas of less than 1 cm (5 yr intervals) ADDITIONAL INFORMATION 1. Is the patient on Coumadin? No 2. Is the patient on Pradaxa? No Reason for Visit * Reason Onset Date Comments Referral Requested by Specialist 09/27/2023 colonoscopy Encounter Details Date Type Department Care Team (Late st Contact Info) Description 09/27/2023 Telephone Family Practice [facility] [address] [place] [address] Evaristo Barron MD [address] [place] [address] Referral Requested by Specialist (colonosc... Allergies Active Allergy Reactions Criticality Noted Date Comments Aspirin Other (Please comment) High 07/18/2015 Pt c/o SOB Caffeine Neuro complications (Please comment) 05/20/2000 Nervous and shaky documented as of this encounter (statuses as of 09/27/2023) Medications Medication Sig Dispensed Refills Start Date [...] TOTAL 100 Tablet 1 10/21/2022 4 Active OneTouch Ultra 2 w/Device Kit USE TO TEST BLOOD SUGAR DAILY 1 Each 0 09/29/2022 4 Active Glucose Blood In Vitro Strip [...] MORNING 100 Tablet 3 09/29/2022 4 Active Varenicline Tartrate 1 MG Oral Tablet (Chantix) TAKE ONE TABLET BY MOUTH EVERY MORNING AND ONE TABLET BEFORE BEDTIME 200 Tablet 1 02/07/2023 4 Active Magnesium 400 MG Oral Tablet Take 1 Tablet by mouth daily. 0 Active Vitamin A 3 MG (64137 UT) Oral Capsule (Aquasol-A) Take 1 Capsule [...] MOUTH EVERY MORNING 90 Tablet 0 08/07/2023 Active Gabapentin 300 MG Oral Capsule (Neurontin)Indicatio [...] DAY 100 Capsule 1 09/24/2023 5 Active documented as of this encounter (statuses as of 09/27/2023) Active Problems Problem Noted Date Diagnosed Date [...] hyperplastic, bipin 5y as fair prep 06/17/16 [facility] ER + SI. Transfer to [facility] inpatient psych 2014-canceled colonoscopy appts 10/10 hosp [facility] for hand cellulitis s/p dog [...] as of this encounter (statuses as of 09/27/2023) Resolved Problems Problem Noted Date Diagnosed Date [...] as of this encounter (statuses as of 09/27/2023) Immunizations Name Administration Dates Next Due COVID-19 mRNA, LNP-s, No Pre serve, 2-Dose Series (Pfizer) 04/30/2021,10/20/2020,09/29/2020 Hepatitis B, 20+ yrs 12/13/2021,01/29/2021,12/30 Pneumococcal Conjugate Vacci ne, 20-valent ([id number]) 04/07/2023 Pneumococcal Polysaccharide PPV23 (Pneumovax) 01/20/2015 Seasonal [...] encounter Miscellaneous Notes * Telephone Encounter - Jeannette Garcia RN - 09/27/2023 4:29 PM EST Provider to address: NA Reason for Call: Referral Requested by Specialist (colonoscopy) Contact: Telephone Call Contact Type: Orders Outcome: colonoscopy order placed for upcoming appt Face to face time spent with Patient (minutes): 0 Total Time including non face to face (minutes): 10 * Telephone Encounter - Deon Bustamante OSA - 09/27/2023 3:54 PM EST Requesting order be placed for upcoming colonoscopy on 10/20/[address] Sarah Quiros. Dx - personal history colon polyps documented in this encounter Plan of Treatment Upcoming Encounters Date Type Department Care Team (Latest Contact Info) Description 10/20/2023 10:45 AM EDT Hospital Encounter ENDO [facility], Endoscopy Room [facility] [address] [place] [phone] Sarah Quiros MD [address] [place] [address] 10/20/2023 10:45 AM EDT - 10/20/2023 11:15 AM EDT Surgery ENDO [facility], Endoscopy Room [facility] [address] [place] [phone] Sarah Quiros MD [address] [place] [address] COLONOSCOPY FLEXIBLE PROXIMAL DIAGNOSTIC 11/14/2023 2:00 PM EDT Office Visit [facility] [address] [place] [address] Leoncio Cope CRNP [address] [place] [address] 03/27/2024 1:00 PM EDT Office Visit Gynecology/Obstetri [facility] [address] [place] [address] Radha Sky PA-C [address] [place] [address] 04/10/2024 1:00 PM EDT [facility] [address] [place] [address] [facility], Nurse Annual Wellness [facility] [address] [place] [address] Scheduled Procedures Name Priority Associated Diagnoses Date/Ti me COLONOSCOPY FLEXIBLE PROXIMAL DIAGNOSTIC History of colon polyps 10/20/2023 10:45 AM EDT Scheduled Referrals Name Type Priority Associated Diagnoses Orde r Schedule COLONOSCOPY, GI REFERRAL OP Referral Within 30 days (routine) Personal history of colonic polyps Ordered: 09/27/2023 Health Maintenance Due Date Last Done Comments [...] as of this encounter Visit Diagnoses Diagnosis Personal history of colonic polyps- Primary History of colon polyps Personal history of colonic polyps documented in this encounter Care Teams Laundry Supervisor Relationship Specialty Start Date End Date Evaristo Barron MD [address] [place] [address] PCP - General Family Medicine 08/27/14 documented as of this encounter
--- OUTSIDE RECORDS SUMMARY | 2024-02-07 12:30 | External Medical Summary | Summary of Care ---
Author Name Unknown Organization [facility] Address [address] [place] [address] Phone [phone] Care Team Providers Care Pattern Worker Name Role Phone Evaristo Eng MD Primary Care Provider + Reason for Visit * Reason Comments Medication Refill Encounter Details Date Type Department Care Team (Late st Contact Info) Description 10/24/2023 Refill Family Practice [facility] [address] [place] [address] Evaristo Eng MD [address] [place] [address] Allergies Active Allergy Reactions Criticality Noted Date Comments Aspirin Other (Please comment) High 07/18/2015 Pt c/o SOB documented as of this encounter (statuses as of 10/25/2023) Medications Medication Sig Dispensed Refills Start Date [...] daily. 0 Active Vitamin A 3 MG (30624 UT) Oral Capsule (Aquasol-A) Take 1 Capsule [...] 200 Tablet 0 10/06/2023 10/06/19 25 Active Winn 3 1000 MG Oral Capsule Take by [...] 100 Tablet 1 10/25/2023 10/25/19 25 Active Sertraline HCl 100 MG Oral Tablet (Zoloft) TAKE ONE TABLET BY MOUTH IN THE MORNING WITH 50MG FOR 150MG TOTAL 100 Tablet 1 10/21/2022 10/24/19 24 Discontinu ed(Refill) documented as of this encounter (statuses as of 10/25/2023) Active Problems Problem Noted Date Diagnosed Date [...] hyperplastic, bipin 5y as fair prep 06/17/16 [facility] ER + SI. Transfer to [facility] inpatient psych 2014-canceled colonoscopy appts 10/10 hosp [facility] for hand cellulitis s/p dog bite Asthma, moderate persistent 01/21/2010 Overview: Per Asthma Taxonomy ICD-10 update of inactive term BMI 35-39 ISOLATED (SEE ACTUAL BMI) 01/11/2010 Overview: Per Obesity Protocol, #19 CLASSICAL MIGRAINE WITHOU MENTION OF INTRACTABLE MIGRAINE History of tobacco use Overview: Quit 10/2017 with chantix, no issues with mood PPD positive, treated documented as of this encounter (statuses as of 10/25/2023) Resolved Problems Problem Noted Date Diagnosed Date [...] as of this encounter (statuses as of 10/25/2023) Immunizations Name Administration Dates Next Due COVID-19 mRNA, LNP-s, No Pre serve, 2-Dose Series ([employer] 04/30/2021,10/20/2020,09/29/2020 Hepatitis B, 20+ yrs 12/13/2021,01/29/2021,12/30 Pneumococcal Conjugate Vacci ne, 20-valent ([id number]) 04/07/2023 Pneumococcal Polysaccharide PPV23 (Pneumovax) 01/20/2015 Seasonal [...] encounter Miscellaneous Notes * Telephone Encounter - Telma Hernandez, [facility] - 10/25/2023 6:15 AM EDTSigned Prescriptions: Disp Refills Sertraline HCl 100 MG Oral Tablet (Zoloft) 100 Ta*1 Sig: TAKE ONE TABLET BY MOUTH IN THE MORNING WITH 50MG FOR 150MG TOTALAuthorizing Provider: EVARISTO ENG User: TELMA HERNANDEZ documented in this encounter Plan of Treatment Upcoming Encounters Date Type Department Care Team (Latest Contact Info) Description 11/14/2023 2:00 PM EDT Office Visit Family Practice [facility] [address] [place] [address] Leoncio Cope CRNP [address] [place] [address] 12/13/2023 2:30 PM EDT Hospital Encounter ENDO [facility], Endoscopy Room [facility] [address] [place] [phone] Matthew Peña MD [address] [place] [address] 12/13/2023 2:30 PM EDT - 12/13/2023 3:00 PM EDT Surgery ENDO [facility], Endoscopy Room [facility] [address] [place] [phone] Matthew Peña MD [address] [place] [address] COLONOSCOPY FLEXIBLE PROXIMAL DIAGNOSTIC 03/27/2024 1:00 PM EDT Office Visit Gynecology/Obstetri [facility] [address] [place] [address] Radha Sky PA-C [address] [place] [address] 04/10/2024 1:00 PM EDT Nurse Only Ancillary [facility] [address] [place] [address] [facility], Nurse Annual Wellness [facility] [address] [place] [address] Scheduled Procedures Name Priority Associated Diagnoses Date/Ti me COLONOSCOPY FLEXIBLE PROXIMAL DIAGNOSTIC History of colon polyps 12/13/2023 2:30 PM EDT Health Maintenance Due Date Last Done Comments DISCUSS TOBACCO CESSATION (REFER TO SMARTSET #[id number]) 1965 Alpha-1 Antitrypsin 1981 PAP SMEAR-EVERY 3 [...] filedocumented as of this encounter Care Teams Pattern Worker Relationship Specialty Start Date End Date Evaristo Eng MD [address] [place] [address] PCP - General Family Medicine 08/27/14 documented as of this encounter
--- OUTSIDE RECORDS SUMMARY | 2024-02-07 12:30 | External Medical Summary | Summary of Care ---
Author Name Unknown Organization [facility] Address [address] [place] [facility] [place] [address] Phone [phone] Care Team Providers Care Interior Design Faculty Member Name Role Phone Evaristo Barron MD Primary Care Provider + Encounter Details Date Type Department Care Team (Late st Contact Info) Description 07/18/2023 Telephone Family Practice [facility] [address] [place] [address] Evaristo Barron MD [address] [place] [address] Allergies Active Allergy Reactions Criticality Noted Date Comments Aspirin Other (Please comment) High 07/18/2015 Pt c/o SOB documented as of this encounter (statuses as of 10/17/2023) Medications Medication Sig Dispensed Refills Start Date End Date Status Lancets MISCIndications:Hyp erglycemia Use as directed. 100 Each 1 8 Active Bismuth Subsalicylate 262 MG/15ML Oral SuspensionIndicatio ns:heartburn Take 30 mL by mouth every 4 hours as needed. 0 Active Ipratropium-Albuter ol 20-100 MCG/ACT Inhalation Aerosol Solution (Combivent Respimat)Indication s:Wheeze INHALE ONE PUFF BY MOUTH FOUR TIMES A DAY NEEDED 12 g 0 3 01/16/20 24 Active Sertraline HCl 100 MG Oral Tablet (Zoloft) TAKE ONE TABLET BY MOUTH IN THE MORNING WITH 50MG FOR 150MG TOTAL 100 Tablet 1 3 10/29/19 24 Active Glucose Blood In Vitro Strip CHECK BLOOD SUGAR ONCE DAILY DIRECTED 100 Strip 11 3 12/19/19 24 Active Mometasone Furo-Formoterol Fum 100-5 MCG/ACT Inhalation Aerosol (Dulera) INHALE TWO PUFFS BY MOUTH IN THE MORNING AND TWO PUFFS BEFORE BEDTIME 39 g 2 3 12/11/19 24 Active Montelukast Sodium 10 MG Oral Tablet (Singulair)Indicati ons:Moderate persistent asthma, unspecified whether complicated TAKE ONE TABLET BY MOUTH EVERY DAY IN THE MORNING 100 Tablet 3 3 10/29/19 24 Active Magnesium 400 MG Oral Tablet Take 1 Tablet by mouth daily. 0 Active Vitamin A 3 MG (59734 UT) Oral Capsule (Aquasol-A) Take 1 Capsule [...] twice daily with meals 360 Tablet 1 3 Active Azithromycin 250 MG Oral Tablet (Zithromax Z-Malik) Take two tablets by mouth on first day, then 1 tablet daily until gone 6 Tablet 0 3 Active Additional Information Patient not taking.Reported on 08/29/2023 hydrOXYzine HCl 50 MG Oral Tablet TAKE 1 TABLET BY MOUTH EVERY 6 HOURS NEEDED for anxiety or sleep 90 Tablet 3 2 08/17/19 24 Discontinue d(Refill) Polyethylene Glycol 3350 17 GM/SCOOP Oral Powder (Miralax) Take 17 g by mouth in the morning. 578 g 11 3 08/17/19 24 Discontinue d(Refill) Acetaminophen 500 MG Oral Tablet (Tylenol) Take 2 Tablets by mouth every 8 hours as needed for Pain, Mild. 600 Tablet 3 3 08/17/19 24 Discontinue d(Refill) Veristorm 2 w/Device Kit USE TO TEST BLOOD SUGAR DAILY 1 Each 0 3 09/29/19 24 Omeprazole 40 MG Oral Capsule Delayed Release (PriLOSEC)Indicatio ns:Gastro-esophagea l reflux disease without esophagitis TAKE ONE CAPSULE IN THE MORNING ONE HOUR BEFORE THE FIRST MEAL OF THE DAY 100 Capsule 1 3 09/24/19 24 Discontinue d(Refill) Diclofenac Sodium 1 % External Gel (Voltaren)Indicatio ns:Bilateral primary osteoarthritis of knee APPLY 4 GRAMS TOPICALLY TO AFFECTED AREA 4 TIMES A DAY NEEDED FOR MILD PAIN TO BILATERAL KNEES 900 g 3 3 09/06/19 24 Discontinue d(Refill) Rosuvastatin Calcium 20 MG Oral Tablet (Crestor)Indication s:Dyslipidemia, goal LDL below 160 TAKE ONE TABLET BY MOUTH EVERY DAY 90 Tablet 3 3 09/16/19 24 Discontinue d(Refill) Varenicline Tartrate 1 MG Oral Tablet (Chantix) TAKE ONE TABLET BY MOUTH EVERY MORNING AND ONE TABLET BEFORE BEDTIME 200 Tablet 1 3 10/05/19 24 Discontinue d(Refill) Meloxicam 15 MG Oral Tablet (Mobic)Indications: Chronic left-sided low back pain with left-sided sciatica,Left buttock pain Take 1 Tablet by mouth in the morning. 30 Tablet 2 3 08/17/19 24 Discontinue d(Refill) documented as of this encounter (statuses as of 10/17/2023) Active Problems Problem Noted Date Diagnosed Date [...] hyperplastic, bipin 5y as fair prep 06/17/16 [facility] ER + SI. Transfer to [facility] inpatient psych 2014-canceled colonoscopy appts 10/10 hosp [facility] for hand cellulitis s/p dog [...] as of this encounter (statuses as of 10/17/2023) Resolved Problems Problem Noted Date Diagnosed Date [...] as of this encounter (statuses as of 10/17/2023) Immunizations Name Administration Dates Next Due COVID-19 mRNA, LNP-s, No Pre serve, 2-Dose Series (Pfizer) 04/30/2021,10/20/2020,09/29/2020 Hepatitis B, 20+ yrs 12/13/2021,01/29/2021,12/30 Pneumococcal Conjugate Vacci ne, 20-valent ([id number]) 04/07/2023 Pneumococcal Polysaccharide PPV23 (Pneumovax) 01/20/2015 Seasonal [...] Encounter [facility], Endoscopy Room [facility] [address] [facility] [place] [phone] Sarah Quiros MD [address] [place] [address] 10/20/2023 10:45 AM EDT - 10/20/2023 11:15 AM EDT Surgery [facility], End[facility] [address] [place] [phone] Sarah Quiros MD [address] [place] [address] COLONOSCOPY FLEXIBLE PROXIMAL DIAGNOSTIC 11/14/2023 2:00 PM EDT Office Visit Family Practice [facility] [address] [place] [address] Leoncio Cope CRNP [address] [place] [address] 03/27/2024 1:00 PM EDT Office Visit Gynecology/Obstetri [facility] [address] [place] [address] Radha Sky PA-C [address] [place] [address] 04/10/2024 1:00 PM EDT Nurse Only Ancillary [facility] [address] [place] [address] [facility], Nurse Annual Wellness [facility] [address] [place] [address] Scheduled Procedures Name Priority Associated Diagnoses Date/Ti me COLONOSCOPY FLEXIBLE PROXIMAL DIAGNOSTIC History of colon polyps 10/20/2023 10:45 AM EDT Health Maintenance Due Date Last Done Comments DISCUSS TOBACCO CESSATION (REFER TO SMARTSET #0954) 1965 Alpha-1 Antitrypsin 1981 PAP SMEAR-EVERY 3 [...] filedocumented as of this encounter Care Teams Interior Design Faculty Member Relationship Specialty Start Date End Date Evaristo Barron MD [address] [place] [address] PCP - General Family Medicine 08/27/14 documented as of this encounter
--- OUTSIDE RECORDS SUMMARY | 2024-02-07 12:30 | External Medical Summary | Summary of Care ---
Author Name Unknown Organization [facility] Address [address] [place] [address] Phone [phone] Care Team Providers Care Diesel Maintenance Technician Name Role Phone Evaristo Eng MD Primary Care Provider + Reason for Visit * Reason Comments Medication Refill Encounter Details Date Type Department Care Team (Late st Contact Info) Description 10/05/2023 Refill Family Practice [facility] [address] [place] [address] Evaristo Eng MD [address] [place] [address] Allergies Active Allergy Reactions Criticality Noted Date Comments Aspirin Other (Please comment) High 07/18/2015 Pt c/o SOB Caffeine Neuro complications (Please comment) 05/20/2000 Nervous and shaky documented as of this encounter (statuses as of 10/06/2023) Medications Medication Sig Dispensed Refills Start Date [...] daily. 0 Active Vitamin A 3 MG (85090 UT) Oral Capsule (Aquasol-A) Take 1 Capsule [...] 200 Tablet 0 10/06/2023 10/06/19 25 Active Varenicline Tartrate 1 MG Oral Tablet (Chantix) TAKE ONE TABLET BY MOUTH EVERY MORNING AND ONE TABLET BEFORE BEDTIME 200 Tablet 1 02/07/2023 10/05/19 24 Discontinu ed(Refill) documented as of this encounter (statuses as of 10/06/2023) Active Problems Problem Noted Date Diagnosed Date [...] bipin 5y as fair prep 06/17/16 [facility] ER + SI. Transfer to [facility] inpatient psych 2014-canceled colonoscopy appts 10/10 hosp [facility] for hand cellulitis s/p dog bite Asthma, moderate persistent 01/21/2010 Overview: Per Asthma Taxonomy ICD-10 update of inactive term BMI 35-39 ISOLATED (SEE ACTUAL BMI) 01/11/2010 Overview: Per Obesity Protocol, #19 CLASSICAL MIGRAINE WITHOU MENTION OF INTRACTABLE MIGRAINE History of tobacco use Overview: Quit 10/2017 with chantix, no issues with mood PPD positive, treated documented as of this encounter (statuses as of 10/06/2023) Resolved Problems Problem Noted Date Diagnosed Date [...] as of this encounter (statuses as of 10/06/2023) Immunizations Name Administration Dates Next Due COVID-19 mRNA, LNP-s, No Pre serve, 2-Dose Series ([employer] 04/30/2021,10/20/2020,09/29/2020 Hepatitis B, 20+ yrs 12/13/2021,01/29/2021,12/30 Pneumococcal Conjugate Vacci ne, 20-valent ([id number]) 04/07/2023 Pneumococcal Polysaccharide PPV23 (Pneumovax) 01/20/2015 Seasonal [...] encounter Miscellaneous Notes * Telephone Encounter - Red Lovett [facility] - 10/06/2023 2:13 AM ESTSigned Prescriptions: Disp Refills Varenicline Tartrate 1 MG Oral Tablet (Alicia*200 Ta*0 Sig: TAKE ONE TABLET BY MOUTH EVERY MORNING AND ONE TABLET BEFORE BEDTIME Authorizing Provider: EVARISTO ENG Ordering User: RED LOVETT * Telephone Encounter - Red Lovett [facility] - 10/06/2023 2:10 AM EST Upcoming appt with PCP, will provide 1 refill with addressing smoking cessation at October appt. Pt consistently on chantix since 09/30/2019 Red Lovett [facility] Clinical Pharmacist Telepharmacy [phone] 10/06/2023 2:10 AM documented in this encounter Plan of Treatment Upcoming Encounters Date Type Department Care Team (Latest Contact Info) Description 10/20/2023 10:45 AM EDT Hospital Encounter [facility], Endoscopy Room [facility] [address] [place] [phone] Sarah Quiros MD [address] [place] [address] 10/20/2023 10:45 AM EDT - 10/20/2023 11:15 AM EDT Surgery ENDO [facility], Endoscopy Room [facility] [address] [phone] Sarah Quiros MD [address] [place] [address] COLONOSCOPY FLEXIBLE PROXIMAL DIAGNOSTIC 11/14/2023 2:00 PM EDT Office Visit Family Practice [facility] [address] [place] [address] Leoncio Cope CRNP [address] [place] [address] 03/27/2024 1:00 PM EDT Office Visit Gynecology/Obstetri [facility] [address] [place] [address] Radha Sky PA-C [address] [place] [address] 04/10/2024 1:00 PM EDT Nurse Only Ancillary [facility] [address] [place] [address] [facility], Nurse Annual Wellness [facility] [address] [place] [address] Scheduled Procedures Name Priority Associated Diagnoses Date/Ti me COLONOSCOPY FLEXIBLE PROXIMAL DIAGNOSTIC History of colon polyps 10/20/2023 10:45 AM EDT Health Maintenance Due Date Last Done Comments DISCUSS TOBACCO CESSATION (REFER TO SMARTSET #[id number]) 1965 Alpha-1 Antitrypsin 1981 PAP SMEAR-EVERY 3 [...] filedocumented as of this encounter Care Teams Diesel Maintenance Technician Relationship Specialty Start Date End Date Evaristo Eng MD [address] [place] [address] PCP - General Family Medicine 08/27/14 documented as of this encounter
--- OUTSIDE RECORDS SUMMARY | 2024-02-07 12:31 | External Medical Summary | Summary of Care ---
Author Name Unknown Organization [facility] [address] [facility] [address] Phone [phone] Care Team Providers Care Seed Tester Name Role Phone Evaristo Eng MD Primary Care Provider + Reason for Visit * Reason Comments Medication Refill Encounter Details Date Type Department Care Team (Late st Contact Info) Description 09/16/2023 Refill Family Practice [facility] [address] [place] [address] Evaristo Eng MD [address] [place] [address] Dyslipidemia, goal LDL below 160 Allergies Active Allergy Reactions Criticality Noted Date Comments Aspirin Other (Please comment) High 07/18/2015 Pt c/o SOB Caffeine Neuro complications (Please comment) 05/20/2000 Nervous and shaky documented as of this encounter (statuses as of 09/16/2023) Medications Medication Sig Dispensed Refills Start Date [...] 100 Tablet 1 10/21/2022 10/29/19 24 Active Spiral Gateway Ultra 2 w/Device Kit USE TO TEST BLOOD SUGAR DAILY 1 Each 0 09/29/2022 09/29/19 24 Active Glucose Blood In Vitro Strip CHECK BLOOD SUGAR ONCE DAILY DIRECTED 100 Strip 11 09/29/2022 12/19/19 24 Active Mometasone Furo-Formoterol Fum 100-5 MCG/ACT Inhalation Aerosol (Dulera) INHALE TWO PUFFS BY MOUTH IN THE MORNING AND TWO PUFFS BEFORE BEDTIME 39 g 2 09/29/2022 12/11/19 24 Active Omeprazole 40 MG Oral Capsule Delayed Release (PriLOSEC)Indicatio ns:Gastro-esophagea l reflux disease without esophagitis TAKE ONE CAPSULE IN THE MORNING ONE HOUR BEFORE THE FIRST MEAL OF THE DAY 100 Capsule 1 09/29/2022 10/02/19 24 Active Montelukast Sodium 10 MG Oral [...] daily. 0 Active Vitamin A 3 MG (41427 UT) Oral Capsule (Aquasol-A) Take 1 Capsule [...] EVERY DAY 100 Tablet 3 09/16/2023 Active Rosuvastatin Calcium 20 MG Oral Tablet (Crestor)Indication s:Dyslipidemia, goal LDL below 160 TAKE ONE TABLET BY MOUTH EVERY DAY 90 Tablet 3 08/16/2022 09/16/19 24 Discontinu ed(Refill) documented as of this encounter (statuses as of 09/16/2023) Active Problems Problem Noted Date Diagnosed Date [...] hyperplastic, bipin 5y as fair prep 06/17/16 [facility] ER + SI. Transfer to [facility] inpatient psych 2014-canceled colonoscopy appts 10/10 hosp [facility] for hand cellulitis s/p dog bite Asthma, moderate persistent 01/21/2010 Overview: Per Asthma Taxonomy ICD-10 update of inactive term BMI 35-39 ISOLATED (SEE ACTUAL BMI) 01/11/2010 Overview: Per Obesity Protocol, #19 CLASSICAL MIGRAINE WITHOU MENTION OF INTRACTABLE MIGRAINE History of tobacco use Overview: Quit 10/2017 with chantix, no issues with mood PPD positive, treated documented as of this encounter (statuses as of 09/16/2023) Resolved Problems Problem Noted Date Diagnosed Date [...] as of this encounter (statuses as of 09/16/2023) Immunizations Name Administration Dates Next Due COVID-19 mRNA, LNP-s, No Pre serve, 2-Dose Series ([employer]) 04/30/2021,10/20/2020,09/29/2020 Hepatitis B, 20+ yrs 12/13/2021,01/29/2021,12/30 Pneumococcal Conjugate Vacci ne, 20-valent ([id number]) 04/07/2023 Pneumococcal Polysaccharide PPV23 (Pneumovax) 01/20/2015 Seasonal [...] encounter Miscellaneous Notes * Telephone Encounter - Alvaro Jordan RPh - 09/16/2023 11:42 AM ESTSigned Prescriptions: Disp Refills Rosuvastatin Calcium 20 MG Oral Tablet (Cr*100 Ta*3 Sig: TAKE ONE TABLET BY MOUTH EVERY DAYAuthorizing Provider: EVARISTO ENG User: ALVAOR JORDAN documented in this encounter Plan of Treatment Upcoming Encounters Date Type Department Care Team (Latest Contact Info) Description 10/20/2023 10:45 AM EDT Hospital Encounter [facility], End[facility] [place] [phone] Sarah Quiros MD [address] [place] [address] 10/20/2023 10:45 AM EDT - 10/20/2023 11:15 AM EDT Surgery [facility], Endoscopy Room [facility] [address] [place] [phone] Sarah Quiros MD [address] [place] [address] COLONOSCOPY FLEXIBLE PROXIMAL DIAGNOSTIC 11/14/2023 2:00 PM EDT Office Visit Family Practice [facility] [address] [place] [address] Leoncio Cope CRNP [address] [place] [address] 03/27/2024 1:00 PM EDT Office Visit Gynecology/Obstetri [facility] [address] [place] [address] Radha Sky PA-C [address] [place] [address] 04/10/2024 1:00 PM EDT Nurse Only Ancillary [facility] [address] [facility] [place] [address] [facility], Nurse Annual Wellness [facility] [address] [facility] [place] [address] Scheduled Procedures Name Priority Associated Diagnoses Date/Ti me COLONOSCOPY FLEXIBLE PROXIMAL DIAGNOSTIC Recall History of colon polyps 10/20/2023 10:45 AM EDT Health Maintenance Due Date Last Done Comments DISCUSS TOBACCO CESSATION (REFER TO SMARTSET #[id number]) 1965 Alpha-1 Antitrypsin 1981 PAP SMEAR-EVERY 3 [...] as of this encounter Visit Diagnoses Diagnosis Dyslipidemia, goal LDL below 160 Other and unspecified hyperlipidemia History of colon polyps Personal history of colonic polyps documented in this encounter Care Teams Seed Tester Relationship Specialty Start Date End Date Evaristo Eng MD [address] [place] [address] PCP - General Family Medicine 08/27/14 documented as of this encounter
--- OUTSIDE RECORDS SUMMARY | 2024-02-07 12:31 | External Medical Summary | Summary of Care ---
Author Name Unknown Organization [facility] Address [address] [facility] [place] [address] Phone [phone] Care Team Providers Care Adult Services Librarian Name Role Phone Evaristo Barron MD Primary Care Provider + Reason for Referral * Evaluate & Treat - Unlimited Visits (Within 10 days (routine)) - Authorized Specialty Diagnoses / Procedures Referred By Contvijay t Referred To Contact Physical Therapy / Physical Medicine And Rehab Diagnoses Acute left-sided low back pain with left-sided sciatica Chronic low back pain, unspecified back pain laterality, unspecified whether sciatica present DDD (degenerative disc disease), lumbar Fall, subsequent encounter Genia Sanchez CRNP [address] [place] [address] Referral ID Status Reason Start Date Expiration Date Visits Requested Visits Authorized [id number] Authorized Specialty Services Required 08/29/2023 999 999 Question Answer Referral Priority Within 10 days (routine) Where should this appointment be scheduled? [facility] Comments ACUTE ON CHRONIC LOW BACK PAIN HX OF DDD- LUMBAR SPINE L5-S1 Reason for Visit * Reason Comments Emergency Department Follow-Up 4 wk ago, fell down a few steps. ER visit, no fx, but still painful left hip/buttocks, thigh, down the leg. Encounter Details Date Type Department Care Team (Late st Contact Info) Description 08/29/2023 10:40 AM EST Office Visit [facility] [address] [place] [address] Genia Sanchez CRNP [address] [place] [address] Acute left-sided low back pain with left-sided sciatica*; Chronic low back pain, unspecified back pain laterality, unspecified whether sciatica present; DDD (degenerative disc disease), lumbar; Fall, subsequent encounter Allergies Active Allergy Reactions Criticality Noted Date Comments Aspirin Other (Please comment) High 07/18/2015 Pt c/o SOB Caffeine Neuro complications (Please comment) 05/20/2000 Nervous and shaky documented as of this encounter (statuses as of 08/29/2023) Medications Medication Sig Dispensed Refills Start Date [...] TOTAL 100 Tablet 1 10/21/2022 4 Active Interactions CorporationTouch Ultra 2 w/Device Kit USE TO TEST BLOOD SUGAR DAILY 1 Each 0 09/29/2022 4 Active Glucose Blood In Vitro Strip CHECK BLOOD SUGAR ONCE DAILY DIRECTED 100 Strip 11 09/29/2022 4 Active Mometasone Furo-Formoterol Fum 100-5 MCG/ACT Inhalation Aerosol (Dulera) INHALE TWO PUFFS BY MOUTH IN THE MORNING AND TWO PUFFS BEFORE BEDTIME 39 g 2 09/29/2022 4 Active Omeprazole 40 MG Oral Capsule Delayed Release (PriLOSEC)Indication s:Gastro-esophageal reflux disease without esophagitis TAKE ONE CAPSULE IN THE MORNING ONE HOUR BEFORE THE FIRST MEAL OF THE DAY 100 Capsule 1 09/29/2022 4 Active Montelukast Sodium 10 MG Oral Tablet (Singulair)Indicatio ns:Moderate persistent asthma, unspecified whether complicated TAKE ONE TABLET BY MOUTH EVERY DAY IN THE MORNING 100 Tablet 3 09/29/2022 4 Active Diclofenac Sodium 1 % External Gel (Voltaren)Indication s:Bilateral primary osteoarthritis of knee APPLY 4 GRAMS TOPICALLY TO AFFECTED AREA 4 TIMES A DAY NEEDED FOR MILD PAIN TO BILATERAL KNEES 900 g 3 08/30/2022 4 Active Rosuvastatin Calcium 20 MG Oral Tablet (Crestor)Indications :Dyslipidemia, goal LDL below 160 TAKE ONE TABLET BY MOUTH EVERY DAY 90 Tablet 3 08/16/2022 4 Active Varenicline Tartrate 1 MG Oral Tablet (Chantix) TAKE ONE TABLET BY MOUTH EVERY MORNING AND ONE TABLET BEFORE BEDTIME 200 Tablet 1 02/07/2023 4 Active Magnesium 400 MG Oral Tablet Take 1 Tablet by mouth daily. 0 Active Vitamin A 3 MG (28846 UT) Oral Capsule (Aquasol-A) Take 1 Capsule [...] package directions 21 Tablet 0 08/29/2023 Active documented as of this encounter (statuses as of 08/29/2023) Active Problems Problem Noted Date Diagnosed Date [...] bipin 5y as fair prep 06/17/16 [facility] ER + SI. Transfer to [facility] inpatient psych 2014-canceled colonoscopy appts 10/10 hosp [facility] for hand cellulitis s/p dog bite Asthma, moderate persistent 01/21/2010 Overview: Per Asthma Taxonomy ICD-10 update of inactive term BMI 35-39 ISOLATED (SEE ACTUAL BMI) 01/11/2010 Overview: Per Obesity Protocol, #19 CLASSICAL MIGRAINE WITHOU MENTION OF INTRACTABLE MIGRAINE History of tobacco use Overview: Quit 10/2017 with chantix, no issues with mood PPD positive, treated documented as of this encounter (statuses as of 08/29/2023) Resolved Problems Problem Noted Date Diagnosed Date [...] as of this encounter (statuses as of 08/29/2023) Immunizations Name Administration Dates Next Due COVID-19 mRNA, LNP-s, No Pre serve, 2-Dose Series (Pfizer) 04/30/2021,10/20/2020,09/29/2020 Hepatitis B, 20+ yrs 12/13/2021,01/29/2021,12/30 Pneumococcal Conjugate Vacci ne, 20-valent ([id number]) 04/07/2023 Pneumococcal Polysaccharide PPV23 (Pneumovax) 01/20/2015 Seasonal [...] Sign Reading Time Taken Comments Blood Pressure 144/80 08/29/2023 10:14 AM EST Pulse 80 08/29/2023 10:14 AM EST Temperature - - Respiratory Rate - - Oxygen Saturation - - Inhaled Oxygen Concentration - - Weight 112.2 kg (247 lb 5 oz) 08/29/2023 10:14 A M EST Height - - Body Mass Index 41.8 07/18/2023 1:31 PM EST documented in this encounter Progress Notes * Genia SanchezllePEGGY - 08/29/2023 10:34 AM EST Follow up Family Medicine Visit CC: Chief Complaint Patient presents with Emergency Department Follow-Up 4 wk ago, fell down a few steps. ER visit, no fx, but still painful left hip/buttocks, thigh, down the leg. History of Present Illness: Lidya Juarez is a 58 year old female presenting for ER follow up . She was seen at [facility] ED for fall. She did not hit her head, or faint. She was taking the trash out and fell down 6 stairs. She landed on her butt and back 08/22/2023. Low back x rays were normal. Ultrasound of left leg was negative. The pain is in the low back radiating to left hip. Feels like a stabbing. It is at rest or with exertion. Worse with standing or walking. There is associated numbness and tingling of the anterior lower leg. Denies weakness. She walkswith cane or walker at baseline. She has not done PT to date. Discharged home with tylenol or motrin. Currently taking tylenol 500 mg 2 times daily. She is on meloxicam daily ON GABPENTIN 300 mg for anxiety Social History Socioeconomic History Marital status: Spouse name: Not on file Number of children: Not on file Years of education: Not on file Highest education level: Not on file Occupational History Not on file Tobacco Use Smoking status: Some Days Packs/day: 0.25 Years: 45.00 Additional pack years: 0.00 Total pack years: 11.25 Types: Cigarettes Smokeless tobacco: Never Vaping Use Vaping Use: Never used Substance and Sexual Activity Alcohol use: No Drug use: No Sexual activity: Yes Partners: Male Comment: karthik, moved to [place] 2018 Other Topics Concern Not on file [...] 02/11/2005 birad 3 PPD positive, treated Psychosis ([facility]) 07/05/2011 Tobacco use disorder Type 2 diabetes mellitus without complication, without long-term current use of insulin ([facility]) 05/01/2020 Wears dentures 06/17/2019 Past Surgical History: Procedure Laterality Date ANESTH, CS DELIVERY COLONOSCOPY, DIAGNOSTIC (RECTUM) 09/12/2017 COLONOSCOPY FLEXIBLE PROXIMAL DIAGNOSTIC performed by Mahesh Thompson DO at ENDOSCOPY [facility] COLONOSCOPY, DIAGNOSTIC (RECTUM) 09/13/2017 hyperplastic polyps, fair prep, repeat 5 yrs/COLONOSCOPY FLEXIBLE PROXIMAL DIAGNOSTIC performed by Mahesh Thompson DO at ENDOSCOPY [facility] CT ABDOMEN/PELVIS W/CONTRAST done 09/05/01 Results were unremarkable DENTAL SURGERY PROCEDURE NEC Dental Surgery Procedure LIGATE/CUT OVIDUCT(S) MAMMOGRAM - BILATERAL 08/16/05 birad 2 Outpatient Medications Marked as Taking for the 08/29/23 encounter (Office Visit) with Genia Sanchez CRNP Medication Sig Acetaminophen 500 MG Oral Tablet (Tylenol) Take 2 Tablets by mouth every 8 hours as needed for mild, moderate, or severe pain hydrOXYzine HCl 50 MG Oral Tablet Take 1 Tablet by mouth 4 times a day as needed for Anxiety or sleep Meloxicam 15 MG Oral Tablet (Mobic) Take 1 Tablet by mouth in the morning. Polyethylene Glycol 3350 17 GM/SCOOP Oral Powder (Miralax) Take 17 g by mouth in the morning. Gabapentin 300 MG Oral Capsule (Neurontin) TAKE [...] TABLETS BY MOUTH EVERY DAY AT BEDTIME Clopidogrel Bisulfate 75 MG Oral Tablet (pLAVix) TAKE ONE TABLET BY MOUTH EVERY MORNING Dicyclomine HCl 20 MG Oral Tablet (Bentyl) Take 1 Tablet by mouth every 6 hours. Sertraline HCl 50 MG Oral Tablet (Zoloft) TAKE ONE TABLET BY MOUTH EVERY MORNING WITH 100 MG FOR TOTAL 150 MG metFORMIN HCl ER 500 MG Oral Tablet [...] Capsule Take 3 Capsules by mouth daily. Magnesium 400 MG Oral Tablet Take 1 Tablet by mouth daily. Vitamin A 3 MG (25040 UT) Oral Capsule (Aquasol-A) Take 1 Capsule by mouth in the morning. Vitamin C 500 MG Oral Capsule Take 1 Capsule by mouth daily. Varenicline Tartrate 1 MG Oral Tablet (Chantix) TAKE ONE TABLET BY MOUTH EVERY MORNING AND ONE TABLET BEFORE BEDTIME Ipratropium-Albuterol 20-100 MCG/ACT Inhalation Aerosol Solution (Combivent Respimat) INHALE ONE PUFF BY MOUTH FOUR TIMES A DAY NEEDED Sertraline HCl 100 MG Oral Tablet (Zoloft) TAKE ONE TABLET BY MOUTH IN THE MORNING WITH 50MG FOR 150MG TOTAL Glucose Blood In Vitro Strip CHECK BLOOD SUGAR ONCE DAILY DIRECTED Mometasone Furo-Formoterol Fum 100-5 MCG/ACT Inhalation Aerosol (Dulera) INHALE TWO PUFFS BY MOUTH IN THE MORNING AND TWO PUFFS BEFORE BEDTIME Montelukast Sodium 10 MG Oral Tablet (Singulair) TAKE ONE TABLET BY MOUTH EVERY DAY IN THE MORNING Omeprazole 40 MG Oral Capsule Delayed Release (PriLOSEC) TAKE ONE CAPSULE IN THE MORNING ONE HOUR BEFORE THE FIRST MEAL OF THE DAY [employer] Ultra 2 w/Device Kit USE TO TEST BLOOD SUGAR DAILY Diclofenac Sodium 1 % External Gel (Voltaren) APPLY 4 GRAMS TOPICALLY TO AFFECTED AREA 4 TIMES A DAY NEEDED FOR MILD PAIN TO BILATERAL KNEES Rosuvastatin Calcium 20 MG Oral Tablet (Crestor) TAKE ONE TABLET BY MOUTH EVERY DAY Bismuth Subsalicylate 262 MG/15ML Oral Suspension Take 30 mL by mouth every 4 hours as needed. Lancets MISC Use as directed. Review of patient's allergies indicates: Allergen Reactions Aspirin Other (Please comment) Pt c/o SOB Caffeine Neuro complications (Please comment) Nervous and shaky Most Recent Immunizations Administered Date(s) Administered COVID-19 mRNA, LNP-s, No Preserve, 2-Dose Series (Twenga) 04/30/2021 Hepatitis B, 20+ yrs 12/13/2021 Pneumococcal Conjugate Vaccine, 20-valent ([id number]) 04/07/2023 Pneumococcal Polysaccharide PPV23 (Pneumovax) 01/20/2015 Seasonal Influenza, PF, 6 M & above, IM , (FluLaval or Fluzone) 04/07/2023 Seasonal Influenza, Quadrivalent, No Preserve, IM 07/19/2016 Seasonal Influenza, Quadrivalent, No Preserve, Mdck 05/10/2019 Seasonal Influenza, Split, IIV3, With Preserve, Inj 08/27/2014 TDAP (age 11 and older)(Adacel) 10/22/2012 Varicella Zoster Vaccine (Adult) 04/15/2015 Zoster Vaccine Recombinant (Shingrix) 10/14/2020 Review of Systems: Review of Systems Musculoskeletal: Positive for back pain, gait problem and myalgias. Neurological: Positive for numbness. Negative for weakness. Physical Exam: BP 144/80 | Pulse 80 | Wt 112.2 kg (247 lb 5 oz) | LMP 11/10/2013 | BMI 41.80 kg/m | BSA 2.26 m Physical Exam Constitutional: Appearance: She is obese. HENT: Head: Normocephalic. Cardiovascular: Rate and Rhythm: Normal rate and regular rhythm. Pulmonary: Effort: Pulmonary effort is normal. Breath sounds: Normal breath sounds. Neurological: General: No focal deficit present. Mental Status: She is alert and oriented to person, place, and time. Psychiatric: Mood and Affect: Mood normal. Behavior: Behavior normal. Thought Content: Thought content normal. Judgment: Judgment normal. Back Exam Tenderness The patient is experiencing no tenderness. Range of Motion Extension: abnormal Flexion: abnormal Lateral bend right: abnormal Lateral bend left: abnormal Rotation right: abnormal Rotation left: abnormal Muscle Strength The patient has normal back strength. Other Gait: normal Assessment and Plan: 1. Acute left-sided low back pain with left-sided sciatica Acute on chronic due to fall Add PT Add medrol Reviewed patho with patient Increase gabapentin to 600 mg x 2 weeks for HS dosing - PHYSICAL THERAPY REFERRAL OP 2. Chronic low back pain, unspecified back pain laterality, unspecified whether sciatica present - PHYSICAL THERAPY REFERRAL OP 3. DDD (degenerative disc disease), lumbar L5-S1 ON PREVIOUS X RAY - PHYSICAL THERAPY REFERRAL OP 4. Fall, subsequent encounter SLIPPED AND FELL DOWN 6 STAIRS NO LOC - PHYSICAL THERAPY REFERRAL OP I have advised the patient to call our office incase of any worsening or new symptoms. I spent a total of 30-39 minutes (exact time 30 mins) on the date of service in preparation, delivery, and documentation of the care provided to Lidya Juarez excluding any time spent in the performance of separately billed services. NADYA Manuel, PEGGY [facility] documented in this encounter Plan of Treatment Upcoming Encounters Date Type Department Care Team (Latest Contact Info) Description 10/20/2023 10:45 AM EDT Hospital Encounter ENDO [facility], Endoscopy Room [facility] [address] [facility] [place] [phone] Sarah Quiros MD [address] [place] [address] 10/20/2023 10:45 AM EDT - 10/20/2023 11:15 AM EDT Surgery ENDO [facility], Endoscopy Room [facility] [address] [facility] [place] [phone] Sarah Quiros MD [address] [place] [address] COLONOSCOPY FLEXIBLE PROXIMAL DIAGNOSTIC 11/14/2023 2:00 PM EDT Office Visit [facility] [address] [place] [address] Leoncio Cope CRNP [address] [place] [address] 03/27/2024 1:00 PM EDT Office Visit Gynecology/Obstetri [facility] [address] [place] [address] Radha Sky PA-C [address] [place] [address] 04/10/2024 1:00 PM EDT Nurse Only [facility] [address] [place] [address] [facility], Nurse Annual Wellness [facility] [address] [place] [address] Scheduled Procedures Name Priority Associated Diagnoses Date/Ti me COLONOSCOPY FLEXIBLE PROXIMAL DIAGNOSTIC Recall History of colon polyps 10/20/2023 10:45 AM EDT Scheduled Referrals Name Type Priority Associated Diagnoses Orde r Schedule PHYSICAL THERAPY REFERRAL OP Referral Within 10 days (routine) Acute left-sided low back pain with left-sided sciatica Chronic low back pain, unspecified back pain laterality, unspecified whether sciatica present DDD (degenerative disc disease), lumbar Fall, subsequent encounter Ordered: 08/29/2023 Health Maintenance Due Date Last Done Comments DISCUSS TOBACCO CESSATION (REFER TO SMARTSET #[id number]) 1965 Alpha-1 Antitrypsin 1981 PAP SMEAR-EVERY 3 [...] as of this encounter Visit Diagnoses Diagnosis Acute left-sided low back pain with left-sided sciatica- Primary Chronic low back pain, unspecified back pain laterality, unspecified whether sciatica present DDD (degenerative disc disease), lumbar Degeneration of lumbar or lumbosacral intervertebral disc Fall, subsequent encounter History of colon polyps Personal history of colonic polyps documented in this encounter Care Teams Adult Services Librarian Relationship Specialty Start Date End Date Evaristo Barron MD [address] [place] [address] PCP - General Family Medicine 08/27/14 documented as of this encounter"
--- OUTSIDE RECORDS SUMMARY | 2024-02-07 12:31 | External Medical Summary | Summary of Care ---
Author Name Unknown Organization [facility] Address [address] [facility] [address] [facility] [address] Phone [phone] Care Team Providers Care Dental Claims Processor Name Role Phone Evaristo Eng MD Primary Care Provider + Reason for Visit * Reason Comments Medication Refill Encounter Details Date Type Department Care Team (Late st Contact Info) Description 09/06/2023 Refill Family Practice [facility] [address] [place] [address] Evaristo Eng MD [address] [place] [address] Bilateral primary osteoarthritis of knee Allergies Active Allergy Reactions Criticality Noted Date Comments Aspirin Other (Please comment) High 07/18/2015 Pt c/o SOB Caffeine Neuro complications (Please comment) 05/20/2000 Nervous and shaky documented as of this encounter (statuses as of 09/06/2023) Medications Medication Sig Dispensed Refills Start Date [...] 100 Tablet 1 10/21/2022 10/29/19 24 Active DestinationRX Ultra 2 w/Device Kit USE TO TEST [...] 100 Tablet 3 09/29/2022 10/29/19 24 Active Rosuvastatin Calcium 20 MG Oral Tablet (Crestor)Indication s:Dyslipidemia, goal LDL below 160 TAKE ONE TABLET BY MOUTH EVERY DAY 90 Tablet 3 08/16/2022 09/24/19 24 Active Varenicline Tartrate 1 MG Oral Tablet (Chantix) TAKE ONE TABLET BY MOUTH EVERY MORNING AND ONE TABLET BEFORE BEDTIME 200 Tablet 1 02/07/2023 02/07/20 24 Active Magnesium 400 MG Oral Tablet Take 1 Tablet by mouth daily. 0 Active Vitamin A 3 MG (36973 UT) Oral Capsule (Aquasol-A) Take 1 Capsule [...] 900 g 3 09/06/2023 09/05/19 25 Active Diclofenac Sodium 1 % External Gel (Voltaren)Indicatio ns:Bilateral primary osteoarthritis of knee APPLY 4 GRAMS TOPICALLY TO AFFECTED AREA 4 TIMES A DAY NEEDED FOR MILD PAIN TO BILATERAL KNEES 900 g 3 08/30/2022 09/06/19 24 Discontinu ed(Refill) documented as of this encounter (statuses as of 09/06/2023) Active Problems Problem Noted Date Diagnosed Date [...] hyperplastic, bipin 5y as fair prep 06/17/16 [facility] ER + SI. Transfer to [facility] inpatient psych 2014-canceled colonoscopy appts 10/10 hosp [facility] for hand cellulitis s/p dog bite Asthma, moderate persistent 01/21/2010 Overview: Per Asthma Taxonomy ICD-10 update of inactive term BMI 35-39 ISOLATED (SEE ACTUAL BMI) 01/11/2010 Overview: Per Obesity Protocol, #19 CLASSICAL MIGRAINE WITHOU MENTION OF INTRACTABLE MIGRAINE History of tobacco use Overview: Quit 10/2017 with chantix, no issues with mood PPD positive, treated documented as of this encounter (statuses as of 09/06/2023) Resolved Problems Problem Noted Date Diagnosed Date [...] as of this encounter (statuses as of 09/06/2023) Immunizations Name Administration Dates Next Due COVID-19 mRNA, LNP-s, No Pre serve, 2-Dose Series (Soshowise) 04/30/2021,10/20/2020,09/29/2020 Hepatitis B, 20+ yrs 12/13/2021,01/29/2021,12/30 Pneumococcal Conjugate Vacci ne, 20-valent ([id number]) 04/07/2023 Pneumococcal Polysaccharide PPV23 (Pneumovax) 01/20/2015 Seasonal [...] Telephone Encounter - Evaristo Eng MD - 09/06/2023 10:24 PM EST Signed Prescriptions: Disp Refills Diclofenac Sodium 1 % External Gel (Voltar*900 g 3 Sig: APPLY 4 GRAMS TOPICALLY TO AFFECTED AREA 4 TIMES A DAY NEEDED FOR MILD PAIN TO BILATERAL KNEES Authorizing Provider: EVARISTO ENG * Telephone Encounter - Serena Jimenez [facility] - 09/06/2023 1:53 PM ESTPending Prescriptions: Disp Refills Diclofenac Sodium 1 % External Gel (Voltar*900 g 3 Sig: APPLY 4 GRAMS TOPICALLY TO AFFECTED AREA 4 TIMES A DAY NEEDED FOR MILD PAIN TO BILATERAL KNEES * Telephone Encounter - Serena Jimenez [facility] - 09/06/2023 1:53 PM EST Telepharmacy is currently not authorized to approve refills for the pended medication(s) per refillprotocol. Please approve if appropriate. Pending Prescriptions: Disp Refills Diclofenac Sodium 1 % External Gel (Voltar*900 g 3 Sig: APPLY 4 GRAMS TOPICALLY TO AFFECTED AREA 4 TIMES A DAY NEEDED FOR MILD PAIN TO BILATERAL KNEES 08/29/2023 (in office), Visit date not found (telemedicine) 11/14/2023 If no future appointments scheduled, and last appointment is greater than a year ago, please schedule patient for a follow-up appointment Last date the medication was ordered: 08/30/22 Pharmacy: [facility] Is this request for a [...] AM HGBA1C 6.5 (H) 04/20/2020 01:40 PM documented in this encounter Plan of Treatment Upcoming Encounters Date Type Department Care Team (Latest Contact Info) Description 10/20/2023 10:45 AM EDT Hospital Encounter ENDO [facility], Endoscopy Room [facility] [address] [place] [phone] Sarah Quiros MD [address] [place] [address] 10/20/2023 10:45 AM EDT - 10/20/2023 11:15 AM EDT Surgery ENDO [facility], Endoscopy Room [facility] [address] [phone] Sarah Quiros MD [address] [place] [id number] COLONOSCOPY FLEXIBLE PROXIMAL DIAGNOSTIC 11/14/2023 2:00 PM EDT Office Visit Family Practice [facility] [address] [place] [address] Leoncio Cope CRNP [address] [place] [address] 03/27/2024 1:00 PM EDT Office Visit Gynecology/Obstetri [facility] [address] [place] [address] Radha Sky PA-C [address] [place] [address] 04/10/2024 1:00 PM EDT Nurse Only Ancillary [facility] [address] [place] [address] [facility], Nurse Annual Wellness [facility] [address] [place] [address] Scheduled Procedures Name Priority Associated Diagnoses Date/Ti me COLONOSCOPY FLEXIBLE PROXIMAL DIAGNOSTIC Recall History of colon polyps 10/20/2023 10:45 AM EDT Health Maintenance Due Date Last Done Comments DISCUSS TOBACCO CESSATION (REFER TO SMARTSET #[id number]) 1965 Alpha-1 Antitrypsin 1981 PAP SMEAR-EVERY 3 [...] 11/28, 12/30/2020, Additional history exists Albumin/Creatinine Ratio 03/29/202403/29/ 023, 06/13/2022, 12/30/2020 GFR 03/29/2024 03/29/2023, 11/28, [...] as of this encounter Visit Diagnoses Diagnosis Bilateral primary osteoarthritis of knee History of colon polyps Personal history of colonic polyps documented in this encounter Care Teams Dental Claims Processor Relationship Specialty Start Date End Date Evaristo Eng MD [address] [facility] [place] [address] PCP - General Family Medicine 08/27/14 documented as of this encounter
--- OUTSIDE RECORDS SUMMARY | 2024-02-07 12:31 | External Medical Summary | Summary of Care ---
Author Name Unknown Organization [facility] Address [address] [place] [address] Phone [phone] Care Team Providers Care Mailroom Manager Name Role Phone Evaristo Barron MD Primary Care Provider + Encounter Details Date Type Department Care Team (Late st Contact Info) Description 09/19/2023 Population Health External Data Unspecified Department Allergies Active Allergy Reactions Criticality Noted Date Comments Aspirin Other (Please comment) High 07/18/2015 Pt c/o SOB Caffeine Neuro complications (Please comment) 05/20/2000 Nervous and shaky documented as of this encounter (statuses as of 09/20/2023) Medications Medication Sig Dispensed Refills Start Date [...] TOTAL 100 Tablet 1 10/21/2022 4 Active [employer]Wing Ultra 2 w/Device Kit USE TO TEST [...] daily. 0 Active Vitamin A 3 MG (28674 UT) Oral Capsule (Aquasol-A) Take 1 Capsule [...] by mouth in the morning. 1734 g 08/18/2023 Active Acetaminophen 500 MG Oral Tablet [...] EVERY DAY 100 Tablet 3 09/16/2023 Active documented as of this encounter (statuses as of 09/20/2023) Active Problems Problem Noted Date Diagnosed Date [...] hyperplastic, bipin 5y as fair prep 06/17/16 [facility] ER + SI. Transfer to [facility] inpatient psych 2014-canceled colonoscopy appts 10/10 hosp [facility] for hand cellulitis s/p [...] as of this encounter (statuses as of 09/20/2023) Resolved Problems Problem Noted Date Diagnosed Date [...] as of this encounter (statuses as of 09/20/2023) Immunizations Name Administration Dates Next Due COVID-19 mRNA, LNP-s, No Pre serve, 2-Dose Series (Sribu) 04/30/2021,10/20/2020,09/29/2020 Hepatitis B, 20+ yrs 12/13/2021,01/29/2021,12/30 Pneumococcal Conjugate Vacci ne, 20-valent ([id number]) 04/07/2023 Pneumococcal Polysaccharide PPV23 (Pneumovax) 01/20/2015 Seasonal [...] OSS[facility], Endoscopy Room [facility] [address] [place] [phone] Sarah Quiros MD [address] [place] [address] 10/20/2023 10:45 AM EDT - 10/20/2023 11:15 AM EDT Surgery ENDO [facility], Endoscopy Room [facility] [address] [phone] Sarah Quiros MD [address] [place] [address] COLONOSCOPY FLEXIBLE PROXIMAL DIAGNOSTIC 11/14/2023 2:00 PM EDT Office Visit Family Practice [facility] [address] [place] [address] Leoncio Cope CRNP [address] [place] [address] 03/27/2024 1:00 PM EDT Office Visit Gynecology/Obstetri [facility] [address] [place] [address] Radha Sky PA-C [address] [place] [address] 04/10/2024 1:00 PM EDT Nurse Only Ancillary [facility] [address] [place] [address] Lucas, Nurse Annual Wellness [facility] [address] [place] [address] Scheduled Procedures Name Priority Associated Diagnoses Date/Ti me COLONOSCOPY FLEXIBLE PROXIMAL DIAGNOSTIC Recall History of colon polyps 10/20/2023 10:45 AM EDT Health Maintenance Due Date Last Done Comments DISCUSS TOBACCO CESSATION (REFER TO SMARTSET #8738) 1965 Alpha-1 Antitrypsin 1981 PAP SMEAR-EVERY 3 [...] filedocumented as of this encounter Care Teams Mailroom Manager Relationship Specialty Start Date End Date Evaristo Barron MD [address] [place] [address] PCP - General Family Medicine 08/27/14 documented as of this encounter
--- OUTSIDE RECORDS SUMMARY | 2024-02-07 12:31 | External Medical Summary | Summary of Care ---
Author Name Unknown Organization [facility] Address [address] [place] [address] Phone [phone] Care Team Providers Care Consumer Lender Name Role Phone Evaristo Barron MD Primary Care Provider + Reason for Visit * Reason Onset Date Comments Health Maintenance 09/21/2023 Encounter Details Date Type Department Care Team (Late st Contact Info) Description 09/21/2023 Telephone Family Practice [facility] [address] [place] [address] Evaristo Barron MD [address] [place] [address] Health Maintenance Allergies Active Allergy Reactions Criticality Noted Date Comments Aspirin Other (Please comment) High 07/18/2015 Pt c/o SOB Caffeine Neuro complications (Please comment) 05/20/2000 Nervous and shaky documented as of this encounter (statuses as of 09/21/2023) Medications Medication Sig Dispensed Refills Start Date [...] TOTAL 100 Tablet 1 10/21/2022 4 Active [employer] 2 w/Device Kit USE TO TEST BLOOD [...] daily. 0 Active Vitamin A 3 MG (21486 UT) Oral Capsule (Aquasol-A) Take 1 Capsule [...] as of this encounter (statuses as of 09/21/2023) Active Problems Problem Noted Date Diagnosed Date [...] bipin 5y as fair prep 06/17/16 [facility] ER + SI. Transfer to [facility] inpatient psych 2014-canceled colonoscopy appts 10/[address] [facility] for hand cellulitis s/p dog bite Asthma, moderate persistent 01/21/2010 Overview: Per Asthma Taxonomy ICD-10 update of inactive term BMI 35-39 ISOLATED (SEE ACTUAL BMI) 01/11/2010 Overview: Per Obesity Protocol, #19 CLASSICAL MIGRAINE WITHOU MENTION OF INTRACTABLE MIGRAINE History of tobacco use Overview: Quit 10/2017 with chantix, no issues with mood PPD positive, treated documented as of this encounter (statuses as of 09/21/2023) Resolved Problems Problem Noted Date Diagnosed Date [...] as of this encounter (statuses as of 09/21/2023) Immunizations Name Administration Dates Next Due COVID-19 mRNA, LNP-s, No Pre serve, 2-Dose Series (Pe[place]ak) 04/30/2021,10/20/2020,09/29/2020 Hepatitis B, 20+ yrs 12/13/2021,01/29/2021,12/30 Pneumococcal Conjugate Vacci ne, 20-valent ([id number]) 04/07/2023 Pneumococcal Polysaccharide PPV23 (Pneumovax) 01/20/2015 Seasonal [...] Miscellaneous Notes * Telephone Encounter - Angelika Davis LPN - 09/21/2023 2:01 PM EST Care Gaps Comprehensive Care Outreach Last Office/Telemedicine Visit: 08/29/2023 (in office), Visit date not found (telemedicine) Next Office Visit: 11/14/2023 Hemoglobin AIC Results: Lab Results Component Value Date/Time HEMOGLOBIN A1C - [facility] 7.7 (H) 03/29/2023 11:30 AM HEMOGLOBIN A1C - [facility] 6.8 (H) 12/13/2021 01:15 PM HEMOGLOBIN A1C - [facility] 6.8 (H) 12/30/2020 12:49 PM HEMOGLOBIN A1C - [facility] 6.5 (H) 04/20/2020 01:40 PM HEMOGLOBIN A1C - [facility] 6.2 (H) 06/17/2019 10:44 AM BP Readings from Last 1 Encounters: 08/29/23 144/80 Reviewed Health Maintenance below: Health Maintenance Topic Date Due DISCUSS TOBACCO CESSATION (REFER TO SMARTSET #7122) Never done Alpha-1 Antitrypsin Never done PAP SMEAR-EVERY 3 YRS,AGES 18-100 09/07/2020 COLONOSCOPY-EVERY 5 YRS AGES 18-100 09/13/2022 DTaP,Tdap,and Td Vaccines (3 - Td or Tdap) 10/22/2022 Diabetic Eye Exam 01/21/2023 COVID-19 Vaccine (4 - 2022- season) 2023 Depression, Most Recent Score >= 10 (will fire each visit until score < 10) 04/08/2023 HbA1c 09/28/2023 Pap already scheduled Colon already scheduled [facility] Care Gap Outreach Action Taken: Unable to reach full documented in this encounter Plan of Treatment Upcoming Encounters Date Type Department Care Team (Latest Contact Info) Description 10/20/2023 10:45 AM EDT Hospital Encounter ENDO [facility], Endoscopy Room [facility] [address] [place] [phone] Sarah Quiros MD [address] [place] [phone] 10/20/2023 10:45 AM EDT - 10/20/2023 11:15 AM EDT Surgery ENDO [facility], Endoscopy Room [facility] [address] [place] [phone] Sarah Quiros MD [address] [place] [phone] COLONOSCOPY FLEXIBLE PROXIMAL DIAGNOSTIC 11/14/2023 2:00 PM EDT Office Visit Family Practice [facility] [address] [place] [address] Leoncio Cope CRNP [address] [place] [address] 03/27/2024 1:00 PM EDT Office Visit Gynecology/Obstetri [facility] [address] [place] [address] Radha Sky PA-C [address] [place] [address] 04/10/2024 1:00 PM EDT Nurse Only Ancillary [facility] [place] [address] [facility] [place] [address] Lucas Nurse Annual Wellness [facility] [address] [address] Scheduled Procedures Name Priority Associated Diagnoses Date/Ti me COLONOSCOPY FLEXIBLE PROXIMAL DIAGNOSTIC Recall History of colon polyps 10/20/2023 10:45 AM EDT Health Maintenance Due Date Last Done Comments DISCUSS TOBACCO CESSATION (REFER TO SMARTSET #4222) 1965 Alpha-1 Antitrypsin 1981 PAP SMEAR-EVERY 3 [...] filedocumented as of this encounter Care Teams Consumer Lender Relationship Specialty Start Date End Date Evaristo Barron MD [address] [place] [address] PCP - General Family Medicine 08/27/14 documented as of this encounter
--- OUTSIDE RECORDS SUMMARY | 2024-02-07 12:32 | External Medical Summary | Summary of Care ---
Author Name Unknown Organization [facility] Address [address] [facility] [place] [address] Phone [phone] Care Team Providers Care Logistics Program Manager Name Role Phone Evaristo Eng MD Primary Care Provider + Reason for Visit * Reason Comments Medication Refill Encounter Details Date Type Department Care Team (Late st Contact Info) Description 08/01/2023 Refill Family Practice [facility] [address] [place] [address] Evaristo Eng MD [address] [place] [address] Allergies Active Allergy Reactions Criticality Noted Date Comments Aspirin Other (Please comment) High 07/18/2015 Pt c/o SOB Caffeine Neuro complications (Please comment) 05/20/2000 Nervous and shaky documented as of this encounter (statuses as of 08/27/2023) Medications Medication Sig Dispensed Refills Start Date [...] TOTAL 100 Tablet 1 10/21/2022 4 Active Team My MobileTouch Ultra 2 w/Device Kit USE TO TEST [...] daily. 0 Active Vitamin A 3 MG (14790 UT) Oral Capsule (Aquasol-A) Take 1 Capsule [...] until gone 6 Tablet 0 07/18/2023 Active Sertraline HCl 50 MG Oral Tablet (Zoloft) TAKE ONE TABLET BY MOUTH EVERY MORNING WITH 100 MG FOR TOTAL 150 MG 100 Tablet 0 08/02/2023 Active hydrOXYzine HCl 50 MG Oral Tablet TAKE 1 TABLET BY MOUTH EVERY 6 HOURS NEEDED for anxiety or sleep 90 Tablet 3 07/28/2022 4 Discontinue d(Refill) Polyethylene Glycol 3350 17 GM/SCOOP Oral Powder (Miralax) Take 17 g by mouth in the morning. 578 g 11 09/08/2022 4 Discontinue d(Refill) Acetaminophen 500 MG Oral Tablet (Tylenol) Take 2 Tablets by mouth every 8 hours as needed for Pain, Mild. 600 Tablet 3 10/21/2022 4 Discontinue d(Refill) Clopidogrel Bisulfate 75 MG Oral Tablet (pLAVix)Indications :TIA (transient ischemic attack) TAKE ONE TABLET BY MOUTH EVERY MORNING 90 Tablet 1 12/28/2022 4 Discontinue d(Refill) Gabapentin 300 MG Oral Capsule (Neurontin)Indicati ons:Chronic left-sided low back pain with left-sided sciatica,Left buttock pain TAKE ONE CAPSULE BY MOUTH THREE TIMES A DAY -- IN THE MORNING, AT NOON AND BEFORE BEDTIME 270 Capsule 1 12/28/2022 4 Discontinue d(Refill) oxyBUTYnin Chloride ER 10 MG Oral Tablet Extended Release 24 Hour (Ditropan XL)Indications:Mixe d incontinence urge and stress (male)(female) TAKE ONE TABLET BY MOUTH EVERY DAY -- DO NOT CRUSH, CUT OR CHEW 90 Tablet 1 12/28/2022 4 Discontinue d(Refill) traZODone HCl 100 MG Oral Tablet (Desyrel) TAKE TWO TABLETS BY MOUTH EVERY DAY AT BEDTIME 180 Tablet 1 12/28/2022 4 Discontinue d(Refill) Dicyclomine HCl 20 MG Oral Tablet (Bentyl)Indications :Lower abdominal pain TAKE ONE TABLET BY MOUTH FOUR TIMES A DAY NEEDED FOR ABDOMINAL PAIN/CRAMPING 360 Tablet 3 08/16/2022 4 Discontinue d(Refill) Sertraline HCl 50 MG Oral Tablet (Zoloft) TAKE ONE TABLET BY MOUTH EVERY MORNING WITH 100 MG FOR TOTAL 150 MG 100 Tablet 0 04/26/2023 4 Discontinue d(Refill) Meloxicam 15 MG Oral Tablet (Mobic)Indications: Chronic left-sided low back pain with left-sided sciatica,Left buttock pain Take 1 Tablet by mouth in the morning. 30 Tablet 2 07/18/2023 4 Discontinue d(Refill) documented as of this encounter (statuses as of 08/27/2023) Active Problems Problem Noted Date Diagnosed Date [...] hyperplastic, bipin 5y as fair prep 06/17/16 [facility] ER + SI. Transfer to [facility] inpatient psych 2015-canceled colonoscopy appts 10/10 hosp [facility] for hand cellulitis s/p dog [...] as of this encounter (statuses as of 08/27/2023) Resolved Problems Problem Noted Date Diagnosed Date [...] as of this encounter (statuses as of 08/27/2023) Immunizations Name Administration Dates Next Due COVID-19 mRNA, LNP-s, No Pre serve, 2-Dose Series ([place]) 04/30/2021,10/20/2020,09/29/2020 Hepatitis B, 20+ yrs 12/13/2021,01/29/2021,12/30 Pneumococcal Conjugate Vacci ne, 20-valent ([id number]) 04/07/2023 Pneumococcal Polysaccharide PPV23 (Pneumovax) 01/20/2015 Seasonal [...] encounter Miscellaneous Notes * Telephone Encounter - Sandra Pat PHARM Tech - 08/27/2023 1:28 PM EST Received message from [facility] regarding patient needing appointment. Pt has upcoming PCP visit 11/14/23. Thank you, Sandra Pat Steam Shovel Operating Engineer [facility] 08/27/2023,1:28 PM * Telephone Encounter - Chrystal Olivares [facility] - 08/02/2023 8:51 AM ESTSigned Prescriptions: Disp Refills Sertraline HCl 50 MG Oral Tablet (Zoloft) 100 Ta*0 Sig: TAKE ONE TABLET BY MOUTH EVERY MORNING WITH 100 MG FOR TOTAL 150 MG Authorizing Provider: EVARISTO ENG Ordering User: CHRYSTAL OLIVARES * Telephone Encounter - Chrystal Olivares RP - 08/02/2023 8:49 AM EST 2nd attempt Please contact patient so that an appointment can be scheduled with her PRIMARY CARE provider. Refill authorized to hold patient over in the mean time. Last Visit: 12/13/2021 (in office), Visit date not found (telemedicine) Next Visit: Visit date not found Chrystal Browning, PharmD Clinical Pharmacist [facility] ([facility]) (formerly Telepharmacy) [phone] 08/02/2023 8:50 AM documented in this encounter Plan of Treatment Upcoming Encounters Date Type Department Care Team (Latest Contact Info) Description 08/29/2023 10:40 AM EST Office Visit [facility] [address] [place] [address] Genia Sanchez CRNP [address] [address] 10/20/2023 10:45 AM EDT Hospital Encounter ENDO [facility], Endoscopy Room [facility] [address] [place] [phone] Sarah Quiros MD [address] [place] [address] [place] [phone] 10/20/2023 10:45 AM EDT - 10/20/2023 11:15 AM EDT Surgery ENDO [facility], Endoscopy Room [facility] [address] [place] [phone] Sarah Quiros MD [address] [place] [phone] COLONOSCOPY FLEXIBLE PROXIMAL DIAGNOSTIC 11/14/2023 2:00 PM EDT Office Visit Family Practice [facility] [address] [facility] [place] [address] Leoncio Cope CRNP [address] [place] [address] 03/27/2024 1:00 PM EDT Office Visit Gynecology/Obstetri [facility] [address] [place] [address] Radha Sky PA-C [address] [place] [address] 04/10/2024 1:00 PM EDT Nurse Only Ancillary [facility] 132 [facility] [place] [address] [facility], Nurse Annual Wellness [facility] [address] [facility] [place] [address] Scheduled Procedures Name Priority Associated Diagnoses Date/Ti [...] 10/22/2012, 05/27/2011 Diabetic Eye Exam 01/21/2023 01/21/2022, 01/01/2021 COVID-19 Vaccine ( - season) 2023 04/30/2021, 10/20/2020, 09/29/2020 Depression, Most Recent Score >= 10 (will fire each visit until score < 10) 04/08/2023 04/07/2023 HbA1c 09/28/2023 03/29/2023, 11/28, 12/30/2020, Additional history exists Albumin/Creatinine Ratio 03/29/2024 023, 06/13/2022, 12/30/2020 GFR 03/29/2024 03/29/2023, 11/28, 05/08/2021, Additional history exists Mammogram 03/29/2024 03/29/2023, 08/2019, 09/11/2017 Diabetic Foot Exam 04/07/2024 04/07/2023, 0 12/13/2021, 10/14/2020 O2 ASSESSMENT COMPLETED IN PAST YEAR FOR COPD 07/18/2024 07/18/2023 Lipid Panel 03/29/2028 03/29/2023, 11/28, 12/30/2020, Additional history exists Zoster Vaccines Completed 10/14/2020, 04/01, 04/15/2015 Hepatitis B Completed 12/13/2021, 08/2020, 12/30/2020 Influenza Vaccine (FLU shot) Completed [...] filedocumented as of this encounter Care Teams Logistics Program Manager Relationship Specialty Start Date End Date Evaristo Eng MD [address] [place] [address] PCP - General Family Medicine 08/27/14 documented as of this encounter
--- OUTSIDE RECORDS SUMMARY | 2024-02-07 12:32 | External Medical Summary | Summary of Care ---
Author Name Unknown Organization [facility] Address [address] [place] [facility] [place] [address] Phone [phone] Care Team Providers Care Getter Filler Name Role Phone Evaristo Barron MD Primary [...] encounter Genia Sanchez CRNP [address] [place] [address] Referral ID Status Reason Start Date Expiration Date Visits Requested Visits Authorized [id number] Authorized Specialty Services Required 08/29/2023 999 999 [...] 10:40 AM EST Office Visit Family Practice [facility] [address] [place] [address] Genia Sanchez CRNP [address] [place] [address] Acute left-sided low back pain with left-sided [...] TOTAL 100 Tablet 1 10/21/2022 4 Active SwitchboardTouch Ultra 2 w/Device Kit USE TO TEST [...] daily. 0 Active Vitamin A 3 MG (31199 UT) Oral Capsule (Aquasol-A) Take 1 Capsule [...] as fair prep 06/17/16 [facility] ER + SI. Transfer to [facility] inpatient psych 2014-canceled colonoscopy appts 10/10 hosp [facility] for hand cellulitis s/p dog [...] yrs 12/13/2021,01/29/2021,12/30 Pneumococcal Conjugate Vacci ne, 20-valent ([id number]) 04/07/2023 Pneumococcal Polysaccharide PPV23 (Pneumovax) 01/20/2015 Seasonal [...] follow up . She was seen at [facility] ED for fall. She did not hit [...] Yes Partners: Male Comment: karthik, moved to [place] 2018 Other Topics Concern Not on file [...] 02/11/2005 birad 3 PPD positive, treated Psychosis ([facility]) 07/05/2011 Tobacco use disorder Type 2 diabetes mellitus without complication, without long-term current use of insulin ([facility]) 05/01/2020 Wears dentures 06/17/2019 Past Surgical History: Procedure Laterality Date ANESTH, CS DELIVERY COLONOSCOPY, DIAGNOSTIC (RECTUM) 09/12/2017 COLONOSCOPY FLEXIBLE PROXIMAL DIAGNOSTIC performed by Mahesh Thompson DO at ENDOSCOPY [facility] COLONOSCOPY, DIAGNOSTIC (RECTUM) 09/13/2017 hyperplastic polyps, fair prep, repeat 5 yrs/COLONOSCOPY FLEXIBLE PROXIMAL DIAGNOSTIC performed by Mahesh Thompson DO at ENDOSCOPY [facility] CT ABDOMEN/PELVIS W/CONTRAST done 09/05/01 Results were [...] by mouth daily. Vitamin A 3 MG (91787 UT) Oral Capsule (Aquasol-A) Take 1 Capsule [...] BEFORE THE FIRST MEAL OF THE DAY ShopPad Ultra 2 w/Device Kit USE TO TEST [...] COVID-19 mRNA, LNP-s, No Preserve, 2-Dose Series ([employer]) 04/30/2021 Hepatitis B, 20+ yrs 12/13/2021 Pneumococcal Conjugate Vaccine, 20-valent ([id number]) 04/07/2023 Pneumococcal Polysaccharide PPV23 (Pneumovax) 01/20/2015 Seasonal [...] of separately billed services. NADYA Manuel, PEGGY [facility] documented in this encounter Plan of Treatment Upcoming Encounters Date Type Department Care Team (Latest Contact Info) Description 10/20/2023 10:45 AM EDT Hospital Encounter ENDO [facility], Endoscopy Room [facility] [address] [facility] [place] [phone] Sarah Quiros MD [address] [place] [address] 10/20/2023 10:45 AM EDT - 10/20/2023 11:15 AM EDT Surgery ENDO [facility], Endoscopy Room [facility] 132 [facility] [place] [phone] Sarah Quiros MD [address] [place] [address] COLONOSCOPY FLEXIBLE PROXIMAL DIAGNOSTIC 11/14/2023 2:00 PM EDT Office Visit Family Practice [facility] [address] [place] [address] Leoncio Cope CRNP [address] [place] [address] 03/27/2024 1:00 PM EDT Office Visit Gynecology/Obstetri [facility] [address] [place] [address] Radha Sky PA-C [address] [place] [address] 04/10/2024 1:00 PM EDT Nurse Only Ancillary [facility] [address] [place] [address] [facility], Nurse Annual Wellness [email or web address] [address] [place] [address] Scheduled Procedures Name Priority Associated Diagnoses Date/Ti [...] Comments DISCUSS TOBACCO CESSATION (REFER TO SMARTSET #0781) 1965 Alpha-1 Antitrypsin 1981 PAP SMEAR-EVERY 3 [...] polyps documented in this encounter Care Teams Getter Filler Relationship Specialty Start Date End Date Evaristo Barron MD [address] [place] [address] PCP - General Family Medicine 08/27/14 documented as of this encounter"
--- NOTE | 2024-02-07 12:40 | Electrocardiogram Report ---
Test Reason : Blood Pressure : / mmHG Vent. Rate : 067 BPM Atrial Rate : 067 BPM P-R Int : 148 ms QRS Dur : 104 ms QT Int : 446 ms P-R-T Axes : 033 -55 015 degrees QTc Int : 471 ms Normal sinus rhythm with sinus arrhythmia Left anterior fascicular block Poor R wave progression, consider anterior MA vs. lead placement vs. LVH Abnormal ECG When compared with ECG of 24-OCT-2022 16:47, No significant change was found Confirmed by Jori Segovia ([id number]) on 02/07/2024 12:40:35 PM Referred By: REFERRED SELF Confirmed By:Igor Segovia
--- NOTE | 2024-02-07 12:48 | Electrocardiogram Report ---
Test Reason : Blood Pressure : / mmHG Vent. Rate : 074 BPM Atrial Rate : 074 BPM P-R Int : 152 ms QRS Dur : 108 ms QT Int : 458 ms P-R-T Axes : 052 -58 019 degrees QTc Int : 508 ms Normal sinus rhythm Left anterior fascicular block Poor R wave progression, consider anterior [place] vs. lead placement vs. LVH Prolonged QT Abnormal ECG When compared with ECG of 06-FEB-2024 16:34, (unconfirmed) No significant change was found Confirmed by Jori Segovia ([id number]) on 02/07/2024 12:47:59 PM Referred By: REFERRED SELF Confirmed By:Igor Segovia
--- NOTE | 2024-02-07 13:14 | Hospitalist Progress Note ---
Date of Service February 07, 2024 Assessment & Plan (1) Stroke-like symptoms: Plan: 58-year-old female with past medical history significant for type 2 diabetes, hyperlipidemia, moderate persistent asthma, COPD, morbid obesity, GERD, renal disease, classical migraine, PPD positive s/p Rx, tobacco abuse, depression, ambulates with cane at home presents with strokelike symptoms. 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 She also complaints of on/off chest pain a/w on/off sob. She denies fever, abd pain. Reports normal B and B habits. 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 MRI brain with no acute finding. A1c 7.5, LDL 43. Echo with EF of 55 to 60%, no interatrial septum noted. Left ventricular wall motion is normal. Patient reports improvement in her slurring of speech and BLE weakness. Speech consult. PT/OT consult. Neurology consult, await recommendation. Chest pain, rule out ACS Patient complaining of on and off chest pain associated with on and off shortness of breath. Troponin trend x 4 negative, EKG without acute ST or T changes. Echo as above. Cardiology evaluating, and Zio patch monitoring as an outpatient. Possible outpatient dobutamine stress echo. Follow-up with cardiology on discharge. Continue with home Plavix, has aspirin allergy. Pt reports no further Chest pain. PAYAM testing as an outpatient. Pepcid trial on top of her home PPI regimen to rule out GERD component. Other chronic medical conditions: Continue with/resume home meds as and when able. T2DM: Hold metformin. Sliding scale insulin while in the hospital. A1c 7.5. Moderate persistent asthma/COPD: Continue home inhalers Depression: Continue home medications GERD: Continue home omeprazole, add Pepcid, see above. Hyperlipidemia: Continue home statin Morbid obesity: Encouraged lifestyle modification/weight loss. Continue to follow-up with PCP and nutrition. DVT prophylaxis: SCDs Disposition: Telemetry Full code Admission and Anticipated Discharge Date Admission Date: February 06, 2024 Subjective Patient was seen and examined at bedside. Patient was lying in bed, on room air, resting comfortably, not in any acute distress. Patient reports improvement in her slurred speech and improvement in her BLE extremity weakness Patient denies any numbness or tingling or any new weakness. Patient reports feeling better. Patient reports eating okay and moving bowels okay. Patient denies chest pain. Patient denies palpitation. Physical Exam Physical Exam: General- Not in distress. Head- atraumatic Eyes- PERRL. ENT- oropharynx clear Neck- supple, no JVD. Lungs- clear to auscultation no wheezing or crackles. Heart- regular rate and rhythm; no murmur, no gallop. Abdomen- normal bowel sounds, soft, nontender, no distension. Extremities- trace pretibial edema present, no erythema seen. Neuro- alert, oriented PERRL, no facial palsy; no dysarthria; motor 5/5 bilaterally;coordination of movements normal. Skin- warm & dry Results & Data Results & Data Vital Signs (Past 12 Hours) Vital Signs Temp Pulse Pulse Resp BP Pulse Ox O2 Del Method 02/07/24 11:23 36.7 C 73 18 169/94 H 93 Room Air 02/07/24 07:19 36.6 C 65 18 142/69 H 91 Room Air 02/07/24 03:37 36.5 C 75 18 159/95 H 95 Room Air 02/07/24 01:16 73
[2024-02-07 16:37] LABS: iSTAT Creatinine 0.8 mg/dl (0.6-1.3); iSTAT Hemoglobin 13.3 g/dl (12.0-16.0); iSTAT Ionized Calcium 1.12 mmol/l (1.12-1.32); iSTAT Potassium 3.5 mmol/L (3.3-5.0)
--- NOTE | 2024-02-07 16:45 | Neurology Consultation ---
Date of Consultation February 07, 2024 Assessment & Plan (1) Acute metabolic encephalopathy: likely in the setting of a UTI MRI of the brain with no acute abnormality CTA head and neck with no significant changes Plan - UTI being treated by Primary team -Continue supportive care -PT/OT/ST -Continue aspirin and statin for stroke prevention Telehealth Consultation Telehealth Information Telehealth Information: I performed this visit using a real-time telehealth connection between my location and the patients location ([facility]). After connecting through interactive tele-video, patient was identified by name and date of and/or wristband check.Patient (or authorized healthcare patient accounting representative) was informed that this was a telemedicine visit and it was being conducted confidentially over secure lines. My office door was closed and no one else was present in the room with me.Patient (or authorized healthcare patient accounting representative) provided consent to proceed with the visit, expressed an understanding of privacy and security of the telemedicine visit, and gave permission to have a hospital patient accounting representative in the room in order to assist with the visit and to conduct portions of the visit, as needed. I informed the patient (or authorized healthcare patient accounting representative) that I reviewed their record and presented the opportunity for them to ask any questions regarding the visit today. The patient agreed to participate. History of Present Illness Reason for Consultation: weakness, neurological deficits Requesting Physician: Adilson Hudson MD Attending Physician: Adilson Hudson MD History of Present Illness 58-year-old female patient with PMH of type II DM, HLD, COPD, morbid obesity, renal disease, history of migraines, tobacco use, depression, ambulates with a cane. The patient presents to the ED reporting slurred speech 2 days prior to presentation. On the day of the presentation her slurred speech has resolved however she was left with generalized weakness, she noted weakness in her legs bilaterally. Workup so far included CTA head and neck and MRI right of the head that were negative. She is currently being treated for a urinary tract infection Allergies Allergy/AdvReac Type Severity Reaction Status Date / Time aspirin Allergy Unknown CONTRAINDICATED Verified 10/24/22 20:15 WITH ASTHMA Home Medications Medication Instructions Recorded Confirmed Type acetaminophen 500 mg tablet 1,000 mg PO Q8 PRN Pain 10/24/22 02/06/24 History (Tylenol Extra Strength) bismuth subsalicylate 262 mg/15 mL 524 mg PO QID PRN .gi-symptoms 10/24/22 02/06/24 History oral suspension (Pepto-Bismol) clopidogrel 75 mg tablet (Plavix) 75 mg PO DAILY 10/24/22 02/06/24 History diclofenac sodium 1 % topical gel 4 g topical QID PRN Pain 10/24/22 02/06/24 History dicyclomine 20 mg tablet 20 mg PO QID PRN .abd cramping 10/24/22 02/06/24 History gabapentin 300 mg capsule 300 mg PO BID 10/24/22 02/06/24 History hydroxyzine HCl 50 mg tablet 50 mg PO QID PRN Anxiety 10/24/22 02/06/24 History ipratropium 20 mcg-albuterol 100 1 puff inhalation QID PRN 10/24/22 02/06/24 History mcg/actuation mist for inhalation Shortness Of Breath Or Wheezing (Combivent Respimat) meloxicam 15 mg tablet 15 mg PO DAILY 10/24/22 02/06/24 History metformin 500 mg tablet 500 mg PO BID 10/24/22 02/06/24 History mometasone-formoterol HFA 100 2 puff inhalation Q12H 10/24/22 02/06/24 History mcg-5 mcg/actuation aerosol inhaler (Dulera) montelukast 10 mg tablet 10 mg PO DAILY 10/24/22 02/06/24 History trroiinjbolf-bxwtkepe-seaffw tablet 1 tab PO DAILY 10/24/22 02/06/24 History omeprazole 40 mg capsule,delayed 40 mg PO DAILY 10/24/22 02/06/24 History release polyethylene glycol 3350 17 gram 17 g PO DAILY 10/24/22 02/06/24 History oral powder packet (Miralax) rosuvastatin 20 mg tablet 20 mg PO DAILY 10/24/22 02/06/24 History sertraline 100 mg tablet 100 mg PO DAILY 10/24/22 02/06/24 History sertraline 50 mg tablet 50 mg PO DAILY 10/24/22 02/06/24 History trazodone 100 mg tablet 200 mg PO HS 10/24/22 02/06/24 History varenicline 1 mg tablet (Chantix) 1 mg PO BID 10/24/22 02/06/24 History oxybutynin chloride 10 mg 10 mg PO DAILY 02/06/24 02/06/24 History tablet,extended release 24 hr Patient History Medical History Hypertension Tobacco abuse Dyslipidemia, goal LDL below 70 Chest pain Anxiety Asthma Surgical History No significant past surgical history Social History Smoking Status: Current some day smoker Tobacco Type: Cigarettes Cigarettes Per Day: "2 cigarettes per week"; Do You Dip or Chew Tobacco: No; Tobacco Cessation Education Requested by Patient: No Hx Alcohol Use: No Hx Substance Use: No Preferred Language: Mongolian Communication Ability: Effective Supervisor Color Paste Mixing Required: No Beliefs That Will Affect Care: None marital status: Unknown Current Living Situation: Other Current Living Situation Comment: daughter Other Information That Helps Us Care for You: No Feels Safe at Home: Yes Safety Concerns: Feels Safe At This Time Assistive Devices: Cane and Walker Review of Systems Constitutional: Patient denies weight loss, fever, chills, and night sweats Eyes: Patient denies change in vision, tearing, pain, and redness ENT: Patient denies pain, bleeding, rhinorrhea, and dysphagia Cardiovascular: Patient denies chest pain, palpitation, dyspnea at rest, and dyspnea with exertion Respiratory: Patient denies shortness of breath, cough, wheezing, and productive cough GI: Patient denies reflux, pain, constipation, and diarrhea Skin: Patient denies rash, dryness, and itching Allergies/Immune System: Patient denies rhinorrhea, seasonal allergies, reaction to current MEDS, and joint swelling Endocrine: Patient denies weight loss, weight gain, temperature intolerance, and excessive thirst Neurological: All negative unless mentioned in the HPI Physical Exam General Constitutional: Appearance normally developed,obese Head and face: normocephalic and atraumatic Eyes: no ptosis, no anisocoria, and no dysconjugate gaze Respiratory: normal effort Cardiovascular: regular rhythm and regular rate Abdomen: non distended Skin: no rashes, lesions, or ulcers noted Psychiatric: normal judgement and insight, normal mood, and normal affect NEUROLOGIC EXAMINATION: Mental Status:alert, oriented to time, place, person, normal recent memory, normal remote memory, normal attention span, normal concentration, normal language and normal fund of knowledge Cranial Nerves: CN 2 - no visual defect on confrontation and pupils round, equal, reactive to light CN 3, 4, 6 - extra-ocular movements intact and no nystagmus CN 5 - facial sensation intact CN 7 - no facial asymmetry CN 8 - intact hearing CN 9, 10 - palate symmetric, normal gag CN 11 - good shoulder shrug CN 12 - tongue midline MOTOR: Strength was at least antigravity throughout, Pronator drift was absent and There were no abnormal movements SENSATION: intact and symmetric to pinprick, light touch, vibration and joint position GAIT: stable, no ataxia and can perform tandem walking COORDINATION: no ataxia with finger to nose testing and heel to pitts testing REFLEXES: cannot assess over telemedicine Results & Data Vital Signs (Past 12 Hours) Vital Signs Temp Pulse Resp BP Pulse Ox O2 Del Method 02/07/24 15:04 36.8 C 61 18 156/90 H 94 Room Air 02/07/24 11:23 36.7 C 73 18 169/94 H 93 Room Air 02/07/24 07:19 36.6 C 65 18 142/69 H 91 Room Air Laboratory Results Abnormal lab results 02/06/24 02/06/24 02/07/24 Range/Units 16:31 16:35 01:06 Adams # (Auto) (0.11-0.59) K/uL POC Chloride 99 L (101-112) mmol/L Carbon Dioxide (21-32) mmol/L POC Total CO2 32 H (24-31) mmol/L POC Anion Gap 14.0 L (16-25) mmol/L Glucose 120 H (70-99(Fasting)) mg/dl POC Glucose 208 H (70-99) mg/dl POC Glucose (other) 123 H (70-99) mg/dl Hemoglobin A1c (4.5-5.6) % Calcium 8.3 L (8.6-10.3) mg/dl Magnesium 1.6 L (1.7-2.4) mg/dl Triglycerides (0-150) mg/dl VLDL Cholesterol, Calc (0-30) mg/dl 02/07/24 02/07/24 02/07/24 Range/Units 05:52 05:54 11:29 Adams # (Auto) 0.60 H (0.11-0.59) K/uL POC Chloride (101-112) mmol/L Carbon Dioxide 34 H (21-32) mmol/L POC Total CO2 (24-31) mmol/L POC Anion Gap (16-25) mmol/L Glucose 140 H (70-99(Fasting)) mg/dl POC Glucose 142 H 203 H (70-99) mg/dl POC Glucose (other) (70-99) mg/dl Hemoglobin A1c 7.5 H (4.5-5.6) % Calcium 8.3 L (8.6-10.3) mg/dl Magnesium (1.7-2.4) mg/dl Triglycerides 291 H (0-150) mg/dl VLDL Cholesterol, Calc 58 H (0-30) mg/dl 02/07/24 Range/Units 16:16 Adams # (Auto) (0.11-0.59) K/uL POC Chloride (101-112) mmol/L Carbon Dioxide (21-32) mmol/L POC Total CO2 (24-31) mmol/L POC Anion Gap (16-25) mmol/L Glucose (70-99(Fasting)) mg/dl POC Glucose 125 H (70-99) mg/dl POC Glucose (other) (70-99) mg/dl Hemoglobin A1c (4.5-5.6) % Calcium (8.6-10.3) mg/dl Magnesium (1.7-2.4) mg/dl Triglycerides (0-150) mg/dl VLDL Cholesterol, Calc (0-30) mg/dl Diagnostic Findings Chest X-Ray 02/06/24 16:10 SINGLE VIEW CHEST CLINICAL HISTORY: Strokelike symptoms. FINDINGS: An AP, portable, upright chest radiograph is compared to chest x-ray and chest CT dated 10/24/2022. The examination is degraded by portable technique and apical lordotic positioning. The heart is enlarged. There is prominence of the pulmonary vasculature. Chronic interstitial thickening is similar to previous. No airspace consolidation or large pleural effusion is identified. No pneumothorax is seen. The skeletal structures are osteopenic. The bony thorax is grossly intact. IMPRESSION: 1. Cardiomegaly with prominence of the pulmonary vasculature. Correlate clinically for evidence of fluid overload/congestive change. 2. No airspace consolidation or large pleural effusion is identified. ACT 112: Negative or not required by law. Electronically signed by: Mahesh Neal M.D. 02/06/2024 6:05 PM Brain MRI 02/06/24 19:53 Exam(s): MRI HEAD Without Contrast EXAM: MR Head Without Intravenous Contrast CLINICAL HISTORY: Reason for exam: slurred speech. TECHNIQUE: Magnetic resonance images of the head/brain without intravenous contrast in multiple planes. COMPARISON: No relevant prior studies available. FINDINGS: Brain: Minimal nonspecific white matter changes. No mass. No hemorrhage. No acute infarct. The flow voids of the base of the brain are intact. Ventricles: Unremarkable. No ventriculomegaly. Bones/joints: Unremarkable. No acute fracture. Sinuses: Unremarkable as visualized. No acute sinusitis. Mastoid air cells: Unremarkable as visualized. No mastoid effusion. Orbits: Unremarkable as visualized. IMPRESSION: No evidence of acute intracranial pathology. Minimal nonspecific white matter changes. Electronically signed by: Beatris Castillo MD 02/06/24 22:59 PM
[2024-02-07] MEDS ORDERED: Nursing to Pharmacy Communication SCH (19:15)
[2024-02-07] MEDS: traZODone HCL 100 MG TAB PO SCH (21:41)
[2024-02-07] MEDS: GABAPENTIN 300 MG CAP PO STA (22:20)
[2024-02-07] MEDS: GABAPENTIN 600 MG TAB PO SCH (22:47)
--- NOTE | 2024-02-07 23:14 | Communication Note ---
Date of Service: February 07, 2024
[2024-02-08 06:27] LABS: Basophils # (auto) 0.03 K/uL (0.00-0.20); Basophils % (auto) 0.4 %; Eosinophils # (auto) 0.25 K/uL (0.00-0.50); Eosinophils % (auto) 3.4 %; Hematocrit (blood only) 42.8 % (37.0-47.0); Hemoglobin 13.7 g/dl (12.0-16.0); Immature Granulocytes # (auto) 0.02 K/uL (0.01-0.20); Immature Granulocytes % (auto) 0.3 %; Mean Corpuscular Hemoglobin 28.1 pg (25.0-34.0); Mean Corpuscular Volume 87.9 fL (80.0-100.0); Mean Platelet Volume 10.8 fL (9.4-12.4); Monocytes # (auto) 0.57 K/uL (0.11-0.59); Monocytes % (auto) 7.8 %; Neutrophils # (auto) 4.54 K/uL (1.40-6.50); Neutrophils % (auto) 62.1 %; Platelet Count 153 K/uL (130-400); RDW Coefficient of Variation 13.1 % (11.5-14.5); RDW Standard Deviation 41.8 fL (36.4-46.3); Red Blood Count 4.87 M/uL (4.20-5.40); White Blood Count 7.31 K/ul (4.8-10.8)
[2024-02-08 06:41] LABS: BUN Creatinine Ratio 10.2 (10-20); Calcium 8.9 mg/dl (8.6-10.3); Creatinine Clr Calc Pharmacy 83.6 ml/min; Est GFR (African American) 82.8 ml/min; Est GFR (Non-African American) 71.4 ml/min; Potassium 3.8 mmol/L (3.5-5.1)
[2024-02-08] MEDS: GABAPENTIN 300 MG CAP PO SCH (08:06)
--- NOTE | 2024-02-08 13:14 | Discharge Summary ---
Date of Service February 08, 2024 Admission HPI Per Admitting Provider 58-year-old female with past medical history significant for type 2 diabetes, hyperlipidemia, moderate persistent asthma, COPD, morbid obesity, GERD, renal disease, classical migraine, PPD positive treated, history of tobacco abuse, depression, ambulates with cane at home presents with strokelike symptoms. Patient states last couple of Nights she had slurred speech. Today slurred speech is improved. But in the afternoon at 1:30 PM she noticed bilateral leg weakness more in the left leg. And having ambulatory dysfunction. Stroke workup with CTA head and neck and brain MRI are unremarkable. Complains of on and off left-sided chest pains. Currently she has mild chest pain. On and off shortness of breath. Currently breathing is okay. Also having headaches in the occipital region and also in the forehead region. Vision is okay. No runny nose or sore throat .No cough. No difficulty swallowing. No fevers. No nausea. No abdominal pain. Normal bowel and bladder movements. Hemodynamics are okay. Past medical history. As mentioned above. past surgical history. Colonoscopy. Dental surgery. Ligation of oviducts. Social history. Smokes 0.3 packs a day. Smoking for 45 years. No alcohol use. No drug use. Family history. Mother has stage IV breast cancer. Dementia. Diabetes. Rheumatoid arthritis. Father had rheumatoid arthritis. SD at age 58. Paternal aunt had breast cancer. Maternal grandmother had breast cancer. Maternal grandmother had heart disorder. Paternal grandfather had heart disorder. Admission Exam Per Admitting Provider Physical Exam: General- Not in distress. Head- atraumatic Eyes- PERRL. ENT- oropharynx clear Neck- supple, no JVD. Lungs- clear to auscultation no wheezing or crackles. Heart- regular rate and rhythm; no murmur, no gallop. Abdomen- normal bowel sounds, soft, nontender, no distension. Extremities- trace pretibial edema present, no erythema seen. Neuro- alert, oriented PERRL, no facial palsy; no dysarthria; motor 5/5 bilaterally;coordination of movements normal. No pronator drift. Can lift and hold lower extremities. Sensations somewhat diminished on left upper extremity. Position sense intact Skin- warm & dry Principal Diagnosis Atypical chest pain, musculoskeletal chest pain, hypomagnesemia Discharge Exam General: awake, alert, no apparent distress, morbidly obese, BMI 42.6, white female Head: Normocephalic, atraumatic ENT: PERRL, EOMI, no pharyngeal exudate, mucous membranes moist Chest: Clear to auscultation, on room air, no adventitious breath sounds Cardiac: Regular rate and rhythm, no murmur, no JVD, normal peripheral pulses, good capillary refill Abdominal: NABS x 4 quadrants, soft, nondistended, nontender to palpation, no rebound or guarding Extremities: Normal inspection, no peripheral edema or erythema, calfs nontender to palpation Psych: Normal mood and affect Neuro: AAO x 3, strength intact bilaterally and rated 5/5, no motor deficits, speech is clear, no peripheral sensory deficits Discharge Data Allergies Allergy/AdvReac Type Severity Reaction Status Date / Time aspirin Allergy Unknown CONTRAINDICATED Verified 10/24/22 20:15 WITH ASTHMA Consultations 02/06/24 19:58 ED Decision to Admit Stat 02/07/24 08:00 Consult Cardiology Routine Consult Neurology Routine Ordered Studies 02/06/24 16:10 CT head/brain wo con Stat CTA head w con [CT angio head w con] Stat CTA neck with con [CT angio neck with con] Stat 02/06/24 19:53 MRI Brain [MR brain wo con] Stat UNENHANCED CT OF THE BRAIN; CT ANGIOGRAM OF THE BRAIN; CT ANGIOGRAM OF THE NECK CLINICAL HISTORY: Neurologic deficit. Stroke like symptoms. Right-sided numbness. Gait instability. COMPARISON STUDY: CT angiogram of the head and neck dated 05/08/2021. TECHNIQUE: Unenhanced axial CT scan of the brain is performed. Subsequently, following the IV administration of 116 of Optiray 320, CT angiogram of the head and neck was performed from the aortic arch to the vertex. Images are reviewed in the axial, sagittal, and coronal planes. 3-D MIPS images are created and assessed. IV contrast was administered without complication. All measurements were calculated based on NASCET criteria. A dose lowering technique was utilized adhering to the principles of ALARA. CT DOSE: 1193. mGy.cm FINDINGS: Brain parenchyma: There is minimal microangiopathic change. There is no hemorrhage, mass effect, or evidence of acute territorial ischemia by CT criteria. There is no evidence of enhancing mass lesion on the angiogram phase images. The ventricles, sulci, and cisterns are normal in configuration. Sheets- white matter differentiation is preserved. No extra-axial fluid collection is seen. Thoracic aorta: Visualized portions of the thoracic aorta are normal in caliber. The aortic arch demonstrates bovine variant anatomy. Right carotid arterial system: The right common carotid artery is widely patent, as are the right internal and external carotid arteries. Left carotid arterial system: The left common carotid artery is widely patent, as are the left internal and external carotid arteries. Minimal calcified plaque is noted in the proximal ICA. Vertebral arteries: The vertebral arteries are widely patent bilaterally noting left-sided dominance. Subclavian arteries: Widely patent bilaterally. Intracranial vasculature: There is mild atherosclerotic calcification of the cav ernous carotid arteries. The internal carotid arteries are patent at the skull base, as are the anterior and middle cerebral arteries bilaterally. The vertebrobasilar system and posterior cerebral arteries are widely patent. The left vertebral artery is dominant. There is a right posterior communicating artery. There is no aneurysm, high-grade stenosis, or focal vessel cut off seen throughout the intracranial circulation. Jugular veins: Patent bilaterally. Dural sinuses: Patent. Lung apices: Partially visualized upper lobe lung parenchyma appears clear. Soft tissues: The visualized pharyngeal soft tissues are normal in appearance noting angiographic phase technique. The oropharyngeal airway appears widely patent. The salivary and thyroid glands are normal in appearance. No cervical lymphadenopathy is seen. Skeletal structures: The calvarium appears intact. The cervical spine is maintained noting multilevel spondylosis. Orbits: The bony orbits are intact. Orbital contents are normal as visualized. Sinuses and mastoids: There is mild mucosal thickening within the right sphenoid sinus and the maxillary antra. The remaining Paranasal sinuses are clear. The mastoid air cells are well pneumatized. IMPRESSION: 1. There is no hemorrhage, mass effect, or evidence of acute territorial ischemia by CT criteria. 2. Unremarkable CT angiogram of the brain. 3. Unremarkable CT angiogram of the neck. ACT 112: Negative or not required by law. Electronically signed by: Mahesh Neal M.D. 02/06/2024 4:32 PM [facility], [place] [phone] Magnetic Resonance Report Patient: JEROME OSORIO Admit Date: 02/06/24 MR#: [id number] Address[address]: [address] Acct ID:[id number] Address2: [address] Date: 1965 [facility] Zip: [place] [address] Age: 58 Location: ED Sex: F Room/Bed: Att Phy: Diagnosis: Stroke Alert Carrie Phy: Evaristo Barron MD Service Date: 02/06/24 [facility] Phy: Interpreting Phy: Beatris Castillo MDAdmit Phy: Ordering Phy: Michelle Mendoza MD cc: ~ Exam(s): MRI HEAD Without Contrast EXAM: MR Head Without Intravenous Contrast CLINICAL HISTORY: Reason for exam: slurred speech. TECHNIQUE: Magnetic resonance images of the head/brain without intravenous contrast in multiple planes. COMPARISON: No relevant prior studies available. FINDINGS: Brain: Minimal nonspecific white matter changes. No mass. No hemorrhage. No acute infarct. The flow voids of the base of the brain are intact. Ventricles: Unremarkable. No ventriculomegaly. Bones/joints: Unremarkable. No acute fracture. Sinuses: Unremarkable as visualized. No acute sinusitis. Mastoid air cells: Unremarkable as visualized. No mastoid effusion. Orbits: Unremarkable as visualized. IMPRESSION: No evidence of acute intracranial pathology. Minimal nonspecific white matter changes. Electronically signed by: Beatris Castillo MD 02/06/24 22:59 PM Dictated: 02/06/242258 Transcribed: 02/06/242258 Hospital Course (1) Stroke-like symptoms: (2) Hypomagnesemia: (3) Acute metabolic encephalopathy: (4) Chest pain: Plan 58-year-old female with past medical history significant for type 2 diabetes, hyperlipidemia, moderate persistent asthma, COPD, morbid obesity, GERD, renal disease, classical migraine, PPD positive s/p Rx, tobacco abuse, depression, ambulates with cane at home presents with strokelike symptoms. Pt reported slurred speech x last couple of night CULINARY CHEF and BLE weak (L>R) since afternoon on the day of arrival. She also complaints of on/off chest pain a/w on/off sob. She denies fever, abd pain. Reports normal B and B habits. She is being managed for the following: Strokelike symptoms had slurred speech last couple of nights CULINARY CHEF and BLE weakness on the day of arrival -- resolved CT head, CTA head and neck with no acute finding. MRI brain with no acute finding. A1c 7.5, LDL 43. Echo with EF of 55 to 60%, no interatrial septum noted. Left ventricular wall motion is normal. Sx improvement Speech consult. PT/OT consult. Neurology consult - rec plavix - pt is allergic to aspirin so was not continued Chest pain, rule out ACS Patient complaining of on and off chest pain associated with on and off shortness of breath. Troponin trend x 4 negative, EKG without acute ST or T changes. Echo as above. Cardiology evaluating- appreciate: planned outpatient f/u with Zio patch. Possible outpatient dobutamine stress echo. Follow-up with cardiology on discharge. Continue with home Plavix, has aspirin allergy. Pt reports no further Chest pain. PAYAM testing as an outpatient. - Added famotidine to home PPI regimen - pt tolerated without difficulty Other chronic medical conditions: Continue with/resume home meds as and when able. T2DM: Hold metformin. Sliding scale insulin while in the hospital. A1c 7.5. Moderate persistent asthma/COPD: Continue home inhalers Depression: Continue home medications GERD: Continue home omeprazole, add Pepcid, see above. Hyperlipidemia: Continue home statin Morbid obesity: Encouraged lifestyle modification/weight loss. Continue to follow-up with PCP and nutrition. DVT prophylaxis: SCDs Disposition: Telemetry Full code Total Time Total Time Spent Total Time Spent (In Minutes): 35 Discharge Plan Discharge Items Patient Disposition: Home - Self-Care Reason For Visit: STROKE LIKE SYMPTOMS Discharge Diagnosis: Chest pain ro ACS, hypomagnesemia Condition on Discharge: Good Activity: Resume your previous activity Lifting: Gradually increase as tolerated Bathing: No limitations Exercise/Sports: Rest today and Gradually increase as tolerated Driving/Machine Use: No limitations Non-emergency contact: Primary Care Provider and Tile M[employer] Hand Call non-emergency contact if: you have any medication questions and your temperature is above 101 Follow-up/Referrals: Evaristo Barron MD [Primary Care Provider] - (Date & Time 02/14/2024 2:40 PM Provider Evaristo Barron MD Department Family [facility] ) Johana Madison CRNP [Nurse Practitioner] - (The Cardiology office will contact you for a follow up appointment/ testing.) Diet: Carb Consistent or DM2 and Heart Healthy Addtl Attending Provider Instructions: You were admitted to [facility] due to stroke like symptoms and worked up for chest pain rule out acute coronary syndrome. During your stay here you were treated with supportive care, medications, electrolyte replacement and your symptoms improved. Imaging studies which were completed include Brain MRI, Head Ct and were normal. Medications: Continue taking you medications as prescribed. New medications include losartan for blood pressure control and famotidine for stomach acid reduction. Appointments: Follow up with PCP within 1 week, an appointment has been requested for you. Cardiology: follow up within 2 weeks, likely you will be evaluated for dobutamine stress echo. - You are being set up for zio patch as outpatient, these results will be reviewed by cardiology. If you do not receive the zio patch monitor in the mail within 2 weeks then call the cardiology office. Please call sleep medicine with richy to get scheduled for an outpatient nocturnal sleep study test to see if you need a CPAP mask at night. Pending Studies at Discharge: No Stand-Alone Forms: My [facility] [employer], Smoking Cessation Medications and DC Order Prescriptions: New famotidine 20 mg Tablet 20 mg PO QAM 30 Days Qty: 30 0RF losartan 25 mg Tablet 25 mg PO QAM 30 Days Qty: 30 0RF Continued metformin 500 mg Tablet 500 mg PO BID polyethylene glycol 3350 [Miralax] 17 gram Powder In Packet 17 g PO DAILY sertraline 100 mg Tablet 100 mg PO DAILY Rx Instructions: TAKE WITH 50 MG FOR TOTAL DOSE OF 150 MG hydroxyzine HCl 50 mg Tablet 50 mg PO QID PRN (Reason: Anxiety) clopidogrel [Plavix] 75 mg Tablet 75 mg PO DAILY omeprazole 40 mg Capsule,Delayed Release(Dr/Ec) 40 mg PO DAILY acetaminophen [Tylenol Extra Strength] 500 mg Tablet 1,000 mg PO Q8 PRN (Reason: Pain) trazodone 100 mg Tablet 200 mg PO HS dicyclomine 20 mg Tablet 20 mg PO QID PRN (Reason: .abd cramping) bismuth subsalicylate [Pepto-Bismol] 262 mg/15 mL Suspension 524 mg PO QID PRN (Reason: .gi-symptoms) gabapentin 300 mg Capsule 300 mg PO UD Patient Comments: 300 mg in AM, 600 mg in PM as per px montelukast 10 mg Tablet 10 mg PO DAILY sertraline 50 mg Tablet 50 mg PO DAILY Rx Instructions: TAKE WITH 100 MG FOR TOTAL DOSE OF 150 MG [id number] Tablet 1 tab PO DAILY rosuvastatin 20 mg Tablet 20 mg PO DAILY varenicline [Chantix] 1 mg Tablet 1 mg PO BID diclofenac sodium 1 % Gel 4 g TOPICAL QID PRN (Reason: Pain) Rx Instructions: bilateral knees Dulera 100-5 mcg/actuation Hfa Aerosol Inhaler 2 puff INHALATION Q12H Combivent Respimat 20-100 mcg/actuation Mist 1 puff INHALATION QID PRN (Reason: Shortness Of Breath Or Wheezing) Rx Instructions: space evenly during waking hours oxybutynin chloride 10 mg tablet extended release 24hr 10 mg PO DAILY Discontinued meloxicam 15 mg Tablet 15 mg PO DAILY Discharge Orders: Discharge Order (Routine); Ordered 02/08/24 Ordered By: Oma House/Other Patient Handouts: Managing Type 2 Diabetes Admission Data Admit Date/Time: 02/06/24 23:59 Attending Provider: Adilson Hudson Admit Provider: Adiel Garrett Primary Care Provider: Evaristo Barron Other Providers: Adiel Garrett; Ela Fleming; Renzo Milian; Ela Smith; Lizandro Wilkins; Telly García; Humberto Bianchi; Jose Sol; Torrie Aleman; Paresh Morel; Jackson Rodriguez; Kassandra Patel; Ortiz Hernández; Cailin Tejada; Ann Green; Jose Pierre Other Interventions: Discharge Summary Assessment (RN) Last Done: 02/08/24 12:14 Supervising Physician Co-Signing Physician Notes Patient was seen and examined at bedside for follow-up of his strokelike symptoms and chest pain rule out ACS. Patient denies any further chest pain, reports feeling better, no new weakness or numbness or tingling. Patient reports improvement in her garbled speech and BLE weakness. Neurology evaluated, patient on Plavix and statin. Losartan added for hypertension management this admission. Patient is allergic to aspirin. On examination: Patient on room air, heart/lung/abdomen examination fairly WNL. Rest of the examination as above.. I have seen and examined the patient and have discussed the case with the provider above. I agree with the assessment and plan as stated.
--- NOTE | 2024-02-08 13:39 | Electrocardiogram Report ---
Test Reason : Blood Pressure : / mmHG Vent. Rate : 071 BPM Atrial Rate : 071 BPM P-R Int : 158 ms QRS Dur : 104 ms QT Int : 456 ms P-R-T Axes : 039 -52 031 degrees QTc Int : 495 ms Normal sinus rhythm with sinus arrhythmia Incomplete right bundle branch block Left anterior fascicular block Poor R wave progression, consider anterior AK vs. lead placement vs. LVH Abnormal ECG When compared with ECG of 07-FEB-2024 05:59, No significant change was found Confirmed by Jori Segovia ([id number]) on 02/08/2024 1:39:07 PM Referred By: REFERRED SELF Confirmed By:Igor Segovia
[2024-02-08] MEDS ORDERED: GABAPENTIN 600 MG TAB PO SCH (21:00)
--- NOTE | 2024-02-09 12:12 | Coding Query ---
CODING QUERY To promote full compliance with coding requirements relating to patient care, provider participation is requested in all cases of hospital fellow uncertainty. Please assist us with the question(s) below: Coding Question(s): Principal Diagnosis: "that condition established after study, to be chiefly responsible for occasioning the admission of the patient to the hospital for care." Co-Existing Principal Diagnosis: "when two or more diagnoses equally meet the criteria for principal diagnosis as determined by the circumstances of admission, diagnostic work up, and/or therapy provided, and the Alphabetic Index, Tabular List, or another coding guideline does not provide sequencing direction, any one of the diagnoses may be sequenced first." "When the physician has documented what appears to be a current diagnosis in the body of the record, but has not included the diagnosis in the final diagnostic statement, the physician should be asked whether the diagnosis should be added." (Source Coding Clinic 2 QTR90. p3-4) 58-year-old female presents with "strokelike symptoms." The diagnosis of strokelike symptoms cannot be assumed to mean TIA/CVA by hospital fellow. The diagnosis of strokelike symptoms simply codes to "unspecified symptoms and signs involving the nervous system." This diagnosis is a symptom code and highly suspect for denial based on lack of clinical necessity. The medical record reflects the following clinical evidence: Clinical Indicators: Resolving slurred speech and left greater than right leg weakness, presenting NIH stroke score 4 has since improved to a 2, Head CT and brain MRI are unremarkable for acute ischemic CVA Risk Factor(s): Age, hyperlipidemia, hypertension, diabetes, Treatment: Head CT, brain MRI, neurology consultation, Plavix, NIH stroke score every shift Please clarify and document your clinical opinion in the progress notes and discharge summary including the definitive and/or presumptive diagnosis, (suspected or probable), related to the above clinical findings. Please include clinical findings supporting your diagnosis. _X___Possible TIA ____Metabolic Encephalopathy ____Other explanation of clinical findings ____Unable to determine (no explanation for clinical findings) Physician's Response(s): Thank you Mica CABRERA
== END 2024-02-08 12:50 | disposition home or self-care (01) | DRG 69 ==
LOC: ED 16:07 → SUATTDRO 23:59 → 2S 23:59

== ENCOUNTER 2025-07-29 19:51 | Inpatient (IN) ==
--- NOTE | 2025-07-29 20:10 | Emergency Department Note ---
Impression & Plan Asthma exacerbation, Shortness of breath, URI (upper respiratory infection) ED Provider Note NAME: JEROME ARAIZA AGE: 60 SEX: F : 1965 ARRIVES VIA: Ambulance INFORMANT: Patient ED PROVIDER(S): Juan Francisco Gonsalez DO CHIEF COMPLAINT: Cough congestion HPI: Patient is a 60-year-old female with a past medical history of asthma and anxiety who presents to the ER for cough and congestion which has been present for the past 3 weeks. She notes it has gotten worse over the past several days. She does note some blood-tinged sputum. Denies any blood thinners. No recent trips or travel, swelling of the calves coughing up blood history of blood clots or clotting disorders. She notes that she has been on 50 mg of steroids which she just started recently. She does believe that she is on a antibiotic. Denies any shortness of breath with the exception of bad coughing fits. Pain with coughing. ADDITIONAL HISTORY OBTAINED: Per HPI Chronic Medical/Social Conditions Affecting Care: Per HPI PAST MEDICAL HISTORY:See Below PAST SURGICAL HISTORY:See Below FAMILY HISTORY:See Below SOCIAL HISTORY:See Below HOME MEDICATIONS:See Below ALLERGIES:See Below VITALS:See Below PHYSICAL EXAMINATION: GENERAL: Sitting up in bed, alert, well appearing, well nourished, no distress, non-toxic, intermittent cough EYE EXAM: normal conjunctiva. OROPHARYNX: mucous membranes are moist NECK: supple, no nuchal rigidity, no adenopathy, non-tender LUNGS: Clear to auscultation. Normal chest wall mechanics HEART: no murmurs, S1 normal and S2 normal ABDOMEN: abdomen soft, non-tender, normo-active bowel sounds, no masses, no rebound or guarding. UPPER EXTREMITIES: upper extremities are grossly normal. LOWER EXTREMITIES: No pitting edema. Calves are equal bilaterally NEURO EXAM: Normal sensorium, cranial nerves II-XII grossly intact, normal speech, no gross weakness of arms, no gross weakness of legs. MEDICAL DECISION MAKING: Patient is a 60-year-old female who presents to the ER with above-stated complaint. IV was established and blood work was obtained. Labs show mild leukocytosis of 11,000. No significant anemia. D-dimer was negative and low risk patient will not be pursued any further. BMP with mild hypokalemia at 3.2. This was repleted orally. LFTs bilirubin and troponin was negative. Lipase unremarkable. Flu COVID and RSV was negative. Patient was placed on 2 L nasal cannula due to the hypoxia. Was given IV steroids and neb treatments. Case was discussed with the hospitalist for further evaluation management treatment. Consults/Care Managements Discussions: Per MDM Triage Nursing notes reviewed. Limited review of prior medical records performed Vital Signs: reviewed and remarkable for no significant abnormalities Differential diagnosis: Differential diagnoses includes but is not limited to pneumonia, bronchitis, COPD/Asthma exacerbation, pneumothorax, pulmonary embolism, congestive heart failure, acute coronary syndrome ER treatment provided: See below Diagnostics interpreted by me include EKG and cardiac monitoring as listed below: -Cardiac Monitoring: An order was placed for continuous cardiac monitoring. The monitor shows a rate of 80 with sinus rhythm. -ECG: Sinus rhythm rate 78 Left axis No PVCs QTc 478 -Laboratory studies:Interpreted by me as stated above in MDM and shown below. Imaging studies: Xrays: As interpreted by me: Portable AP upright 1 view of the chest shows no focal infiltrate CTs show: none Procedures:none Critical Care: I have personally spent 33 minutes of critical care time in the direct management of this patient. This includes bedside care, interpretation of diagnostic studies, and testing, discussion with consultants, patient, and family members, and other required patient management activities. This 33 minutes is in excess of all separately billable procedures. Past Med/Surg History Problem List (Updated 07/29/25 @ 23:15 by Juan Francisco Gonsalez DO) URI (upper respiratory infection) (Acute) Shortness of breath (Acute) Asthma exacerbation (Acute) Hypokalemia (Acute) Acute bronchitis, complicated (Acute) Hyperglycemia (Acute) UTI (urinary tract infection) (Acute) Stroke-like symptom Popliteal cyst (Acute) Leg pain, right (Acute) TIA (transient ischemic attack) (Acute) No significant past surgical history Anxiety (Chronic) Asthma (Chronic) Sepsis Fever (Acute) Tachycardia (Acute) Pneumonia (Acute) Back pain (Chronic) Depression (Chronic) Medical History Acute metabolic encephalopathy Hypomagnesemia Chest pain Stroke-like symptoms Shortness of breath Hypertension Tobacco abuse Dyslipidemia, goal LDL below 70 Chest pain Social History Smoking Status: Current some day smoker Tobacco Type: Cigarettes Cigarettes Per Day: "2 cigarettes per week"; Do You Dip or Chew Tobacco: No; Hx Alcohol Use: No Hx Substance Use: No Preferred Language: Congolese Communication Ability: Effective Alliance Consultant Required: No Beliefs That Will Affect Care: None marital status: Unknown Current Living Situation: Family and Other Current Living Situation Comment: lives in an apartment with her daughter Feels Safe at Home: Yes Assistive Devices: Cane and Walker Allergies Allergies Allergy/AdvReac Type Severity Reaction Status Date / Time aspirin Allergy Unknown CONTRAINDICATED Verified 01/17/25 14:35 WITH ASTHMA Home Meds Home Medications Medication Instructions Recorded Confirmed acetaminophen 500 mg tablet 1,000 mg PO Q8 PRN Pain 10/24/22 11/17/24 (Tylenol Extra Strength) bismuth subsalicylate 262 mg/15 mL 524 mg PO QID PRN .gi-symptoms 10/24/22 11/17/24 oral suspension (Pepto-Bismol) diclofenac sodium 1 % topical gel 4 g topical QID PRN Pain 10/24/22 11/17/24 dicyclomine 20 mg tablet 20 mg PO QID PRN .abd cramping 10/24/22 11/17/24 gabapentin 300 mg capsule 300 mg PO TID 10/24/22 11/17/24 hydroxyzine HCl 50 mg tablet 50 mg PO QID PRN Anxiety 10/24/22 11/17/24 metformin 500 mg tablet 1,000 mg PO BID 10/24/22 11/17/24 mometasone-formoterol HFA 100 2 puff inhalation Q12H 10/24/22 11/17/24 mcg-5 mcg/actuation aerosol inhaler (Dulera) montelukast 10 mg tablet 10 mg PO DAILY 10/24/22 11/17/24 omeprazole 40 mg capsule,delayed 40 mg PO DAILYBB 10/24/22 11/17/24 release polyethylene glycol 3350 17 gram 17 g PO DAILY 10/24/22 11/17/24 oral powder packet (Miralax) rosuvastatin 20 mg tablet 20 mg PO DAILY 10/24/22 11/17/24 sertraline 100 mg tablet 100 mg PO DAILY 10/24/22 11/17/24 sertraline 50 mg tablet 50 mg PO DAILY 10/24/22 11/17/24 trazodone 100 mg tablet 200 mg PO HS 10/24/22 11/17/24 varenicline tartrate 1 mg tablet 1 mg PO BID 10/24/22 11/17/24 (Chantix) oxybutynin chloride 10 mg 10 mg PO DAILY 02/06/24 11/17/24 tablet,extended release 24 hr chlorthalidone 25 mg tablet 25 mg PO DAILY 03/15/24 11/17/24 famotidine 20 mg tablet 20 mg PO DAILY 03/15/24 11/17/24 losartan 50 mg tablet 50 mg PO DAILY 03/15/24 11/17/24 meloxicam 15 mg tablet 15 mg PO DAILY 03/15/24 11/17/24 Bifidobacterium infantis 4 mg 4 mg PO DAILY 11/17/24 11/17/24 capsule (Align (B.infantis)) glucosamine 750 [id number] 1 tab PO QAM 11/17/24 11/17/24 no1 644 mg-C 30 mg-khari 1 mg tablet (Osteo Bi-Flex Triple Strength) metoprolol succinate 25 mg 12.5 mg PO QAM 11/17/24 11/17/24 tablet,extended release 24 hr rldpcktg-[id number]-tbai 8 mg-folic 400 1 tab PO DAILY 11/17/24 11/17/24 mcg-K 50 mcg-lutein 300 mcg tablet (Centrum Silver Women) vitamin B complex 1 tab PO DAILY 11/17/24 11/17/24 Bifidobacterium infantis 4 mg 4 mg PO QAM 01/06/25 01/06/25 capsule Stress Releaf 2 cap PO QAM 01/06/25 01/06/25 acetaminophen 500 mg tablet 1,000 mg PO TID PRN Pain 01/06/25 01/06/25 chlorthalidone 25 mg tablet 25 mg PO QAM 01/06/25 01/06/25 cholecalciferol (vitamin D3) 25 75 mcg PO DAILY 01/06/25 01/06/25 mcg (1,000 unit) tablet (Vitamin D3) dicyclomine 20 mg tablet 20 mg PO Q6 01/06/25 01/06/25 empagliflozin 10 mg tablet 10 mg PO QAM 01/06/25 01/06/25 (Jardiance) famotidine 20 mg tablet 20 mg PO QAM 01/06/25 01/06/25 gabapentin 300 mg capsule 300 mg PO TID 01/06/25 01/06/25 hydroxyzine HCl 50 mg tablet 50 mg PO QID PRN Anxiety 01/06/25 01/06/25 losartan 50 mg tablet 50 mg PO QAM 01/06/25 01/06/25 metformin 500 mg tablet,extended 1,000 mg PO BIDM 01/06/25 01/06/25 release 24 hr metoprolol succinate 25 mg 12.5 mg PO QAM 01/06/25 01/06/25 tablet,extended release 24 hr mometasone-formoterol HFA 100 2 puff inhalation AMHS 01/06/25 01/06/25 mcg-5 mcg/actuation aerosol inhaler (Dulera) montelukast 10 mg tablet 10 mg PO QAM 01/06/25 01/06/25 elhydijl-dmqt-zfrj 8 mg-folic 400 1 tab PO DAILY 01/06/25 01/06/25 mcg-K 50 mcg-lutein 300 mcg tablet (Centrum Silver Women) oxybutynin chloride 10 mg 10 mg PO DAILY 01/06/25 01/06/25 tablet,extended release 24 hr phytonadione (vitamin K1) 100 mcg 100 mcg PO UD 01/06/25 01/06/25 tablet polyethylene glycol 3350 17 17 g PO DAILY PRN Constipation 01/06/25 01/06/25 gram/dose oral powder rosuvastatin 20 mg tablet 20 mg PO DAILY 01/06/25 01/06/25 sertraline 100 mg tablet 100 mg PO QAM 01/06/25 01/06/25 sertraline 50 mg tablet 50 mg PO QAM 01/06/25 01/06/25 trazodone 100 mg tablet 200 mg PO HS 01/06/25 01/06/25 varenicline tartrate 1 mg tablet 1 mg PO AMHS 01/06/25 01/06/25 vitamin A 2,400 mcg capsule 2,400 mcg PO DAILY 01/06/25 01/06/25 vitamin B complex 1 cap PO QAM 01/06/25 01/06/25 vitamin E 268 mg (400 unit) capsule 268 mg PO DAILY 01/06/25 01/06/25 Previous Rx's Medication Instructions Recorded clopidogrel 75 mg tablet 75 mg PO QAM #30 tabs 01/08/25 diclofenac sodium 1 % topical gel 2 g topical QID PRN Right knee 01/08/25 pain #100 grams meloxicam 15 mg tablet 15 mg PO QAM PRN moderate to 01/08/25 severe pain #0 tabs omega 6-fqz-dzn-fish oil 1,200 mg 1 cap PO BID #60 caps 01/08/25 (144 mg-216 mg) capsule (Fish Oil) pantoprazole 40 mg tablet,delayed 40 mg PO QAM #30 tabs 01/08/25 release Results & Data (ED) Vital Signs Vital Signs - 24 hr 07/29/25 19:57 07/29/25 20:00 07/29/25 20:00 Temperature 36.8 C Temperature Source Oral Pulse Rate 82 79 Pulse Rate [Apical] Respiratory Rate 16 Respiratory Effort / Characteristics Non-Labored Spontaneous Respiratory Depth Normal Respiratory Pattern Regular Blood Pressure 113/77 Blood Pressure [Right Arm] Blood Pressure Mean 89 Blood Pressure Mean [Right Arm] Pulse Oximetry 96 Oxygen Delivery Method Room Air Room Air Oxygen Flow Rate Sepsis Recent Fever Within 48 Hours Yes Sepsis New/Unexplained Change in Mental Status No Sepsis Action Taken by Nursing No Action Required Oxygen Flow Rate - Titration Pulse Oximetry Post Tiitration 07/29/25 20:06 07/29/25 20:42 07/29/25 21:00 Temperature Temperature Source Pulse Rate Pulse Rate [Apical] 75 Respiratory Rate 20 Respiratory Effort / Characteristics Non-Labored Spontaneous Respiratory Depth Normal Respiratory Pattern Regular Blood Pressure Blood Pressure [Right Arm] 97/61 L Blood Pressure Mean Blood Pressure Mean [Right Arm] 73 Pulse Oximetry 96 89 L 95 Oxygen Delivery Method Room Air Nasal Cannula Nasal Cannula Oxygen Flow Rate 0 2 Sepsis Recent Fever Within 48 Hours Sepsis New/Unexplained Change in Mental Status Sepsis Action Taken by Nursing Oxygen Flow Rate - Titration 2 Pulse Oximetry Post Tiitration 96 Laboratory Data 07/29/25 20:02 07/29/25 20:02 Lab Results 07/29/25 07/29/25 Range/Units 20:00 20:02 WBC 11.81 H (4.8-10.8) K/ul RBC 4.67 (4.20-5.40) M/uL Hgb 13.3 (12.0-16.0) g/dL Hct 41.7 (37.0-47.0) % MCV 89.3 (80.0-100.0) fL MCH 28.5 (25.0-34.0) pg MCHC 31.9 L (32.0-36.0) g/dL RDW Std Deviation 43.8 (36.4-46.3) fL RDW Coeff of [place]ara 13.6 (11.5-14.5) % Plt Count 157 (130-400) K/uL MPV 9.8 (9.4-12.4) fL Immature Gran % (Auto) 0.5 % Neut % (Auto) 72.3 % Lymph % (Auto) 20.4 % Morrow % (Auto) 5.2 % Eos % (Auto) 1.3 % Baso % (Auto) 0.3 % Neut # (Auto) 8.54 H (1.40-6.50) K/uL Lymph # (Auto) 2.41 (1.20-3.40) K/uL Morrow # (Auto) 0.61 H (0.11-0.59) K/uL Eos # (Auto) 0.15 (0.00-0.50) K/uL Baso # (Auto) 0.04 (0.00-0.20) K/uL Immature Gran # (Auto) 0.06 (0.01-0.20) K/uL D-Dimer 310 (0-500) ug/L FEU Sodium 137 (136-145) mmol/L Potassium 3.2 L (3.5-5.1) mmol/L Chloride 99 (98-107) mmol/L Carbon Dioxide 28 (21-32) mmol/L Anion Gap 10 (3-11) BUN 21 (6-23) mg/dl Creatinine 1.00 (0.6-1.2) mg/dl Est Cr Clr Drug Dosing 71.3 ml/min eGFR 63.70 BUN/Creatinine Ratio 21.0 H (10-20) Glucose 196 H (70-99(Fasting)) mg/dl Calcium 9.1 (8.6-10.3) mg/dl Total Bilirubin 0.5 (0.2-1.0) mg/dl AST 17 (13-39) U/L ALT 17 (7-52) U/L Alkaline Phosphatase 72 (34-104) U/L Troponin I High Sens 8.5 (0-14) pg/ml Total Protein 7.0 (6.0-8.3) gm/dl Albumin 3.8 (3.4-5.0) gm/dl Globulin 3.2 (2.5-4.0) gm/dl Albumin/Globulin Ratio 1.2 (0.9-2) Lipase 15 (11-82) U/L SARS-CoV-2 (PCR) NEGATIVE (Negative) Influenza Type A (PCR) Negative (Neg) Influenza Type B (PCR) Negative (Neg) RSV (RT-PCR) Negative (Neg) Administered Medications Discontinued Medications Albuterol (Albuterol 0.083% Nebu Soln 3 Ml Vial) 7.5 mg NEB NOW STA; Protocol Stop: 07/29/25 21:09 Last Admin: 07/29/25 21:18 Dose: 7.5 mg Documented By: ROSAURA Methylprednisolone (Methylprednisolone 125 Mg/2 Ml Vial) 40 mg IV NOW STA Stop: 07/29/25 21:09 Last Admin: 07/29/25 21:18 Dose: 40 mg Documented By: ROSAURA Potassium Chloride (Potassium Chloride 10 Meq Tabcr) 40 meq PO NOW STA Stop: 07/29/25 21:09 Last Admin: 07/29/25 21:13 Dose: 40 meq Documented By: ROSAURA Imaging Data Radiologist's Impression: Chest X-Ray 07/29/25 20:05 Exam(s): XR CXR 1 VIEW EXAM: XR Chest, 1 View CLINICAL HISTORY: Chest pain, nonspecific. TECHNIQUE: Frontal view of the chest. COMPARISON: XR Chest dated 07/24/2025 FINDINGS: Lungs: No definite focal airspace consolidation, accounting for overlying soft tissues. The bronchovascular markings are stable without radiographic evidence for florid CHF. Pleural space: No significant abnormality. No pneumothorax. No large pleural effusion. Heart: The cardiac silhouette is within normal limits, accounting for portable lordotic technique and overlying prominent soft tissues. Mediastinum: No significant abnormality identified. The trachea is midline. Bones/joints: No significant abnormality. No acute fracture. IMPRESSION: No definite focal airspace consolidation, accounting for overlying soft tissues. The bronchovascular markings are stable without radiographic evidence for florid CHF. No pleural effusion or pneumothorax. Electronically signed by: Hang Colmenares MD 07/29/25 21:12 PM Discharge Plan Visit Data Chief Complaint: Shortness of Breath/Dyspnea Stated Complaint: SOB ED Provider: Juan Francisco Gonsalez Discharge Problem: Asthma exacerbation, Shortness of breath, URI (upper respiratory infection) Condition: Serious Forms Stand Alone Forms: My [facility] Prescriptions Prescriptions: No Action metformin 500 mg Tablet 1,000 mg PO BID polyethylene glycol 3350 [Miralax] 17 gram Powder In Packet 17 g PO DAILY sertraline 100 mg Tablet 100 mg PO DAILY Rx Instructions: TAKE WITH 50 MG FOR TOTAL DOSE OF 150 MG hydroxyzine HCl 50 mg Tablet 50 mg PO QID PRN (Reason: Anxiety) omeprazole 40 mg Capsule,Delayed Release(Dr/Ec) 40 mg PO DAILYBB acetaminophen [Tylenol Extra Strength] 500 mg Tablet 1,000 mg PO Q8 PRN (Reason: Pain) trazodone 100 mg Tablet 200 mg PO HS dicyclomine 20 mg Tablet 20 mg PO QID PRN (Reason: .abd cramping) bismuth subsalicylate [Pepto-Bismol] 262 mg/15 mL Suspension 524 mg PO QID PRN (Reason: .gi-symptoms) gabapentin 300 mg Capsule 300 mg PO TID Patient Comments: 300 mg in AM, 600 mg in PM as per px montelukast 10 mg Tablet 10 mg PO DAILY sertraline 50 mg Tablet 50 mg PO DAILY Rx Instructions: TAKE WITH 100 MG FOR TOTAL DOSE OF 150 MG rosuvastatin 20 mg Tablet 20 mg PO DAILY varenicline tartrate [Chantix] 1 mg Tablet 1 mg PO BID diclofenac sodium 1 % Gel 4 g TOPICAL QID PRN (Reason: Pain) Rx Instructions: bilateral knees Dulera 100-5 mcg/actuation Hfa Aerosol Inhaler 2 puff INHALATION Q12H losartan 50 mg tablet 50 mg PO DAILY meloxicam 15 mg tablet 15 mg PO DAILY chlorthalidone 25 mg tablet 25 mg PO DAILY famotidine 20 mg tablet 20 mg PO DAILY oxybutynin chloride 10 mg tablet extended release 24hr 10 mg PO DAILY vitamin B complex Tablet 1 tab PO DAILY metoprolol succinate 25 mg tablet extended release 24 hr 12.5 mg PO QAM Align (B.infantis) 4 mg Capsule 4 mg PO DAILY Centrum Silver Women 8 mg iron-400 mcg-50 mcg Tablet 1 tab PO DAILY Osteo Bi-Flex Triple Strength 750 mg-644 mg- 30 mg-1 mg Tablet 1 tab PO QAM trazodone 100 mg tablet 200 mg PO HS Jardiance 10 mg tablet 10 mg PO QAM sertraline 100 mg tablet 100 mg PO QAM Rx Instructions: TAKE WITH 50 MG = 150 MG TOTAL DOSE hydroxyzine HCl 50 mg tablet 50 mg PO QID PRN (Reason: Anxiety) sertraline 50 mg tablet 50 mg PO QAM Rx Instructions: TAKE WITH 100 MG = 150 TOTAL DOSE montelukast 10 mg tablet 10 mg PO QAM oxybutynin chloride 10 mg tablet extended release 24hr 10 mg PO DAILY gabapentin 300 mg capsule 300 mg PO TID rosuvastatin 20 mg tablet 20 mg PO DAILY varenicline tartrate 1 mg tablet 1 mg PO AMHS chlorthalidone 25 mg tablet 25 mg PO QAM metoprolol succinate 25 mg tablet extended release 24 hr 12.5 mg PO QAM Dulera 100-5 mcg/actuation HFA aerosol inhaler 2 puff INHALATION AMHS losartan 50 mg tablet 50 mg PO QAM famotidine 20 mg tablet 20 mg PO QAM metformin 500 mg tablet extended release 24 hr 1,000 mg PO BIDM polyethylene glycol 3350 17 gram/dose powder 17 g PO DAILY PRN (Reason: Constipation) acetaminophen 500 mg Tablet 1,000 mg PO TID PRN (Reason: Pain) dicyclomine 20 mg tablet 20 mg PO Q6 cholecalciferol (vitamin D3) [Vitamin D3] 25 mcg (1,000 unit) Tablet 75 mcg PO DAILY Centrum Silver Women 8 mg iron-400 mcg-50 mcg Tablet 1 tab PO DAILY Bifidobacterium infantis 4 mg Capsule 4 mg PO QAM vitamin E 268 mg (400 unit) Capsule 268 mg PO DAILY Rx Instructions: PT TAKES CHEWABLE TABLETS vitamin B complex Capsule 1 cap PO QAM vitamin A 2,400 mcg Capsule 2,400 mcg PO DAILY phytonadione (vitamin K1) 100 mcg Tablet 100 mcg PO UD Stress Releaf 2 cap PO QAM clopidogrel 75 mg Tablet 75 mg PO QAM Qty: 30 0RF pantoprazole 40 mg Tablet,Delayed Release (Dr/Ec) 40 mg PO QAM Qty: 30 0RF diclofenac sodium 1 % gel 2 g topical QID PRN (Reason: Right knee pain) Qty: 100 0RF Rx Instructions: apply to single elbow, wrist or hand; for hand includes palm/fingers/back of hand meloxicam 15 mg tablet 15 mg PO QAM PRN (Reason: moderate to severe pain) Qty: 0 0RF omega 3-azv-mkp-fish oil [Fish Oil] 1,200 (144-216) mg capsule 1 cap PO BID Qty: 60 0RF Referrals Referrals: Evaristo Barron MD [Primary Care Provider] - Discharge Problem: Asthma exacerbation Qualifiers: Asthma severity: unspecified severity Asthma persistence: unspecified Qualified Code(s): J45.901 - Unspecified asthma with (acute) exacerbation URI (upper respiratory infection) Qualifiers: URI type: unspecified URI Qualified Code(s): J06.9 - Acute upper respiratory infection, unspecified
[2025-07-29 20:21] LABS: Hematocrit (blood only) 41.7 % (37.0-47.0); Hemoglobin 13.3 g/dL (12.0-16.0); Immature Granulocytes # (auto) 0.06 K/uL (0.01-0.20); Immature Granulocytes % (auto) 0.5 %; Mean Corpuscular Hemoglobin 28.5 pg (25.0-34.0); Mean Corpuscular Volume 89.3 fL (80.0-100.0); Platelet Count 157 K/uL (130-400); RDW Standard Deviation 43.8 fL (36.4-46.3); Red Blood Count 4.67 M/uL (4.20-5.40); White Blood Count 11.81 K/ul (4.8-10.8)
[2025-07-29 20:40] LABS: Alanine Aminotransferase 17.0 U/L (7-52); Albumin Globulin Ratio 1.2 (0.9-2); Albumin Level 3.8 gm/dl (3.4-5.0); Alkaline Phosphatase 72.0 U/L (34-104); Anion Gap 10.0 (3-11); Bilirubin,Total 0.5 mg/dl (0.2-1.0); Blood Urea Nitrogen 21.0 mg/dl (6-23); Calcium 9.1 mg/dl (8.6-10.3); Carbon Dioxide 28.0 mmol/L (21-32); Chloride 99.0 mmol/L (98-107); Creatinine Clr Calc Pharmacy 71.3 ml/min; Globulin 3.2 gm/dl (2.5-4.0); Glucose 196.0 mg/dl (70-99(Fasting)); Lipase 15.0 U/L (11-82); Potassium 3.2 mmol/L (3.5-5.1); Sodium 137.0 mmol/L (136-145); Total Protein 7.0 gm/dl (6.0-8.3)
[2025-07-29 21:00] LABS: Influenza A virus by PCR Negative (Neg); Influenza B virus by PCR Negative (Neg); SARS CoV2 RNA(COVID-19) Ceph NEGATIVE (Negative)
[2025-07-29] MEDS: POTASSIUM CHLORIDE 10 MEQ TABCR PO STA (21:13)
--- NOTE | 2025-07-29 21:13 | XRay Report ---
Exam(s): XR CXR 1 VIEW EXAM: XR Chest, 1 View CLINICAL HISTORY: Chest pain, nonspecific. TECHNIQUE: Frontal view of the chest. COMPARISON: XR Chest dated 07/24/2025 FINDINGS: Lungs: No definite focal airspace consolidation, accounting for overlying soft tissues. The bronchovascular markings are stable without radiographic evidence for florid CHF. Pleural space: No significant abnormality. No pneumothorax. No large pleural effusion. Heart: The cardiac silhouette is within normal limits, accounting for portable lordotic technique and overlying prominent soft tissues. Mediastinum: No significant abnormality identified. The trachea is midline. Bones/joints: No significant abnormality. No acute fracture. IMPRESSION: No definite focal airspace consolidation, accounting for overlying soft tissues. The bronchovascular markings are stable without radiographic evidence for florid CHF. No pleural effusion or pneumothorax. Electronically signed by: Hang Colmenares MD 07/29/25 21:12 PM
[2025-07-29] MEDS: ALBUTEROL 0.083% NEBU SOLN 3 ML VIAL NEB STA (21:18)
--- NOTE | 2025-07-30 01:48 | History & Physical Report ---
Date of Service July 30, 2025 Assessment & Plan (1) Asthma exacerbation: Plan: 60-year-old female with past med history significant for type 2 diabetes, dyslipidemia, asthma moderate persistent, COPD, morbid obesity, GERD, degenerative disc disease, migraine, depression ongoing tobacco abuse says she is currently smoking 1 cigarette a week comes in because of shortness of breath and cough. On July 24, 2025 patient was in the ER and was treated for acute bronchitis and was discharged on doxycycline and prednisone for 5 days but patient says symptoms did not improved. Currently she is coughing and bringing some blood in the sputum. Says she is also having some fevers. Shortness of breath was not getting better. Currently on oxygen she is feeling better. Says she has some mild chest discomfort. No nausea. No abdominal pain. Appetite is okay. Normal bowel and bladder movements. No runny nose or sore throat. Hemodynamics are okay. Asthma/COPD exacerbation Having cough with some blood in the sputum Chest x-ray looks okay D-dimer negative Recently had course of prednisone and doxycycline Was 89% on room air and saturating okay on 2 L Continue with IV steroid 40 mg twice daily, nebs nicvkz-rwm-yeigd and as needed and home inhalers Empiric azithromycin 5 mg p.o. daily for 3 days and IV Rocephin Will monitor the response Chest discomfort Initial EKG and troponin negative Will follow repeat EKG in a.m. and serial cardiac enzymes Will monitor Diabetes Hold home p.o. medications Lantus and sliding scale Glycemic pharmacy consult Morbid obesity Counseling Sleep study as outpatient Nocturnal pulse ox study prior to discharge Hypertension On chlorthalidone, losartan and metoprolol succinate Monitor Hyperlipidemia On statin Depression On Zoloft and trazodone GERD On famotidine and Protonix DVT prophylaxis Heparin subcu Disposition Med/telemetry Full code. History of Present Illness Chief Complaint: Shortness of breath Primary Care Provider: Evaristo Barron MD 60-year-old female with past med history significant for type 2 diabetes, dyslipidemia, asthma moderate persistent, COPD, morbid obesity, GERD, degenerative disc disease, migraine, depression ongoing tobacco abuse says she is currently smoking 1 cigarette a week comes in because of shortness of breath and cough. On July 24, 2025 patient was in the ER and was treated for acute bronchitis and was discharged on doxycycline and prednisone for 5 days but patient says symptoms did not improved. Currently she is coughing and bringing some blood in the sputum. Says she is also having some fevers. Shortness of breath was not getting better. Currently on oxygen she is feeling better. Says she has some mild chest discomfort. No nausea. No abdominal pain. Appetite is okay. Normal bowel and bladder movements. No runny nose or sore throat. Hemodynamics are okay. Past medical history. As mentioned above. Past surgical history. Colonoscopy. Dental surgery. Ligation of oviducts. Social history. Smokes 0.3 pack a day for 45 years. No alcohol use. No drug use. Family history. Mother had breast cancer. Dementia. Diabetes. Rheumatoid arthritis. Paternal aunt had breast cancer. Father had [place]. Rheumatoid arthritis. Allergies Allergy/AdvReac Type Severity Reaction Status Date / Time aspirin Allergy Unknown CONTRAINDICATED Verified 01/17/25 14:35 WITH ASTHMA Home Medications Medication Instructions Recorded Confirmed Type bismuth subsalicylate 262 mg/15 mL 524 mg PO QID PRN .gi-symptoms 10/24/22 07/29/25 History oral suspension (Pepto-Bismol) glucosamine 750 wv-dbflqlhiwdi-ytv 1 tab PO QAM 11/17/24 07/30/25 History no1 644 mg-C 30 mg-khari 1 mg tablet (Osteo Bi-Flex Triple Strength) Bifidobacterium infantis 4 mg 4 mg PO QAM 01/06/25 07/29/25 History capsule Stress Releaf 2 cap PO QAM 01/06/25 07/30/25 History acetaminophen 500 mg tablet 1,000 mg PO TID PRN Pain 01/06/25 07/29/25 History chlorthalidone 25 mg tablet 25 mg PO QAM 01/06/25 07/29/25 History cholecalciferol (vitamin D3) 25 75 mcg PO DAILY 01/06/25 07/29/25 History mcg (1,000 unit) tablet (Vitamin D3) dicyclomine 20 mg tablet 20 mg PO Q6 01/06/25 07/30/25 History famotidine 20 mg tablet 20 mg PO QAM 01/06/25 07/30/25 History gabapentin 300 mg capsule 300 mg PO TID 01/06/25 07/30/25 History hydroxyzine HCl 50 mg tablet 50 mg PO QID PRN Anxiety 01/06/25 07/30/25 History losartan 50 mg tablet 50 mg PO QAM 01/06/25 07/30/25 History metformin 500 mg tablet,extended 1,000 mg PO BIDM 01/06/25 07/30/25 History release 24 hr metoprolol succinate 25 mg 12.5 mg PO QAM 01/06/25 07/30/25 History tablet,extended release 24 hr mometasone-formoterol HFA 100 2 puff inhalation AMHS 01/06/25 07/30/25 History mcg-5 mcg/actuation aerosol inhaler (Dulera) montelukast 10 mg tablet 10 mg PO HS 01/06/25 07/30/25 History goggprja-lujx-whjx 8 mg-folic 400 1 tab PO DAILY 01/06/25 07/29/25 History mcg-K 50 mcg-lutein 300 mcg tablet (Centrum Silver Women) oxybutynin chloride 10 mg 10 mg PO DAILY 01/06/25 07/30/25 History tablet,extended release 24 hr phytonadione (vitamin K1) 100 mcg 100 mcg PO UD 01/06/25 07/30/25 History tablet rosuvastatin 20 mg tablet 20 mg PO DAILY 01/06/25 07/30/25 History sertraline 100 mg tablet 100 mg PO QAM 01/06/25 07/30/25 History sertraline 50 mg tablet 50 mg PO QAM 01/06/25 07/30/25 History trazodone 100 mg tablet 200 mg PO HS 01/06/25 07/30/25 History vitamin A 2,400 mcg capsule 2,400 mcg PO DAILY 01/06/25 07/30/25 History vitamin B complex 1 cap PO QAM 01/06/25 07/30/25 History vitamin E 268 mg (400 unit) capsule 268 mg PO DAILY 01/06/25 07/30/25 History clopidogrel 75 mg tablet 75 mg PO QAM #30 tabs 01/08/25 07/30/25 Rx diclofenac sodium 1 % topical gel 2 g topical QID PRN Right knee 01/08/25 07/29/25 Rx pain #100 grams meloxicam 15 mg tablet 15 mg PO QAM PRN moderate to 01/08/25 07/30/25 Rx severe pain #0 tabs pantoprazole 40 mg tablet,delayed 40 mg PO QAM #30 tabs 01/08/25 07/30/25 Rx release empagliflozin 25 mg tablet 25 mg PO DAILY 07/30/25 07/30/25 History (Jardiance) omega 9-cxd-ueo-fish oil 1,200 mg 1 cap PO QAM 07/30/25 07/30/25 History (144 mg-216 mg) capsule (Fish Oil) Past Med/Surg History Problem List (Updated 07/30/25 @ 03:11 by Aarti Blue) URI (upper respiratory infection) (Acute) Shortness of breath (Acute) Asthma exacerbation (Acute) Hypokalemia (Acute) Acute bronchitis, complicated (Acute) Hyperglycemia (Acute) UTI (urinary tract infection) (Acute) Stroke-like symptom Popliteal cyst (Acute) Leg pain, right (Acute) TIA (transient ischemic attack) (Acute) No significant past surgical history Anxiety (Chronic) Asthma (Chronic) Sepsis Fever (Acute) Tachycardia (Acute) Pneumonia (Acute) Back pain (Chronic) Depression (Chronic) Medical History Acute metabolic encephalopathy Hypomagnesemia Chest pain Stroke-like symptoms Shortness of breath Hypertension Tobacco abuse Dyslipidemia, goal LDL below 70 Chest pain Social History Smoking Status: Current some day smoker Tobacco Type: Cigarettes Cigarettes Per Day: 1 per week; Second Hand Exposure: No; Do You Dip or Chew Tobacco: No; Tobacco Cessation Education Requested by Patient: No Hx Alcohol Use: No Hx Substance Use: No Preferred Language: Belarusian Communication Ability: Effective Grab Hooker Required: No Beliefs That Will Affect Care: None marital status: Unknown Current Living Situation: Family Current Living Situation Comment: lives in an apartment with her daughter Other Information That Helps Us Care for You: No Feels Safe at Home: Yes Safety Concerns: Feels Safe At This Time Assistive Devices: Cane, Denture - Upper, Denture - Lower, Glasses and Walker Review of Systems Review of Systems: All systems reviewed & are unremarkable except as noted in HPI & below Physical Exam Physical Exam: General- Not in distress Head- atraumatic Eyes- PERRL. ENT- oropharynx clear Neck- supple, no JVD. Lungs- clear to auscultation no wheezing or crackles Heart- regular rhythm; no murmur, no gallop, no rub appreciated Abdomen- normal bowel sounds, soft, nontender, no distension Extremities- no pretibial edema, no erythema seen. Neuro- alert, oriented PERRL, no facial palsy; no dysarthria; moves extremities. Results & Data Results & Data Vital Signs (Past 12 Hours) Vital Signs Temp Pulse Pulse Resp BP BP Pulse Ox 07/29/25 23:56 94 H 07/29/25 23:17 102 H 20 129/63 94 07/29/25 21:00 75 20 97/61 L 95 07/29/25 20:42 89 L 07/29/25 20:06 96 07/29/25 20:00 36.8 C 79 16 113/77 96 07/29/25 20:00 07/29/25 19:57 82 O2 Del Method O2 Flow Rate 07/29/25 23:56 07/29/25 23:17 Nasal Cannula 2 07/29/25 21:00 Nasal Cannula 2 07/29/25 20:42 Nasal Cannula 0 07/29/25 20:06 Room Air 07/29/25 20:00 Room Air 07/29/25 20:00 Room Air 07/29/25 19:57 Diagnostic Findings Laboratory Results WBC 11.81 K/ul (4.8-10.8) H 07/29/25 20:02 RBC 4.67 M/uL (4.20-5.40) 07/29/25 20:02 Hgb 13.3 g/dL (12.0-16.0) 07/29/25 20:02 Hct 41.7 % (37.0-47.0) 07/29/25 20:02 MCV 89.3 fL (80.0-100.0) 07/29/25 20:02 MCH 28.5 pg (25.0-34.0) 07/29/25 20:02 MCHC 31.9 g/dL (32.0-36.0) L 07/29/25 20:02 RDW Std Deviation 43.8 fL (36.4-46.3) 07/29/25 20:02 RDW Coeff of [place] 13.6 % (11.5-14.5) 07/29/25 20:02 Plt Count 157 K/uL (130-400) 07/29/25 20:02 MPV 9.8 fL (9.4-12.4) 07/29/25 20:02 Immature Gran % (Auto) 0.5 % 07/29/25 20:02 Neut % (Auto) 72.3 % 07/29/25 20:02 Lymph % (Auto) 20.4 % 07/29/25 20:02 [place] % (Auto) 5.2 % 07/29/25 20:02 Eos % (Auto) 1.3 % 07/29/25 20:02 Baso % (Auto) 0.3 % 07/29/25 20:02 Neut # (Auto) 8.54 K/uL (1.40-6.50) H 07/29/25 20:02 Lymph # (Auto) 2.41 K/uL (1.20-3.40) 07/29/25 20:02 [place] # (Auto) 0.61 K/uL (0.11-0.59) H 07/29/25 20:02 Eos # (Auto) 0.15 K/uL (0.00-0.50) 07/29/25 20:02 Baso # (Auto) 0.04 K/uL (0.00-0.20) 07/29/25 20:02 Immature Gran # (Auto) 0.06 K/uL (0.01-0.20) 07/29/25 20:02 D-Dimer 310 ug/L FEU (0-500) 07/29/25 20:02 Sodium 137 mmol/L (136-145) 07/29/25 20:02 Potassium 3.2 mmol/L (3.5-5.1) L 07/29/25 20:02 Chloride 99 mmol/L (98-107) 07/29/25 20:02 Carbon Dioxide 28 mmol/L (21-32) 07/29/25 20:02 Anion Gap 10 (3-11) 07/29/25 20:02 BUN 21 mg/dl (6-23) 07/29/25 20:02 Creatinine 1.00 mg/dl (0.6-1.2) 07/29/25 20:02 Est Cr Clr Drug Dosing 71.3 ml/min 07/29/25 20:02 eGFR 63.70 07/29/25 20:02 BUN/Creatinine Ratio 21.0 (10-20) H 07/29/25 20:02 Glucose 196 mg/dl (70-99(Fasting)) H 07/29/25 20:02 Calcium 9.1 mg/dl (8.6-10.3) 07/29/25 20:02 Total Bilirubin 0.5 mg/dl (0.2-1.0) 07/29/25 20:02 AST 17 U/L (13-39) 07/29/25 20:02 ALT 17 U/L (7-52) 07/29/25 20:02 Alkaline Phosphatase 72 U/L (34-104) 07/29/25 20:02 Troponin I High Sens 8.5 pg/ml (0-14) 07/29/25 20:02 Total Protein 7.0 gm/dl (6.0-8.3) 07/29/25 20:02 Albumin 3.8 gm/dl (3.4-5.0) 07/29/25 20:02 Globulin 3.2 gm/dl (2.5-4.0) 07/29/25 20:02 Albumin/Globulin Ratio 1.2 (0.9-2) 07/29/25 20:02 Lipase 15 U/L (11-82) 07/29/25 20:02 SARS-CoV-2 (PCR) NEGATIVE (Negative) 07/29/25 20:00 Influenza Type A (PCR) Negative (Neg) 07/29/25 20:00 Influenza Type B (PCR) Negative (Neg) 07/29/25 20:00 RSV (RT-PCR) Negative (Neg) 07/29/25 20:00 Impressions Chest X-Ray 07/29/25 20:05 Exam(s): XR CXR 1 VIEW EXAM: XR Chest, 1 View CLINICAL HISTORY: Chest pain, nonspecific. TECHNIQUE: Frontal view of the chest. COMPARISON: XR Chest dated 07/24/2025 FINDINGS: Lungs: No definite focal airspace consolidation, accounting for overlying soft tissues. The bronchovascular markings are stable without radiographic evidence for florid CHF. Pleural space: No significant abnormality. No pneumothorax. No large pleural effusion. Heart: The cardiac silhouette is within normal limits, accounting for portable lordotic technique and overlying prominent soft tissues. Mediastinum: No significant abnormality identified. The trachea is midline. Bones/joints: No significant abnormality. No acute fracture. IMPRESSION: No definite focal airspace consolidation, accounting for overlying soft tissues. The bronchovascular markings are stable without radiographic evidence for florid CHF. No pleural effusion or pneumothorax. Electronically signed by: Hang Colmenares MD 07/29/25 21:12 PM ECG Additional Comments: ECG. Normal sinus rhythm with sinus arrhythmia rate of 78. Left axis deviation. QTc 478 Code Status & VTE Plan VTE Prophylaxis Plan VTE Prophylaxis will be ordered: Yes (1) Asthma exacerbation Asthma persistence: unspecified Asthma severity: unspecified severity Qualified Code(s): J45.901 - Unspecified asthma with (acute) exacerbation
[2025-07-30] MEDS ORDERED: ALBUT/IPRATROP 3MG/0.5MG NEB 3 ML VIAL NEB PRN (03:15)
[2025-07-30] MEDS ORDERED: POLYETHYLENE (MIRALAX) 17 GM PACK PO PRN (03:15)
[2025-07-30] MEDS ORDERED: GLUCOSE 10 TAB/TUBE PO PRN (03:15)
[2025-07-30] MEDS ORDERED: NITROGLYCERIN SL 0.4 MG/TAB TAB SL PRN (03:15)
[2025-07-30] MEDS ORDERED: DEXTROSE 50% 50 ML SYRINGE IV PRN (03:15)
[2025-07-30] MEDS ORDERED: GLUCOSE 40% GEL 15 GM TUBE PO PRN (03:15)
[2025-07-30] MEDS ORDERED: CARBOHYDRATES FOR HYPOGLYCEMIA PO PRN (03:15)
[2025-07-30] MEDS ORDERED: PHARMACY GLYCEMIC MGMT CONSULT PRN (03:15)
[2025-07-30] MEDS ORDERED: DICLOFENAC SOD 1% GEL 100 GM TUBE EXT PRN (03:15)
[2025-07-30] MEDS ORDERED: GLUCAGON FOR INJ 1 MG VIAL SQ PRN (03:15)
[2025-07-30] MEDS ORDERED: BISMUTH SUBSALICYLATE 262 MG CHEW PO PRN (03:37)
[2025-07-30] MEDS ORDERED: INFLUENZA VACC TS2025-26(6m+)/PF (IIV3) 0.5mL Syr IM ONE (04:24)
[2025-07-30] MEDS: DICYCLOMINE HCL 20 MG TAB PO SCH (04:49)
[2025-07-30] MEDS: cefTRIAXone SODIUM 2,000 MG/50 ML BAG IV SCH (04:49)
[2025-07-30] MEDS: ALBUT/IPRATROP 3MG/0.5MG NEB 3 ML VIAL NEB SCH (07:19)
[2025-07-30 07:33] LABS: Hematocrit (blood only) 44.1 % (37.0-47.0); Hemoglobin 14.7 g/dL (12.0-16.0); Immature Granulocytes # (auto) 0.07 K/uL (0.01-0.20); Immature Granulocytes % (auto) 0.5 %; Mean Corpuscular Hemoglobin 29.9 pg (25.0-34.0); Mean Corpuscular Volume 89.8 fL (80.0-100.0); Platelet Count 203 K/uL (130-400); RDW Standard Deviation 43.2 fL (36.4-46.3); Red Blood Count 4.91 M/uL (4.20-5.40); White Blood Count 12.91 K/ul (4.8-10.8)
[2025-07-30 07:59] LABS: Anion Gap 11.0 (3-11); Blood Urea Nitrogen 23.0 mg/dl (6-23); Calcium 10.0 mg/dl (8.6-10.3); Carbon Dioxide 30.0 mmol/L (21-32); Chloride 96.0 mmol/L (98-107); Creatinine Clr Calc Pharmacy 71.2 ml/min; Glucose 236.0 mg/dl (70-99(Fasting)); Magnesium 2.2 mg/dl (1.7-2.4); Potassium 4.1 mmol/L (3.5-5.1); Sodium 137.0 mmol/L (136-145)
[2025-07-30 08:08] LABS: Hemoglobin A1C 8.7 % (4.5-5.6)
[2025-07-30] MEDS: FLUTICASONE/VILANTEROL 100/25MCG 14 PUFFS/INHALER INH SCH (08:42)
[2025-07-30] MEDS: VITAMIN B COMPLEX TAB PO SCH (08:42)
[2025-07-30] MEDS: CHOLECALCIFEROL 25 MCG (1000 UNITS) TAB PO SCH (08:43)
[2025-07-30] MEDS: CEROVITE ADV FORMULA TAB PO SCH (08:43)
[2025-07-30] MEDS: CLOPIDOGREL BISULFATE 75 MG TAB PO SCH (08:43)
[2025-07-30] MEDS: AZITHROMYCIN 250 MG TAB PO SCH (08:43)
[2025-07-30] MEDS: METOPROLOL SUCC 25MG EXT REL TAB PO SCH (08:44)
[2025-07-30] MEDS: GABAPENTIN 300 MG CAP PO SCH (08:44)
[2025-07-30] MEDS: LOSARTAN POTASSIUM 50 MG TAB PO SCH (08:44)
[2025-07-30] MEDS: ROSUVASTATIN CALCIUM 20 MG TAB PO SCH (08:44)
[2025-07-30] MEDS: CHLORTHALIDONE 25 MG TAB PO SCH (08:45)
[2025-07-30] MEDS: FAMOTIDINE 20 MG TAB PO SCH (08:45)
[2025-07-30] MEDS: SERTRALINE HCL 100 MG TABLET PO SCH (08:46)
[2025-07-30] MEDS: HEPARIN SOD 5,000 UNIT/0.5 ML VIAL SQ SCH (08:47)
[2025-07-30] MEDS: SERTRALINE HCL 50 MG TABLET PO SCH (08:48)
[2025-07-30] MEDS ORDERED: LANTUS PER UNIT CHARGE SQ SCH (09:00)
[2025-07-30] MEDS ORDERED: NON-FORMULARY MEDICATION (Glucosam-Chon-Msm1-C-Mang-Bosw [Osteo Bi-Flex Triple Strength] 7 PO SCH (09:00)
[2025-07-30] MEDS: LANTUS PER UNIT CHARGE SC ONE (09:06)
[2025-07-30] MEDS: INSULIN ASPART PER UNIT CHARGE SC SCH (09:08)
[2025-07-30 10:53] VITALS: RESP 18
[2025-07-30 11:30] VITALS: BP 117/84; TEMP 98.4
[2025-07-30] MEDS: ACETAMINOPHEN 325 MG TAB PO PRN (13:24)
[2025-07-30] MEDS: OXYBUTYNIN CHLORIDE XL 5 MG TABCR PO SCH (13:24)
--- NOTE | 2025-07-30 13:29 | Pharmacy Report ---
Pharmacy Glycemic Short Note 2 - Date of Service July 30, 2025 - Glycemic Short BSG Results (Last 24 hours): 07/29/25 07/30/25 07/30/25 20:02 07:01 08:34 Glucose 196 H 236 H POC Glucose 194 H 07/30/25 12:08 Glucose POC Glucose 212 H OUTPATIENT ANTIDIABETIC REGIMEN: * Jardiance 25mg PO daily * metformin ER 1000mg PO BID HbA1c: 8.7% on 07/30/25 ASSESSMENT: * Lidya is a 60 year old female who was admitted last evening for an acute asthma/COPD exacerbation. Pharmacy has been consulted for glycemic management while she is admitted. * Fasting BSG was 194mg/dL this morning. Patient was started on methylprednisolone 40mg iv BID. Lantus 10 units SQ x 1 was ordered for this morning a Lantus scale (0,5, or 10 units) was added for HS. * A weight based bolus insulin regimen with a stress of 2 was added. PLAN FOR INPATIENT GLYCEMIC CONTROL: * Hold outpatient oral diabetes medications * Basal insulin * Lantus 10 units SQ x 1 and Lantus scale (0, 5 or 10 units depending on BSG) at HS * Bolus insulin * NovoLog per scale ACHS or Q6hrs while NPO * Goal Range: Low 110 mg/dL - High 140 mg/dL * Correction Factor: 20 mg/dL/unit * Nutritional / Prandial insulin per carb ratio of 1 unit per 7 grams CHO consumed
--- NOTE | 2025-07-30 13:58 | Electrocardiogram Report ---
Test Reason : Blood Pressure : */* mmHG Vent. Rate : 78 BPM Atrial Rate : 78 BPM P-R Int : 146 ms QRS Dur : 96 ms QT Int : 420 ms P-R-T Axes : 25 -42 5 degrees QTcB Int : 478 ms Normal sinus rhythm with sinus arrhythmia Left axis deviation Possible Anterior infarct (cited on or before 17-Nov-2024) Abnormal ECG When compared with ECG of 24-Jul-2025 11:28, Questionable change in initial forces of Lateral leads Confirmed by Meet Walls ([id number]) on 07/30/2025 1:57:53 PM Referred By: REFERRED SELF Confirmed By: Meet Walls
--- NOTE | 2025-07-30 14:03 | Electrocardiogram Report ---
Test Reason : Blood Pressure : */* mmHG Vent. Rate : 66 BPM Atrial Rate : 66 BPM P-R Int : 156 ms QRS Dur : 98 ms QT Int : 442 ms P-R-T Axes : 28 -40 0 degrees QTcB Int : 463 ms Sinus rhythm with marked sinus arrhythmia Left axis deviation Cannot rule out Anterior infarct (cited on or before 17-Nov-2024) Abnormal ECG When compared with ECG of 29-Jul-2025 19:57, (unconfirmed) Questionable change in initial forces of Anterolateral leads Confirmed by Meet Walls ([id number]) on 07/30/2025 2:03:04 PM Referred By: REFERRED SELF Confirmed By: Meet Walls
[2025-07-30 14:46] VITALS: O2SAT 96
[2025-07-30 15:18] VITALS: PULSE 85
--- NOTE | 2025-07-30 17:15 | Discharge Summary ---
Discharge Summary Date of Service July 30, 2025 Principal Dx & Hospital Course #1 = Principal Diagnosis (1) COPD exacerbation: Plan Ms. Hutchinson is a 60-year-old female with past med history significant for type 2 diabetes, dyslipidemia, asthma moderate persistent, COPD, morbid obesity, GERD, degenerative disc disease, migraine, depression ongoing tobacco abuse says she is currently smoking 1 cigarette a week admitted for SOB and cough and treated for a COPD exacerbation. Patient reports significant improvement with nebs and inhalers. Patient was on room air. Patient concerned about insurance. Given patient was on room air and CTABL, decision was made to send patient home on azithromycin and prednisone. Patient denies any further hemoptysis. On day of discharge, patient was ambulatory and independent. #Asthma/COPD exacerbation Having cough with some blood in the sputum Chest x-ray looks okay D-dimer negative Recently had course of prednisone and doxycycline Was 89% on room air and saturating okay on 2 L transition to po azithromycin and prednisone #Chest discomfort resolved Initial EKG and troponin negative #Diabetes resume home regimen #Morbid obesity Counseling, outpatient sleep study #Hypertension On chlorthalidone, losartan and metoprolol succinate #Hyperlipidemia On statin #Depression On Zoloft and trazodone #GERD On famotidine and Protonix Notes For Next Care Provider Medication Changes From Visit prednisone 40mg x 5 days azithromycin 500mg x 5 days Admission HPI Per Admitting Provider 60-year-old female with past med history significant for type 2 diabetes, dyslipidemia, asthma moderate persistent, COPD, morbid obesity, GERD, de generative disc disease, migraine, depression ongoing tobacco abuse says she is currently smoking 1 cigarette a week comes in because of shortness of breath and cough. On July 24, 2025 patient was in the ER and was treated for acute bronchitis and was discharged on doxycycline and prednisone for 5 days but patient says symptoms did not improved. Currently she is coughing and bringing some blood in the sputum. Says she is also having some fevers. Shortness of breath was not getting better. Currently on oxygen she is feeling better. Says she has some mild chest discomfort. No nausea. No abdominal pain. Appetite is okay. Normal bowel and bladder movements. No runny nose or sore throat. Hemodynamics are okay. Past medical history. As mentioned above. Past surgical history. Colonoscopy. Dental surgery. Ligation of oviducts. Social history. Smokes 0.3 pack a day for 45 years. No alcohol use. No drug use. Family history. Mother had breast cancer. Dementia. Diabetes. Rheumatoid arthritis. Paternal aunt had breast cancer. Father had [place]. Rheumatoid arthritis. Admission Exam Per Admitting Provider General- Not in distress Head- atraumatic Eyes- PERRL. ENT- oropharynx clear Neck- supple, no JVD. Lungs- clear to auscultation no wheezing or crackles Heart- regular rhythm; no murmur, no gallop, no rub appreciated Abdomen- normal bowel sounds, soft, nontender, no distension Extremities- no pretibial edema, no erythema seen. Neuro- alert, oriented PERRL, no facial palsy; no dysarthria; moves extremities. Discharge Exam Constitutional WD/WN, vitals as above Respiratory normal respiratory effort, lungs clear to auscultation Cardiovascular RRR, no murmur, no edema Gastrointestinal (Abdomen) normal bowel sounds, soft, nontender, no hepatosplenomegaly Updated Medication List Medication Instructions Recorded Confirmed Type bismuth subsalicylate 262 mg/15 mL 524 mg PO QID PRN .gi-symptoms 10/24/22 07/29/25 History oral suspension (Pepto-Bismol) glucosamine 750 bc-fpfjdlvmuis-ggy 1 tab PO QAM 11/17/24 07/30/25 History no1 644 mg-C 30 mg-khari 1 mg tablet (Osteo Bi-Flex Triple Strength) Bifidobacterium infantis 4 mg 4 mg PO QAM 01/06/25 07/29/25 History capsule Stress Releaf 2 cap PO QAM 01/06/25 07/30/25 History acetaminophen 500 mg tablet 1,000 mg PO TID PRN Pain 01/06/25 07/29/25 History chlorthalidone 25 mg tablet 25 mg PO QAM 01/06/25 07/29/25 History cholecalciferol (vitamin D3) 25 75 mcg PO DAILY 01/06/25 07/29/25 History mcg (1,000 unit) tablet (Vitamin D3) dicyclomine 20 mg tablet 20 mg PO Q6 01/06/25 07/30/25 History famotidine 20 mg tablet 20 mg PO QAM 01/06/25 07/30/25 History gabapentin 300 mg capsule 300 mg PO TID 01/06/25 07/30/25 History hydroxyzine HCl 50 mg tablet 50 mg PO QID PRN Anxiety 01/06/25 07/30/25 History losartan 50 mg tablet 50 mg PO QAM 01/06/25 07/30/25 History metformin 500 mg tablet,extended 1,000 mg PO BIDM 01/06/25 07/30/25 History release 24 hr metoprolol succinate 25 mg 12.5 mg PO QAM 01/06/25 07/30/25 History tablet,extended release 24 hr mometasone-formoterol HFA 100 2 puff inhalation AMHS 01/06/25 07/30/25 History mcg-5 mcg/actuation aerosol inhaler (Dulera) montelukast 10 mg tablet 10 mg PO HS 01/06/25 07/30/25 History rnuafgzl-alvd-vxhs 8 mg-folic 400 1 tab PO DAILY 01/06/25 07/29/25 History mcg-K 50 mcg-lutein 300 mcg tablet (Centrum Silver Women) oxybutynin chloride 10 mg 10 mg PO DAILY 01/06/25 07/30/25 History tablet,extended release 24 hr phytonadione (vitamin K1) 100 mcg 100 mcg PO UD 01/06/25 07/30/25 History tablet rosuvastatin 20 mg tablet 20 mg PO DAILY 01/06/25 07/30/25 History sertraline 100 mg tablet 100 mg PO QAM 01/06/25 07/30/25 History sertraline 50 mg tablet 50 mg PO QAM 01/06/25 07/30/25 History trazodone 100 mg tablet 200 mg PO HS 01/06/25 07/30/25 History vitamin A 2,400 mcg capsule 2,400 mcg PO DAILY 01/06/25 07/30/25 History vitamin B complex 1 cap PO QAM 01/06/25 07/30/25 History vitamin E 268 mg (400 unit) capsule 268 mg PO DAILY 01/06/25 07/30/25 History clopidogrel 75 mg tablet 75 mg PO QAM #30 tabs 01/08/25 07/30/25 Rx diclofenac sodium 1 % topical gel 2 g topical QID PRN Right knee 01/08/25 07/29/25 Rx pain #100 grams meloxicam 15 mg tablet 15 mg PO QAM PRN moderate to 01/08/25 07/30/25 Rx severe pain #0 tabs pantoprazole 40 mg tablet,delayed 40 mg PO QAM #30 tabs 01/08/25 07/30/25 Rx release azithromycin 250 mg tablet 500 mg (2 x 250 mg) PO QAM 5 days 07/30/25 Rx #10 tabs empagliflozin 25 mg tablet 25 mg PO DAILY 07/30/25 07/30/25 History (Jardiance) omega 1-gzl-ool-fish oil 1,200 mg 1 cap PO QAM 07/30/25 07/30/25 History (144 mg-216 mg) capsule (Fish Oil) prednisone 20 mg tablet 40 mg (2 x 20 mg) PO DAILY 5 days 07/30/25 Rx #10 tabs Hospital Stay Data Consultations 07/29/25 21:12 ED Decision to Admit Stat Pending Results Patient Have Any Pending Studies at Discharge: No Discharge Instructions Given to Patient (Per Discharging Provider) You were admitted for a COPD exacerbation You were started on steriods and an antibiotic You will continue 40mg prednisone daily (2 tablets) until course completed You will continue azithromycin 500mg daily until course completed Your next dose for both of these medications is tomorrow morning Total Time Total Time Spent Total Time Spent (In Minutes): 45
[2025-07-30] MEDS ORDERED: MONTELUKAST SODIUM 10 MG TABLET PO SCH (21:00)
[2025-07-30] MEDS ORDERED: LANTUS PER UNIT CHARGE SC SCH (21:00)
== END 2025-07-30 15:44 | disposition home or self-care (01) | DRG 191 ==
LOC: ED 19:51 → 2W 07-30 01:31